=== PATIENT | male | born 1965 | race Caucasian/White ===

== ENCOUNTER 2025-09-20 11:14 | Emergency (ER) | payer MEDICAID, SELFPAY ==
--- OUTSIDE RECORDS SUMMARY | 2025-07-25 09:30 | XMS_ITS | Encounter Summary ---
Author Organization [place] [address] Care Team Providers Care Imaging Aide Name Role Phone No Pcp, Per Patient Primary Care Provider Jennifer brian Reason for Visit * Reason Comments Diabetes Encounter Details Date Type Department Care Team (Latest Contact Info) Description 07/25/2025 10:30 AM EDT Office Visit [facility] [address] [place] [address] Lauryn Moore, DP [address] [place], [place] [id number] History of transmetatarsal amputation of left foot (HCC) (Primary Dx); Diabetic polyneuropathy associated with type 2 diabetes mellitus (HCC); Acquired hammer toe of right foot Social History Tobacco Use Types Packs/Day Years Used Date Smoking Tobacco: Former Cigarettes 0.3 4 0 11/16/1986 - 11/16/1990 Passive Smoke Exposure: Never Smokeless Tobacco: Never Alcohol Use Standard Drinks/Week Comments Not Currently 4 (1 standard drink = 0.6 oz pure alcohol) Sober for 20 years until May 2022 [facility] Utilities Answer Date Recorded In the past 12 months has [employer] electric, gas, oil, or water company threatened to shut off services in your home? No 06/22/2025 Overall Financial Resource Strain (CARDIA) Answe r Date Recorded How hard is it for you to pa y for the very basics like food, housing, medical care, and heating? Somewhat hard 06/22/2025 PHQ-2 Answer Date Recorded PHQ-2 Total Score 5 07/26/2025 [facility] [place] of Occupat ional Health - Occupational Stress Questionnaire Answer Date Recorded Do you feel stress - tense, restless, nervous, or anxious, or unable to sleep at night because your mind is troubled all the time - these days? Only a little 06/22/2025 Exercise Vital Sign Answer Date Recorde d On average, how many days pe r week do you engage in moderate to strenuous exercise (like a brisk walk)? 0 days 06/22/2025 On average, how many minutes do you engage in exercise at this level? 0 min 06/22/2025 Hunger Vital Sign Answer Date Recorded Within the past 12 months, y ou worried that your food would run out before you got the money to buy more. Never true 06/22/20 25 Within the past 12 months, t he food you bought just didn't last and you didn't have money to get more. Never true 06/22/2025 PRAPARE - Transportation Answer Date Re corded In the past 12 months, has l ack of transportation kept you from medical appointments or from getting medications? No 10/17 In the past 12 months, has l ack of transportation kept you from meetings, work, or from getting things needed for daily living? No 11/10/2023 [facility] IP Transportation Answer D ate Recorded In the past 12 months, has l ack of reliable transportation kept you from medical appointments, meetings, work or from getting things needed for daily living? No 06/22/2025 Sexually Active Control Partners Comments Yes Female Sex and Gender Information Value Date Recorded Sex Assigned at Not on file Legal Sex Male 10:22 PM EDT Gender Identity Not on file Sexual Orientation Not on file Occupation Industry Job Start Date Job End Date Not on file Not on file Not on file Not on file documented as of this encounter Last Filed Vital Signs Vital Sign Reading Time Taken Comments Blood Pressure - - Pulse - - Temperature 35.7 C (96.3 F) 07/25/2025 10:33 AM EDT Respiratory Rate - - Oxygen Saturation - - Inhaled Oxygen Concentration - - Weight 114.3 kg (252 lb) 07/25/2025 10:33 AM EDT Height 185.4 cm (6' 1 ) 07/25/2025 10:33 AM EDT Body Mass Index 33.25 07/25/2025 10:33 AM EDT documented in this encounter Functional Status * Is the person deaf or does he/she have serious difficulty hearing? Answer Date of Assessment Author No 10/18/2023 11:50 AM Mckayla Pelaez RN * Is the person blind or does he/she have serious difficulty seeing even when wearing glasses? Answer Date of Assessment Author No 10/18/2023 11:50 AM Mckayla Pelaez RN * Does this person have serious difficulty walking or climbing stairs? Answer Date of Assessment Author Yes 10/18/2023 11:50 AM Mckayla Pelaez RN * Does this person have difficulty dressing or bathing? Answer Date of Assessment Author Yes 10/18/2023 11:50 AM Mckayla Pelaez RN * Because of a physical, mental or emotional condition, does this person have difficulty doing errands alone such as visiting a doctor's office or shopping? Answer Date of Assessment Author Yes 10/18/2023 11:50 AM Mckayla Pelaez RN * PHQ-2 Total Score Answer Date of Assessment Author 5 07/26/2025 9:00 AM Evelin Goldman MA * PHQ-9 Total Score Answer Date of Assessment Author 22 07/26/2025 9:00 AM Evelin Goldman MA * Question Answer Date of Assessment Author Little interest or pleasure in doing things 2 07/26/2025 9:00 AM Annie Goldman M A Feeling down, depressed, or hopeless 3 07/17 9:00 AM Annie Goldman MA Trouble falling or staying a sleep, or sleeping too much 3 07/26/2025 9:00 AM Annie Goldman MA Feeling tired or having nenita le energy 2 07/26/2025 9:00 AM Annie Goldman M A Poor appetite or overeating 3 07/26/2025 9: 00 AM Annie Goldman MA Feeling bad about yourself - or that you are a failure or have let yourself or your family down 2 07/26/2025 9:00 AM Nigel Goldman MA Trouble concentrating on thi ngs, such as reading the newspaper or watching television 3 07/26/2025 9:00 AM Annie Goldman M A Moving or speaking so slowly that other people could have noticed. Or the opposite - being so fidgety or restless that you have been moving around a lot more than usual 1 07/26/2025 9:00 AM Nigel Goldman MA Thoughts that you would be b jayla off , or of hurting yourself in some way 3 07/26/2025 9:00 AM Annie Goldman M A * PHQ-2 Total Score Answer Date of Assessment Author 5 07/26/2025 9:00 AM Evelin Goldman MA documented as of this encounter Mental Status * Because of a physical, mental or emotional condition, does this person have serious difficulty concentrating, remembering or making decisions? Answer Entry Date Author No 10/18/2023 11:50 AM Mckayla Pelaez RN documented in this encounter Progress Notes * Lauryn Moore DPM - 07/25/2025 10:30 AM EDTAssociated Problem(s): Diabetic polyneuropathy associated with type 2 diabetes mellitus (HCC) I reviewed the causes and effects of diabetic neuropathy with the patient. I discussed with Hermelindo Gunn the potential complications to include but not limited to neuropathic ulcerations, chronic neurologic pain, burning symptoms, loss or diminished sensation to hands and feet and the possible loss of balance from the disease process. I also discussed the importance of maintaining strict control of the diabetes to prevent such complications. The patient verbalized understanding of my recommendations. Discussed strict glucose control, HgA1c 11.6 * Lauryn Moore DPM - 07/25/2025 10:30 AM EDT [facility] Podiatric Surgery Outpatient Progress Note Chief Complaint: Chief Complaint Patient presents with Diabetes History of Present Illness The patient is a 60-year-old diabetic male presenting for a foot check. He reports sharp, stinging sensations in his right foot. He has not used diabetic shoes or inserts previously. His feet generally heal well. He has not had any new ulcerations or issues since his last visit. Medications: Outpatient Medications Marked as Taking for the 07/25/25 encounter (Office Visit) with Lauryn Moore DPM Medication Sig Dispense Refill [DISCONTINUED] acetaminophen (TYLENOL) 500 mg Oral Tablet Take 2 Tablets by mouth every 8 hours as needed for Pain. 30 Tablet 0 [DISCONTINUED] amLODIPine (NORVASC) 10 mg Oral Tablet Take 1 Tablet by mouth daily. 30 Tablet 0 [DISCONTINUED] aspirin 81 mg Oral Tablet, Delayed Release (E.C.) Take 1 Tablet by mouth daily (withbreakfast). 90 Tablet 3 [DISCONTINUED] atorvastatin (LIPITOR) 20 mg Oral Tablet Take 1 Tablet by mouth daily. 30 Tablet 0 [DISCONTINUED] Blood Pressure Monitor [facility] Kit 1 Units by [facility].(Non-Drug; Combo Route) route daily.1 Kit 0 [DISCONTINUED] Blood Sugar Diagnostic (ACCU-CHEK GUIDE TEST STRIPS) [facility] Strip 1 Strip by [facility].(Non-Drug; Combo Route) route 3 times daily. E11.9 300 Each 3 [DISCONTINUED] Blood-Glucose Meter [facility] Kit Check glucose TID QAC + QHS 1 Kit 0 [DISCONTINUED] Blood-Glucose Transmitter (DEXCOM G6 TRANSMITTER) [facility] Device 1 Each by [facility].(Non-Drug; Combo Route) route Every 90 Days. use transmitter to check blood glucose daily, replace every 3 months (Patient not taking: Reported on 07/26/2025) 1 Each 4 [DISCONTINUED] DEXCOM G6 MANAGEMENT INTER[employer] [facility] 1 Device by [facility].(Non-Drug; Combo Route) route continuous. use lay ups assembler to check blood glucose daily (Patient not taking: Reported on 07/26/2025) 1 Each 0 [DISCONTINUED] DEXCOM G6 SENSOR [facility] Device USE DIRECTED (Patient not taking: Reported on 07/26/2025) 3 Each 0 [DISCONTINUED] DULoxetine (CYMBALTA) 60 mg Oral Capsule, Delayed Release(E.C.) Take 1 Capsule by mouth 2 times daily. 60 Capsule 0 [DISCONTINUED] empagliflozin (JARDIANCE) 25 mg Oral Tablet Take 1 Tablet by mouth daily. 30 Tablet 0 [DISCONTINUED] folic acid (FOLVITE) 1 mg Oral Tablet Take 1 Tablet by mouth daily. Take 1 tablet bymouth once daily 30 Tablet 0 [DISCONTINUED] hydrOXYzine (ATARAX) 25 mg Oral Tablet Take 1 Tablet by mouth 3 times daily as needed. for anxiety 30 Tablet 0 [DISCONTINUED] insulin aspart U-100 (NOVOLOG) 100 unit/mL (3 mL) SubQ Insulin Pen Subcutaneous (Inject under the skin) 10 Units 3 times daily (before meals). 9 mL 0 [DISCONTINUED] insulin detemir U-100 (LEVEMIR FLEXPEN) 100 unit/mL (3 mL) SubQ Insulin Pen Subcutaneous (Inject under the skin) 45 Units every evening. INJECT 50 UNITS SUBCUTANEOUSLY EVERY MORNING AND 70 UNITS EVERY EVENING. 15 mL 0 [DISCONTINUED] insulin glargine-yfgn 100 unit/mL (3 mL) SubQ Insulin Pen Inject 45 Units under the skin nightly. [DISCONTINUED] Insulin Hughes, Disposable, (BD ULTRA-FINE MINI PEN NEEDLE) 31 gauge x 3/16 [facility] Needle Use pen needle to administer insulin from pens as directed 100 Each 0 [DISCONTINUED] Lancets (ACCU-CHEK SOFTCLIX LANCETS) [facility] USE DIRECTED E11.9 300 Each 5 [DISCONTINUED] losartan (COZAAR) 100 mg Oral Tablet Take 1 Tablet by mouth daily. 30 Tablet 0 [DISCONTINUED] metFORMIN (GLUCOPHAGE XR) 750 mg Oral ER 24 hr tablet Take 1 Tablet by mouth daily (with breakfast). 30 Tablet 0 [DISCONTINUED] methocarbamoL (ROBAXIN) 750 mg Oral Tablet Take 1 Tablet by mouth 3 times daily as needed. 90 Tablet 2 [DISCONTINUED] metoprolol succinate (TOPROL-XL) 200 mg Oral Tablet Sustained Release 24 hr Take 1 Tablet by mouth daily. 30 Tablet 0 [DISCONTINUED] oxyCODONE (ROXICODONE) 5 mg Oral Tablet Take 1 Tablet by mouth every 6 hours as needed for Acute Pain (R52). 8 Tablet 0 [DISCONTINUED] pantoprazole (PROTONIX) 40 mg Oral Tablet, Delayed Release (E.C.) Take 1 Tablet by mouth daily. 90 Tablet 1 pregabalin (LYRICA) 150 mg Oral Capsule Take 150 mg by mouth every 8 hours. 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 Sleep apnea Urinary incontinence 11/09/17 Past Surgical History: Procedure Laterality Date ACHILLES TENDON SURGERY Left 10/09/2023 Surgeon: Adrian Lazo DPM; Location: [facility]; Service: Podiatry AMPUTATION 10/08 FOOT SURGERY Left 10/06/2023 Left transmetatarsal amputation; Surgeon: Jose Angel Mills DPM; Location: [facility]; Service: Orthopedics FOOT SURGERY Left 11/12/2023 left foot incision and drainage with bone biopsy; Surgeon: Adrian Lazo DPM; Location: [facility]; Service: Podiatry FOOT SURGERY Left 11/15/2023 left foot debridement and delayed primary closure; Surgeon: Keshawn Barlow DPM; Location: [facility]; Service: Podiatry TOE AMPUTATION Left 12/12/2021 PARTIAL AMPUTATION OF LEFT SECOND TOE; Surgeon: Adrian Lazo DPM; Location: [facility]; Service: Podiatry TOE AMPUTATION Left 10/02/2023 Left third toe amputation with incision and drainage soft tissue and bone left foot; Surgeon: Jose Angel Mills DPM; Location: [facility]; Service: Podiatry TOE AMPUTATION Left 10/09/2023 revision transmetatarsal amputation left foot with percutaneous achilles tendon lengthing; Surgeon:Adrian Lazo DPM; Location: [facility]; Service: Podiatry VASCULAR SURGERY Family History Problem Relation Age of Onset Hypertension Mother Diabetes Mother Heart Disease Mother High Blood Pressure Mother High Blood Pressure Father Diabetes Father High Blood Pressure Brother Hypertension Brother Hypertension Brother Heart Disease Brother Social History: Hermelindo's social history reviewed: Social History Socioeconomic History Marital status: Spouse name: None Number of children: None Years of education: None Highest education level: None Occupational History Comment: 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 Tobacco Use Smoking status: Former Current packs/day: 0.00 Average packs/day: 0.3 packs/day for 4.0 years (1.0 ttl pk-yrs) Types: Cigarettes Start date: 11/16/1986 Quit date: 11/16/1990 Years since quittin.7 Passive exposure: Never Smokeless tobacco: Never Vaping Use Vaping status: Never Used Substance and Sexual Activity Alcohol use: Not Currently Alcohol/week: 2.4 oz Types: 4 Cans of beer per week Comment: Sober for 20 years until May 2022 Drug use: No Sexual activity: Yes Partners: Female Social Drivers of Health Financial Resource Strain: Medium Risk (06/22/2025) Overall Financial Resource Strain (CARDIA) Difficulty of Paying Living Expenses: Somewhat hard Food Insecurity: No Food Insecurity (06/22/2025) Hunger Vital Sign Worried About Running Out of Food in the Last Year: Never true Ran Out of Food in the Last Year: Never true Transportation Needs: No Transportation Needs (06/22/2025) [facility] IP Transportation In the past 12 months, has lack of reliable transportation kept you from medical appointments, meetings, work or from getting things needed for daily living?: No Physical Activity: Inactive (06/22/2025) Exercise Vital Sign Days of Exercise per Week: 0 days Minutes of Exercise per Session: 0 min Stress: No Stress Concern Present (06/22/2025) [facility] [place] of Occupational Health - Occupational Stress Questionnaire Feeling of Stress : Only a little Housing Stability: High Risk (10/27/2021) Received from [employer] PRAPARE Survey 1.0 What is your housing situation today?: I do not have housing (staying with others, in a hotel, in ashelter, living Objective: 07/25/2025 Weight: 252 lb (114.3 kg) Height: 6' 1 (185.4 cm) Body mass index is 33.25 kg/m??. Vitals: 07/25/25 1033 Temp: 96.3 ??F (35.7 ??C) Physical Exam General Appearance: Normal Vital signs: Within normal limits Back, Musculoskeletal: Right foot: Bunion, arthritis, limited toe movement Extremities: Toes: Cold Skin: Nails short Other observations: None Vascular: Dorsalis pedis and posterior tibial pulses are palpable bilateral. CFT with the leg elevated was less than 3 seconds bilateral. There is no evidence of ischemic skin changes. Temperature was warm at anterior tibia to cool at the distal digits right. Lymphatic: No popliteal lymphadenopathy noted. Neurological: Patient alert and oriented x 3, with appropriate affect, no anxiety or depression. Coordination WNL to right and left lower extremity. Decreased sharp/dull, vibratory, proprioception, light touch sensation to right and left foot. Dermatological: No open lesions, nails 1-5 right are intact. No edema, erythema, ecchymosis, open lesions, interdigital macerations or signs of infection evident at this time bilaterally. Musculoskeletal: TMA left, contracted digits 2-5 right. Results Lab Results Component Value Date HGBA1C 11.6 (A) 07/26/2025 Assessment & Plan 1. Diabetic foot care - Sharp, stinging pains in the right foot likely due to bunion and arthritis - Toes are cold with limited motion - Prescribe diabetic shoes to manage symptoms and prevent complications Follow-up - Next year for new diabetic shoes Assessment & Plan History of transmetatarsal amputation of left foot (HCC) RX for DM shoes and inserts with TMA filler left Diabetic polyneuropathy associated with type 2 diabetes mellitus (HCC) I reviewed the causes and effects of diabetic neuropathy with the patient. I discussed with Hermelindo Gunn the potential complications to include but not limited to neuropathic ulcerations, chronic neurologic pain, burning symptoms, loss or diminished sensation to hands and feet and the possible loss of balance from the disease process. I also discussed the importance of maintaining strict control of the diabetes to prevent such complications. The patient verbalized understanding of my recommendations. Discussed strict glucose control, HgA1c 11.6 Acquired hammer toe of right foot The provider educated the patient (or legal eligibility services representative) on the use of the ambient listening artificial intelligence tool, Page[employer]. They were informed that this AI tool processes the conversation to generate a clinical note with the expected benefit of improved accuracy while achieving an improved encounter experience for the patient and provider.?The provider explained that the medical information captured by the AI tool including, but not limited to, diagnoses and treatment plan would be protected in accordance with applicable privacy laws and that all diagnoses and treatment decisions would be made by the provider. The provider explained that the note generated will be reviewed bythe provider for accuracy to minimize potential errors.? The patient was given an opportunity to ask questions and opt out of proceeding with the use of the AI tool. After being informed of such information, the patient (or legal eligibility services representative), and each individual in attendance with the patient, verbally consented to the use of the AI tool. documented in this encounter Plan of Treatment Upcoming Encounters Date Type Department Care Team (Late st Contact Info) Description 10/09/2025 10:30 AM EST Office Visit [facility] [address] [place] [id number] Gordo Jordan MD [address] [place] [id number] 02/01/2026 11:00 AM EDT Office Visit [facility] [address] [facility] [address] [place] [address] Belinda Marques OD [address] [place] [address] documented as of this encounter Goals Goal Patient Goal Type Associated Problems Recent Progress Patient-Stated? Author Blood Pressure < 140/90 Blood Pressure 122/84(2024 12:48 PM EDT) No Angel Duffy MD BMI (Calculated) < 30 General 34.4(08/17/20 12:48 PM EDT) No Annie Martinez CCMA Patient to regain strength and endurance with initiation of in home therapy and completion of in home exercises. General No Montserrat Garcia RN Maintain a healthy diet, exercise regularly and maintain an ideal body weight General No Annie Meneses MA Stay Tobacco Free Lifestyle On track( 3:33 PM EDT) No Annie Martinez CCMA Check fasting glucose daily and document Lifestyle On track( 10:51 AM EST) No Radha Moreira RN LDL CALC < 100 Result Component 88(07/26/2025 10:21 AM EDT) No Angel Duffy MD HEMOGLOBIN A1C < 7.0 Result Component 11.6(07/26/20 10:27 AM EDT) No Annie Martienz CCMA Weight < 210 lb (95.255 kg) Weight 260 lb 6.4 oz (118.1 kg)( 5 12:48 PM EDT) No Angel Duffy MD documented as of this encounter Visit Diagnoses Diagnosis History of transmetatarsal amputation of left foot (HCC)- Primary Diabetic polyneuropathy associated with type 2 diabetes mellitus (HCC) Acquired hammer toe of right foot documented in this encounter Additional Health Concerns Assessment Noted Time PHQ-9 Depression Total Score: 2 06/22/20 1:46 PM EDT PHQ-2 Depression Total Score: 2 06/22/20 1:46 PM EDT documented as of this encounter Care Teams Imaging Aide Relationship Specialty Start Date End Date No Pcp, Per Patient PCP - General 06/22/25 07/25/25 documented as of this encounter
--- OUTSIDE RECORDS SUMMARY | 2025-07-26 08:45 | XMS_ITS | Encounter Summary ---
Author [place] [address] Care Team Providers Care Associate Engineer Name Role Phone Gordo Jordan MD Primary Care Prov ider Danielle Monroy RN Unavailable Unavailable Helen Patel Unavailable Unavailable Reason for Referral * Consultation (Routine) - Closed Specialty Diagnoses / Procedures Referred By Contact Referred To Contact Pharmacist - Pharmacotherapy Diagnoses Type 2 diabetes mellitus treated with insulin (HCC) Diabetic polyneuropathy associated with type 2 diabetes mellitus (HCC) Hypertension associated with diabetes (HCC) Type 2 diabetes mellitus without complication, unspecified whether long-term insulin use Ligia Brown APRN [address] [place] [id number] Phone: tel:[phone] fax:[phone] Referral ID Status Reason Start Date Expiration Date Visits Re quested Visits Authorized [id number] Closed 07/26/2025 07/26/2026 99 99 Question Answer Services Collaborative Care Management Disease Protocol Managment Reason Hypertension, Type 2 Diabetes Level of Medication Management All Levels * Consultation (Routine) - Closed Specialty Diagnoses / Procedures Referred By Sterling maguire Referred To Contact Diagnoses Primary osteoarthritis of both knees Procedures RI OFFICE/OUTPATIENT NEW MODERATE MDM 45 MINUTES Ligia Brown APRN [address] [place] [id number] Phone: tel: fax: Christiano Sanchez MD [address] [address] Phone: tel: fax: Referral ID Status Reason Start Date Expiration Date Visits Re quested Visits Authorized [id number] Closed 07/26/2025 07/26/2026 99 99 Reason for Visit * Reason Comments Diabetes Medication Refill Osteoarthritis Referral for ortho [facility] Fall Encounter Details Date Type Department Care Team (Latest Contact Info) Description 07/26/2025 9:45 AM EDT Office Visit [facility] [address] [place] [phone] Ligia Brown APRN [address] [place] [id number] Uncontrolled type 2 diabetes mellitus with hyperglycemia, with long-term current use of insulin (HCC) (Primary Dx); Diabetic polyneuropathy associated with type 2 diabetes mellitus (HCC); Hyperlipidemia associated with type 2 diabetes mellitus (HCC); Hypertension associated with diabetes (HCC); Chronic bilateral low back pain without sciatica; Major depressive disorder, recurrent severe without psychotic features (HCC); AURORA (generalized anxiety disorder); Gastroesophageal reflux disease without esophagitis; Folate deficiency; Primary osteoarthritis of both knees; Impaired mobility; Status post transmetatarsal amputation of foot, left (HCC); 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 No 06/22/2025 Overall Financial Resource Strain (CARDIA) Answe r Date Recorded How hard is it for you to pa y for the very basics like food, housing, medical care, and heating? Somewhat hard 06/22/2025 PHQ-2 Answer Date Recorded PHQ-2 Total Score 5 07/26/2025 [facility] Occupat ional Health - Occupational Stress [...] things needed for daily living? No 11/10/2023 [facility] IP Transportation Answer D ate Recorded [...] Sign Reading Time Taken Comments Blood Pressure 120/84 07/26/2025 9:29 AM EDT Pulse 108 07/26/2025 9:29 AM EDT Temperature 36.1 C (97 F) 07/26/2025 9:29 AM EDT Respiratory Rate - - Oxygen Saturation 97% 07/26/2025 9:29 AM EDT Inhaled Oxygen Concentration - - Weight 114.5 kg (252 lb 6.4 oz) 07/26/2025 9:29 AM EDT Height 185.4 cm (6' 1 ) 07/26/2025 9:29 AM EDT Body Mass Index 33.3 07/26/2025 9:29 AM EDT documented in this encounter Functional [...] Mckayla Pelaez RN documented in this encounter Ordered Prescriptions Prescription Sig Dispense Quantity Refills Last Filled Start Date End Date Blood-Glucose Meter Misc KitIndications:Unco ntrolled type 2 diabetes mellitus with hyperglycemia, with long-term current use of insulin ([facility]),Diabetic polyneuropathy associated with type 2 diabetes mellitus ([facility]) Check glucose TID QAC + QHS 1 Kit 07/26/2025 DULoxetine (CYMBALTA) 60 mg Oral Capsule, Delayed Release(E.C.)Indica tions:Diabetic polyneuropathy associated with type 2 diabetes mellitus (HCC),Major depressive disorder, recurrent severe without psychotic features (HCC),AURORA (generalized anxiety disorder) Take 1 Capsule by mouth daily. 90 Capsule 07/26/2025 DULoxetine (CYMBALTA) 60 mg Oral Capsule, Delayed Release(E.C.)Indica tions:AURORA (generalized anxiety disorder) Take 1 Capsule by mouth 2 times daily. 180 Capsule 07/26/2025 5 insulin aspart U-100 (NOVOLOG) 100 unit/mL (3 mL) SubQ Insulin PenIndications:Unco ntrolled type 2 diabetes mellitus with hyperglycemia, with long-term current use of insulin (HCC),Diabetic polyneuropathy associated with type 2 diabetes mellitus (HCC) Inject 8 Units under the skin 3 times daily (before meals). Use as directed 15 mL 1 07/26/2025 5 insulin glargine (LANTUS) 100 unit/mL (3 mL) SubQ Insulin PenIndications:Unco ntrolled type 2 diabetes mellitus with hyperglycemia, with long-term current use of insulin (HCC),Diabetic polyneuropathy associated with type 2 diabetes mellitus (HCC) Inject 50 Units under the skin every evening. 15 mL 1 07/26/2025 5 Alcohol Swabs (ALCOHOL PREP PADS) Top Pads, MedicatedIndication s:Uncontrolled type 2 diabetes mellitus with hyperglycemia, with long-term current use of insulin (HCC),Diabetic polyneuropathy associated with type 2 diabetes mellitus (HCC) Apply 1 Each topically as needed. 100 Each 30 07/26/2025 5 Insulin Dale, Disposable, (BD ULTRA-FINE MINI PEN NEEDLE) 31 gauge x 3/16 Misc NeedleIndications:U ncontrolled type 2 diabetes mellitus with hyperglycemia, with long-term current use of insulin (HCC),Diabetic polyneuropathy associated with type 2 diabetes mellitus (HCC) Use pen needle to administer insulin from pens as directed 100 Each 07/26/2025 5 acetaminophen (TYLENOL) 500 mg Oral TabletIndications:P rimary osteoarthritis of both knees Take 2 Tablets by mouth every 8 hours as needed for Pain. 90 Tablet 07/26/2025 5 diphenhydramine HCl (MAGIC MOUTHWASH) MM LiquidIndications:O ral aphthous ulcer Swish and spit 5 mL 4 times daily as needed for Pain. 120 mL 07/26/2025 5 Lancets (ACCU-CHEK SOFTCLIX LANCETS) Mis MiscIndications:Unc ontrolled type 2 diabetes mellitus with hyperglycemia, with long-term current use of insulin (HCC),Diabetic polyneuropathy associated with type 2 diabetes mellitus (HCC) USE DIRECTED E11.9 300 Each 5 07/26/2025 5 folic acid (FOLVITE) 1 mg Oral TabletIndications:F olate deficiency Take 1 Tablet by mouth daily. Take 1 tablet by mouth once daily 90 Tablet 07/26/2025 5 pantoprazole (PROTONIX) 40 mg Oral Tablet, Delayed Release (E.C.)Indications:G astroesophageal reflux disease without esophagitis Take 1 Tablet by mouth daily. 90 Tablet 07/26/2025 5 metoprolol succinate (TOPROL-XL) 200 mg Oral Tablet Sustained Release 24 hrIndications:Hyper tension associated with diabetes ([facility]) Take 1 Tablet by mouth daily. 30 Tablet 07/26/2025 5 losartan (COZAAR) 100 mg Oral TabletIndications:H ypertension associated with diabetes ([facility]) Take 1 Tablet by mouth daily. 90 Tablet 07/26/2025 5 empagliflozin (JARDIANCE) 25 mg Oral TabletIndications:U ncontrolled type 2 diabetes mellitus with hyperglycemia, with long-term current use of insulin ([facility]),Diabetic polyneuropathy associated with type 2 diabetes mellitus (HCC) Take 1 Tablet by mouth daily. 30 Tablet 07/26/2025 5 atorvastatin (LIPITOR) 20 mg Oral TabletIndications:H yperlipidemia associated with type 2 diabetes mellitus ([facility]) Take 1 Tablet by mouth daily. 90 Tablet 07/26/2025 5 metFORMIN (GLUCOPHAGE XR) 750 mg Oral ER 24 hr tabletIndications:U ncontrolled type 2 diabetes mellitus with hyperglycemia, with long-term current use of insulin ([facility]),Diabetic polyneuropathy associated with type 2 diabetes mellitus (HCC) Take 1 Tablet by mouth daily (with breakfast). 90 Tablet 07/26/2025 5 aspirin 81 mg Oral Tablet, Delayed Release (E.C.)Indications:U ncontrolled type 2 diabetes mellitus with hyperglycemia, with long-term current use of insulin ([facility]),Hypertension associated with diabetes ([facility]) Take 1 Tablet by mouth daily (with breakfast). 90 Tablet 07/26/2025 5 hydrOXYzine (ATARAX) 25 mg Oral TabletIndications:G AD (generalized anxiety disorder) Take 1 Tablet by mouth 3 times daily as needed. for anxiety 90 Tablet 07/26/2025 5 methocarbamoL (ROBAXIN) 750 mg Oral TabletIndications:C hronic bilateral low back pain without sciatica,Primary osteoarthritis involving multiple joints Take 1 Tablet by mouth 3 times daily as needed for Pain. 90 Tablet 07/26/2025 5 Blood Pressure Monitor Misc KitIndications:Unco ntrolled type 2 diabetes mellitus with hyperglycemia, with long-term current use of insulin (HCC),Diabetic polyneuropathy associated with type 2 diabetes mellitus (HCC) 1 Units by Misc.(Non-Drug; Combo Route) route daily. 1 Kit 07/26/2025 5 Blood Sugar Diagnostic (ACCU-CHEK GUIDE TEST STRIPS) Misc StripIndications:Un controlled type 2 diabetes mellitus with hyperglycemia, with long-term current use of insulin (HCC),Diabetic polyneuropathy associated with type 2 diabetes mellitus (HCC) 1 Strip by Misc.(Non-Drug; Combo Route) route 3 times daily. E11.9 300 Each 3 07/26/2025 5 documented in this encounter Progress Notes * Ligia Brown APRN - 07/26/2025 9:45 AM EDTAssociated Problem(s): Diabetic polyneuropathy associated with type 2 diabetes mellitus (HCC) Duloxetine refilled at 60 mg daily Patient requested refill of Lyrica (150 mg every 8 hours) - not provided. All new requests for controlled substances will need to be discussed with Dr. Jordan. Additionally, his renal function will need to be checked prior to proceeding given recent DEMAR. During recent hospitalization 1 month ago, renally adjusted dose of Lyrica was required decreasing from 150 mg to 75 mg every 8 hours Orders: ??? Blood-Glucose Meter Misc Kit; Check glucose TID QAC + QHS ??? Blood Sugar Diagnostic (ACCU-CHEK GUIDE TEST STRIPS) Misc Strip; 1 Strip by Misc.(Non-Drug; Combo Route) route 3 times daily. E11.9 ??? Blood Pressure Monitor Misc Kit; 1 Units by Misc.(Non-Drug; Combo Route) route daily. ??? metFORMIN (GLUCOPHAGE XR) 750 mg Oral ER 24 hr tablet; Take 1 Tablet by mouth daily (with breakfast). ??? empagliflozin (JARDIANCE) 25 mg Oral Tablet; Take 1 Tablet by mouth daily. ??? Lancets (ACCU-CHEK SOFTCLIX LANCETS) [facility]; USE DIRECTED E11.9 ??? POCT GLYCATED HEMOGLOBIN, TOTAL ??? COMPREHENSIVE METABOLIC PANEL; Future ??? CBC WITH DIFF; Future ??? LIPID PANEL REFLEX; Future ??? MICROALBUMIN/CREATININE RATIO URINE; Future ??? Insulin Dale, Disposable, (BD ULTRA-FINE MINI PEN NEEDLE) 31 gauge x 3/16 [facility] Needle; Use pen needle to administer insulin from pens as directed ??? Alcohol Swabs (ALCOHOL PREP PADS) Top Pads, Medicated; Apply 1 Each topically as needed. ??? insulin glargine (LANTUS) 100 unit/mL (3 mL) SubQ Insulin Pen; Inject 50 Units under the skin every evening. ??? insulin aspart U-100 (NOVOLOG) 100 unit/mL (3 mL) SubQ Insulin Pen; Inject 8 Units under the skin 3 times daily (before meals). Use as directed ??? AMB REFERRAL TO PHARMACY/MEDICATION MANAGEMENT ??? DULoxetine (CYMBALTA) 60 mg Oral Capsule, Delayed Release(E.C.); Take 1 Capsule by mouth daily. * Ligia Brown APRN - 07/26/2025 9:45 AM EDTAssociated Problem(s): Hypertension associated with diabetes (HCC) Goal BP: <130/90 BP Readings from Last 3 Encounters: 07/26/25 120/84 06/26/25 139/83 06/21/25 102/50 - at goal Compliance: - non-compliant with medication. Advised to take medication as prescribed. Home Blood Pressure Monitoring: - recommended a home BP monitoring kit Advice: - weight loss - reduced salt intake ( <1500 mg per day) - increased physical activity - reduced alcohol consumption - DASH diet (consume a diet rich in fruits, vegetables, whole grains, and low- fat dairy products, with reduced content of saturated and total fat) - increased dietary potassium consumption (6652-1428 mg of potassium per day) Medication Management: - medication management decisions took place at today's visit (see orders) - a reassessment of the patients current diagnoses, medications, labs, potential SE, appropriate dose and risks assessed and discussed today Previous regimen: Amlodipine 10 mg daily Losartan 100 mg daily Toprol XL 200 mg daily Given normal BP today after being unmedicated for at least 1+ month, amlodipine and losartan discontinued due to risk of hypotension Toprol-XL refilled - ok to resume given tachycardia Orders: ??? aspirin 81 mg Oral Tablet, Delayed Release (E.C.); Take 1 Tablet by mouth daily (with breakfast). ??? metoprolol succinate (TOPROL-XL) 200 mg Oral Tablet Sustained Release 24 hr; Take 1 Tablet by mouth daily. ??? COMPREHENSIVE METABOLIC PANEL; Future ??? CBC WITH DIFF; Future ??? MICROALBUMIN/CREATININE RATIO URINE; Future ??? AMB REFERRAL TO PHARMACY/MEDICATION MANAGEMENT * Ligia Brown APRN - 07/26/2025 9:45 AM EDTAssociated Problem(s): Chronic bilateral low back pain without sciatica Methocarbamol and acetaminophen refilled Patient requested refill of oxycodone - not provided as this does not appear to be an active prescription. Only prescription listed appeared to be for acute pain prescribed on 02/14/2024. PDMP showed no controlled substances dispensed within the last year. All new requests for controlled substances will need to be discussed with Dr. Jordan. Orders: ??? methocarbamoL (ROBAXIN) 750 mg Oral Tablet; Take 1 Tablet by mouth 3 times daily as needed for Pain. * Ligia Brown APRN - 07/26/2025 9:45 AM EDTAssociated Problem(s): Major depressive disorder, recurrent severe without psychotic features (HCC) Goal: achieve mental health wellness where ADLs, family, social and work relationships are optimal Depression Screen Score: 07/26/2025 06/22/2025 11/10/2023 Screenings PHQ-2 Total Score 5 2 0 PHQ-9 Total Score 22 2 0 Addressed: - Current stressors contributing to sx explored and discussed Compliance: - non-compliant with medication. Advised to take medication as prescribed. Advice: - remain compliant with follow up and medications Medication Management: - medication management decisions took place at today's visit (see orders) - a reassessment of the patients current diagnoses, medications, labs, potential SE, appropriate dose and risks assessed and discussed today Previous regimen: Duloxetine 60 mg twice daily Hydroxyzine 25 mg 3 times daily as needed Restart duloxetine at 1 capsule daily -prescription sent; can increase to twice daily if needed Hydroxyzine refill sent Orders: ??? hydrOXYzine (ATARAX) 25 mg Oral Tablet; Take 1 Tablet by mouth 3 times daily as needed. for anxiety ??? DULoxetine (CYMBALTA) 60 mg Oral Capsule, Delayed Release(E.C.); Take 1 Capsule by mouth daily. RI BEHAV ASSMT W/SCORE & DOCD/STAND INSTRUMENT * Ligia Brown APRN - 07/26/2025 9:45 AM EDTAssociated Problem(s): Hyperlipidemia associated with type 2 diabetes mellitus (HCC) Atorvastatin 20 mg daily refilled CMP and lipid panel ordered Orders: ??? atorvastatin (LIPITOR) 20 mg Oral Tablet; Take 1 Tablet by mouth daily. ??? COMPREHENSIVE METABOLIC PANEL; Future ??? CBC WITH DIFF; Future ??? LIPID PANEL REFLEX; Future * Ligia Brown APRN - 07/26/2025 9:45 AM EDTAssociated Problem(s): Folate deficiency (Resolved 08/07/2025) Folic acid refilled Orders: ??? folic acid (FOLVITE) 1 mg Oral Tablet; Take 1 Tablet by mouth daily. Take 1 tablet by mouth once daily ??? CBC WITH DIFF; Future * Ligia Brown APRN - 07/26/2025 9:45 AM EDTAssociated Problem(s): AURORA (generalized anxiety disorder) Goal: achieve mental health wellness where ADLs, family, social and work relationships are optimal Depression Screen Score: 07/26/2025 06/22/2025 11/10/2023 Screenings PHQ-2 Total Score 5 2 0 PHQ-9 Total Score 22 2 0 Addressed: - Current stressors contributing to sx explored and discussed Compliance: - non-compliant with medication. Advised to take medication as prescribed. Advice: - remain compliant with follow up and medications Medication Management: - medication management decisions took place at today's visit (see orders) - a reassessment of the patients current diagnoses, medications, labs, potential SE, appropriate dose and risks assessed and discussed today Previous regimen: Duloxetine 60 mg twice daily Hydroxyzine 25 mg 3 times daily as needed Restart duloxetine at 1 capsule daily -prescription sent; can increase to twice daily if needed Hydroxyzine refill sent Orders: ??? hydrOXYzine (ATARAX) 25 mg Oral Tablet; Take 1 Tablet by mouth 3 times daily as needed. for anxiety ??? DULoxetine (CYMBALTA) 60 mg Oral Capsule, Delayed Release(E.C.); Take 1 Capsule by mouth daily. RI BEHAV ASSMT W/SCORE & DOCD/STAND INSTRUMENT * Ligia Brown APRN - 07/26/2025 9:45 AM EDTAssociated Problem(s): Status post transmetatarsal amputation of foot, left (HCC) Follows with podiatry; new orthotic shoes ordered recently per patient clinical trials data coordinator will assist with ordering new walker, per patient request There is mobility impairment that cannot be corrected with a cane, but potential for ambulation. Due to the patient's medical condition of primary osteoarthritis involving multiple joints, contracture of joints of left foot/ankle, and prior post transmetatarsal amputation of left foot due to infected diabetic foot wound and general weakness, he will need a rollator/walker to assist with everyday A DLs. He is currently using this, but it needs to be replaced. A cane has bee ruled out as unsuccessful with asissting with ambulation. The patient has to take frequent breaks and needs to be able to sit when needed. Orders: ??? methocarbamoL (ROBAXIN) 750 mg Oral Tablet; Take 1 Tablet by mouth 3 times daily as needed for Pain. * Ligia Brown APRN - 07/26/2025 9:45 AM EDTAssociated Problem(s): Contracture of joints of both ankle and foot of left lower extremity Follows with podiatry; new orthotic shoes ordered recently per patient clinical trials data coordinator will assist with ordering new walker, per patient request There is mobility impairment that cannot be corrected with a cane, but potential for ambulation. Due to the patient's medical condition of primary osteoarthritis involving multiple joints, contracture of joints of left foot/ankle, and prior post transmetatarsal amputation of left foot due to infected diabetic foot wound and general weakness, he will need a rollator/walker to assist with everyday A DLs. He is currently using this, but it needs to be replaced. A cane has bee ruled out as unsuccessful with asissting with ambulation. The patient has to take frequent breaks and needs to be able to sit when needed. Orders: ??? methocarbamoL (ROBAXIN) 750 mg Oral Tablet; Take 1 Tablet by mouth 3 times daily as needed for Pain. * Ligia Brown APRN - 07/26/2025 9:45 AM EDT Images from the original note were not included. Follow-up next appointment: Return in about 2 weeks (around 08/09/2025) for DM/HLD/HTN follow up, establish care w/ . Future Appointments Date Time Provider Department Center 08/04/2025 9:00 AM Belinda Marques, SHAE [facility] 08/30/2025 10:30 AM Ainsley Luther, DO [facility] Health Maintenance Due Topic Date Due ??? Colon Cancer Screening Never done ??? Zoster (1 of 2) Never done ??? Pneumococcal Vaccine 50+ (2 of 2 - PCV) 03/10/2017 ??? DTaP/TDaP/Td (2 - Td or Tdap) 11/16/2018 ??? Hepatitis B Vaccine (2 of 3 - 19+ 3-dose series) 09/01/2019 ??? Lipids 01/07/2024 ??? Annual Wellness Exam 01/07/2024 ??? Diabetic Eye Exam 08/06/2024 ??? COVID-19 Vaccine ( season) 2025 Assessment & Plan Assessment & Plan Uncontrolled type 2 diabetes mellitus with hyperglycemia, with long-term current use of insulin ([facility]) Goal A1C: < 6.5 and TIR >70% - Last A1c - 11.6 - 07/26/2025 - not at goal - A1C ordered today Compliance: - non-compliant with diet and medication. Advised to follow a low carbohydrate / diabetic diet and take medications as prescribed Home Glucose Monitoring: - none Retinopathy Screening: - patient referred to Ophthalmology Nephropathy Assessment: - microalbumin ordered today Foot Assessment: - followed by Podiatry Diet Advice: - discussed improving diet by reducing carbohydrates at today's visit Statin Therapy: - currently on a statin Medication Management: - medication management decisions took place at today's visit (see orders) - a reassessment of the patients current diagnoses, medications, labs, potential SE, appropriate dose and risks assessed and discussed today Uncontrolled Noncompliant with all medications for at least 1 month POCT A1C today 11.6 Pharmacy CCA ordered. Dejan Malagon, PharmD met with the patient to review all medications and determine appropriate dosing for restarting insulin. Prescription sent for: Metformin ER 750 mg daily Jardiance 25 mg daily Lantus 50 units nightly NovoLog 8 units 3 times daily Check BGL 4 times daily - new glucometer ordered F/U in 2-3 weeks to reassess Orders: ??? Blood-Glucose Meter Misc Kit; Check glucose TID QAC + QHS ??? Blood Sugar Diagnostic (ACCU-CHEK GUIDE TEST STRIPS) Misc Strip; 1 Strip by Misc.(Non-Drug; Combo Route) route 3 times daily. E11.9 ??? Blood Pressure Monitor Misc Kit; 1 Units by Misc.(Non-Drug; Combo Route) route daily. ??? aspirin 81 mg Oral Tablet, Delayed Release (E.C.); Take 1 Tablet by mouth daily (with breakfast). ??? metFORMIN (GLUCOPHAGE XR) 750 mg Oral ER 24 hr tablet; Take 1 Tablet by mouth daily (with breakfast). ??? empagliflozin (JARDIANCE) 25 mg Oral Tablet; Take 1 Tablet by mouth daily. ??? Lancets (ACCU-CHEK SOFTCLIX LANCETS) [facility] Misc; USE DIRECTED E11.9 ??? POCT GLYCATED HEMOGLOBIN, TOTAL ??? COMPREHENSIVE METABOLIC PANEL; Future ??? CBC WITH DIFF; Future ??? LIPID PANEL REFLEX; Future ??? MICROALBUMIN/CREATININE RATIO URINE; Future ??? Insulin Dale, Disposable, (BD ULTRA-FINE MINI PEN NEEDLE) 31 gauge x 3/16 Misc Needle; Use pen needle to administer insulin from pens as directed ??? Alcohol Swabs (ALCOHOL PREP PADS) Top Pads, Medicated; Apply 1 Each topically as needed. ??? insulin glargine (LANTUS) 100 unit/mL (3 mL) SubQ Insulin Pen; Inject 50 Units under the skin every evening. ??? insulin aspart U-100 (NOVOLOG) 100 unit/mL (3 mL) SubQ Insulin Pen; Inject 8 Units under the skin 3 times daily (before meals). Use as directed ??? AMB REFERRAL TO PHARMACY/MEDICATION MANAGEMENT Diabetic polyneuropathy associated with type 2 diabetes mellitus (HCC) Duloxetine refilled at 60 mg daily Patient requested refill of Lyrica (150 mg every 8 hours) - not provided. All new requests for controlled substances will need to be discussed with Dr. oJrdan. Additionally, his renal function will need to be checked prior to proceeding given recent DEMAR. During recent hospitalization 1 month ago, renally adjusted dose of Lyrica was required decreasing from 150 mg to 75 mg every 8 hours Orders: ??? Blood-Glucose Meter Misc Kit; Check glucose TID QAC + QHS ??? Blood Sugar Diagnostic (ACCU-CHEK GUIDE TEST STRIPS) Misc Strip; 1 Strip by Mis.(Non-Drug; Combo Route) route 3 times daily. E11.9 ??? Blood Pressure Monitor Misc Kit; 1 Units by Misc.(Non-Drug; Combo Route) route daily. ??? metFORMIN (GLUCOPHAGE XR) 750 mg Oral ER 24 hr tablet; Take 1 Tablet by mouth daily (with breakfast). ??? empagliflozin (JARDIANCE) 25 mg Oral Tablet; Take 1 Tablet by mouth daily. ??? Lancets (ACCU-CHEK SOFTCLIX LANCETS) [facility]; USE DIRECTED E11.9 ??? POCT GLYCATED HEMOGLOBIN, TOTAL ??? COMPREHENSIVE METABOLIC PANEL; Future ??? CBC WITH DIFF; Future ??? LIPID PANEL REFLEX; Future ??? MICROALBUMIN/CREATININE RATIO URINE; Future ??? Insulin Dale, Disposable, (BD ULTRA-FINE MINI PEN NEEDLE) 31 gauge x 3/16 Misc Needle; Use pen needle to administer insulin from pens as directed ??? Alcohol Swabs (ALCOHOL PREP PADS) Top Pads, Medicated; Apply 1 Each topically as needed. ??? insulin glargine (LANTUS) 100 unit/mL (3 mL) SubQ Insulin Pen; Inject 50 Units under the skin every evening. ??? insulin aspart U-100 (NOVOLOG) 100 unit/mL (3 mL) SubQ Insulin Pen; Inject 8 Units under the skin 3 times daily (before meals). Use as directed ??? AMB REFERRAL TO PHARMACY/MEDICATION MANAGEMENT ??? DULoxetine (CYMBALTA) 60 mg Oral Capsule, Delayed Release(E.C.); Take 1 Capsule by mouth daily. Hyperlipidemia associated with type 2 diabetes mellitus (HCC) Atorvastatin 20 mg daily refilled CMP and lipid panel ordered Orders: ??? atorvastatin (LIPITOR) 20 mg Oral Tablet; Take 1 Tablet by mouth daily. ??? COMPREHENSIVE METABOLIC PANEL; Future ??? CBC WITH DIFF; Future ??? LIPID PANEL REFLEX; Future Hypertension associated with diabetes (HCC) Goal BP: <130/90 BP Readings from Last 3 Encounters: 07/26/25 120/84 06/26/25 139/83 06/21/25 102/50 - at goal Compliance: - non-compliant with medication. Advised to take medication as prescribed. Home Blood Pressure Monitoring: - recommended a home BP monitoring kit Advice: - weight loss - reduced salt intake ( <1500 mg per day) - increased physical activity - reduced alcohol consumption - DASH diet (consume a diet rich in fruits, vegetables, whole grains, and low- fat dairy products, with reduced content of saturated and total fat) - increased dietary potassium consumption (6636-4894 mg of potassium per day) Medication Management: - medication management decisions took place at today's visit (see orders) - a reassessment of the patients current diagnoses, medications, labs, potential SE, appropriate dose and risks assessed and discussed today Previous regimen: Amlodipine 10 mg daily Losartan 100 mg daily Toprol XL 200 mg daily Given normal BP today after being unmedicated for at least 1+ month, amlodipine and losartan discontinued due to risk of hypotension Toprol-XL refilled - ok to resume given tachycardia Orders: ??? aspirin 81 mg Oral Tablet, Delayed Release (E.C.); Take 1 Tablet by mouth daily (with breakfast). ??? metoprolol succinate (TOPROL-XL) 200 mg Oral Tablet Sustained Release 24 hr; Take 1 Tablet by mouth daily. ??? COMPREHENSIVE METABOLIC PANEL; Future ??? CBC WITH DIFF; Future ??? MICROALBUMIN/CREATININE RATIO URINE; Future ??? AMB REFERRAL TO PHARMACY/MEDICATION MANAGEMENT Chronic bilateral low back pain without sciatica Methocarbamol and acetaminophen refilled Patient requested refill of oxycodone - not provided as this does not appear to be an active prescription. Only prescription listed appeared to be for acute pain prescribed on 02/14/2024. PDMP showed no controlled substances dispensed within the last year. All new requests for controlled substances will need to be discussed with Dr. Jordan. Orders: ??? methocarbamoL (ROBAXIN) 750 mg Oral Tablet; Take 1 Tablet by mouth 3 times daily as needed for Pain. Major depressive disorder, recurrent severe without psychotic features (HCC) AURORA (generalized anxiety disorder) Goal: achieve mental health wellness where ADLs, family, social and work relationships are optimal Depression Screen Score: 07/26/2025 06/22/2025 11/10/2023 Screenings PHQ-2 Total Score 5 2 0 PHQ-9 Total Score 22 2 0 Addressed: - Current stressors contributing to sx explored and discussed Compliance: - non-compliant with medication. Advised to take medication as prescribed. Advice: - remain compliant with follow up and medications Medication Management: - medication management decisions took place at today's visit (see orders) - a reassessment of the patients current diagnoses, medications, labs, potential SE, appropriate dose and risks assessed and discussed today Previous regimen: Duloxetine 60 mg twice daily Hydroxyzine 25 mg 3 times daily as needed Restart duloxetine at 1 capsule daily -prescription sent; can increase to twice daily if needed Hydroxyzine refill sent Orders: ??? hydrOXYzine (ATARAX) 25 mg Oral Tablet; Take 1 Tablet by mouth 3 times daily as needed. for anxiety ??? DULoxetine (CYMBALTA) 60 mg Oral Capsule, Delayed Release(E.C.); Take 1 Capsule by mouth daily. RI BEHAV ASSMT W/SCORE & DOCD/STAND INSTRUMENT Gastroesophageal reflux disease without esophagitis Compliance: - non-compliant with medication. Advised to take medication as prescribed. Advice: - avoid foods that trigger reflux symptoms: caffeine, chocolate, tomato based, fatty and spicy foods - avoid overeating and meals 2-3 hours before bedtime - avoid alcohol - reduce weight Medication Management: - medication management decisions took place at today's visit (see orders) PPI refilled Orders: ??? pantoprazole (PROTONIX) 40 mg Oral Tablet, Delayed Release (E.C.); Take 1 Tablet by mouth daily. Folate deficiency Folic acid refilled Orders: ??? folic acid (FOLVITE) 1 mg Oral Tablet; Take 1 Tablet by mouth daily. Take 1 tablet by mouth once daily ??? CBC WITH DIFF; Future Primary osteoarthritis of both knees Tylenol refill Referred to Ortho, per patient request Orders: ??? AMB REFERRAL TO ORTHOPEDIC SURGERY ??? acetaminophen (TYLENOL) 500 mg Oral Tablet; Take 2 Tablets by mouth every 8 hours as needed forPain. Impaired mobility Status post transmetatarsal amputation of foot, left (HCC) Contracture of joints of both ankle and foot of left lower extremity Primary osteoarthritis involving multiple joints Follows with podiatry; new orthotic shoes ordered recently per patient clinical trials data coordinator will assist with ordering new walker, per patient request There is mobility impairment that cannot be corrected with a cane, but potential for ambulation. Due to the patient's medical condition of primary osteoarthritis involving multiple joints, contracture of joints of left foot/ankle, and prior post transmetatarsal amputation of left foot due to infected diabetic foot wound and general weakness, he will need a rollator/walker to assist with everyday A DLs. He is currently using this, but it needs to be replaced. A cane has bee ruled out as unsuccessful with asissting with ambulation. The patient has to take frequent breaks and needs to be able to sit when needed. Orders: ??? methocarbamoL (ROBAXIN) 750 mg Oral Tablet; Take 1 Tablet by mouth 3 times daily as needed for Pain. Screening for prostate cancer Orders: ??? PROSTATE SPECIFIC ANTIGEN (SCREENING); Future Oral aphthous ulcer Self-limiting Discussed symptomatic management Viscous lidocaine prescribed Subjective Hermelindo Gunn is a 60 y.o. male Chief Complaint Patient presents with ??? Diabetes ??? Medication Refill ??? Osteoarthritis Referral for ortho Walker ??? Fall History of Present Illness The patient presents for multiple complaints. Patient has an appointment next month to establish care with this office. He has been without his medications for at least a month due to insurance issues, necessitating a new physician. He requires refills for his medications and is transitioning to [place] Medicaid. He has been living in [place] for 15 months until recently. He experiences frequent falls and persistent bilateral knee pain, managed with a walker. He has nothad any knee surgeries. His last consultation 3.5 years ago revealed [id number] contact in his knees. He recently visited a marketing research intern who prescribed orthotic shoes, which he will start using tomorrow. He had all five toes removed due to gangrene and underwent Achilles tendon stretching. Due to kisha issues, he is requesting a referral to Ortho and a new walker. He previously used a glucometer to monitor his blood sugar levels several times a day, but no longer has a glucometer and is requesting to have a new one ordered. He previously used a Dexcom and would prefer not to use this again. He was previously using Humalog on a sliding scale and Lantus 50 units at night, but he has reportedly been out of these medications for several months. His last blood sugar check during a hospital stay on 06/26/2025 for dehydration and acute kidney injury showed an A1c of 11.1. No new insulin was prescribed upon discharge. 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 He has been off blood pressure medications for about a month as well. He has a sore on the side of his tongue and suspects tooth decay. He plans to get dentures and has a dentist appointment on 08/04/2025. PAST SURGICAL HISTORY: He had the removal of five toes due to gangrene and Achilles tendon stretching. FAMILY HISTORY - Mother had diabetes and heart trouble See Assessment and Plan for additional HPI information Review of Systems Complete 10 system review of systems was negative unless noted above. Objective Blood pressure 120/84, pulse 108, temperature 97 ??F (36.1 ??C), temperature source Forehead, height 6' 1 (1.854 m), weight 252 lb 6.4 oz (114.5 kg), SpO2 97%. Body mass index is 33.3 kg/m??. Physical Exam General Appearance: Alert, well developed, well nourished, in no acute distress. Not ill-appearing or toxic appearing. Vital signs: Pulse elevated at 108, otherwise within normal limits HEENT: Mouth/Throat: Small shallow ulcer on the left side of the tongue, without surrounding erythema or drainage. Respiratory: Clear to auscultation, no wheezing, rales, or rhonchi. Cardiovascular: Tachycardic rate. Regular rhythm. No murmurs, rubs, gallops. Gastrointestinal: There is no distension. Skin: Warm and dry, no rash Neurological: Alert. Psychiatric: Mood and Affect: Mood normal. Behavior: Behavior normal. Physical Exam Results - Labs: - A1c: 11.1 (06/2025) Results for orders placed or performed in visit on 07/26/25 POCT GLYCATED HEMOGLOBIN, TOTAL Result Value Ref Range Hemoglobin A1C 11.6 (A) 4 - 6 % Lot Number Expiration Date SeriAl # Ligia Brown APRN Patient's chronic conditions including the above are being managed and monitored by me as detailed today, with routine follow up appointments every 3-6 months. The provider educated the patient (or legal financial representative) on the use of the ambient listening artificial intelligence tool, [employer]. They were informed that this AI tool [...] of such information, the patient (or legal financial representative), and each individual in attendance with the patient, verbally consented to the use of the AI tool. * Dejan Malagon PharmD - 07/26/2025 9:45 AM EDT Pharmacy Consult 07/26/2025 with Dejan Malaogn PharmD: The use of daily insulin injections, need for home glucose monitoring regularly, (especially initially and when changing dose increasing checks to tid-qid), and symptoms of potential hypoglycemia arediscussed. Requested patient restart insulin administration. Patient directed to use 50 units of glargine nightly and 8 units of mealtime TID AC. Patient also educated on Metformin usage. Patient concerned about how to take best to avoid adverseeffects. Requested patient take with breakfast, but that if he does not eat breakfast that it's ok to take with lunch to improve tolerability. Thank you, Dejan Malagon PharmD Engineering Geologist Pharmacist [facility] 07/26/2025 12:08 PM documented in this encounter Miscellaneous Notes * Addendum Note - Ligia Brown APRN - 07/26/2025 9:45 AM EDTAddended by: LIGIA BROWN on: 07/28/2025 12:29 PM Modules accepted: Orders documented in this encounter Plan of Treatment Upcoming Encounters Date Type Department Care Team (Late st Contact Info) Description 10/09/2025 10:30 AM EST Office Visit [facility] [address] [place] [phone] Gordo Jordan MD [address] [place] [id number] 02/01/2026 11:00 AM EDT Office Visit [facility] [address] [facility] [address] [place] [phone] Belinda Marques OD [address] [place] [address] Scheduled Orders Name Type Priority Associated Diagnoses Orde r Schedule RI BEHAV ASSMT W/SCORE & DOCD/STAND INSTRUMENT RI Charge Routine Major depressive disorder, recurrent severe without psychotic features (HCC) AURORA (generalized anxiety disorder) Ordered: 07/26/2025 Scheduled Referrals Name Type Priority Associated Diagnoses Orde r Schedule AMB REFERRAL TO ORTHOPEDIC SURGERY Outpatient Referral Routine Primary osteoarthritis of both knees Ordered: 07/26/2025 AMB REFERRAL TO PHARMACY/MEDICATION MANAGEMENT Outpatient Referral Routine Uncontrolled type 2 diabetes mellitus with hyperglycemia, with long-term current use of insulin (HCC) Diabetic polyneuropathy associated with type 2 diabetes mellitus (HCC) Hypertension associated with diabetes (HCC) Ordered: 07/26/2025 documented as of this encounter Goals Goal Patient Goal Type Associated Problems Recent Progress Patient-Stated? Author Blood Pressure < 140/90 Blood Pressure 122/84(08/17 12:48 PM EDT) No Angel Duffy MD BMI (Calculated) < 30 General 34.4( 12:48 PM EDT) No Annie Martinez CCMA Patient to regain strength and endurance with initiation of in home therapy and completion of in home exercises. General No Montserrat Garcia RN Maintain a healthy diet, exercise regularly and maintain an ideal body weight General No Annie Meneses MA Patient will utilize consume 4-5 meals a days following diabetic dietary guidelines 3 days a week over the next 6 weeks General Not on track(2024 10:04 AM EDT) Yes Danielle Monroy RN Patient will utilize glucometer to monitor blood glucose levels 3 times a day and bring log to next follow up appointment with healthcare network pricing consultant General Not on track(2024 10:05 AM EDT) Yes Danielle Monroy RN Stay Tobacco Free Lifestyle On track(2021 3:33 PM EDT) No Annie Martinez CCMA Check fasting glucose daily and document Lifestyle On track(2021 10:51 AM EST) No Radha Moreira RN LDL CALC < 100 Result Component 88( 10:21 AM EDT) No Angel Duffy MD HEMOGLOBIN A1C < 7.0 Result Component 11.6(09/10/2 025 10:27 AM EDT) No Annie Martinez CCMA Weight < 210 lb (95.255 kg) Weight 260 lb 6.4 oz (118.1 kg)(08/17/20 12:48 PM EDT) Angel Cardona MD documented as of this encounter Procedures Procedure Name Priority Date/Time Associated Diagnosis Comments POCT GLYCATED HEMOGLOBIN, TOTAL Routine 07/26/2025 10:27 AM EDT Uncontrolled type 2 diabetes mellitus with hyperglycemia, with long-term current use of insulin (HCC) Diabetic polyneuropathy associated with type 2 diabetes mellitus (HCC) LIPID PANEL REFLEX Routine 07/26/2025 10 :21 AM EDT Uncontrolled type 2 diabetes mellitus with hyperglycemia, with long-term current use of insulin (HCC) Diabetic polyneuropathy associated with type 2 diabetes mellitus (HCC) Hyperlipidemia associated with type 2 diabetes mellitus (HCC) PROSTATE SPECIFIC ANTIGEN (SCREENING) Routine 07/26/2025 10:21 AM EDT Screening for prostate cancer ALBUMIN/CREATININE RATIO, RANDOM URINE Routine 07/26/2025 10:21 AM EDT Uncontrolled type 2 diabetes mellitus with hyperglycemia, with long-term current use of insulin (HCC) Diabetic polyneuropathy associated with type 2 diabetes mellitus (HCC) Hypertension associated with diabetes (HCC) CBC WITH DIFF Routine 07/26/2025 10:21 AM EDT Uncontrolled type 2 diabetes mellitus with hyperglycemia, with long-term current use of insulin (HCC) Diabetic polyneuropathy associated with type 2 diabetes mellitus (HCC) Hyperlipidemia associated with type 2 diabetes mellitus (HCC) Hypertension associated with diabetes (HCC) Folate deficiency COMPREHENSIVE METABOLIC PANEL Routine 07/26/2025 10:21 AM EDT Uncontrolled type 2 diabetes mellitus with hyperglycemia, with long-term current use of insulin (HCC) Diabetic polyneuropathy associated with type 2 diabetes mellitus (HCC) Hyperlipidemia associated with type 2 diabetes mellitus (HCC) Hypertension associated with diabetes (HCC) documented in this encounter Results * (ABNORMAL) POCT GLYCATED HEMOGLOBIN, TOTAL (07/26/2025 10:27 AM EDT) Hemoglobin A1C 11.6(A) 4 - 6 % SEP OFFICE Lot Number SEP OFFICE Expiration Date SEP OFFICE SeriAl # SEP OFFICE 07/26/2025 10:2 7 AM EDT us Ligia Brown APRN POINT OF CARE TEST ORDERABL ES Final Result Performing Organization Address City/[facility]/ZIP Co de Phone Number SEP OFFICE * (ABNORMAL) MICROALBUMIN/CREATININE RATIO URINE (07/26/2025 10:21 AM EDT) Urine Albumin 34.5 mg/L 07/26/2025 4:58 PM EDT [facility] Urine Creatinine 101.0 mg/dL 07/26/2025 4:58 PM EDT [facility] Ur Albumin/Creat Ratio 34(H) 0 - 30 mg/g 07/26/2025 4:58 PM EDT [facility] Urine STRUCTURE OF URINARY TRACT PROPER / Unknown 07/26/2025 10:21 AM EDT 07/26/2025 10:21 AM EDT us Ligia Brown APRN URINE ORDERABLES Final Resu lt [facility] [address] [place] [address], [place] [address] [facility] [address] [place] [address] * PROSTATE SPECIFIC ANTIGEN (SCREENING) (07/26/2025 10:21 AM EDT) Total Psa 2.79 <=4.00 ng/mL 07/26/2025 5:41 PM EDT [facility] Blood VENOUS BLOOD / Unknown Venipuncture / Unknown 07/26/2025 10:21 AM EDT 07/26/2025 10:21 AM EDT Narrative [facility] - 07/26/2025 5:41 PM EDT The Jason Elecsys total PSA electrochemiluminescence (ECLIA) immunoassay is used. Results obtained with different test methods or kits cannot be used interchangeably. The Jason method is approved for use as an aid in the detection of prostate cancer when used in conjunction with a digital rectal exam in individuals with a prostate aged 50 years or older. The assay is also indicated for the serial measurement of PSA to aid in the prognosis and management of prostate cancer patients. Elevated tPSA concentrations can only suggest the presence of prostate cancer until biopsy is performed. Levels may also be elevated in benign prostatic hyperplasia or inflammatory conditions of the prostate. Ligia Brown APRN CHEMISTRY ORDERABLES Final Result [facility] [address] [facility] , [place] [address] * (ABNORMAL) LIPID PANEL REFLEX (07/26/2025 10:21 AM EDT) Cholesterol 150 <200 mg/dL 07/26/2025 5:29 PM EDT [facility] Comment: < 200 Desirable 200 - 239 Borderline High >= 240 High Triglyceride 149 <150 mg/dL 07/26/2025 5:29 PM EDT [facility] Comment: < 150 Normal 150 - 199 Borderline High 200 - 499 High >= 500 Very High HDL 36(L) >=40 mg/dL 07/26/2025 5:29 PM EDT [facility] Comment: > 60 Optimal 40 - 60 Acceptable < 40 Low LDL Calculated 88 <100 mg/dL 07/26/2025 5:29 PM EDT [facility] Comment: < 100 Optimal 100 - 129 Near or above optimal 130 - 159 Borderline High 160 - 189 High >= 190 Very High The National Institutes of Health (NIH) equation is used for all lipid panels that report calculated LDL (LDL-C). Non-HDL-C Calculated 114 <=129 mg/dL 07/26/2025 5:29 PM EDT [facility] Comment: <130 Desirable 130-159 Above Desirable 160-189 Borderline High 190-219 High >= 220 Very High Fasting Specimen? Unknown None 025 5:29 PM EDT [facility] Blood VENOUS BLOOD / Unknown Venipuncture / Unknown 07/26/2025 10:21 AM EDT 07/26/2025 10:21 AM EDT [facility] CHEMISTRY ORDERABLES Final Result [facility] [address] [facility] , [place] [address] * (ABNORMAL) CBC WITH DIFF (07/26/2025 10:21 AM EDT) [facility] WBC 10.4(H) 3.7 - 10.3 x10(3)/mcL 07/26/2025 4:44 PM EDT [facility] RBC 4.89 4.60 - 6.10 x10(6)/mcL 07/26/2025 4:44 PM EDT [facility] Hgb 15.0 13.7 - 17.5 g/dL 07/26/2025 4:44 PM EDT [facility] Hct 44.7 40.0 - 51.0 % 07/26/2025 4:44 PM EDT [facility] MCV 91.4 80.0 - 100.0 fL 07/26/2025 4:44 PM EDT [facility] MCH 30.7 26.0 - 34.0 pg 07/26/2025 4:44 PM EDT [facility] MCHC 33.6 30.7 - 35.5 g/dL 07/26/2025 4:44 PM EDT [facility] RDW 12.9 <=14.9 % 07/26/2025 4:44 PM EDT [facility] Platelet 314 155 - 369 x10(3)/mcL 07/26/2025 4:44 PM EDT [facility] MPV 10.1 8.8 - 12.5 fL 07/26/2025 4:44 PM EDT [facility] Neut Percent 63.5 % 07/26/2025 4:44 PM EDT [facility] Comment:Neutrophils equals s egs plus bands Imm Gran% 0.3 % 07/26/2025 4:44 PM EDT [facility] Comment:Automated count of m etamyelocytes, myelocytes and promyelocytes. Lymph Percent 28.6 % 07/26/2025 4:44 PM EDT [facility] Sunflower Percent 6.0 % 07/26/2025 4:44 PM EDT [facility] Eos Percent 1.1 % 07/26/2025 4:44 PM EDT [facility] Baso Percent 0.5 % 07/26/2025 4:44 PM EDT [facility] Neut # 6.6(H) 1.6 - 6.1 x10(3)/[facility] 07/26/2025 4:44 PM EDT [facility] Comment:Neutrophils equals s egs plus bands IMMGRAN# 0.0 0.0 - 0.1 x10(3)/[facility] 07/26/2025 4:44 PM EDT [facility] Comment:Automated count of m etamyelocytes, myelocytes and promyelocytes. An absolute IG <0.1 is reported as 0.0. Lymph # 3.0 1.2 - 3.9 x10(3)/[facility] 07/26/2025 4:44 PM EDT [facility] Sunflower # 0.6 0.3 - 0.9 x10(3)/[facility] 07/26/2025 4:44 PM EDT [facility] Eos# 0.1 0.0 - 0.5 x10(3)/[facility] 07/26/2025 4:44 PM EDT [facility] Baso # 0.1 0.0 - 0.1 x10(3)/[facility] 07/26/2025 4:[address] [facility] Blood VENOUS BLOOD / Unknown Venipuncture / Unknown 07/26/2025 10:21 AM EDT 07/26/2025 10:21 AM EDT Ligia Brown APRN HEMATOLOGY ORDERABLES Final Result [facility] [address] [facility] , [place] [address] * (ABNORMAL) COMPREHENSIVE METABOLIC PANEL (07/26/2025 10:21 AM EDT) [facility] Sodium 136 136 - 145 mmol/L 07/26/2025 5:29 PM EDT [facility] Potassium 3.8 3.5 - 5.0 mmol/L 07/26/2025 5:29 PM EDT [facility] Chloride 96(L) 98 - 107 mmol/L 07/26/2025 5:29 PM EDT [facility] Total CO2 25 22 - 29 mmol/L 07/26/2025 5:29 PM EDT [facility] Anion Gap 15 7 - 16 mmol/L 07/26/2025 5:29 PM EDT [facility] Calcium 9.8 8.6 - 10.4 mg/dL 07/26/2025 5:29 PM EDT [facility] Glucose Lvl 396(H) 70 - 99 mg/dL 07/26/2025 5:29 PM EDT [facility] BUN 25(H) 6 - 20 mg/dL 07/26/2025 5:29 PM EDT [facility] Creatinine 1.38(H) 0.67 - 1.30 mg/dL 07/26/2025 5:29 PM EDT [facility] Albumin 4.2 3.5 - 5.2 gm/dL 07/26/2025 5:29 PM EDT [facility] Total Protein 7.7 6.4 - 8.3 gm/dL 07/26/2025 5:29 PM EDT [facility] Bili Total 0.5 0.2 - 1.4 mg/dL 07/26/2025 5:29 PM EDT [facility] ALT 22 <=41 U/L 07/26/2025 5:29 PM EDT [facility] AST 18 <=40 U/L 07/26/2025 5:29 PM EDT [facility] Alk Phos 154(H) 40 - 129 U/L 07/26/2025 5:29 PM EDT [facility] eGFR (CKD-EPIcr 2020) 59(L) >=60 mL/min/1.7 3 m2 07/26/2025 5:29 PM EDT [facility] Comment:Estimated GFR was ca lculated using the CKD-EPIcr (2020) equation refit without race. The equation is recommended by the National Kidney Foundation - [place] [employer] Neph[employer] Task Force. Blood VENOUS BLOOD / Unknown Venipuncture / Unknown 07/26/2025 10:21 AM EDT 07/26/2025 10:21 AM EDT Ligia Brown FIELD MARKETING TEAM LEADER CHEMISTRY ORDERABLES Final Result [facility] [employer] [address] , [place] [address] documented in this encounter Visit Diagnoses Diagnosis Uncontrolled type 2 diabetes mellitus with hyperglycemia, with long-term current use of insulin (HCC)- Primary Diabetic polyneuropathy associated with type 2 diabetes mellitus (HCC) Hyperlipidemia associated with type 2 diabetes mellitus (HCC) Hypertension associated with diabetes ([facility]) Type II or unspecified type diabetes mellitus with other specified manifestations, not stated as uncontrolled Chronic bilateral low back pain without sciatica Major depressive disorder, recurrent severe without psychotic features ([facility]) Major depressive disorder, recurrent episode, severe, without mention of psychotic behavior AURORA (generalized anxiety disorder) Generalized anxiety disorder Gastroesophageal reflux disease without esophagitis Esophageal reflux Folate deficiency Other B-complex deficiencies Primary osteoarthritis of both knees Primary localized osteoarthrosis, lower leg Impaired mobility Other ill-defined conditions Status post transmetatarsal amputation of foot, left (HCC) Contracture of joints of both ankle and foot of left lower extremity Primary osteoarthritis involving multiple joints Screening for prostate cancer Special screening for malignant neoplasm of prostate Oral aphthous ulcer Oral aphthae documented in this encounter Discontinued Medications Medication Sig Discontinue Reason Start Date End Da te Blood-Glucose Transmitter (DEXCOM G6 TRANSMITTER) [facility] DeviceIndications:Type 2 diabetes mellitus treated with insulin (HCC) 1 Each by [facility].(Non-Drug; Combo Route) route Every 90 Days. use transmitter to check blood glucose daily, replace every 3 months Patient Reported not taking medication 02/29/2024 07/26/2025 DEXCOM G6 PRODUCT SAFETY MANAGER [facility] MiscIndications:Type 2 diabetes mellitus treated with insulin (HCC) 1 Device by [facility].(Non-Drug; Combo Route) route continuous. use nuclear scientist to check blood glucose daily Patient Reported not taking medication 02/29/2024 07/26/2025 DEXCOM G6 SENSOR [facility] DeviceIndications:Type 2 diabetes mellitus treated with insulin (HCC) USE DIRECTED Patient Reported not taking medication 02/25/2024 07/26/2025 oxyCODONE (ROXICODONE) 5 mg Oral Tablet Take 1 Tablet by mouth every 6 hours as needed for Acute Pain (R52). Patient Reported not taking medication 02/14/2024 07/26/2025 Blood Pressure Monitor [facility] KitIndications:Hyperte nsion associated with diabetes (HCC) 1 Units by [facility].(Non-Drug; Combo Route) route daily. Reorder 01/11/2024 07/26/2025 Blood-Glucose Meter [facility] KitIndications:Type 2 diabetes mellitus treated with insulin (HCC),Diabetic polyneuropathy associated with type 2 diabetes mellitus (HCC) Check glucose TID QAC + QHS Reorder 02/29/2024 07/26/2025 Blood Sugar Diagnostic (ACCU-CHEK GUIDE TEST STRIPS) [facility] StripIndications:Type 2 diabetes mellitus treated with insulin (HCC),Diabetic polyneuropathy associated with type 2 diabetes mellitus (HCC) 1 Strip by [facility].(Non-Drug; Combo Route) route 3 times daily. E11.9 Reorder 02/29/2024 07/26/2025 Lancets (ACCU-CHEK SOFTCLIX LANCETS) [facility] MiscIndications:Type 2 diabetes mellitus treated with insulin (HCC),Diabetic polyneuropathy associated with type 2 diabetes mellitus (HCC) USE DIRECTED E11.9 Reorder 02/29/2024 07/26/2025 aspirin 81 mg Oral Tablet, Delayed Release (E.C.)Indications:Type 2 diabetes mellitus treated with insulin (HCC),Diabetic polyneuropathy associated with type 2 diabetes mellitus (HCC),Type 2 diabetes mellitus without complication, unspecified whether long-term insulin use Take 1 Tablet by mouth daily (with breakfast). Reorder 02/29/2024 07/26/2025 metoprolol succinate (TOPROL-XL) 200 mg Oral Tablet Sustained Release 24 hrIndications:Hyperten bharat associated with diabetes (HCC) Take 1 Tablet by mouth daily. Reorder 03/03/2024 07/26/2025 metFORMIN (GLUCOPHAGE XR) 750 mg Oral ER 24 hr tabletIndications:Type 2 diabetes mellitus treated with insulin (HCC) Take 1 Tablet by mouth daily (with breakfast). Reorder 03/03/2024 07/26/2025 losartan (COZAAR) 100 mg Oral Tablet Take 1 Tablet by mouth daily. Reorder 03/03/2024 07/26/2025 folic acid (FOLVITE) 1 mg Oral TabletIndications:Rina te deficiency Take 1 Tablet by mouth daily. Take 1 tablet by mouth once daily Reorder 03/03/2024 07/26/2025 empagliflozin (JARDIANCE) 25 mg Oral TabletIndications:Type 2 diabetes mellitus treated with insulin ([facility]) Take 1 Tablet by mouth daily. Reorder 03/03/2024 07/26/2025 atorvastatin (LIPITOR) 20 mg Oral TabletIndications:Hype rlipidemia associated with type 2 diabetes mellitus ([facility]) Take 1 Tablet by mouth daily. Reorder 03/03/2024 07/26/2025 pantoprazole (PROTONIX) 40 mg Oral Tablet, Delayed Release (E.C.)Indications:Gildardo roesophageal reflux disease without esophagitis Take 1 Tablet by mouth daily. 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 Reorder 03/03/2024 07/26/2025 hydrOXYzine (ATARAX) 25 mg Oral TabletIndications:Madelaine r depressive disorder, recurrent severe without psychotic features ([facility]) Take 1 Tablet by mouth 3 times daily as needed. for anxiety Reorder 03/08/2024 07/26/2025 amLODIPine (NORVASC) 10 mg Oral TabletIndications:Hype rtension associated with diabetes ([facility]) Take 1 Tablet by mouth daily. Patient Reported not taking medication 03/07/2024 07/26/2025 losartan (COZAAR) 100 mg Oral TabletIndications:Hype rtension associated with diabetes ([facility]) Take 1 Tablet by mouth daily. Patient Reported not taking medication 07/26/2025 07/26/2025 acetaminophen (TYLENOL) 500 mg Oral Tablet Take 2 Tablets by mouth every 8 hours as needed for Pain. Reorder 02/29/2024 07/26/2025 Insulin Dale, Disposable, (BD ULTRA-FINE MINI PEN NEEDLE) 31 gauge x 3/16 Misc NeedleIndications:Type 2 diabetes mellitus treated with insulin (HCC),Diabetic polyneuropathy associated with type 2 diabetes mellitus (HCC),Type 2 diabetes mellitus without complication, unspecified whether long-term insulin use Use pen needle to administer insulin from pens as directed Reorder 03/07/2024 07/26/2025 insulin aspart U-100 (NOVOLOG) 100 unit/mL (3 mL) SubQ Insulin Pen Subcutaneous (Inject under the skin) 10 Units 3 times daily (before meals). Dose adjustment 03/03/2024 07/26/2025 insulin glargine-yfgn 100 unit/mL (3 mL) SubQ Insulin Pen Inject 45 Units under the skin nightly. Alternate therapy 07/26/2025 insulin detemir U-100 (LEVEMIR FLEXPEN) 100 unit/mL (3 mL) SubQ Insulin PenIndications:Type 2 diabetes mellitus treated with insulin (HCC) Subcutaneous (Inject under the skin) 45 Units every evening. INJECT 50 UNITS SUBCUTANEOUSLY EVERY MORNING AND 70 UNITS EVERY EVENING. Alternate therapy 03/03/2024 07/26/2025 DULoxetine (CYMBALTA) 60 mg Oral Capsule, Delayed Release(E.C.)Indicatio ns:AURORA (generalized anxiety disorder) Take 1 Capsule by mouth 2 times daily. Reorder 03/03/2024 07/26/2025 DULoxetine (CYMBALTA) 60 mg Oral Capsule, Delayed Release(E.C.)Indicatio ns:AURORA (generalized anxiety disorder) Take 1 Capsule by mouth 2 times daily. 07/26/2025 07/26/2025 pregabalin (LYRICA) 150 mg Oral Capsule Take 150 mg by mouth every 8 hours. Patient Reported not taking medication 07/28/2025 documented as of this encounter Additional Health Concerns Assessment Noted Time PHQ-9 Depression Total Score: 22 025 9:00 AM EDT PHQ-2 Depression Total Score: 5 07/26/20 25 9:00 AM EDT documented as of this encounter Care Teams Associate Engineer Relationship Specialty Start Date End Date Julian, Gordo Monet MD [address] [address] PCP - General Family Medicine 07/26/25 07/26/25 Danielle Monroy, whipped topping supervisor Rules Examiner/Medical Stenographer 07/26/25 08/08/25 Helen Patel Care Management Wall To Wall Carpet Installer 07/28/25 08/31/25 documented as of this encounter
--- OUTSIDE RECORDS SUMMARY | 2025-07-26 10:00 | XMS_ITS | Encounter Summary ---
Author [place] [address] Care Team Providers Care Supervisor Contingents Name Role Phone JordanGordo santoyo MD Primary Care Prov ider Danielle Monroy RN Unavailable Unavailable Reason for Visit * Reason Comments Cm- Longitudinal Initiation Care Management - Face To Face CM- In office handoff Acp Conversation Declined Encounter Details Date Type Department Care Team (Latest Contact Info) Description 07/26/2025 11:00 AM EDT Clinical Support [facility] [address] [place] [address] Danielle Monroy, RN Enrolled in chronic care management (Primary Dx); Type 2 diabetes mellitus with hyperglycemia, with long-term current use of insulin (HCC); Hyperlipidemia associated with type 2 diabetes mellitus (HCC) Social History Tobacco Use Types Packs/Day Years Used Date Smoking Tobacco: Former Cigarettes 0.3 4 0 11/16/1986 - 11/16/1990 Passive Smoke Exposure: Never Smokeless Tobacco: Never Alcohol Use Standard Drinks/Week Comments Not Currently 4 (1 standard drink = 0.6 oz pure alcohol) Sober for 20 years until May 2022 [facility] Utilities Answer Date Recorded In the past 12 months has [employer] electric, gas, oil, or water company threatened to shut off services in your home? No 06/22/2025 Overall Financial Resource Strain (CARDIA) Answe r Date Recorded How hard is it for you to pa y for the very basics like food, housing, medical care, and heating? Somewhat hard 06/22/2025 PHQ-2 Answer Date Recorded PHQ-2 Total Score 5 07/26/2025 [facility] - Occupational Stress [...] things needed for daily living? No 11/10/2023 [facility] IP Transportation Answer D ate Recorded [...] on file documented as of this encounter Functional Status * Is the [...] in some way 3 07/26/2025 9:00 AM EDT Annie Sofia M A * PHQ-2 Total Score Answer Date of Assessment Author 5 07/26/2025 9:00 AM Evelin Goldman MA documented as of this encounter Mental Status * Because of a physical, mental or emotional condition, does this person have serious difficulty concentrating, remembering or making decisions? Answer Entry Date Author No 10/18/2023 11:50 AM Mckayla Pelaez RN documented in this encounter Patient Instructions * Attachments The following attachments cannot be sent through Care Everywhere. * High blood pressure in adults (Turkish) documented in this encounter Progress Notes * Danielle Monroy RN - 07/26/2025 11:00 AM EDT Images from the original note were not included. Care Management (CM)Chronic Care Management: Reason for visit: diabetes education Visit Type: Face to Face Assessment: Spoke with: Patient RN Machine Cloth Trimmer (CC) and patient met today for Diabetes (DM) education. We discussed foods that are carbohydrate sources and reinforced the importance of eating small, frequent meals and creating a balanced meal. Patient has been reminded this includes a lean protein or healthy fat with carbohydrate sources and non starchy vegetables when able to incorporate. We discussed the increased importance of frequent meals as patient is restarting insulin treatment and may experience episodes of hypoglycemia if meals are skipped. We discussed the importance of following the Dietary Approaches to Stop Hypertension (DASH) diet which focuses on whole grains, vegetables, fruits, and dairy foods (or dairy alternatives) low in fat or fat-free and limits dietary sodium to 1500 mg - 2000 mg daily. We reviewed how those diets overlap and are generally the same with the exception of close monitoring of carbohydrate sources. We reviewed the Mediterranean diet cross covering both recommendations. CC discussed the importance of monitoring Finger Stick Blood Sugar (FSBS) daily, especially when beginning insulin treatment. We discussed the importance of adding purposeful movement to daily life such as 30-45 minutes a day3-4 days a week of cardiovascular activity. We discussed the importance of reducing stress and ways to incorporate at least 15 minutes a day ofmindful meditation. We discussed medication intended uses, outcomes, possible side effects, when to call PCP, the Urgent Care Unit, Emergency Room (ER). We reviewed how to keep a home blood pressure log. We reviewed how to monitor blood pressure at home and proper way to measure blood pressure. We reviewed how to properly administer insulin injections. Rollator ordered to [employer] via [place], Home blood pressure monitor ordered to [employer] Ability to complete activities of daily living (ADLs): Patient reports needing assistance with: Ambulating Patient utilizes: Walker Patient has the following equipment but is not currently using Glucometer Patient currently receives the following services: Transportation Advance Care Planning (ACP): See Advance Care Planning Note Tobacco use: Reviewed; patient reports no change in smoking history Social Determinants of Health (SDOH): During current or previous SDOH assessment, the following SDOH concern(s) were identified: Activitylevel Interventions for SDOH concern(s) provided: discussed importance of daily cardiovascular activity Health Maintenance: Care Gaps discussed today include : Hemoglobin (hgb) A1C Status Point of Care (POC) A1C completed today, A1C is 11.6 Diabetic Eye Exam/ IRIS Status Referral Placed Medications: Medications reviewed with patient in full Education: Educated patient on: DM home care HTN home care Insulin injections Importance of taking medications as prescribed with no missed doses Importance of close follow up with PCP and specialty care providers Chronic Care Management Services Handouts: HTN home care Importance of monitoring blood pressure Diabetes (DM) Meal Plan Basics Planning Healthy Meals Healthy Snack Swaps Smart Snacks Swazi Diabetes Best Foods Swazi Diabetes Starting Insulin How to Inject Insulin Measuring Your Blood Sugar Chronic Care Management Nurse Now Helpline Care Coordination Business Card Goals: Goals Addressed This Visit's Progress Patient will utilize consume 4-5 meals a days following diabetic dietary guidelines 3 days a week over the next 6 weeks (pt-stated) Not on track Patient will utilize glucometer to monitor blood glucose levels 3 times a day and bring log to nextfollow up appointment with foster care social worker (pt-stated) Not on track MyChart: Patient has MyChart; verified ability to use Next Steps: Machine Cloth Trimmer contact information given / reviewed Reviewed when to call Primary Care Provider (PCP) office, urgent care, or 911 Patient will follow up with care coordination on 08/07/25 Machine Cloth Trimmer will continue to care manage patient Notes: Chronic Care Management services are available and have been discussed with the patient. Patient has been made aware: Only one practitioner can bill for Chronic Care Management services per month They can stop their Chronic Care Management services at any time and the change will be effective the last day of the calendar month Services are subject to the usual coinsurance applied to physician services After discussion, the patient verbally agrees to Chronic Care Management enrollment. The patient denies any questions or concerns related to Chronic Care Management at this time. Chronic Care Management- Time Spent with Patient Time spent with patient (minutes): 40 Time spent performing chart review (minutes): 6 Total time (minutes): 46 PCP: Gordo Jordan MD documented in this encounter Miscellaneous Notes * ACP (Advance Care Planning) - Danielle Monroy RN - 07/26/2025 11:00 AM EDT Advance Care Planning discussion: ACP discussion: Introduced the topic of Advance Care Planning to the patientand offered to explore further. Patient declined at this time. * Patient Instructions - Danielle Monroy RN - 07/26/2025 11:00 AM EDT Images from the original note were not included. Below is a summary of the most recent test results related to your diabetes. These tests help manage your health and direct your care. Any discrepancies should be brought to the attention of your provider's office Diabetic Report Card for Hermelindo Gunn Diabetic Management Labs/Vitals Recommendations Date of Result Result Score Hemoglobin A1c Recommended every 3-6 months Results should be less than 7 07/26/2025 11.6 LDL Cholesterol Recommended yearly Results should be less than 100 mg/dl 07/26/2025 88 Blood Pressure Blood pressure reading should be less than 140/90 07/26/2025 BP Readings from Last 1 Encounters: 07/26/25 120/84 Kidney Monitoring Microalbumin test recommended yearly Results should be less than 30 mg/g 07/26/2025 34.5 Legend: - Results are within recommended range and timeframe. - Results are outside of recommended value range. - Results do not exist or are outside of recommended timeframe. Diabetic Management Exams Recommendations Last Completion Date Result Score Diabetic Eye Exam Exam recommended every 2 years unless positive, then recommended annually. 08/06/2023 DIABETES EYE EXAM Value Ref Range Left Diabetic Retinopathy Not Present Present/Not Present Right Diabetic Retinopathy Not Present Present/Not Present Neuropathy Evaluation Exam recommended annually. 01/07/2023 01/07/2023 10:18 AM DIABETIC MONOFILAMENT R Monofilament Absent L Monofilament Absent Legend: - Exam completed within recommended timeframe. - Exam not completed within recommended timeframe. *This report is informational only. Your individual goals may vary based on age and/or other healthconditions. Please consult your primary care provider for your personalized goals. documented in this encounter Plan of Treatment Upcoming Encounters Date Type Department Care Team (Late st Contact Info) Description 10/09/2025 10:30 AM EST Office Visit [facility] [address] [place] [id number] Gordo Jordan MD [address] [place] [id number] 02/01/2026 11:00 AM EDT Office Visit [facility] [address] [facility] [address] [place] [id number] Belinda Marques OD [address] [place] [address] documented as of this encounter Goals Goal Patient Goal Type Associated Problems Recent Progress Patient-Stated? Author Blood Pressure < 140/90 Blood Pressure 122/84(08/17 12:48 PM EDT) No Angel Duffy MD BMI (Calculated) < 30 General 34.4( 025 12:48 PM EDT) No Annie Martinez CCMA Patient to regain strength and endurance with initiation of in home therapy and completion of in home exercises. General No Montserrat Garcia, RN Maintain a healthy diet, exercise regularly [...] log to next follow up appointment with foster care social worker General Not on track(2024 10:05 AM EDT) Yes Danielle Monroy RN Stay Tobacco Free Lifestyle On track(2021 3:33 PM EDT) No Annie Martinez CCMA Check fasting glucose daily and document Lifestyle On track(2021 10:51 AM EST) No Radha Moreira RN LDL CALC < 100 Result Component 88( 10:21 AM EDT) No Angel Duffy MD HEMOGLOBIN A1C < 7.0 Result Component 11.6( 025 10:27 AM EDT) No Annie Martinez CCMA Weight < 210 lb (95.255 kg) Weight 260 lb 6.4 oz (118.1 kg)(08/17/20 12:48 PM EDT) No Angel Duffy MD documented as of this encounter Visit Diagnoses Diagnosis Enrolled in chronic care management- Primary Type 2 diabetes mellitus with hyperglycemia, with long-term current use of insulin (HCC) Hyperlipidemia associated with type 2 diabetes mellitus (HCC) documented in this encounter Additional Health Concerns Assessment Noted Time PHQ-9 Depression Total Score: 22 025 9:00 AM EDT PHQ-2 Depression Total Score: 5 07/26/20 25 9:00 AM EDT documented as of this encounter Care Teams Supervisor Contingents Relationship Specialty Start Date End Date Gordo Jordan MD [address] [place] [address] PCP - General Family Medicine 07/26/25 07/26/25 Danielle Monroy RN Case Certified Prosthetist Manager/Machine Cloth Trimmer 07/26/25 08/08/25 documented as of this encounter
--- OUTSIDE RECORDS SUMMARY | 2025-08-03 12:00 | XMS_ITS | Encounter Summary ---
Author Organization [place] [address] Care Team Providers Care Weatherization Operations Manager Name Role Phone Danielle Monroy RN Unavailable Unavailable Helen Patel Unavailable Unavailable Reason for Referral * Consultation (Routine) - Authorized Specialty Diagnoses / Procedures Referred By Sterling maguire Referred To Contact Sleep Center Diagnoses Floppy eyelid syndrome of both eyes Procedures MA OFFICE/OUTPATIENT NEW MODERATE MDM 45 MINUTES Belinda Marques OD [address] [place] [address] Phone: tel: fax: [facility] Sleep Medicine [address] [address] Phone: tel: fax: Referral ID Status Reason Start Date Expiration Date V isits Requested Visits Authorized [id number] Authorized 08/03/2025 08/03/2026 99 99 Question Answer What test needs to be performed? Appropriate testing as determined by sleep specialist/sleep medicine protocols Reason for Visit * Reason Comments Dilated Fundus Exam Diabetes Encounter Details Date Type Department Care Team (Latest Contact Info) Description 08/03/2025 1:00 PM EDT Office Visit [facility] Ophthalmology [address] [place] [address] Belinda Marques OD [address] [place] [address] Blurred vision, bilateral (Primary Dx); Combined forms of age-related cataract of both eyes; Floppy eyelid syndrome of both eyes; Type 2 diabetes mellitus without retinopathy (HCC); Diabetic polyneuropathy associated with type 2 diabetes mellitus (HCC); Gastroparesis due to DM (HCC); Hyperlipidemia associated with type 2 diabetes mellitus (HCC); Hypertension associated with diabetes (HCC); Severe hyperglycemia due to diabetes mellitus (HCC); Type 2 diabetes mellitus with hyperglycemia, with long-term current use of insulin (HCC) Social History Tobacco Use Types Packs/Day Years Used Date Smoking Tobacco: Former Cigarettes 0.3 4 0 11/16/1986 - 11/16/1990 Passive Smoke Exposure: Never Smokeless Tobacco: Never Tobacco Cessation:Counseling Given: Not Answered Alcohol Use Standard Drinks/Week Comments Not Currently 4 (1 standard drink = 0.6 oz pure alcohol) Sober for 20 years until 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 No 06/22/2025 Overall Financial Resource Strain (CARDIA) Answe r Date Recorded How hard is it for you to pa y for the very basics like food, housing, medical care, and heating? Somewhat hard 06/22/2025 PHQ-2 Answer Date Recorded PHQ-2 Total Score 5 07/26/2025 [facility] of Occupat ional Health - Occupational Stress [...] things needed for daily living? No 11/10/2023 [facility] IP Transportation Answer D ate Recorded In [...] Yes 10/18/2023 11:50 AM Mckayla Pelaez RN documented as of this encounter Mental Status * Because of a physical, mental or emotional condition, does this person have serious difficulty concentrating, remembering or making decisions? Answer Entry Date Author No 10/18/2023 11:50 AM Mckayla Pelaez RN documented in this encounter Progress Notes * Belinda Marques OD - 08/03/2025 1:00 PM EDT Subjective: Patient ID: Hermelindo Gunn is a White or 60 y.o.male. 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 Patient symptomatic - discussed risks, benefits, and outcomes of cataract surgery. Patient declines consult at this time. He is aware he can call at anytime for appointment withDr. Lemus. Patient requested manifest refraction and new prescription today. Released new SRx (bifocals). Educated on adaptation and visual hygiene (20/20/20 rule). Aware OD may not improve and anisometropia may be a problem. Discussed importance of ANAY treatment and risks associated with no treatment - recommend sleep study and patient agreeable. Referral placed today. Stressed importance of blood sugar and blood pressure control, well-balanced diet, exercise, and risk of blindness from retinopathy. Continue diabetes medication as prescribed. Patient aware to call with worsening or persistent symptoms. Instructions printed in AVS. Duration 2015 A1c 11.6% 07/2025 FBS 340 Medications Jardiance, Insulin (2), Metformin I reviewed and interpreted scans from today's visit - OCT nerve WNL; OCT retina WNL. Return in about 6 months (around 01/31/2026) for OCT,glare,DFE,fundus photos. Chief Complaint Patient presents with Dilated Fundus Exam Diabetes HPI Pt is here for a diabetic eye exam. Pt states he had glasses but 5 months ago they broke. He saw great with them. Since they are broken he can not read well. Pt says everything is blurry. Pt denies any pain, redness, flashes or floaters. Pt says his diabetes is not stable. He is on medication and insulin. A1C - 11.6 07/26/2025, BS - 340 this morning -DALILA 2 years, (-) EG - previously bifocal, (-) CL - never, (-) eye injury, (-) eye surgery, (-) eyedrops, (+) drug allergies, (-) fhx ocular, (+) DM, (+) HTN, (-) sleep apnea - hasn't been tested Patients past medical, family and social histories were reviewed and updated. There were no changesexcept as noted. ROS Positive for: Endocrine, Eyes Negative for: Constitutional, Gastrointestinal, Neurological, Skin, Genitourinary, Musculoskeletal,HENT, Cardiovascular, Respiratory, Psychiatric, Allergic/Imm, Heme/Lymph Objective: Eye Exam: Base Eye Exam Visual Acuity (Snellen - Linear) Right Left Dist sc 20/60 -1 20/30 +2 Dist ph sc 20/40 Tonometry (I-care, 11:40 AM) Right Left Pressure 15 16 Pupils Dark Light Shape React APD Right 5 3 Round Brisk None Left 5 3 Round Brisk None Visual Ji Right Left Full Full Extraocular Movement Right Left Full, Ortho Full, Ortho Neuro/Psych Oriented x3: Yes Mood/Affect: Normal Dilation Both eyes: 1.0% Mydriacyl, 2.5% Phenylephrine @ 11:41 AM Slit Lamp and Fundus Exam External Exam Right Left External Brow ptosis Brow ptosis Slit Lamp Exam Right Left Lids/Lashes Dermatochalasis, lash ptosis, lid laxity, <10 collarettes Dermatochalasis, lash ptosis, lid laxity, <10 collarettes Conjunctiva/Sclera White and quiet White and quiet Cornea (-) stain, K-spindle (-) stain, K-spindle Anterior Chamber Shallow centrally Deep and quiet Iris (-) NVI, (-) TID, poorly dilated (-) NVI, (-) TID, dilated Lens 3+ NS, CC, vacuoles 2+ NS, CC Anterior Vitreous Vitreous syneresis Vitreous syneresis Fundus Exam Right Left Disc (-) NVD (-) NVD C/D Ratio 0.30 0.40h/0.35h Macula (-) DME (-) DME Vessels (-) NVE (-) NVE Periphery Normal Normal Refraction Manifest Refraction (Auto) Sphere Cylinder [place] Dist [place] Right -0.75 -1.25 098 Left +1.00 -1.00 114 Manifest Refraction #2 Sphere Cylinder [place] Dist VA Right -2.00 Sphere 20/30 Left +1.00 -1.00 135 20/20 -1 Final Rx Sphere Cylinder [place] Add Right -2.00 Sphere +2.25 Left +1.00 -1.00 135 +2.25 Type: bifocals Expiration Date: 08/03/2027 * Belinda Marques, OD - 08/03/2025 12:05 PM EDTAssociated Problem(s): Type 2 diabetes mellitus with hyperglycemia, with long-term current use of insulin (HCC) Educated on findings. Patient symptomatic - discussed risks, benefits, and outcomes of cataract surgery. Patient declines consult at this time. He is aware he can call at anytime for appointment withDr. Lemus. Patient requested manifest refraction and new prescription today. Released new SRx (bifocals). Educated on adaptation and visual hygiene (20/20/20 rule). Aware OD may not improve and anisometropia may be a problem. Discussed importance of ANAY treatment and risks associated with no treatment - recommend sleep study and patient agreeable. Referral placed today. Stressed importance of blood sugar and blood pressure control, well-balanced diet, exercise, and risk of blindness from retinopathy. Continue diabetes medication as prescribed. Patient aware to call with worsening or persistent symptoms. Instructions printed in AVS. Duration 2016 A1c 11.6% 07/2025 FBS 340 Medications Jardiance, Insulin (2), Metformin I reviewed and interpreted scans from today's visit - OCT nerve WNL; OCT retina WNL. documented in this encounter Miscellaneous Notes * Patient Instructions - Belinda Marques, OD - 08/03/2025 1:00 PM EDT Eye health is an important aspect of systemic or body health. Below are some tips that may assist in overall eye health: 1) Eat a well-balanced diet with green, leafy vegetables and other antioxidants 2) Wear UV protection when outside 3) Do not smoke; if you currently do, consider cutting back or quitting completely 4) Take frequent visual breaks while on screens - every 20 minutes, look 20 feet away for 20 seconds (20/20/20 rule) 5) Blue light from devices may lead to poor sleep quality - try not to look at a screen 1 hour before bedtime and/or try blue-blocking glass 6) Continue routine eye exams, ranging from yearly-every 5 years, depending on systemic health and family history 7) To avoid dry eyes, consider daily treatment to prevent symptoms: -Start OTC tear drop one drop, two-four times/day both eyes (Refresh, Systane, Blink, Retaine are some good brands) -Start lid scrubs one-two times/day - formulations with tea-tree oil or hypochlorous acid -Start hot compresses with lid massage one-two times/day Cataracts Cataracts are normal, age-related changes to the natural lens found inside your eye. If we live long enough, we all get cataracts. How quickly or how slowly these cataracts grow is anyone's guess; they can remain stable for years or quickly change within months. Once your vision and quality of life is affected by the clouding of this lens, cataract surgery is indicated and we will get you seen by one of our surgeons. If they are not visually significant, then we continue to monitor until theybecome an issue. If indicated, cataract surgery is an outpatient procedure, done one eye at a time, typically two weeks apart. Your cataract, which grows in your natural lens inside the eye, is removed and replaced with a new lens that stays with you the rest of your life. The lens chosen dictates vision after the procedure. For most of my surgeons, you are on drops for about 4 weeks after surgery; one offers a dropless procedure (unless you are allergic to certain antibiotics). You are on restrictions for 1 week after surgery, including no heavy lifting or bending at the waist. You are typically seen the dayafter surgery, the week after, and then 4 weeks after the last eye for a dilated visit and glasses check. Diabetic Retinopathy Diabetic retinopathy is damage to your retina, or the inner lining of your eye, due to uncontrolleddiabetes. You are at risk for developing damage if you meet the following criteria: 1) had diabetes for more than 10 years 2) A1c stays greater than 7.0% 3) using Insulin There are various stages of retinopathy, which dictate the level of retinal damage and all can be associated with swelling of the macula, or the most sensitive part of the retina. These stages are: 1) Background/mild 2) Moderate 3) Severe 4) Very Severe 5) Proliferative Typically, treatment is initiated between very severe and proliferative retinopathy, but can occur at any level if vision is effected. Treatment is done by a retina specialist and includes retinal lasers or injections into the eyeball. We would refer you out for these procedures. Ultimately, with strict blood pressure and blood sugar control and regular dilated eye exams, we can decrease your risk of developing blindness. documented in this encounter Plan of Treatment Upcoming Encounters Date Type Department Care Team (Late st Contact Info) Description 10/09/2025 10:30 AM EST Office Visit [facility] [address] [phone] Gordo Jordan MD [address] [address] 02/01/2026 11:00 AM EDT Office Visit [facility] Ophthalmology Cov [address] [phone] Belinda Marques, SHAE [address] [place] [address] Scheduled Orders Name Type Priority Associated Diagnoses Orde r Schedule MA DETERMINATION REFRACTIVE STATE MA Charge Routine Blurred vision, bilateral Ordered: 08/03/2025 Scheduled Referrals Name Type Priority Associated Diagnoses Orde r Schedule AMB REFERRAL TO SLEEP STUDIES/MEDICINE Outpatient Referral Routine Floppy eyelid syndrome of both eyes Ordered: 08/03/2025 documented as of this encounter Goals Goal [...] log to next follow up appointment with rn medicare General Not on track(2024 10:05 AM EDT) [...] as of this encounter Visit Diagnoses Diagnosis Blurred vision, bilateral- Primary Other specified visual disturbances Combined forms of age-related cataract of both eyes Other and combined forms of senile cataract Floppy eyelid syndrome of both eyes Type 2 diabetes mellitus without retinopathy (HCC) Type II or unspecified type diabetes mellitus without mention of complication, not stated as uncontrolled Diabetic polyneuropathy associated with type 2 diabetes mellitus (HCC) Gastroparesis due to DM (HCC) Type II or unspecified type diabetes mellitus with neurological manifestations, not stated as uncontrolled Hyperlipidemia associated with type 2 diabetes mellitus (HCC) Hypertension associated with diabetes (HCC) Type II or unspecified type diabetes mellitus with other specified manifestations, not stated as uncontrolled Severe hyperglycemia due to diabetes mellitus (HCC) Type 2 diabetes mellitus with hyperglycemia, with long-term current use of insulin (HCC) documented in this encounter Historical Medications * This list may reflect changes made after this encounter. Medication Sig Dispense Quantity Refills Last Filled Start D ate End Date ESPERANZA PEN NEEDLE 32 gauge x Misc Needle 07/26/2025 FREESTYLE LANCETS 28 gauge Misc Misc 07/26/2025 added in this encounter Additional Health Concerns Assessment Noted Time PHQ-9 Depression Total Score: 22 025 9:00 AM EDT PHQ-2 Depression Total Score: 5 07/26/20 25 9:00 AM EDT documented as of this encounter Eye Exam Visual Acuity (Snellen - Linear) Right eye Left eye Dist sc 20/60 -1 20/30 +2 Dist ph sc 20/40 Tonometry (I-care, 11:40 AM) Right eye Left eye Pressure 15 16 Pupils Dark Light Shape React APD Right eye 5 3 Round Brisk None Left eye 5 3 Round Brisk None Visual Ji Right eye Left eye Full Full Extraocular Movement Right eye Left eye Full, Ortho Full, Ortho Neuro/Psych Oriented x3: Yes Mood/Affect: Normal Dilation Both eyes: 1.0% Mydriacyl, 2 .5% Phenylephrine @ 11:41 AM External Exam Right eye Left eye External Brow ptosis Brow ptosis Slit Lamp Exam Right eye Left eye Lids/Lashes Dermatochalasis, las h ptosis, lid laxity, <10 collarettes Dermatochalasis, lash ptosis, lid laxity, <10 collarettes Conjunctiva/Sclera White and quiet White and angelica et Cornea (-) stain, K-spindle (-) stain, K-spindle Anterior Chamber Shallow centrally Deep and quie t Iris (-) NVI, (-) TID, poorly dilated (-) NVI, (-) TID, dilated Lens 3+ NS, CC, vacuoles 2+ NS, CC Anterior Vitreous Vitreous syneresis Vitreous sy neresis Fundus Exam Right eye Left eye Disc (-) NVD (-) NVD C/D Ratio 0.30 0.40h/0.35h Macula (-) DME (-) DME Vessels (-) NVE (-) NVE Periphery Normal Normal Manifest Refraction #1 (Auto) Sphere Cylinder [place] Dist VA Right eye -0.75 -1.25 098 Left eye +1.00 -1.00 114 Manifest Refraction #2 Sphere Cylinder [place] Dist VA Right eye -2.00 Sphere 20/30 Left eye +1.00 -1.00 135 20/20 -1 Final Rx Sphere Cylinder [place] Add Right eye -2.00 Sphere +2.25 Left eye +1.00 -1.00 135 +2.25 Type: bifocals Expiration Date: 08/03/2027 Care Teams Weatherization Operations Manager Relationship Specialty Start Date End Date Danielle Monroy, drywall taper helper Terrestrial Ecologist/Internal Medicine Hospitalist 07/26/25 08/08/25 Helen Patel Care Management Early Years Teacher 07/28/25 08/31/25 documented as of this encounter
--- OUTSIDE RECORDS SUMMARY | 2025-08-08 07:35 | XMS_ITS | Encounter Summary ---
Author Organization [facility] Address [address] [place] [address] Care Team Providers Care Computer Salesperson Retail Name Role Phone Danielle Monroy RN Unavailable Unavailable Helen Patel Unavailable Unavailable Gordo Jordan MD Primary Care Prov ider Encounter Details Date Type Department Care Team (Latest Contact Info) Description 08/08/2025 8:35 AM EDT Ancillary Procedure [facility] [address] [place] [address] Zane Méndez, [address] [place] [address] Pain in both knees, unspecified chronicity Social History Tobacco Use Types Packs/Day Years Used Date Smoking Tobacco: Former Cigarettes 0.6 8 0 11/16/1986 - 11/16/1990 Passive Smoke Exposure: Never Smokeless Tobacco: Never Alcohol Use Standard Drinks/Week Comments Not Currently 4 (1 standard drink = 0.6 oz pure alcohol) 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 No 06/22/2025 Overall Financial Resource Strain (CARDIA) Answe r Date Recorded How hard is it for you to pa y for the very basics like food, housing, medical care, and heating? Somewhat hard 06/22/2025 PHQ-2 Answer Date Recorded PHQ-2 Total Score 5 07/26/2025 [facility] of Occupat ional Health - Occupational Stress [...] things needed for daily living? No 11/10/2023 [facility] IP Transportation Answer D ate Recorded In the past 12 months, has l ack of reliable transportation kept you from medical appointments, meetings, work or from getting things needed for daily living? No 06/22/2025 Sexually Active Control Partners Comments Not Currently Condom Female Thave erection issues Sex and Gender Information Value Date Recorded [...] Assessment Author No 10/18/2023 11:50 AM Mckayla Pelaez, JESSICA * Does this person have serious difficulty walking or climbing stairs? Answer Date of Assessment Author Yes 10/18/2023 11:50 AM Mckayla Pelaez, JESSICA * Does this person have difficulty dressing [...] Mckayla Pelaez RN documented in this encounter Plan of Treatment Upcoming Encounters Date Type Department Care Team (Late st Contact Info) Description 10/09/2025 10:30 AM EST Office Visit [facility] [address] [place] [phone] Gordo Jordan MD [address] [address] 02/01/2026 11:00 AM EDT Office Visit [facility] [address] [facility] [address] [place] [phone] Belinda Marques OD [address] [place] [address] documented as of this encounter Goals Goal [...] in home exercises. General No Montserrat Garcia, JESSICA Maintain a healthy diet, exercise regularly and [...] log to next follow up appointment with respiratory care faculty General Not on track(2024 10:05 AM EDT) [...] Component 11.6( 025 10:27 AM EDT) No Annei Martinez CCMA Weight < 210 lb (95.255 kg) Weight 260 lb 6.4 oz (118.1 kg)(08/17/20 12:48 PM EDT) No Angel Duffy MD documented as of this encounter Procedures Procedure Name Priority Date/Time Associated Diagnosis Comments XR KNEE BILATERAL AP LATERAL INTERNAL AND EXTERNAL OBLIQUES Routine 08/08/2025 9:01 AM EDT Pain in both knees, unspecified chronicity documented in this encounter Results * XR KNEE BILATERAL AP LATERAL INTERNAL AND EXTERNAL OBLIQUES (08/08/2025 9:01 AM EDT) Narrative JamiruserCheryl - 08/08/2025 9:01 AM EDT Please see physician's note from office encounter for x-ray imaging result us Zane Méndez DO IM DIAGNOSTIC IMAGING ORDERAB LES Final Result documented in this encounter Visit Diagnoses Diagnosis Pain in both knees, unspecified chronicity documented in this encounter Additional Health Concerns Assessment Noted Time PHQ-9 Depression Total Score: 22 025 9:00 AM EDT PHQ-2 Depression Total Score: 5 07/26/20 25 9:00 AM EDT documented as of this encounter Care Teams Computer Salesperson Retail Relationship Specialty Start Date End Date Jordan, Gordo Monet MD [address] [place] [address] PCP - General Family Medicine 08/07/25 Danielle Monroy, scientific linguist Equities Analyst/Pressure Tester 07/26/25 08/08/25 Helen Patel Care Management Meal Room Hand 07/28/25 08/31/25 documented as of this encounter
--- OUTSIDE RECORDS SUMMARY | 2025-08-08 08:45 | XMS_ITS | Encounter Summary ---
Author Organization [facility] Address [address] [place] [address] Care Team Providers Care Furniture Technician Name Role Phone Danielle Monroy RN Unavailable Unavailable Helen Patel Unavailable Unavailable Gordo Jordan MD Primary Care Prov ider Reason for Referral * Consultation (Routine) - Pending Review Specialty Diagnoses / Procedures Referred By Contac t Referred To Contact Orthopedic Surgery Diagnoses Pain in both knees, unspecified chronicity Primary osteoarthritis of both knees Zane Méndez DO [address] [place] [address] Phone: tel: fax: Enrique Phillips MD [address] [place] [address] Phone: tel: fax: Referral ID Status Reason Start Date Expiration Date V isits Requested Visits Authorized [id number] Pending Review 08/08/2025 08/08/2026 1 1 Reason for Visit * Reason Comments Pain Pain Encounter Details Date Type Department Care Team (Latest Contact Info) Description 08/08/2025 9:45 AM EDT Office Visit [facility] [address] [address] Zane Méndez DO [address] [place] [address] Primary osteoarthritis of both knees (Primary Dx); Pain in both knees, unspecified chronicity Social History Tobacco Use Types Packs/Day Years Used Date Smoking Tobacco: Former Cigarettes 0.6 8 0 11/16/1986 - 11/16/1990 Passive Smoke Exposure: Never Smokeless Tobacco: Never Alcohol Use Standard Drinks/Week Comments Not Currently 4 (1 standard drink = 0.6 oz pure alcohol) Sober for 20 years until May 2022 [facility] Utilities Answer Date Recorded In the past 12 months has th e electric, gas, oil, or water company threatened to shut off services in your home? No 06/22/2025 Overall Financial Resource Strain (CARDIA) Answe r Date Recorded How hard is it for you to pa y for the very basics like food, housing, medical care, and heating? Somewhat hard 06/22/2025 PHQ-2 Answer Date Recorded PHQ-2 Total Score 5 07/26/2025 [facility] - Occupational Stress [...] things needed for daily living? No 11/10/2023 [facility] IP Transportation Answer D ate Recorded In [...] documented in this encounter Progress Notes * Zane Méndez, - 08/08/2025 9:45 AM EDT Images from the original note were not included. PATIENT NAME: Hermelindo Gunn DATE OF (age): 60 y.o. PHYSICIAN: Zane Méndez D.O. Date of Visit: 08/08/2025 Subjective: Chief Complaint: Chief Complaint Patient presents with Right Knee - Pain Left Knee - Pain History: What caused the pain/What was the injury?: chronic severe b/l knee pain limits him daily. He is 60 but using a rollator. He is in poor health with uncontrolled DM. Relevant point review of (Review of Systems Form, Injury Forms, and/or History Forms) dated 08/08/2025 (or most [facility]) was reviewed and all pertinent positives were reviewed and are available in the patient's chart Objective: Gait: Walks with a antalgic gait. Ortho Exam: Tenderness to palpation: Medial joint line: Yes Lateral joint line: Yes Patella: Yes Femoral condyles: Yes Knee ROM: Flexion: 100 deg Flexion Contracture: Yes 5-10 Stability Varus: Yes Valgus: Yes Correctable to neutral: No Anterior drawer: negative Tests: + b/l grind test Assessment and Plan: Diagnoses and all orders for this visit: Primary osteoarthritis of both knees - XR KNEE BILATERAL AP LATERAL INTERNAL AND EXTERNAL OBLIQUES; Future - AMB REFERRAL TO ORTHOPEDIC SURGERY - OR KO ELASTIC W/JOINTS PRE OTS Pain in both knees, unspecified chronicity - XR KNEE BILATERAL AP LATERAL INTERNAL AND EXTERNAL OBLIQUES; Future - AMB REFERRAL TO ORTHOPEDIC SURGERY - OR KO ELASTIC W/JOINTS PRE OTS Recommend initial conservative treatment for Knee OA including oral anti- inflammatories if able, low impact physical activity, outpatient physical therapy (or self-directed therapy if they are unableto attend which we provided instructions on today). Patient asked about bracing - will trial economy sleeve braces at his request Weight loss recommendations Needs dental work/clearance Needs A1C optimization IVP referral - patient nonoperative candidate. Imaging results: 4 view x-rays of the b/l knee were independently interpreted by me. There are no fractures or dislocations. There are no lytic lesions. There are no signs of avascular necrosis. There is genu varum There are severe degenerative changes to the knee including joint space narrowing, subchondral sclerosis, osteophytes and remodeling of the bone at the joint line. Kellgren-Henry grade 4 DME Summary Normal Orders This Visit OR KO ELASTIC W/JOINTS PRE OTS [[id number] [facility]] Order #: [id number] This ambulatory patient has been prescribed a pull up hinged knee brace which is designed to provide medial and lateral support to the right knee due to weakness and/or instability. This brace was delivered as a prefabricated product with no modifications from its original specifications. This patient is to wear the brace during all ADLs so as not to cause further damage to the injury site. Patient is to wear the brace until next patient visit. Verbal and written instructions for the use and application of this item were given. Patient was instructed that should the brace result in increased pain, decreased sensation, increased swelling mandie overall worsening of their medical condition, to please contact our office immediately. Zane Méndez DO [facility] Office: [phone], [phone] documented in this encounter Plan of Treatment Upcoming Encounters Date Type Department Care Team (Late st Contact Info) Description 10/09/2025 10:30 AM EST Office Visit [facility] [address] [place] [phone] Gordo Jordan MD [address] [place] [id number] 02/01/2026 11:00 AM EDT Office Visit [facility] [address] [facility] [address] [place] [address] Belinda Marques, OD [address] [place] [address] Scheduled Orders Name Type Priority Associated Diagnoses Orde r Schedule OR KO ELASTIC W/JOINTS PRE OTS OR Charge Routine Pain in both knees, unspecified chronicity Primary osteoarthritis of both knees Ordered: 08/08/2025 Scheduled Referrals Name Type Priority Associated Diagnoses Orde r Schedule AMB REFERRAL TO ORTHOPEDIC SURGERY Outpatient Referral Routine Pain in both knees, unspecified chronicity Primary osteoarthritis of both knees Ordered: 08/08/2025 documented as of this encounter Goals Goal [...] log to next follow up appointment with pharmacy customer care specialist General Not on track(2024 10:05 AM EDT) [...] Duffy MD documented as of this encounter Results * XR KNEE BILATERAL AP LATERAL INTERNAL AND EXTERNAL OBLIQUES (08/08/2025 9:01 AM EDT) Narrative JamiruserCheryl - 08/08/2025 9:01 AM EDT Please see physician's note from office encounter for x-ray imaging result us Zane Méndez DO [facility] ORDERAB LES Final Result documented in this encounter Visit Diagnoses Diagnosis Primary osteoarthritis of both knees- Primary Primary localized osteoarthrosis, lower leg Pain in both knees, unspecified chronicity Pain in both knees, unspecified chronicity documented in this encounter Additional Health Concerns Assessment Noted Time PHQ-9 Depression Total Score: 22 025 9:00 AM EDT PHQ-2 Depression Total Score: 5 07/26/20 9:00 AM EDT documented as of this encounter Care Teams Furniture Technician Relationship Specialty Start Date End Date Jordan, Gordo Monet MD [address] [place] [address] PCP - General Family Medicine 08/07/25 Danielle Monroy RN Case Client Portfolio Manager Manager/Machine Joiner Cementer 07/26/25 08/08/25 Helen Patel Care Management Sensor Technician 07/28/25 08/31/25 documented as of this encounter
--- OUTSIDE RECORDS SUMMARY | 2025-08-13 07:11 | XMS_ITS | Encounter Summary ---
Author Organization [place] [address] Care Team Providers Care Paper Products Supervisor Name Role Phone Helen Patel Unavailable Unavailable JordanGordo conde MD Primary Care Prov ider Reason for Visit * Reason Comments Abdominal Pain lower abdominal pain x3 days / concerned that something is wrong with his kidneys Encounter Details Date Type Department Care Team (Late st Contact Info) Description 08/13/2025 8:11 AM EDT - 08/13/2025 11:03 AM EDT Emergency [facility] [address] [facility] [place] [address] Chandni Bass, DO [address] [address] Uncontrolled type 2 diabetes mellitus with hyperglycemia (HCC) (Primary Dx); Chronic kidney disease, unspecified CKD stage Discharge Disposition: Home or Self Care Social History Tobacco Use Types Packs/Day Years Used Date Smoking Tobacco: Former Cigarettes 0.6 8 0 11/16/1986 - 11/16/1990 Passive Smoke Exposure: Never Smokeless Tobacco: Never Alcohol Use Standard Drinks/Week Comments Not Currently 4 (1 standard drink = 0.6 oz pure alcohol) Sober for 20 years until May 2022 [facility] Utilities Answer Date Recorded In the past 12 months has e electric, gas, oil, or water company threatened to shut off services in your home? No 06/22/2025 Overall Financial Resource Strain (CARDIA) Answe r Date Recorded How hard is it for you to pa y for the very basics like food, housing, medical care, and heating? Somewhat hard 06/22/2025 PHQ-2 Answer Date Recorded PHQ-2 Total Score 5 07/26/2025 [facility] - Occupational Stress Questionnaire Answer Date Recorded [...] things needed for daily living? No 11/10/2023 [facility] IP Transportation Answer D ate Recorded [...] Sign Reading Time Taken Comments Blood Pressure 151/100 08/13/2025 11:00 AM EDT Pulse 94 08/13/2025 11:00 AM EDT Temperature 36.4 C (97.6 F) 08/13/2025 8:06 AM EDT Respiratory Rate 16 08/13/2025 11:00 AM EDT Oxygen Saturation 98% 08/13/2025 11:00 AM EDT Inhaled Oxygen Concentration - - Weight 113.4 kg (250 lb) 08/13/2025 8:06 AM EDT Height 185.4 cm (6' 1 ) 08/13/2025 8:06 AM EDT Body Mass Index 32.98 08/13/2025 8:06 AM EDT documented in this encounter Functional [...] 10/18/2023 11:50 AM Mckayla Pelaez RN * Suicide Severity Rating Answer Date of Assessment Author No Risk 08/13/2025 8:10 AM EDT Alfonso Silver RN * [place] Suicide Severity Rating Scale (Q shift for moderate and high) Question Answer Date of Assessment Author 1. In the past month, have y ou wished you were or wished you could go to sleep and not wake up? 0 08/13/2025 8:10 AM EDT Alfonso Woods RN 2. In the past month, have y ou actually had any thoughts of killing yourself? (If no, skip to question 6) 0 08/13/2025 8:10 AM EDT Alfonso Silver RN 6. Have you ever done anythi ng, started to do anything, or prepared to do anything to end your life? 0 08/13/2025 8:10 AM EDT Alfonso Bass, JESSICA documented as of this encounter Mental Status * Because of a physical, mental or emotional condition, does this person have serious difficulty concentrating, remembering or making decisions? Answer Entry Date Author No 10/18/2023 11:50 AM Mckayla Pelaez RN documented in this encounter Discharge Instructions * Discharge Instructions* Austin Caballero APRN - 08/13/2025 8:41 AM EDT Please take your insulin and monitor your blood sugar Kidney function had slightly improved and blood sugar significantly elevated. Increase water intake. Avoid NSAIDs. Monitor blood pressure at home and let us know if it is persistently elevated. Avoid added sugars and simple carbohydrates. Take all medications as prescribed. Recheck in 1-2 weeks. documented in this encounter Medications at Time of Discharge Blood-Glucose Meter [facility] KitIndications:Unco ntrolled type 2 diabetes mellitus with hyperglycemia, with long-term current use of insulin ([facility]),Diabetic polyneuropathy associated with type 2 diabetes mellitus ([facility]) Check glucose TID QAC + QHS 1 Kit 07/26/2025 [facility] ESPERANZA PEN NEEDLE 32 gauge x / [facility] Needle 07/26/2025 acetaminophen (TYLENOL) 500 mg Oral TabletIndications:P rimary osteoarthritis of both knees Take 2 Tablets by mouth every 8 hours as needed for Pain. 90 Tablet 07/26/2025 5 Alcohol Swabs (ALCOHOL PREP PADS) Top Pads, MedicatedIndication s:Uncontrolled type 2 diabetes mellitus with hyperglycemia, with long-term current use of insulin ([facility]),Diabetic polyneuropathy associated with type 2 diabetes mellitus ([facility]) Apply 1 Each topically as needed. 100 Each 30 07/26/2025 5 amLODIPine (NORVASC) 5 mg Oral TabletIndications:H ypertension associated with diabetes ([facility]) Take 1 Tablet by mouth daily. 30 Tablet 07/28/2025 5 aspirin 81 mg Oral Tablet, Delayed Release (E.C.)Indications:U ncontrolled type 2 diabetes mellitus with hyperglycemia, with long-term current use of insulin ([facility]),Hypertension associated with diabetes ([facility]) Take 1 Tablet by mouth daily (with breakfast). 90 Tablet 07/26/2025 5 atorvastatin (LIPITOR) 20 mg Oral TabletIndications:H yperlipidemia associated with type 2 diabetes mellitus ([facility]) Take 1 Tablet by mouth daily. 90 Tablet 07/26/2025 5 Blood Sugar Diagnostic (ACCU-CHEK GUIDE TEST STRIPS) [facility] StripIndications:Un controlled type 2 diabetes mellitus with hyperglycemia, with long-term current use of insulin ([facility]),Diabetic polyneuropathy associated with type 2 diabetes mellitus ([facility]) 1 Strip by [facility].(Non-Drug; Combo Route) route 3 times daily. E11.9 300 Each 3 07/26/2025 5 chlorhexidine (PERIDEX) 0.12 % MM Mouthwash Take 10 mL by mouth 2 times daily. 250 mL 2 08/07/2025 5 DULoxetine (CYMBALTA) 60 mg Oral Capsule, Delayed Release(E.C.)Indica tions:Diabetic polyneuropathy associated with type 2 diabetes mellitus ([facility]),Major depressive disorder, recurrent severe without psychotic features ([facility]),AURORA (generalized anxiety disorder) Take 1 Capsule by mouth daily. 90 Capsule 07/26/2025 5 empagliflozin (JARDIANCE) 25 mg Oral TabletIndications:U ncontrolled type 2 diabetes mellitus with hyperglycemia, with long-term current use of insulin ([facility]),Diabetic polyneuropathy associated with type 2 diabetes mellitus ([facility]) Take 1 Tablet by mouth daily. 30 Tablet 07/26/2025 5 folic acid (FOLVITE) 1 mg Oral TabletIndications:F olate deficiency Take 1 Tablet by mouth daily. Take 1 tablet by mouth once daily 90 Tablet 07/26/2025 5 hydrOXYzine (ATARAX) 25 mg Oral TabletIndications:G AD (generalized anxiety disorder) Take 1 Tablet by mouth 3 times daily as needed. for anxiety 90 Tablet 07/26/2025 5 insulin aspart U-100 (NOVOLOG) 100 unit/mL (3 mL) SubQ Insulin PenIndications:Unco ntrolled type 2 diabetes mellitus with hyperglycemia, with long-term current use of insulin (HCC),Diabetic polyneuropathy associated with type 2 diabetes mellitus (HCC) Inject 12 Units under the skin 3 times daily (before meals). Use as directed 15 mL 1 08/07/2025 5 insulin glargine (LANTUS) 100 unit/mL (3 mL) SubQ Insulin PenIndications:Unco ntrolled type 2 diabetes mellitus with hyperglycemia, with long-term current use of insulin (HCC),Diabetic polyneuropathy associated with type 2 diabetes mellitus (HCC) Inject 50 Units under the skin every evening. 15 mL 1 07/26/2025 5 Insulin [place], Disposable, (BD ULTRA-FINE MINI PEN NEEDLE) 31 gauge x 3/16 Misc NeedleIndications:U ncontrolled type 2 diabetes mellitus with hyperglycemia, with long-term current use of insulin (HCC),Diabetic polyneuropathy associated with type 2 diabetes mellitus (HCC) Use pen needle to administer insulin from pens as directed 100 Each 07/26/2025 5 Lancets (ACCU-CHEK SOFTCLIX LANCETS) Misc MiscIndications:Unc ontrolled type 2 diabetes mellitus with hyperglycemia, with long-term current use of insulin (HCC),Diabetic polyneuropathy associated with type 2 diabetes mellitus (HCC) USE DIRECTED E11.9 300 Each 5 07/26/2025 5 lidocaine 2 % MM Solution Take 5 mL by mouth 3 times daily as needed for Pain. 100 mL 08/07/2025 5 methocarbamoL (ROBAXIN) 750 mg Oral TabletIndications:C hronic bilateral low back pain without sciatica,Primary osteoarthritis involving multiple joints Take 1 Tablet by mouth 3 times daily as needed for Pain. 90 Tablet 07/26/2025 5 metoprolol succinate (TOPROL-XL) 200 mg Oral Tablet Sustained Release 24 hrIndications:Hyper tension associated with diabetes (HCC) Take 1 Tablet by mouth daily. 30 Tablet 07/26/2025 5 pantoprazole (PROTONIX) 40 mg Oral Tablet, Delayed Release (E.C.)Indications:G astroesophageal reflux disease without esophagitis Take 1 Tablet by mouth daily. 90 Tablet 07/26/2025 5 pregabalin (LYRICA) 150 mg Oral Capsule Take 1 Capsule by mouth 3 times daily. 90 Capsule 2 08/07/2025 5 documented as of this encounter Discharge Disposition Disposition Code Departure Means Destination Comment s Home or Self Usp documented in this encounter ED Notes * Austin Caballero APRN - 08/13/2025 7:55 AM EDT Chief Complaint Patient presents with Abdominal Pain lower abdominal pain x3 days / concerned that something is wrong with his kidneys 60-year-old male who presents for pain. He states pain has been he is concerned that he is having an issue with his kidneys. He states that his kidney function is worsening. He is a diabetic. He states his hydration status is poor. He also reports not keeping good control of his blood sugar. He wasseen by the nurse practitioner and his family physician this coming weeks. [facility] which is 3 days away. Reports having some slight suprapubic abdominal pain. He denies change in dark or malodorous urine. He is here today for evaluation. Past medical history significant forhypertension, GERD, uncontrolled type 2 diabetes, depression, type rotation chronic back pain. Patient History Allergies[1] Home Medications: Prior to Admission medications Medication Sig Start Date End Date Last Dose Authorizing Provider acetaminophen (TYLENOL) 500 mg Oral Tablet Take 2 Tablets by mouth every 8 hours as needed for Pain. 07/26/25 Stacy Mccabe APRN Alcohol Swabs (ALCOHOL PREP PADS) Top Pads, Medicated Apply 1 Each topically as needed. 07/26/25 Stacy Mccabe APRN amLODIPine (NORVASC) 5 mg Oral Tablet Take 1 Tablet by mouth daily. 07/28/25 Stacy Mccabe APRN aspirin 81 mg Oral Tablet, Delayed Release (E.C.) Take 1 Tablet by mouth daily (with breakfast). 07/26/25 Stacy Mccabe APRN atorvastatin (LIPITOR) 20 mg Oral Tablet Take 1 Tablet by mouth daily. 07/26/25 Stacy Mccabe APRN Blood Sugar Diagnostic (ACCU-CHEK GUIDE TEST STRIPS) [facility] Strip 1 Strip by [facility]Non-Drug; Combo Route) route 3 times daily. E11.9 07/26/25 Stacy Mccabe APRN Blood-Glucose Meter [facility] Kit Check glucose TID QAC + QHS 07/26/25 Stacy Mccabe APRN chlorhexidine (PERIDEX) 0.12 % MM Mouthwash Take 10 mL by mouth 2 times daily. 08/07/25 Gordo Jordan MD DULoxetine (CYMBALTA) 60 mg Oral Capsule, Delayed Release(E.C.) Take 1 Capsule by mouth daily. 07/26/25 Stacy Mccabe APRN empagliflozin (JARDIANCE) 25 mg Oral Tablet Take 1 Tablet by mouth daily. 07/26/25 Stacy Mccabe APRN folic acid (FOLVITE) 1 mg Oral Tablet Take 1 Tablet by mouth daily. Take 1 tablet by mouth once daily 07/26/25 Stacy Mccabe APRN FREESTYLE LANCETS 28 gauge [facility] 07/26/25 Provider, Historical hydrOXYzine (ATARAX) 25 mg Oral Tablet Take 1 Tablet by mouth 3 times daily as needed. for anxiety 07/26/25 Stacy Mccabe APRN insulin aspart U-100 (NOVOLOG) 100 unit/mL (3 mL) SubQ Insulin Pen Inject 12 Units under the skin 3times daily (before meals). Use as directed 08/07/25 Gordo Jordan MD insulin glargine (LANTUS) 100 unit/mL (3 mL) SubQ Insulin Pen Inject 50 Units under the skin every evening. 07/26/25 Stacy Mccabe APRN Insulin [place], Disposable, (BD ULTRA-FINE MINI PEN NEEDLE) 31 gauge x 3/16 [facility] Needle Use pen needle to administer insulin from pens as directed 07/26/25 Stacy Mccabe APRN Lancets (ACCU-CHEK SOFTCLIX LANCETS) [facility] USE DIRECTED E11.9 07/26/25 Stacy Mccabe APRN lidocaine 2 % MM Solution Take 5 mL by mouth 3 times daily as needed for Pain. 08/07/25 Gordo Jordan MD methocarbamoL (ROBAXIN) 750 mg Oral Tablet Take 1 Tablet by mouth 3 times daily as needed for Pain.07/26/25 Stacy Mccabe APRN metoprolol succinate (TOPROL-XL) 200 mg Oral Tablet Sustained Release 24 hr Take 1 Tablet by mouth daily. 07/26/25 Stacy Mccabe APRN ESPERANZA PEN NEEDLE 32 gauge x 5/32 Misc Needle 07/26/25 Provider, Historical pantoprazole (PROTONIX) 40 mg Oral Tablet, Delayed Release (E.C.) Take 1 Tablet by mouth daily. 07/26/25 Stacy Mccabe APRN pregabalin (LYRICA) 150 mg Oral Capsule Take 1 Capsule by mouth 3 times daily. 08/07/25 Gordo Jordan MD Past Medical History: Past Medical History[2] Social History: reports that he quit smoking about 34 years ago. His smoking use included cigarettes. He started smoking about 38 years ago. He has a 5 pack- year smoking history. He has never been exposed to tobacco smoke. He has never used smokeless tobacco. He reports that he does not currently use alcohol after a past usage of about 2.4 oz of alcohol per week. He reports that he does not currently use drugs. He reports that he is not currently sexually active and has had partner(s) who are female. He reports using the following method of control/protection: Condom. E-Cigarettes (such as Vapes or Juul) E-Cigarette Use Never User Family History: Family History[3] Surgical History: Surgical History[4] Review of Systems Review of Systems Constitutional: Negative for chills and fever. HENT: Negative. Eyes: Negative. Respiratory: Negative for cough and shortness of breath. Cardiovascular: Negative for chest pain, palpitations and leg swelling. Gastrointestinal: Positive for abdominal pain. Musculoskeletal: Negative. Skin: Negative for rash. Neurological: Negative. Negative for light-headedness and headaches. Psychiatric/Behavioral: Negative. All other systems reviewed and are negative. Physical Exam Blood pressure 151/100, pulse 94, temperature 97.6 ??F (36.4 ??C), temperature source Oral, resp. rate 16, height 6' 1 (1.854 m), weight 250 lb (113.4 kg), SpO2 98%. Physical Exam Vitals and nursing note reviewed. Constitutional: General: He is not in acute distress. Appearance: He is well-developed. He is obese. HENT: Head: Normocephalic. Eyes: Conjunctiva/sclera: Conjunctivae normal. Pupils: Pupils are equal, round, and reactive to light. Cardiovascular: Rate and Rhythm: Normal rate and regular rhythm. Heart sounds: Normal heart sounds. No murmur heard. Pulmonary: Effort: Pulmonary effort is normal. Breath sounds: Normal breath sounds. Abdominal: General: Bowel sounds are normal. There is no distension. Palpations: Abdomen is soft. Tenderness: There is no abdominal tenderness. There is no right CVA tenderness or left CVA tenderness. Musculoskeletal: Cervical back: Normal range of motion and neck supple. Lymphadenopathy: Cervical: No cervical adenopathy. Skin: General: Skin is warm and dry. Findings: No rash. Neurological: Mental Status: He is alert and oriented to person, place, and time. Procedures Radiology/EKG/Labs: Results for orders placed or performed during the hospital encounter of 08/13/25 CBC WITH DIFF Result Value Ref Range WBC 10.7 (H) 3.7 - 10.3 x10(3)/mcL RBC 4.99 4.60 - 6.10 x10(6)/mcL Hgb 15.2 13.7 - 17.5 g/dL Hct 43.2 40.0 - 51.0 % MCV 86.6 80.0 - 100.0 fL MCH 30.5 26.0 - 34.0 pg MCHC 35.2 30.7 - 35.5 g/dL RDW 12.3 <=14.9 % Platelet 354 155 - 369 x10(3)/mcL MPV 9.2 8.8 - 12.5 fL Neut Percent 67.2 % Imm Gran% 0.4 % Lymph Percent 25.5 % [place] Percent 5.3 % Eos Percent 1.3 % Baso Percent 0.3 % Neut # 7.2 (H) 1.6 - 6.1 x10(3)/mcL IMMGRAN# 0.0 0.0 - 0.1 x10(3)/mcL Lymph # 2.7 1.2 - 3.9 x10(3)/mcL [place] # 0.6 0.3 - 0.9 x10(3)/mcL Eos# 0.1 0.0 - 0.5 x10(3)/mcL Baso # 0.0 0.0 - 0.1 x10(3)/mcL UA W/REFLEX TO CULTURE Specimen: Urine, Clean Catch Narrative The following orders were created for panel order UA W/REFLEX TO CULTURE. Procedure Abnormality Status --------- ------ URINALYSIS REFLEX[[id number]] Abnormal Final result EXTRA SLATER URINE CX[[id number]] Final result Please view results for these tests on the individual orders. COMPREHENSIVE METABOLIC PANEL Result Value Ref Range Sodium 135 (L) 136 - 145 mmol/L Potassium 3.8 3.5 - 5.0 mmol/L Chloride 96 (L) 98 - 107 mmol/L Total CO2 25 22 - 29 mmol/L Anion Gap 14 7 - 16 mmol/L Calcium 9.6 8.6 - 10.4 mg/dL Glucose Lvl 429 (H) 70 - 99 mg/dL BUN 20 6 - 20 mg/dL Creatinine 1.51 (H) 0.67 - 1.30 mg/dL Albumin 4.3 3.5 - 5.2 gm/dL Total Protein 8.2 6.4 - 8.3 gm/dL Bili Total 0.5 0.2 - 1.4 mg/dL ALT 19 <=41 U/L AST 19 <=40 U/L Alk Phos 153 (H) 40 - 129 U/L eGFR (CKD-EPIcr 2020) 53 (L) >=60 mL/min/1.73 m2 LIPASE LEVEL Result Value Ref Range Lipase Lvl 34 13 - 60 U/L URINALYSIS REFLEX Result Value Ref Range UA Color Light Yellow UA Appear Clear Clear UA Glucose 4+ (>1000mg/dL) (A) Negative mg/dL UA Ketones Negative Negative mg/dL UA Blood Negative Negative UA pH 6.0 5.0 - 8.0 pH UA Protein Negative Negative mg/dL UA Urobilinogen Normal <=1 mg/dL UA Bili Negative Negative UA Nitrite Negative Negative UA Leuk Est Negative Negative UA Spec Grav 1.032 1.001 - 1.035 no units UA WBC 2 0 - 4 /HPF UA RBC 1 0 - 3 /HPF UA Squam Epi Few /LPF UA Mucus Trace /LPF ED Course: Appropriate laboratory and radiology studies reviewed Medications sodium chloride 0.9 % 1,000 mL IV bolus ( Intravenous Stopped 08/13/25 1050) 60-year-old male presents for evaluation of lower abdominal pain. He is concerned that his kidneys are worsening. Labs ordered White count is 10.7 so only marginally elevated Kidney function has actually slightly improved and his creatinine is now 1.5 and GFR is 53. Glucoseis 429. Upon reevaluation he has no abdominal tenderness.. Reassurance is provided. He was given a total of1 L of IV fluids while here. We have discussed the importance of properly managing his blood sugar.He states he does have insulin with him and will take that. He is also advised to keep his appointment which is scheduled 3 days from now. He is comfortable with this plan and discharged home in goodcondition Patient seen for Dr. Bass ED Clinical Impression: 1. Uncontrolled type 2 diabetes mellitus with hyperglycemia (HCC) 2. Chronic kidney disease, unspecified CKD stage Critical Care time MDM Medical Decision Making Condition at Discharge/Transfer from Department: Improved This chart was completed using voice recognition technology and may contain unintended errors [1] Allergies Allergen Reactions Lisinopril Other (See Comments) Cough Metformin Diarrhea [2] Past Medical History: Diagnosis Date Chronic kidney disease Depression 10/17/2018 Diabetes mellitus (HCC) Difficulty walking Foot ulcer (HCC) AURORA (generalized anxiety disorder) GERD (gastroesophageal reflux disease) Headache History of COVID-19 09/15/2021 Hypertension Neuropathy in diabetes (HCC) Osteoarthritis of both knees 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 Sleep apnea Urinary incontinence 11/09/17 [3] Family History Problem Relation Age of Onset Hypertension Mother Diabetes Mother Heart Disease Mother High Blood Pressure Mother High Blood Pressure Father Diabetes Father High Blood Pressure Brother Hypertension Brother Hypertension Brother Heart Disease Brother Cataracts Neg Hx Glaucoma Neg Hx Macular Degen Neg Hx [4] Past Surgical History: Procedure Laterality Date ACHILLES [...] [facility] MAIN OR; Service: Podiatry VASCULAR SURGERY Austin Caballero APRN 08/13/[id number] Cosigned by Chandni Bass DO at 08/27/2025 11:42 PM EDT Associated attestation - Chandni Bass DO - 08/27/2025 11:42 PM EDT I have reviewed pertinent clinical information and documentation by the PA/SERVICE LINE COORDINATOR and was available forconsultation. This chart was completed using voice recognition technology and may contain unintended errors documented in this encounter Plan of Treatment Upcoming Encounters Date Type Department Care Team (Late st Contact Info) Description 10/09/2025 10:30 AM EST Office Visit [facility] [address] [place] [phone] Gordo Jordan MD [address] [place] [phone] 02/01/2026 11:00 AM EDT Office Visit [facility] [address] [facility] [address] [place] [address] Belinda Marques OD [address] [phone] documented as of this encounter Goals Goal [...] log to next follow up appointment with resident care spec General Not on track(2024 10:05 AM EDT) Yes Danielle Monroy RN Stay Tobacco Free Lifestyle On track(2021 3:33 PM EDT) No Annie Martinez CCMA Check fasting glucose daily and document Lifestyle On track(2021 10:51 AM EST) No Radha Moreira RN LDL CALC < 100 Result Component 88( 10:21 AM EDT) No Angel Duffy MD HEMOGLOBIN A1C < 7.0 Result Component 11.6( 10:27 AM EDT) No Annie Martinez CCMA Weight < 210 lb (95.255 kg) Weight 260 lb 6.4 oz (118.1 kg)(08/17/20 12:48 PM EDT) No Angel Duffy MD documented as of this encounter Procedures Procedure Name Priority Date/Time Associated Diagnosis Comments CBC WITH DIFF STAT 08/13/2025 8:28 AM EDT LIPASE LEVEL STAT 08/13/2025 8:28 AM EDT COMPREHENSIVE METABOLIC PANEL STAT 08/13/2025 8:28 AM EDT URINALYSIS REFLEX STAT 08/13/2025 8:2 2 AM EDT UA W/REFLEX TO CULTURE STAT 8:22 AM EDT EXTRA SLATER URINE CX STAT 08/13/2025 8 :22 AM EDT documented in this encounter Results * LIPASE LEVEL (08/13/2025 8:28 AM EDT) Pathologist [facility] Lipase Lvl 34 13 - 60 U/L 08/13/2025 8:55 AM EDT [facility] Blood VENOUS BLOOD / Unknown Venipuncture / Unknown 08/13/2025 8:28 AM EDT 08/13/2025 8:33 AM EDT us Chandni Bass DO CHEMISTRY ORDERABLES Final Res ult [facility] [address] [phone] * (ABNORMAL) COMPREHENSIVE METABOLIC PANEL (08/13/2025 8:28 AM EDT) Pathologist [facility] Sodium 135(L) 136 - 145 mmol/L 08/13/2025 8:55 AM EDT [facility] Potassium 3.8 3.5 - 5.0 mmol/L 08/13/2025 8:55 AM EDT [facility] Chloride 96(L) 98 - 107 mmol/L 08/13/2025 8:55 AM EDT [facility] Total CO2 25 22 - 29 mmol/L 08/13/2025 8:55 AM EDT [facility] Anion Gap 14 7 - 16 mmol/L 08/13/2025 8:55 AM EDT [facility] Calcium 9.6 8.6 - 10.4 mg/dL 08/13/2025 8:55 AM EDT [facility] Glucose Lvl 429(H) 70 - 99 mg/dL 08/13/2025 8:55 AM EDT [facility] BUN 20 6 - 20 mg/dL 08/13/2025 8:55 AM EDT [facility] Creatinine 1.51(H) 0.67 - 1.30 mg/dL 08/13/2025 8:55 AM EDT [facility] Albumin 4.3 3.5 - 5.2 gm/dL 08/13/2025 8:55 AM EDT [facility] Total Protein 8.2 6.4 - 8.3 gm/dL 08/13/2025 8:55 AM EDT [facility] Bili Total 0.5 0.2 - 1.4 mg/dL 08/13/2025 8:55 AM EDT [facility] ALT 19 <=41 U/L 08/13/2025 8:55 AM EDT [facility] AST 19 <=40 U/L 08/13/2025 8:55 AM EDT [facility] Alk Phos 153(H) 40 - 129 U/L 08/13/2025 8:55 AM EDT [facility] eGFR (CKD-EPIcr 2020) 53(L) >=60 mL/min/1.7 3 m2 08/13/2025 8:55 AM EDT [facility] Comment:Estimated GFR was ca lculated using the CKD-EPIcr (2020) equation refit without race. The equation is recommended by the [employer] Foundation - [employer]. Blood VENOUS BLOOD / Unknown Venipuncture / Unknown 08/13/2025 8:28 AM EDT 08/13/2025 8:33 AM EDT us Chandni Bass DO CHEMISTRY ORDERABLES Final Res ult [facility] [address] [place] [address] * (ABNORMAL) CBC WITH DIFF (08/13/2025 8:28 AM EDT) [facility] WBC 10.7(H) 3.7 - 10.3 x10(3)/mcL 08/13/2025 8:35 AM EDT [facility] RBC 4.99 4.60 - 6.10 x10(6)/mcL 08/13/2025 8:35 AM EDT [facility] Hgb 15.2 13.7 - 17.5 g/dL 08/13/2025 8:35 AM EDT [facility] Hct 43.2 40.0 - 51.0 % 08/13/2025 8:35 AM EDT [facility] MCV 86.6 80.0 - 100.0 fL 08/13/2025 8:35 AM EDT [facility] MCH 30.5 26.0 - 34.0 pg 08/13/2025 8:35 AM EDT [facility] MCHC 35.2 30.7 - 35.5 g/dL 08/13/2025 8:35 AM EDT [facility] RDW 12.3 <=14.9 % 08/13/2025 8:35 AM EDT [facility] Platelet 354 155 - 369 x10(3)/mcL 08/13/2025 8:35 AM EDT [facility] MPV 9.2 8.8 - 12.5 fL 08/13/2025 8:35 AM EDT [facility] Neut Percent 67.2 % 08/13/2025 8:35 AM EDT [facility] Comment:Neutrophils equals s egs plus bands Imm Gran% 0.4 % 08/13/2025 8:35 AM EDT [facility] Comment:Automated count of m etamyelocytes, myelocytes and promyelocytes. Lymph Percent 25.5 % 08/13/2025 8:35 AM EDT [facility] [place] Percent 5.3 % 08/13/2025 8:35 AM EDT [facility] Eos Percent 1.3 % 08/13/2025 8:35 AM EDT [facility] Baso Percent 0.3 % 08/13/2025 8:35 AM EDT [facility] Neut # 7.2(H) 1.6 - 6.1 x10(3)/[facility] 08/13/2025 8:35 AM EDT [facility] Comment:Neutrophils equals s egs plus bands IMMGRAN# 0.0 0.0 - 0.1 x10(3)/[facility] 08/13/2025 8:35 AM EDT [facility] Comment:Automated count of m etamyelocytes, myelocytes and promyelocytes. An absolute IG <0.1 is reported as 0.0. Lymph # 2.7 1.2 - 3.9 x10(3)/[facility] 08/13/2025 8:35 AM EDT [facility] [place] # 0.6 0.3 - 0.9 x10(3)/[facility] 08/13/2025 8:35 AM EDT [facility] Eos# 0.1 0.0 - 0.5 x10(3)/[facility] 08/13/2025 8:35 AM EDT [facility] Baso # 0.0 0.0 - 0.1 x10(3)/[facility] 08/13/2025 8:35 AM EDT [facility] Blood VENOUS BLOOD / Unknown Venipuncture / Unknown 08/13/2025 8:28 AM EDT 08/13/2025 8:33 AM EDT us Chandni Bass DO HEMATOLOGY ORDERABLES Final Re sult Performing Organization Address City/[facility] Co de Phone Number [facility] [address] [place] [address] * EXTRA SLATER URINE CX (08/13/2025 8:22 AM EDT) Urine STRUCTURE OF URINARY TRACT PROPER / Unknown 08/13/2025 8:22 AM EDT 08/13/2025 8:24 AM EDT us Chandni Bass DO MICROBIOLOGY - GENERAL ORDERAB LES Final Result Performing Organization Address [facility] Co de Phone Number [facility] [address] [place] [address] * (ABNORMAL) URINALYSIS REFLEX (08/13/2025 8:22 AM EDT) UA Color Light Yellow 08/13/2025 8:30 AM EDT [facility] UA Appear Clear Clear 08/13/2025 8:30 AM EDT [facility] UA Glucose 4+ (>1000mg/dL )(A) Negative mg/dL 08/13/2025 8:30 AM EDT [facility] UA Ketones Negative Negative mg/dL 08/13/2025 8:30 AM EDT [facility] UA Blood Negative Negative 08/13/2025 8:30 AM EDT [facility] UA pH 6.0 5.0 - 8.0 pH 08/13/2025 8:30 AM EDT [facility] UA Protein Negative Negative mg/dL 08/13/2025 8:30 AM EDT [facility] UA Urobilinogen Normal <=1 mg/dL 8:30 AM EDT [facility] UA Bili Negative Negative 08/13/2025 8:30 AM EDT [facility] UA Nitrite Negative Negative 08/13/2025 8:30 AM EDT [facility] UA Leuk Est Negative Negative 08/13/2025 8:30 AM EDT [facility] UA Spec Grav 1.032 1.001 - 1.035 no units 08/13/2025 8:30 AM EDT [facility] Comment:Reference range jenny d for random specimens only. UA WBC 2 0 - 4 /HPF 08/13/2025 8:30 AM EDT [facility] UA RBC 1 0 - 3 /HPF 08/13/2025 8:30 AM EDT [facility] UA Squam Epi Few /LPF 08/13/2025 8:30 AM EDT [facility] UA Mucus Trace /LPF 08/13/2025 8:30 AM EDT [facility] Urine STRUCTURE OF URINARY TRACT PROPER / Unknown 08/13/2025 8:22 AM EDT 08/13/2025 8:24 AM EDT us Chandni Bass DO URINE ORDERABLES Final Result [facility] [address] [place] [id number] documented in this encounter Visit Diagnoses Diagnosis Uncontrolled type 2 diabetes mellitus with hyperglycemia (HCC)- Primary Chronic kidney disease, unspecified CKD stage documented in this encounter Administered Medications Inactive Administered Medications - up to 1 most recent administrations Medication Order MAR Action Action Date Dose Rate Site sodium chloride 0.9 % 1,000 mL IV bolus Intravenous, ONCE, 1 dose, On 08/13/25 at 0845, at 500 mL/hr IV Started 08/13/2025 8:54 AM EDT 500 mL/hr sodium chloride 0.9% IV line flush 50 mL 50 mL, Intravenous, at 999 mL/hr, PRN, Starting on 08/13/25 at 0844, Until 08/13/25 at 1504, Line Care, Flush with 50 mL after IVPB to insure complete administration of the dose. May use the saline infusion to back flush IVPB tubing as needed., Use this order to document priming and flushing IV line after medication administration. sodium chloride 0.9% syringe 5-10 mL 5-10 mL, Intravenous, PRN, Starting on 08/13/25 at 0844, Until 08/13/25 at 1504, Line Care, Flush with 5 mL saline pre/post IVP, and 5 mL prior to IVPB or blood product administration. Protocol for PERIPHERAL IV saline lock maintenance, flush with 3-5 mL saline syringe every 8 hours., Flush peripheral lines every 12 hours, central lines every 8 hours, and after IV medication documented in this encounter Active and Recently Administered Medications Times are shown in EDT. Scheduled Medication Order 08/11/2025 08/12/2025 08/13/2025 sodium chloride 0.9 % 1,000 mL IV bolus (COMPLETED) Intravenous, ONCE, 1 dose, On 08/13/25 at 0845, at 500 mL/hr 0854 (IV Started - P rovider: Claudine Mauricio RN)1050 (Stopped - Provider: Claudine Mauricio RN) PRN Medication Order 08/11/2025 08/12/2025 08/13/2025 sodium chloride 0.9% IV line flush 50 mL 50 mL, Intravenous, at 999 mL/hr, PRN, Starting on 08/13/25 at 0844, Until 08/13/25 at 1504, Line Care, Flush with 50 mL after IVPB to insure complete administration of the dose. May use the saline infusion to back flush IVPB tubing as needed., Use this order to document priming and flushing IV line after medication administration. sodium chloride 0.9% syringe 5-10 mL 5-10 mL, Intravenous, PRN, Starting on 08/13/25 at 0844, Until 08/13/25 at 1504, Line Care, Flush with 5 mL saline pre/post IVP, and 5 mL prior to IVPB or blood product administration. Protocol for PERIPHERAL IV saline lock maintenance, flush with 3-5 mL saline syringe every 8 hours., Flush peripheral lines every 12 hours, central lines every 8 hours, and after IV medication documented in this encounter Orders Medications Ordered That Kyle ht Not Have Been Administered Count Last Ordered Date First Ordered Date sodium chloride 0.9% IV line flush 50 mL 1 08/13/2025 sodium chloride 0.9% syringe 5-10 mL 1 07/18 documented in this encounter Additional Health Concerns Assessment Noted Time PHQ-9 Depression Total Score: 025 9:00 AM EDT PHQ-2 Depression Total Score: 07/26/20 25 9:00 AM EDT documented as of this encounter Care Teams Paper Products Supervisor Relationship Specialty Start Date End Date Julian, Gordo Monet MD [address] [place] [address] PCP - General Family Medicine 08/07/25 Helen Patel Care Management Grade And Center Marker 07/28/25 08/31/25 documented as of this encounter
--- OUTSIDE RECORDS SUMMARY | 2025-08-17 12:45 | XMS_ITS | Encounter Summary ---
Author Organization [place] [address] Care Team Providers Care Preforms Laminator Name Role Phone Helen Patel Unavailable Unavailable Gordo Jordan MD Primary Care Prov ider Reason for Referral * Consultation (Routine) - Authorization Not Needed Specialty Diagnoses / Procedures Referred By Contac t Referred To Contact Diabetes Services Diagnoses Type 2 diabetes mellitus with hyperglycemia, with long-term current use of insulin (HCC) Procedures OK OFFICE/OUTPATIENT NEW MODERATE MDM 45 MINUTES Gordo Jordan MD [address] [address] Phone: tel: fax: [facility] Diabetes [address] [place] [phone] Phone: tel: fax: Referral ID Status Reason Start Date Expiration Date Visits Requested Visits Authorized [id number] Authorization Not Needed 08/18/2025 08/18/2026 99 99 Question Answer Is this a priority referral for a patient with diabetes? (i.e., 2 A1C s >= 9.0 in the last 18 months)? Yes Has this priority referral been handed off to the Emergency Department Nurse for immediate priority scheduling? No Reason for Visit * Reason Comments Diabetes Encounter Details Date Type Department Care Team (Late st Contact Info) Description 08/17/2025 1:45 PM EDT Office Visit [facility] [address] [place] [address] Gordo Jordan MD [address] [place] [id number] Type 2 diabetes mellitus with hyperglycemia, with [...] Sober for 20 years until May 2022 [facility] Utilities Answer Date Recorded In the past 12 months has [employer], gas, oil, or water [employer] threatened to shut off services in your home? No 06/22/2025 Overall Financial Resource Strain (CARDIA) Answe r Date Recorded How hard is it for you to pa y for the very basics like food, housing, medical care, and heating? Somewhat hard 06/22/2025 PHQ-2 Answer Date Recorded PHQ-2 Total Score 5 07/26/2025 [facility] Reading of Occupat ional Health - Occupational Stress [...] things needed for daily living? No 11/10/2023 [facility] IP Transportation Answer D ate Recorded [...] to endocrinology. Thank you, Dejan Malagon, PharmD Assembly And Packing Supervisor Pharmacist [facility] 08/17/2025 1:55 PM * Gordo Jordan MD [...] hyperglycemia, with long-term current use of insulin ([facility]) Goal A1C: < 6.5 and TIR >70% [...] hydration Yearly micoalbumin Hypertension associated with diabetes ([facility]) Goal BP: <130/80 BP Readings from Last [...] The provider educated the patient (or legal insurance representative) on the use of the ambient listening artificial intelligence tool, Page[employer]. They were informed that this AI tool [...] of such information, the patient (or legal insurance representative), and each individual in attendance with [...] Description 10/09/2025 10:30 AM EST Office Visit [facility] [address] [place] [phone] Gordo Jordan MD [address] [place] [phone] 02/01/2026 11:00 AM EDT Office Visit [facility] [address] [phone] CzBelinda herman OD [address] [place] [address] Scheduled Referrals Name Type Priority Associated Diagnoses [...] to next follow up appointment with healthcare administrative assistant General Not on track(2024 10:05 AM [...] as of this encounter Visit Diagnoses Diagnosis Type 2 [...] documented as of this encounter Care Teams Preforms Laminator Relationship Specialty Start Date End Date Jordan, Gordo Monet MD [address] [place] [address] PCP - General Family Medicine 08/07/25 Helen Patel Care Management Final Finisher Forging Dies 07/28/25 08/31/25 documented as of this encounter
--- OUTSIDE RECORDS SUMMARY | 2025-09-15 13:00 | XMS_ITS | Encounter Summary ---
Author Organization [place] [address] Care Team Providers Care Visual Stylist Name Role Phone Gordo Jordan MD Primary Care Prov ider Reason for Visit * Reason Comments Hypertension Encounter Details Date Type Department Care Team (Late st Contact Info) Description 09/15/2025 2:00 PM EDT Telemedicine [facility] Video Visits [address] [place] [address] Julianna Eid, CHANGE ROOM ATTENDANT [address] [place], [place] [phone] Elevated blood pressure reading (Primary Dx) Social History Tobacco Use Types Packs/Day Years Used Date Smoking Tobacco: Some Days Cigarettes 0.6 8 Started: 11/16/1986; Last attempted to quit: 11/16/1990 Passive Smoke Exposure: Never Smokeless Tobacco: Never Alcohol Use Standard Drinks/Week Comments Yes 4 (1 standard drink = 0.6 oz pure alcohol) Sober for 20 years until May [address] [facility] Utilities Answer Date Recorded In the past 12 months has [employer], gas, oil, or water [employer] threatened to shut off services in your home? No 06/22/2025 Overall Financial Resource Strain (CARDIA) Answe r Date Recorded How hard is it for you to pa y for the very basics like food, housing, medical care, and heating? Somewhat hard 06/22/2025 PHQ-2 Answer Date Recorded PHQ-2 Total Score 5 07/26/2025 [facility] [place] of Occupat ional Health - Occupational Stress [...] things needed for daily living? No 11/10/2023 [facility] IP Transportation Answer D ate Recorded [...] to a Telemedicine Visit, in accordance with [facility] telehealthlaws and policies. Visit transpired in a [...] 10/09/2025 10:30 AM EST Office Visit [facility] [address] [place] [phone] Gordo Jordan MD [address] [place] [address] 02/01/2026 11:00 AM EDT Office Visit [facility] [address] [facility] [address] [place] [address] Belinda Marques, OD [address] [place] [address] documented as of this encounter [...] log to next follow up appointment with livestock caretaker General Not on track(2024 10:05 AM EDT) [...] documented as of this encounter Care Teams Visual Stylist Relationship Specialty Start Date End Date Gordo Jordan MD [address] [place] [address] PCP - General Family Medicine 08/07/25 documented as of this encounter
[2025-09-20 11:20] VITALS: BP 135/95; PULSE 72; RESP 15; TEMP 36.6; O2SAT 97; BMI 33.6
--- NOTE | 2025-09-20 11:20 | XR_ITS ---
FINAL REPORT TECHNIQUE: Single view chest CLINICAL HISTORY: short of breath patient denies SOA, chest pain. states he has low blood sugar FINDINGS: A single view of the chest was obtained. The heart and mediastinum are within normal limits. The lungs are clear. There is no pneumothorax. IMPRESSION: No acute cardiopulmonary process. Reviewed, Interpreted and Dictated by Mora Soto MD Transcribed by Erin Nunez Authenticated and [facility]
--- NOTE | 2025-09-20 11:24 | ED_ITS ---
<Statement entered by Jose Stephens MD - 09/20/25 15:53> I consulted the MARYJANE, and we discussed the complexity of the problems being addressed. I approved the treatment and management plan for this patient's care in the emergency department, thus performing a substantial portion of the medical decision making. Will MD Kat Discharge Plan Disposition Chief Complaint: Weakness Referrals Follow up/Referrals: Gordo Guerrero MD [Primary Care Provider, Family Practice] - See instructions Print Language Print Language: Indonesian Discharge ED Provider: Jose Stephens General Adult HPI General Chief complaint: Weakness Stated complaint: Diabetic Emergency Time Seen by Provider: 09/20/25 11:18 Mode of Arrival: EMS Source of Information: Patient and EMS Description of Symptoms (Recalled from ER Triage Doc. by RN): patient states he is from [facility], he didnt eat this morning and was given his 12units of regular insulin and his sugar dropped to 40s. they gave him peanut butter and on recheck he was 109. on arrival to room9 he is 89. food tray ordred History of Present Illness HPI narrative: 60-year-old male presents today for complaint of low blood sugar in the 40s. He was given his normal 12 units of regular insulin without any food this morning. Once realized that the sugar was in the 40s they gave him some peanut butter and on recheck with EMS it was 109. On arrival to room 9 after arrival to the ED he was 89. Patient has nausea but no vomiting or diarrhea. He says he has not been feeling well. He does take Lantus every night at 8 PM. No fevers or chills. No other symptoms. Related Data Allergies Allergy/AdvReac Type Severity Reaction Status Date / Time lisinopril Allergy Hives Verified 09/20/25 11:24 metformin Allergy Hives Verified 09/20/25 11:24 [facility] Disclaimer: The information contained in this section may have been updated after the patient was seen, as this information can be updated by other users. Social History (Updated 09/20/25 @ 13:34 by Terese Estrella (ED), X RAY PHYSICIAN) Smoking Status: Never smoker alcohol intake: former current occupational status: other Travel in the last 8 weeks?: Outside the continental [place] Have you lived/traveled outside US in past 30 days?: No Contact w/someone who lives/traveled outside US past 30 days?: No Exposure to someone with infectious disease in past 14 days?: No Do you have a fever (greater than 100.4 F or 38 C)?: No Have you tested positive for COVID-19?: No Exposed to someone with COVID-19 in past 14 days?: No Do you have a sore throat?: No Do you have a cough?: No Do you have any weakness?: No Do you have any diarrhea?: No Are you experiencing any unusual bleeding?: No Do you have any muscle aches/pain?: No Do you have any abdominal pain?: No Are you experiencing loss of taste or smell?: No ROS Obtained: Yes Systems reviewed as appropriate & no additional complaints except as documented Constitutional Constitutional: Reports as per HPI Physical Exam General General appearance: alert Head Head exam: normocephalic Eye Eye exam: Present PERRL and EOMI ENT ENT exam: Present normal oropharynx and mucous membranes moist Neck Neck exam: Present full ROM and trachea midline Respiratory Respiratory exam: Present normal lung sounds bilaterally Cardiovascular Cardiovascular exam: Present regular rate, normal rhythm, normal heart sounds, +S1 and +S2 Abdominal Exam Abdominal exam: Present soft and normal bowel sounds Extremities Exam Extremities exam: Present normal inspection, full ROM and normal capillary refill Neurological Exam Neurological exam: Present alert and oriented X3 Skin Skin exam: Present warm and dry Medical Decision Making Medical Records Screening: Per USPSTF and CDC recommendations, given the prevalence of disease in our region, it is our hospital?s policy to screen for HIV and viral Hepatitis for all patients aged 18 and over and those with ongoing risk factors. Les Inquiry Pt receiving controlled substance: No Les was queried for this patient: No Vital Signs: 09/20/25 11:20 09/20/25 11:32 09/20/25 12:44 Temperature 97.9 F Temperature Source Oral Pulse Rate 72 64 Pulse Rate [Right Radial] 72 Respiratory Rate 15 Blood Pressure 121/88 103/63 L Blood Pressure [Right Arm] 135/95 H Blood Pressure Mean [Right Arm] 108 Blood Pressure Source [Right Arm] Automatic Cuff Blood Pressure Position [Right Arm] Supine 02 Sat by Pulse Oximetry 97 94 L 93 L Oxygen Delivery Method Room Air Lab Data Lab Results 09/20/25 11:42: WBC 10.1, RBC 4.69, Hgb 14.3, Hct 43.5, MCV 92.8, MCH 30.5, MCHC 32.9, RDW 12.7, Plt Count 362, MPV 9.3, Neut % (Auto) 69.0, Lymph % (Auto) 21.9, [place] % (Auto) 6.8, Eos % (Auto) 1.3, Baso % (Auto) 0.5, Neut # (Auto) 6.9, Lymph # (Auto) 2.2, [place] # (Auto) 0.7, Eos # (Auto) 0.1, Baso # (Auto) 0.1, Sodium 138, Potassium 4.2, Chloride 104, Carbon Dioxide 30, Anion Gap 8.2, BUN 27 H, C reatinine 1.40 H, Estimated Creat Clear 93, Estimated GFR 52 L, Est GFR ( Amer) 63, Glucose 105 H, Calcium 9.3, Total Bilirubin 0.5, AST 29, ALT 23, Alkaline Phosphatase 106, Total Protein 7.9, Albumin 4.1, Globulin 3.8 H, Albumin/Globulin Ratio 1.1 09/20/25 11:42 09/20/25 11:42 Orders (Tests/Meds): ED MEDICATIONS Discontinued Medications Generic Name Dose Route Start Last Admin Trade Name Freq PRN Reason Stop Dose Admin Sodium Chloride 1,000 mls @ 999 mls/hr 09/20/25 11:19 09/20/25 12:49 Sod Chlor 0.9% 1000ml Bag IV 09/20/25 12:19 Infused .Q1H1M ONE Infusion Ondansetron HCl 4 mg 09/20/25 11:21 09/20/25 11:47 Ondansetron 4mg/2ml Vial IV 09/20/25 11:22 4 mg ONCE ONE Administration ORDERS Category Date Time Status Chest XR -- portable [XR chest portable] Stat Exams 09/20/25 11:20 Completed CBC w/Auto Diff [Complete Blood Count Auto Diff] Stat Lab 09/20/25 11:42 Completed CMP [Comprehensive Metabolic Panel] Stat Lab 09/20/25 11:42 Completed Comprehensive Metabolic Panel Stat Lab 09/20/25 11:20 Ordered HIV Combo Stat Lab 09/20/25 11:42 Received Hepatitis C Ab Qual. W/ RFX Stat Lab 09/20/25 11:42 Received Lipase Stat Lab 09/20/25 11:20 Ordered Magnesium Stat Lab 11/05/25 11:20 Ordered Urinalysis and Microscopic Stat Lab 09/20/25 11:21 Ordered Medical Decision Narrative: patient is a 60-year-old male presenting to the emergency department for evaluation of glucose dropping into the 40s after having 12 units of regular insulin and no food this morning. Patient is hemodynamically stable and nontoxic-appearing upon arrival, afebrile. Differential diagnosis includes hypoglycemia, electrolyte derangement, among others. Workup will be conducted with hematologic labs, specific imaging. Initial inventions include crystalloid bolus, food tray. Initial workup reviewed by me hematologic labs are remarkable for Normal white count at 10.1, normal H&H, BUN was 27 creatinine 1.4, these are slightly elevated but we do not have a baseline to compare to. I did discuss this with patient and he says he has had his labs drawn recently and does have CKD. Patient's last glucose was 210. Patient feels improved. Patient is safe for discharge home. Patient will follow-up with his PCP for further problems or concerns. Critical Care Critical Care Time Critical Care Time: No
--- NOTE | 2025-09-20 11:30 | PC.NURSE ---
Lunch tray ordered and at bedside for patient.
[2025-09-20 11:32] VITALS: BP 121/88; PULSE 72; O2SAT 94
--- NOTE | 2025-09-20 11:33 | ECG_ITS ---
APPROVED REPORT Exam: Resting ECG HR:65 bpm ECG Measurements Heart Rate 65 AXES HI 176 P 7 QRSd 128 QRS -32 QT 457 T 13 QTc 469 Conclusion SINUS RHYTHM LEFT AXIS DEVIATION [QRS AXIS < -30] POSSIBLE RIGHT VENTRICULAR CONDUCTION DELAY [RSR (QR) IN V1/V2] PROLONGED QT INTERVAL ABNORMAL ECG Electronically signed by : ERVIN MENESES, 09/25/2025 07:12:53
[2025-09-20] MEDS: 0.9 % SODIUM CHLORIDE 1000ML 1,000 ML 999 ML IV (11:46)
[2025-09-20] MEDS: ONDANSETRON 4MG/2ML VIAL 4 MG IV (11:47)
[2025-09-20 12:14] LABS: Hematocrit 43.5 % (42.0-52.0); Hemoglobin 14.3 g/dL (14.1-18.0); Immature Granulocytes % 0.5 %; Mean Corpuscular HGB Conc 32.9 g/dL (31.8-35.4); Mean Corpuscular Hemoglobin 30.5 pg (27.0-31.2); Mean Corpuscular Volume 92.8 fl (80-94); Nucleated Red Blood Cells % 0 %; Platelet Count 362 K/mm3 (142-424); Red Blood Count 4.69 M/mm3 (4.60-6.20); Red Cell Distribution Width-SD 43.0 fL; White Blood Count 10.1 K/mm3 (4.8-10.8)
--- NOTE | 2025-09-20 12:17 | PC.NURSE ---
glucose 155
--- OUTSIDE RECORDS SUMMARY | 2025-09-20 12:18 | XMS_ITS | Encounter Summary ---
Author Organization [place] [address] Care Team Providers Care Oracle Brm Developer Name Role Phone Danielle Monroy RN Unavailable Unavailable Reason for Visit * Reason Onset Date Comments Medication Management 07/27/2025 Metoprolol Follow Up 07/27/2025 Med update Encounter Details Date Type Department Care Team (Late st Contact Info) Description 07/27/2025 Telephone [facility] [address] [place] [phone] Gordo Jordan MD [address] [place] [address] Medication Management (Metoprolol ); Follow Up (Med update) Social History Tobacco Use Types Packs/Day Years Used Date Smoking Tobacco: Former Cigarettes 0.3 4 0 11/16/1986 - 11/16/1990 Passive Smoke Exposure: Never Smokeless Tobacco: Never Alcohol Use Standard Drinks/Week Comments Not Currently 4 (1 standard drink = 0.6 oz pure alcohol) Sober for 20 years until May 2022 [facility] Utilities Answer Date Recorded In the past 12 months has [employer], gas, oil, or water [employer] threatened to shut off services in your home? No 06/22/2025 Overall Financial Resource Strain (CARDIA) Answe r Date Recorded How hard is it for you to pa y for the very basics like food, housing, medical care, and heating? Somewhat hard 06/22/2025 PHQ-2 Answer Date Recorded PHQ-2 Total Score 5 07/26/2025 [facility] [place] of Occupat ional Health - Occupational Stress [...] things needed for daily living? No 11/10/2023 [facility] IP Transportation Answer D ate Recorded In [...] Author Yes 10/18/2023 11:50 AM Mckayla Pelaez, RN * Does this person have difficulty [...] Mckayla Pelaez RN documented in this encounter Miscellaneous Notes * Telephone Encounter - Eliseo Dean RMA - 07/27/2025 3:57 PM EDT Look at last telephone encounter from 07/26/25 closing encounter * Telephone Encounter - Rabia Barber MA - 07/27/2025 3:28 PM EDT Select the most appropriate reason for this telephone message: Follow Up Follow Up Who is Calling:Patient What is the caller following up on (make sure to reference any prior documentation/encounter):Pt called asking for an update on his medications. Call center attempted to read note below, but pt cut me off. Pt was not friendly during our conversation & says we just don't care. Further follow-up needed?:Yes Return Method of Communication:Phone call Additional Information:N/A Attempt to warm transfer unsuccessful, please advise patient thank you. * Telephone Encounter - Eliseo Dean RMA - 07/27/2025 11:09 AM EDT Tried calling pt voicemail not set up Per Stacy Mccabe APRN Prescriptions were sent for for acetaminophen, alcohol swabs, aspirin, atorvastatin, blood pressuremonitoring, blood sugar diagnostic strips, blood glucometer, Magic mouthwash, duloxetine, Jardiance, folic acid, hydroxyzine, NovoLog, Lantus, insulin needles, lancets, metformin, methocarbamol, metoprolol, pantoprazole. Amlodipine and losartan were removed from the medication list because they were discontinued. The patient had a normal blood pressure today (120/84) after not having these medications for over a month. This means those medications are not currently needed. If I were to refill them, patient would beat risk for low blood pressure, possible syncope (passing out), and subsequent injury, as I previously discussed with the patient during the visit. Today's visit was an acute visit meant to address his immediate needs prior to his visit with Dr. Jordan to establish care. No controlled substances were refilled, as any prescription for controlled substances will need to be initiated by Dr. Jordan during his scheduled visit to establishcare. * Telephone Encounter - Le Sharma MA - 07/27/2025 10:48 AM EDT Select the most appropriate reason for this telephone message: Medication Management/Problem Who is calling? Patient What medication(s) do you have concerns about: Disp Refills Start End metoprolol succinate (TOPROL-XL) 200 mg Oral Tablet Sustained Release 24 hr 30 Tablet 0 07/26/2025 -- Sig - Route: Take 1 Tablet by mouth daily. - Oral Sent to pharmacy as: metoprolol succinate ER 200 mg tablet,extended release 24 hr (TOPROL-XL) E-Prescribing Status: Receipt confirmed by pharmacy (07/26/2025 10:02 AM EDT) Prescribing provider: Stacy Mccabe APRN What are your concerns/request: Pt states during recent OV his previous regimen including: Amlodipine 10 mg daily, Losartan 100 mg daily, Toprol XL 200 mg daily was discontinued. Pt states he does not agree that these meds should have been discontinued. Desired outcome: Clarification of prescription Last appointment date: 07/26/25 Pharmacy: [facility] [place] [address] [phone] [[id number]] Return Method of Communication: Phone Call Additional Information: FOLLOW UP NEEDED:Thank you. documented in this encounter Plan of Treatment Upcoming Encounters Date Type Department Care Team (Late st Contact Info) Description 10/09/2025 10:30 AM EST Office Visit [facility] [address] [place] [phone] Gordo Jordan MD [address] [place] [address] 02/01/2026 11:00 AM EDT Office Visit [facility] [address] [facility] [address] [place] [address] Belinda Marques OD [address] [place] [address] documented as of this encounter [...] MD HEMOGLOBIN A1C < 7.0 Result Component 11.6(09/10/20 25 10:27 AM EDT) No Annie Martinez CCMA Weight < 210 lb (95.255 kg) Weight 260 lb 6.4 oz (118.1 kg)( 5 12:48 PM EDT) No Angel Duffy MD documented as of this encounter Visit Diagnoses Not on filedocumented in this encounter Additional Health Concerns Assessment Noted Time PHQ-9 Depression Total Score: 22 025 9:00 AM EDT PHQ-2 Depression Total Score: 5 07/26/20 25 9:00 AM EDT documented as of this encounter Care Teams Oracle Brm Developer Relationship Specialty Start Date End Date Danielle Monroy, databases software consultant Web Press Operator Apprentice/Stretcher Leveler Operator Helper 07/26/25 08/08/25 documented as of this encounter
--- OUTSIDE RECORDS SUMMARY | 2025-09-20 12:18 | XMS_ITS | Encounter Summary ---
Author Organization [place] [address] Care Team Providers Care Alemite Operator Name Role Phone Danielle Monroy RN Unavailable Unavailable Reason for Visit * Reason Onset Date Comments Referral 07/27/2025 Encounter Details Date Type Department Care Team (Late st Contact Info) Description 07/27/2025 Patient Outreach [facility] [address] Appointment Location [place] [phone] Helen Patel Referral Social History Tobacco Use Types Packs/Day Years Used Date Smoking Tobacco: Former Cigarettes 0.3 4 0 11/16/1986 - 11/16/1990 Passive Smoke Exposure: Never Smokeless Tobacco: Never Alcohol Use Standard Drinks/Week Comments Not Currently 4 (1 standard drink = 0.6 oz pure alcohol) Sober for 20 years until May 2022 [facility] Utilities Answer Date Recorded In the past 12 months has [employer], gas, oil, or water company threatened to shut off services in your home? No 06/22/2025 Overall Financial Resource Strain (CARDIA) Answe r Date Recorded How hard is it for you to pa y for the very basics like food, housing, medical care, and heating? Somewhat hard 06/22/2025 PHQ-2 Answer Date Recorded PHQ-2 Total Score 5 07/26/2025 [facility] [place] of Occupat ional Health - Occupational Stress [...] daily living? No 11/10/2023 [facility] IP Transportation Answer D ate Recorded In [...] 10/18/2023 11:50 AM Mckayla Pelaez, JESSICA * Because of a physical, mental or [...] documented in this encounter Progress Notes * Helen Patel - 07/27/2025 4:00 PM EDT Pharmacy Technician Per Diem Management Referral Request Referral received from: Eliseo Dean Referral Reason: Transportation Referral note: Assigned via round flavia to: Bertha Patel [facility] documented in this encounter Plan of Treatment Upcoming Encounters Date Type Department Care Team (Late st Contact Info) Description 10/09/2025 10:30 AM EST Office Visit [facility] [address] [place] [phone] Gordo Jordan MD [address] [place] [address] 02/01/2026 11:00 AM EDT Office Visit [facility] [address] [facility] [address] [place] [phone] Belinda Marques, OD [address] [place] [address] documented as of this encounter Goals Goal [...] Component 11.6(07/26/20 10:27 AM EDT) No Annie Martinez CCMA Weight < 210 lb (95.255 kg) Weight 260 lb 6.4 oz (118.1 kg)( 12:48 PM EDT) No Angel Duffy MD documented as of this encounter Visit Diagnoses Not on filedocumented in this encounter Additional Health Concerns Assessment Noted Time PHQ-9 Depression Total Score: 22 025 9:00 AM EDT PHQ-2 Depression Total Score: 5 07/26/20 9:00 AM EDT documented as of this encounter Care Teams Alemite Operator Relationship Specialty Start Date End Date Danielle Monroy RN Case Political Cartoonist Manager/Site Head 07/26/25 08/08/25 documented as of this encounter
--- OUTSIDE RECORDS SUMMARY | 2025-09-20 12:18 | XMS_ITS | Encounter Summary ---
Author Organization [place] [address] Care Team Providers Care Mold Tooler Name Role Phone No Pcp, Per Patient Primary Care Provider Jennifer brian Reason for Visit * Reason Onset Date Comments Other 07/25/2025 Encounter Details Date Type Department Care Team (Late st Contact Info) Description 07/25/2025 Telephone [facility] Pod[facility]ry [address] [place] [address] Lauryn Moore, [facility] [address] [place] [address] Other Social History Tobacco Use Types Packs/Day Years Used Date Smoking Tobacco: Former Cigarettes 0.3 4 0 11/16/1986 - 11/16/1990 Passive Smoke Exposure: Never Smokeless Tobacco: Never Alcohol Use Standard Drinks/Week Comments Not Currently 4 (1 standard drink = 0.6 oz pure alcohol) Sober for 20 years until May 2022 [facility] Utilities Answer Date Recorded In the past 12 months has [employer], gas, oil, or water [employer] threatened to shut off services in your home? No 06/22/2025 Overall Financial Resource Strain (CARDIA) Answe r Date Recorded How hard is it for you to pa y for the very basics like food, housing, medical care, and heating? Somewhat hard 06/22/2025 PHQ-2 Answer Date Recorded PHQ-2 Total Score 5 07/26/2025 [facility] [place] of Occupat ional Health - Occupational Stress [...] things needed for daily living? No 11/10/2023 [facility] IP Transportation Answer D ate Recorded In [...] encounter Miscellaneous Notes * Telephone Encounter - Kalyani Douglas - 07/25/2025 2:51 PM EDT patient called yelling and cussing about a PA needing to be done per his insurance company for his diabetic shoes. I gave him the numbers for the different places that we recommend for diabetic shoesand also told him if he kept cussing that I would disconnect the call. documented in this encounter Plan of Treatment Upcoming Encounters Date Type Department Care Team (Late st Contact Info) Description 10/09/2025 10:30 AM EST Office Visit [facility] [address] [place] [phone] Gordo Jordan MD [address] [place] [address] 02/01/2026 11:00 AM EDT Office Visit [facility] [address] [facility] [address] [place] [address] Belinda Marques OD [address] [place] [address] documented as of this encounter Goals Goal [...] documented as of this encounter Care Teams Mold Tooler Relationship Specialty Start Date End Date No Pcp, Per Patient PCP - General 06/22/25 07/25/25 documented as of this encounter
--- OUTSIDE RECORDS SUMMARY | 2025-09-20 12:18 | XMS_ITS | Encounter Summary ---
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 - Occupational Stress Questionnaire Answer Date Recorded [...] things needed for daily living? No 11/10/2023 [facility] IP Transportation Answer D ate Recorded In [...] more than usual 1 07/26/2025 9:00 AM EDT Nigel Sofia MA Thoughts that you would be b jayla off , or of hurting yourself in some way 3 07/26/2025 9:00 AM EDT Annie Sofia M A * PHQ-2 Total Score Answer Date of Assessment Author 5 07/26/2025 9:00 AM EDT Evelin Sofia MA * Suicide Severity Rating Answer Date of Assessment Author No Risk 08/13/2025 8:10 AM EDT Alfonso Silver RN * Reese Suicide Severity Rating Scale (Q shift for [...] life? 0 08/13/2025 8:10 AM EDT Alfonso Bass RN documented as of this encounter Mental Status * Because of a physical, mental or emotional condition, does this person have serious difficulty concentrating, remembering or making decisions? Answer Entry Date Author No 10/18/2023 11:50 AM EST Mckayla Ward RN documented in this encounter Miscellaneous Notes * Telephone Encounter - Katherine Alonso - 07/25/2025 3:53 PM EDT Spw pt, Yonathan. w/ AUTOMATIC DISPENSER MECHANIC JN tomorrow 07/26 for meds. 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 understands he will still come to 08/30 appt. Pt is catching a bus here, explained better directions on how to find our building and our information if he is lost he will call us and we can come down to assist/ help him. * Telephone Encounter - Jyoti Morris - 07/25/2025 3:27 PM EDT Images from the original note were not included. 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 [place] [phone] Gordo Jordan MD [address] [place] [address] 02/01/2026 11:00 AM EDT Office Visit [facility] [address] [place] [address] [address] [place] [phone] Belinda Marques OD [address] [place] [address] documented as of this encounter Goals Goal [...] to next follow up appointment with care process manager General Not on track(2024 10:05 AM EDT) [...] documented as of this encounter Care Teams Architectural Superintendent Relationship Specialty Start Date End Date No Pcp, Per Patient PCP - General 06/22/25 07/25/25 Gordo Jordan MD [address] [place] [address] PCP - General Family Medicine 07/26/25 07/26/25 Gordo Jordan MD [address] [address] PCP - General Family Medicine 08/07/25 Danielle Monroy, wire products inspector Glue Plant Operator/Air Tool Operator 07/26/25 08/08/25 Helen Patel Care Management Production Line Mechanic 07/28/25 08/31/25 documented as of this encounter
--- OUTSIDE RECORDS SUMMARY | 2025-09-20 12:18 | XMS_ITS | Encounter Summary ---
Author Organization [place] [address] Care Team Providers Care Pest Control Applicator Name Role Phone Jordan, Gordo Monet MD Primary Care Prov ider Danielle Monroy RN Unavailable Unavailable Helen Patel Unavailable Unavailable Jordan, Gordo Monet MD Primary Care Prov ider Reason for Visit * Reason Onset Date Comments Medication Management 07/26/2025 Magic Mout h Encounter Details Date Type Department Care Team (Late st Contact Info) Description 07/26/2025 Telephone [facility] [address] [place] [phone] Ainsley Luther, DO [address] [place] [address] Medication Management (Magic Mouth ) Social History Tobacco Use Types Packs/Day Years Used Date Smoking Tobacco: Former Cigarettes 0.3 4 0 11/16/1986 - 11/16/1990 Passive Smoke Exposure: Never Smokeless Tobacco: Never Alcohol Use Standard Drinks/Week Comments Not Currently 4 (1 standard drink = 0.6 oz pure alcohol) Sober for 20 years until May 2022 [facility] Utilities Answer Date Recorded In the past 12 months has [employer], gas, oil, or water [employer] threatened to shut off services in your home? No 06/22/2025 Overall Financial Resource Strain (CARDIA) Answe r Date Recorded How hard is it for you to pa y for the very basics like food, housing, medical care, and heating? Somewhat hard 06/22/2025 PHQ-2 Answer Date Recorded PHQ-2 Total Score 5 07/26/2025 [facility] - Occupational Stress Questionnaire Answer Date [...] things needed for daily living? No 11/10/2023 [facility] IP Transportation Answer D ate Recorded In [...] 10/18/2023 11:50 AM Mckayla Pelaez, JESSICA * Is the person blind or does [...] A Feeling down, depressed, or hopeless 3 07/26/2025 9:00 AM Annie Goldman M A Trouble falling or staying a sleep, or sleeping too much 3 07/26/2025 9:00 AM Annie Goldman MA Feeling tired or having nenita le energy 2 07/26/2025 9:00 AM Annie Goldman M A Poor appetite or overeating 3 07/26/2025 9: 00 AM Annie oGldman MA Feeling bad about yourself - or [...] more than usual 1 07/26/2025 9:00 AM Aureliano Goldman MA Thoughts that you would be b jayla off , or of hurting yourself in some way 3 07/26/2025 9:00 AM EDT Annie Sofia M A * PHQ-2 Total Score Answer Date of Assessment Author 5 07/26/2025 9:00 AM EDT Evelin Sofia MA * Suicide Severity Rating Answer Date of Assessment Author No Risk 08/13/2025 8:10 AM EDT Alfonso Silver RN * [place] Suicide Severity Rating Scale (Q shift for [...] Refills Last Filled Start Date End Date lidocaine (XYLOCAINE) 2 % MM SolutionIndication s:Oral aphthous ulcer Take 5 mL by mouth every 4 hours as needed for Pain. Swish and gargle for 30 to 60 seconds and then spit 100 mL 07/26/2025 documented in this encounter Miscellaneous Notes * Telephone Encounter - Sreekanth Pandey RMA - 07/26/2025 10:33 AM EDT Select the most appropriate reason for this telephone message: Medication Management/Problem Who is calling? Pharmacy [facility] What medication(s) do you have concerns about: diphenhydramine HCl (MAGIC MOUTHWASH) MM Liquid 120 mL 0 07/26/2025 -- Sig - Route: Swish and spit 5 mL 4 times daily as needed for Pain. - Swish & Spit Sent to pharmacy as: diphenhydramine HCl (MAGIC MOUTHWASH) MM Liquid Notes to Pharmacy: OK to use First Mouthwash BLM or sub ingredients per insurance. Use equal parts diphenhydramine, lido 2% viscous soln,Maalox,Nystatin Susp Prescribing provider: Stacy Mccabe APRN What are your concerns/request: they do not compound Desired outcome: Clarification of prescription Last appointment date: today Pharmacy: [id number] [place] [phone] [facility] [phone] [place] [address] PAT #: [id number] Return Method of Communication: Phone Call Additional Information: N/A documented in this encounter Plan of Treatment Upcoming Encounters Date Type Department Care Team (Late st Contact Info) Description 10/09/2025 10:30 AM EST Office Visit [facility] [address] [place] [phone] Gordo Jordan MD [address] [place] [address] 02/01/2026 11:00 AM EDT Office Visit [facility] [address] [place] [address] [address] [place] [address] Belinda Marques OD [address] [place] [address] documented as of this encounter Goals Goal Patient Goal Type Associated Problems Recent Progress Patient-Stated? Author Blood Pressure < 140/90 Blood Pressure 122/84(08/17 12:48 PM EDT) No Angel Duffy MD BMI (Calculated) < 30 General 34.4(10/02/2 025 12:48 PM EDT) No Annie Martinez [...] to next follow up appointment with care nurse rn General Not on track(2024 10:05 AM EDT) [...] as of this encounter Visit Diagnoses Diagnosis Oral aphthous ulcer Oral aphthae documented in this encounter Discontinued Medications Medication Sig Discontinue Reason Start Date End Da te diphenhydramine HCl (MAGIC MOUTHWASH) MM LiquidIndications:Oral aphthous ulcer Swish and spit 5 mL 4 times daily as needed for Pain. Formulary change 07/26/2025 07/26/2025 documented as of this encounter Additional Health Concerns Assessment Noted Time PHQ-9 Depression Total Score: 22 025 9:00 AM EDT PHQ-2 Depression Total Score: 5 07/26/20 25 9:00 AM EDT documented as of this encounter Care Teams Pest Control Applicator Relationship Specialty Start Date End Date Gordo Jordan MD [address] [address] PCP - General Family Medicine 07/26/25 07/26/25 Gordo Jordan MD [address] [address] PCP - General Family Medicine 08/07/25 Danielle Monroy, retort forker Water Plant Maintenance Mechanic/Disposition Clerk 07/26/25 08/08/25 Helen Patel Care Management Granite Polisher Apprentice 07/28/25 08/31/25 documented as of this encounter
--- OUTSIDE RECORDS SUMMARY | 2025-09-20 12:18 | XMS_ITS | Encounter Summary ---
Author Organization [place] [address] Care Team Providers Care Biodiesel Process Control Technician Name Role Phone Gordo Jordan MD Primary Care Prov ider Danielle Monroy RN Unavailable Unavailable Helen Patel Unavailable Unavailable Reason for Referral * Consultation (Routine) - Closed Specialty Diagnoses / Procedures Referred By Contac t Referred To Contact Psychologist-Cognitive & Behavioral Diagnoses Transportation unavailable Gordo Jordan MD [address] [address] Phone: tel: fax: Referral ID Status Reason Start Date Expiration Date Visits Re quested Visits Authorized [id number] Closed 07/27/2025 07/27/2026 99 99 Question Answer Service Requested Transportation Reason for Visit * Reason Onset Date Comments Refill 07/26/2025 Multi refills Follow Up 07/26/[address] Jase kevin / Patient calling back about this Encounter Details Date Type Department Care Team (Late st Contact Info) Description 07/26/2025 Telephone [facility] [address] [place] [phone] Gordo Jordan MD [address] [address] Refill (Multi refills); Follow Up (Appt with Dr. Jordan / Patient calling back about this ) Social History Tobacco Use Types Packs/Day Years Used Date Smoking Tobacco: Former Cigarettes 0.3 4 0 11/16/1986 - 11/16/1990 Passive Smoke Exposure: Never Smokeless Tobacco: Never Alcohol Use Standard Drinks/Week Comments Not Currently 4 (1 standard drink = 0.6 oz pure alcohol) Sober for 20 years until May 2022 [facility] Utilities Answer Date Recorded In the [...] Date Recorded PHQ-2 Total Score 5 07/26/2025 [facility] of Occupat ional Health - Occupational Stress [...] things needed for daily living? No 11/10/2023 [facility] IP Transportation Answer D ate Recorded [...] of Assessment Author Yes 10/18/2023 11:50 AM Mkcayla Pelaez RN * Because of a physical, [...] or overeating 3 07/26/2025 9: 00 AM BRITTANYT Annie Sofia MA Feeling bad about yourself - or that you are a failure or have let yourself or your family down 2 07/26/2025 9:00 AM BRITTANYT Nigel Sofia MA Trouble concentrating on thi ngs, such as reading the newspaper or watching television 3 07/26/2025 9:00 AM BRITTANYT Annie Sofia M A Moving or speaking so slowly that other people could have noticed. Or the opposite - being so fidgety or restless that you have been moving around a lot more than usual 1 07/26/2025 9:00 AM BRITTANYT Nigel Sofia MA Thoughts that you would be b jayla off , or of hurting yourself in some way 3 07/26/2025 9:00 AM EDT Annie Sofia M A * PHQ-2 Total Score Answer Date of Assessment Author 5 07/26/2025 9:00 AM EDT Evelin Sofia MA documented as of this encounter Mental Status * Because of a physical, mental or emotional condition, does this person have serious difficulty concentrating, remembering or making decisions? Answer Entry Date Author No 10/18/2023 11:50 AM Mckayla Pelaez RN documented in this encounter Miscellaneous Notes * Telephone Encounter - Stacy Perkins APRN - 07/28/2025 12:32 PM EDT Addressed on separate encounter. See results follow-up encounter. * Telephone Encounter - Salbador Bass MA - 07/28/2025 10:58 AM EDT Select the most appropriate reason for this telephone message: Follow Up Follow Up Who is Calling:Patient What is the caller following up on (make sure to reference any prior documentation/encounter): Calling back about this; He says that he does not want the Metoprolol- but would like to be startedagain on the Losartan and Amlodipine. I read him ISAIAS Kumar's message from earlier in this thread. He states I am really ticked off and trying to keep my composure . States I have been a patientall these years and do not appreciate being taken off of my medication. He states that he is homeless, so does not have a way to check BP at home- but says a friend checked it yesterday and it was 160/90 (flowsheet updated). He states that he feels hot in the face often,but declined any other symptoms. He is asking that another message be sent- says he does not want to wait until 08/07 for his BP medication. Further follow-up needed?:Yes Return Method of Communication:Phone call Additional Information:Preferred pharmacy: [facility] [place] [phone] [facility] [phone] [[id number]] * Addendum Note - Elham Edwards RMA - 07/27/2025 3:52 PM EDTAddended by: ELHAM EDWARDS on: 07/27/2025 03:52 PM Modules accepted: Orders * Telephone Encounter - Elham Edwards RMA - 07/27/2025 3:41 PM EDT New pt appointment made with BB. Please advise on BP medication. Social work referral placed to help with transportation for appointments * Telephone Encounter - Rabia Barber MA - 07/27/2025 3:20 PM EDT Select the most appropriate reason for this telephone message: Follow Up Follow Up Who is Calling:Patient What is the caller following up on (make sure to reference any prior documentation/encounter):Pt called again asking if he can get appt with Dr. Jordan. Pt states he can't help that Medicaid cancels transportation & he didn't know [facility] policy was to dismiss pts over this. Pt states he doesn't like female doctors. Also, pt states [facility] can't fill his BP monitor. Pharmacy told him he needs to get it from a medical supply store, but pt states he does not have transportation to go to one. Pt asking if this can be sent somewhere that will mail it to him? Pt states his BP is high today (160/90) - pt c/o lightheaded and face is hot. Pt denied transfer to nurse triage for assistance. Further follow-up needed?:Yes Return Method of Communication:Phone call Additional Information:N/A * Telephone Encounter - Elham Edwards RMA - 07/27/2025 11:09 AM EDT Tried calling pt voicemail not set up Per Stacy Perkins APRN Prescriptions were sent for for acetaminophen, [...] visit to establishcare. * Telephone Encounter - Arnie Vidales - 07/26/2025 3:10 PM EDT Select the most appropriate reason for this telephone message: Relaying Information Relaying Information Who is Calling: Patient - patient was transferred to [employer] for assistance, due to patient escalated frustrations precision honer with [employer]. What information is the caller relaying: Patient is reporting he does not take Metoprolol and has not ever taken it he does not know what that is for I explained to the patient it is a BP medication. He reports he never takes this medication due to dyspepsia associated with taking this medication per his report. Patient reports precision honer that he ran out of his losartan and amlodipine 3 days ago, that he has not taken his BP medications since then. But has been taking them. He reports he was receiving medications from a pharmacy in [place] but can not validate that pharmacies information at the time of the call. There is no record in EMR of a [place] pharmacy to reference. Advised of New Patient appointment request submission to re-establish care with Dr Jordan per patient request. Advised patient of the controlled medication policy for Lyrica renewal per notes and patient outreach communication in this encounter. any prescription for controlled substances will need to be initiated by Dr. Jordan during his scheduled visit to establish care. Advised patient that the order for his Rolator: Updated order sent to [facility] for Rolator. They processed order with 1966 , CC corrected. Patient disconnected call sending to make clinic aware of the updates communicated. Further follow-up needed? No Return Method of Communication:N/A Additional Information:Patient is at this time still requesting refill for Amlodipine and Losartan after reviewing the normotensive results from today's visit and not taking any BP medication. He does report on this call he has not taken BP medications in 3 days. * Telephone Encounter - SofiaAnnie MA - 07/26/2025 2:42 PM EDT Contacted pharmacy to relay the following information Amlodipine and losartan were removed from the medication list because they were discontinued. The patient had a normal blood pressure today (120/84) after not having these medications for over a month. This means those medications are not currently needed. If I were to refill them, patient would be at risk for low blood pressure, possible syncope (passing out), and subsequent injury, as I previously discussed with the patient during the visit. The pharmacist said they will re inform the patient. * Telephone Encounter - Danielle Monroy, JESSICA - 07/26/2025 2:39 PM EDT THIS IS A DUPLICATE ENCOUNTER. Amlodipine and Losartan were discontinued today as he was normotensive at his office visit after being off of medication for over a month and it was discussed with patient that restarting the medication could cause patient to become hypotensive or increase risk of syncope (passing out). There were no orders given for amlodipine or losartan. Updated order sent to [facility] for David. They processed order with 1966 , CC corrected. * Telephone Encounter - Katherine Alonso - 07/26/2025 2:28 PM EDT Pharmacy staff calling in due to clarifications on medications for this patient. Please call pharmacy back. [phone] States pt is waiting in store for over 30-45 minutes being hostile with people on the phone trying to get this fixed. Pt told them we took medicines off his med list that he is currently still taking but pharmacy doesn't show anything inactive besides things prior. * Telephone Encounter - Nicky Orozco CCMA - 07/26/2025 2:19 PM EDT Select the most appropriate reason for this telephone message: Other Who is calling (name & relationship to patient if not the patient): Patient What is needed OR why are they calling: He is calling about the same prescriptions again and he also states that the order for the Rolator had the incorrect . He needs this corrected and resent please in addition to the medications.Attempted to warm transfer to office. Was instructed to take a me ssage and to document it on this specific encounter. When is this needed by: today Where does this information need to go: Dr. Jordan / Kajal Haas Method of Communication: Phone Call Additional information:N/A * Telephone Encounter - Suzette Hogue LPN - 07/26/2025 1:00 PM EDT Spoke with [facility] pharmacist [place] that Jardiance was sent over but they do not have aprescription for Losartan or amlodipine. Please send the medication to [facility]. * Telephone Encounter - Suzette Hogue LPN - 07/26/2025 12:59 PM EDT Per his note katie WARREN, the three medications mentioned were sent in already on 07/26/2025. * Telephone Encounter - Suzette Hogue LPN - 07/26/2025 12:55 PM EDT Patient voiced that he is aggravated because he wanted to schedule with Dr. Jordan but was scheduled with Dr. Luther. Patient was dismissed from the [place] office for no Show visits when Dr. Jordan was his PCP. Advised patient that a message would be sent to Dr Jordan to discuss patient becoming established with him. Patient said his medications were not all called in. He still needs Jardiance, Amlodipine and Losartan. Patient would like them sent to [facility]. Patient would like to be called back to see if he can have Dr. Jordan as his PCP. He will then need to be scheduled. * Telephone Encounter - Sophy Nascimento RMA - 07/26/2025 11:47 AM EDT Images from the original note were not included. Select the most appropriate reason for this telephone message: Medication Refill Who is requesting the refill: Patient Medication(s)Name/Dosage/Frequency: empagliflozin (JARDIANCE) 25 mg Oral Tablet 30 Tablet 0 07/26/2025 -- Sig - Route: Take 1 Tablet by mouth daily. - Oral insulin aspart U-100 (NOVOLOG) 100 unit/mL (3 mL) SubQ Insulin Pen 9 mL 0 03/03/2024 -- Sig - Route: Subcutaneous (Inject under the skin) 10 Units 3 times daily (before meals). - Subcutaneous insulin detemir U-100 (LEVEMIR FLEXPEN) 100 unit/mL (3 mL) SubQ Insulin Pen 15 mL 0 03/03/2024 -- Sig - Route: Subcutaneous (Inject under the skin) 45 Units every evening. INJECT 50 UNITS SUBCUTANEOUSLY EVERY MORNING AND 70 UNITS EVERY EVENING. - Subcutaneous pregabalin (LYRICA) 150 mg Oral Capsule -- -- -- Sig - Route: Take 150 mg by mouth every 8 hours. - Oral Patient states he doesn't appreciate that these medications were removed from his medication list. Patient just seen today by ISAIAS Perkins and upset his medications aren't called into pharmacy. amLODIPine (NORVASC) 10 mg Oral Tablet (Discontinued) 30 Tablet 0 03/07/2024 07/26/2025 Sig - Route: Take 1 Tablet by mouth daily. - Oral losartan (COZAAR) 100 mg Oral Tablet (Discontinued) 90 Tablet 0 07/26/2025 07/26/2025 Sig - Route: Take 1 Tablet by mouth daily. - Oral Did patient contact the pharmacy first: No pt states he isn't going to [facility] until all his medication refills are ready for brain picker (For any future refill, we recommend you contact your pharmacy first How many days left on hand: 0 of all Future appt date w/ prescribing provider: 07/26/25 per pt canceled new patient appointment with Dr. Luther - called office - transferred to office to schedule with Dr. Jordan as new patient per office. Would not allow call center to schedule. Pharmacy & Location: [facility] [address] [place] [phone] [facility] - [phone] Return Method of Communication: Phone Call Informed patient refill requests can take up to 72 business hours for response Yes Additional Information: N/A Call center could not pend refill, as some refill requests are on his past history medication tab. Please Advise Patient/Caller, thank you. documented in this encounter Plan of Treatment Upcoming Encounters Date Type Department Care Team (Late st Contact Info) Description 10/09/2025 10:30 AM EST Office Visit [facility] [address] [place] [phone] Gordo Jordan MD [address] [place] [address] 02/01/2026 11:00 AM EDT Office Visit [facility] [address] [facility] [address] [place] [address] Belinda Marques, OD [address] [place] [address] Scheduled Referrals Name Type Priority Associated Diagnoses Orde r Schedule AMB REFERRAL TO SOCIAL WORK Outpatient Referral Routine Transportation unavailable Ordered: 07/27/2025 documented as of this encounter Goals Goal [...] log to next follow up appointment with insurance healthcare representative General Not on track(2024 10:05 AM EDT) [...] as of this encounter Visit Diagnoses Diagnosis Transportation unavailable- Primary documented in this encounter Additional Health Concerns Assessment Noted Time PHQ-9 Depression Total Score: 22 025 9:00 AM EDT PHQ-2 Depression Total Score: 5 07/26/20 25 9:00 AM EDT documented as of this encounter Care Teams Biodiesel Process Control Technician Relationship Specialty Start Date End Date Jordan, Gordo Monet MD [address] [place] [address] PCP - General Family Medicine 07/26/25 07/26/25 Danielle Monroy RN Case Bunk Assembler Manager/Ostomy Care Nurse 07/26/25 08/08/25 Helen Patel Care Management Mat Repairer 07/28/25 08/31/25 documented as of this encounter
--- OUTSIDE RECORDS SUMMARY | 2025-09-20 12:18 | XMS_ITS | Encounter Summary ---
Author Organization [place] [address] Care Team Providers Care Charge Entry Name Role Phone Danielle Monroy RN Unavailable Unavailable Helen Patel Unavailable Unavailable Gordo Jordan MD Primary Care Prov ider Reason for Visit * Reason Onset Date Comments Results 07/27/2025 Labs Follow Up 07/27/2025 Lab results Encounter Details Date Type Department Care Team (Late Contact Info) Description 07/27/2025 Telephone [facility] [address] [place] [phone] JordanGordo conde MD [address] [address] Results (Labs); Follow Up (Lab results) Social History Tobacco Use Types Packs/Day Years Used Date Smoking Tobacco: Former Cigarettes 0.3 4 0 11/16/1986 - 11/16/1990 Passive Smoke Exposure: Never Smokeless Tobacco: Never Alcohol Use Standard Drinks/Week Comments Not Currently 4 (1 standard drink = 0.6 oz pure alcohol) Sober for 20 years until May 2022 [facility] Utilities Answer Date Recorded In the past [...] Date Recorded PHQ-2 Total Score 5 07/26/2025 [facility] Occupat ional Health - Occupational Stress [...] things needed for daily living? No 11/10/2023 [facility] IP Transportation Answer D ate Recorded [...] 8:10 AM EDT Alfonso Silver RN * [place] Suicide Severity Rating Scale (Q shift for [...] Entry Date Author No 10/18/2023 11:50 AM cMkayla Pelaez RN documented in this encounter Miscellaneous Notes * Telephone Encounter - Rabia Barber MA - 07/27/2025 3:27 PM EDT Select the most appropriate reason for this telephone message: Follow Up Follow Up Who is Calling:Patient What is the caller following up on (make sure to reference any prior documentation/encounter): Pt called to check status of message. Pt informed provider is out of office today & pt will receive call once she results them. Further follow-up needed?:Yes Return Method of Communication:Phone call Additional Information:N/A * Telephone Encounter - Eliseo Dean RMA - 07/27/2025 11:06 AM EDT Stacy is out of the office on will contact pt when resulted * Telephone Encounter - Le Sharma MA - 07/27/2025 10:53 AM EDT Select the most appropriate reason for this telephone message: Test Result(s) Purpose of call: Patient seeking results Type of test: Lab Date of test: 07/26/25 Who ordered the test: Stacy Mccabe APRN Where was test performed: [facility] Return Method of Communication: Phone Call Additional Information: N/A documented in this encounter Plan of Treatment Upcoming Encounters Date Type Department Care Team (Late st Contact Info) Description 10/09/2025 10:30 AM EST Office Visit [facility] [address] [place] [phone] Gordo Jordan MD [address] [place] [address] 02/01/2026 11:00 AM EDT Office Visit [facility] [address] [place] [address] [address] [place] [address] Belinda Marques OD [address] [place] [address] documented as of this encounter [...] log to next follow up appointment with direct care specialist General Not on track(2024 10:05 [...] documented as of this encounter Care Teams Charge Entry Relationship Specialty Start Date End Date Gordo Jordan MD [address] [address] PCP - General Family Medicine 08/07/25 Danielle Monroy RN Case Airways Control Specialist Manager/Home Appliance Washing Machine Mechanic 07/26/25 08/08/25 Helen Patel Care Management Arm Rest Builder 07/28/25 08/31/25 documented as of this encounter
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
--- OUTSIDE RECORDS SUMMARY | 2025-09-20 12:18 | XMS_ITS | Encounter Summary ---
Author Organization [place] [address] Care Team Providers Care Snaker Name Role Phone No Pcp, Per Patient Primary Care Provider Gordo Cornelius MD Primary Care Prov ider Danielle Monroy RN Unavailable Unavailable Helen Patel Unavailable Unavailable Gordo Jordan MD Primary Care Prov ider Reason for Visit * Reason Onset Date Comments Appointment Needed 07/04/2025 Appt needed Encounter Details Date Type Department Care Team (Late st Contact Info) Description 07/04/2025 Telephone [facility] [employer] [facility] [address] [place] [phone] Gordo Jordan MD [address] [place] [address] Appointment Needed (Appt needed ) Social History Tobacco Use Types Packs/Day Years Used Date Smoking Tobacco: Former Cigarettes 0.3 4 0 11/16/1986 - 11/16/1990 Passive Smoke Exposure: Never Smokeless Tobacco: Never Alcohol Use Standard Drinks/Week Comments Not Currently 4 (1 standard drink = 0.6 oz pure alcohol) Sober for 20 years until May 2022 [facility] Utilities Answer Date Recorded In the [...] Total Score 5 07/26/2025 [facility] of Occupat ional Health - Occupational Stress [...] needed for daily living? No 11/10/2023 [facility] IP Transportation Answer D ate Recorded [...] 8:10 AM EDT Alfonso Silver RN * [place] Suicide Severity Rating Scale (Q shift for [...] encounter Miscellaneous Notes * Telephone Encounter - Jyoti Morris - 07/05/2025 10:02 AM EDT pt is dismissed and will not allow me to schedule - pt has been dismissed from 5 different PCP locations * Telephone Encounter - Sreekanth Pandey RMA - 07/04/2025 2:51 PM EDT Images from the original note were not included. Select the most appropriate reason for this telephone message: Appointment Needed Appointment Requested By: Patient Provider Preference: Dr Jordan Type of Appt Needed: New Patient Detailed Reason for Appt: re-establish care Requested Timeframe: jennifer Reason Scheduling Assistance is Needed: Call Center not permitted to schedule Return Method of Communication: Phone Call Additional Information: it will not let me schedule appt gives me this message: documented in this encounter Plan of Treatment Upcoming Encounters Date Type Department Care Team (Late st Contact Info) Description 10/09/2025 10:30 AM EST Office Visit [facility] [address] [place] [phone] Gordo Jordan MD [address] [place] [address] 02/01/2026 11:00 AM EDT Office Visit [facility] [address] [place] [address] Belinda Marques OD [address] [place] [address] documented as of this encounter Goals Goal [...] log to next follow up appointment with assurance services manager health care General Not on track(2024 10:05 AM [...] documented as of this encounter Care Teams Snaker Relationship Specialty Start Date End Date No Pcp, Per Patient PCP - General 06/22/25 07/25/25 Gordo Jordan MD [address] [address] PCP - General Family Medicine 07/26/25 07/26/25 Gordo Jordan MD [address] [address] PCP - General Family Medicine 08/07/25 Danielle Monroy, associate professor of geology Document Review Attorney/Escort Service Attendant 07/26/25 08/08/25 Helen Patel Care Management Log Roller 07/28/25 08/31/25 documented as of this encounter
--- OUTSIDE RECORDS SUMMARY | 2025-09-20 12:18 | XMS_ITS | Encounter Summary ---
Author Organization [place] [address] Care Team Providers Care Order Builder Loader Name Role Phone Danielle Monroy RN Unavailable Unavailable Helen Patel Unavailable Unavailable Reason for Visit * Reason Onset Date Comments Other 07/27/2025 Speak with Manag ement Results 07/27/2025 Patient seeking results- 07/26, Stacy Mccabe APRN Encounter Details Date Type Department Care Team ([facility] st Contact Info) Description 07/27/2025 Telephone [facility] [address] [place] [phone] Gordo Jordan MD [address] [place] [address] Other (Speak with Management); Results (Patient seeking results- 07/26, Stacy Mccabe APRN ) Social History Tobacco Use Types Packs/Day Years Used Date Smoking Tobacco: Former Cigarettes 0.3 4 0 11/16/1986 - 11/16/1990 Passive Smoke Exposure: Never Smokeless Tobacco: Never Alcohol Use Standard Drinks/Week Comments Not Currently 4 (1 standard drink = 0.6 oz pure alcohol) Sober for 20 years until May 2022 [facility] Utilities Answer Date Recorded In the past 12 months has [employer] electric, gas, oil, or water company threatened to shut off services in your home? No 06/22/2025 Overall Financial Resource Strain (CARDIA) Answe r Date Recorded How hard is it for you to pa y for the very basics like food, housing, medical care, and heating? Somewhat hard 06/22/2025 PHQ-2 Answer Date Recorded PHQ-2 Total Score 5 07/26/2025 [facility] of Occupat ional [facility] - Occupational Stress Questionnaire Answer Date [...] things needed for daily living? No 11/10/2023 [facility] IP Transportation Answer D ate Recorded In [...] Telephone Encounter - Suzette Hogue LPN - 07/28/2025 11:35 AM EDT Molding Machine Operator Helper spoke with patient and his question was in reference to scheduling with Dr. Julian ventura APRN. Molding Machine Operator Helper advised patient he will need to refrain from raising his voice or speaking unkind to staff/ call center. Patient verbalized understanding. * Telephone Encounter - Salbador aBss MA - 07/28/2025 10:54 AM EDT Images from the original note were not included. Select the most appropriate reason for this telephone message: Test Result(s) Purpose of call: Patient seeking results Type of test: Lab Date of test: 07/26 Who ordered the test: Stacy Mccabe APRN Where was test performed: [facility] Return Method of Communication: Phone Call Additional Information: Patient states that he is very worried about his results. Says that he would like a call back about these JENNIFER / He is aware that messages can take 3 business days for a response. * Telephone Encounter - Suzette Hogue LPN - 07/27/2025 4:25 PM EDT Eliseo BARNES addressed all patient concerns. This is one of three messages. * Telephone Encounter - Le Sharma MA - 07/27/2025 10:44 AM EDT Select the most appropriate reason for this telephone message: Other Who is calling (name & relationship to patient if not the patient): Patient What is needed OR why are they calling: Pt wants to speak with the practice office associate, and would not discuss concerns. When is this needed by: jennifer Where does this information need to go: Management Return Method of Communication: Phone Call Additional information:FOLLOW UP NEEDED:Thank you. documented in this encounter Plan of Treatment Upcoming Encounters Date Type Department Care Team (Late st Contact Info) Description 10/09/2025 10:30 AM EST Office Visit [facility] [address] [place] [phone] Gordo Jordan MD [address] [place] [address] 02/01/2026 11:00 AM EDT Office Visit [facility] [address] [facility] [address] [place] [phone] Belinda Marques OD [address] [place] [address] documented as of this encounter Goals Goal Patient Goal Type Associated Problems Recent Progress Patient-Stated? Author Blood Pressure < 140/90 Blood Pressure 122/84(08/17 12:48 PM EDT) No Angel Duffy MD BMI (Calculated) < 30 General 34.4( 025 12:48 PM EDT) No Annie Martniez CCMA Patient to regain strength and endurance [...] log to next follow up appointment with managed care specialist General Not on track(2024 10:05 [...] documented as of this encounter Care Teams Order Builder Loader Relationship Specialty Start Date End Date Danielle Monroy RN Case Bar Useful Or Busser Manager/Crepe Machine Operator 07/26/25 08/08/25 Helen Patel Care Management Assembler Surgical Garment 07/28/25 08/31/25 documented as of this encounter
--- OUTSIDE RECORDS SUMMARY | 2025-09-20 12:19 | XMS_ITS | Encounter Summary ---
Author Organization [place] [address] Care Team Providers Care Transportation Department Supervisor Name Role Phone Danielle Monroy RN Unavailable Unavailable Helen Patel Unavailable Unavailable Reason for Visit * Reason Onset Date Comments Other 08/01/2025 Transportation Follow Up 08/01/2025 Transportation Encounter Details Date Type Department Care Team ([facility] st Contact Info) Description 08/01/2025 Telephone [facility] [address] [place] [phone] Gordo Jordan MD [address] [place] [address] Other (Transportation ); Follow Up (Transportation) Social History Tobacco Use Types Packs/Day Years Used Date Smoking Tobacco: Former Cigarettes 0.3 4 0 11/16/1986 - 11/16/1990 Passive Smoke Exposure: Never Smokeless Tobacco: Never Alcohol Use Standard Drinks/Week Comments Not Currently 4 (1 standard drink = 0.6 oz pure alcohol) Sober for 20 years until May 2022 [facility] Utilities Answer Date Recorded In the past 12 months has [employer] electric, gas, oil, or water company threatened to shut off services in your home? No 06/22/2025 Overall Financial Resource Strain (CARDIA) Answe r Date Recorded How hard is it for you to pa y for the very basics like food, housing, medical care, and heating? Somewhat hard 06/22/2025 PHQ-2 Answer Date Recorded PHQ-2 Total Score 5 07/26/2025 [facility] [place] of Occupat ional Health - Occupational Stress [...] needed for daily living? No 11/10/2023 [facility] IP Transportation Answer D ate Recorded [...] Assessment Author Yes 10/18/2023 11:50 AM Mckayla PelaezJESSICA * Does this person have difficulty dressing [...] encounter Miscellaneous Notes * Telephone Encounter - Danielle Monroy RN - 08/03/2025 8:18 AM EDT Discussed with Dr. Jordan, I have no other information for this patient. He has been given the information by several different people in the organization, every phone callends with patient using profanities with staff. Patient has information and does not wish to utilize the services. * Telephone Encounter - Le Sharma MA - 08/02/2025 8:10 AM EDT Select the most appropriate reason for this telephone message: Follow Up Follow Up Who is Calling:Patient What is the caller following up on (make sure to reference any prior documentation/encounter):Pt isrequesting a call from Danielle related to transportation concerns and to discuss his upcoming appt. Further follow-up needed?:Yes Return Method of Communication:Phone call Additional Information:CPASFOLLOW UP NEEDED:Thank you. * Telephone Encounter - Danielle Monroy RN - 08/01/2025 4:24 PM EDT RN Training Development Director (CC) called to patient: Reiterated that being unhoused does not excluded patient from utilizing services Provided phone numbers: [employer] [facility] ([phone] or [phone]) [facility] (TANK) bus [facility] Regional Area Mob[facility] Program (TANK RAMP) ([phone]) Patient said it was too irritating and hung up the phone. * Telephone Encounter - Danielle Monroy RN - 08/01/2025 4:22 PM EDT Images from the original note were not included. * Telephone Encounter - Magdalene Roque RMA - 08/01/2025 2:19 PM EDT Select the most appropriate reason for this telephone message: Other Who is calling (name & relationship to patient if not the patient): Patient What is needed OR why are they calling: Pt stated that he is having a very hard time with Transportation. They are telling him that because he lives in a physical address he cannot use the ramp from [address]. He already called [place] and that is what they told him He would like Danielle to call him today. When is this needed by: today Where does this information need to go: Danielle Monroy Return Method of Communication: Phone Call Additional information: CPASPlease Advise Patient/Caller, thank you. documented in this encounter Plan of Treatment Upcoming Encounters Date Type Department Care Team (Late st Contact Info) Description 10/09/2025 10:30 AM EST Office Visit [facility] [address] [place] [phone] Gordo Jordan MD [address] [place] [address] 02/01/2026 11:00 AM EDT Office Visit [facility] [address] [facility] [address] [place] [address] Belinda Marques, OD [address] [place] [id number] documented as of this encounter Goals Goal [...] log to next follow up appointment with continuum of care manager General Not on track(2024 10:05 AM [...] oz (118.1 kg)(08/17/20 12:48 PM EDT) No Angle Duffy MD documented as of this encounter Visit Diagnoses Not on filedocumented in this encounter Additional Health Concerns Assessment Noted Time PHQ-9 Depression Total Score: 22 025 9:00 AM EDT PHQ-2 Depression Total Score: 5 07/26/20 25 9:00 AM EDT documented as of this encounter Care Teams Transportation Department Supervisor Relationship Specialty Start Date End Date Danielle Monroy, pro shop attendant Software Engineer Developer/Training Development Director 07/26/25 08/08/25 Helen Patel Care Management School Laboratory Technician 07/28/25 08/31/25 documented as of this encounter
--- OUTSIDE RECORDS SUMMARY | 2025-09-20 12:19 | XMS_ITS | Encounter Summary ---
Author Organization [place] [address] Care Team Providers Care Hog Driver Name Role Phone Danielle Monroy RN Unavailable Unavailable Helen Patel Unavailable Unavailable Reason for Visit * Reason Onset Date Comments Other 07/28/2025 Patient is askin g why an appointment was scheduled with Danielle Monroy. CM- Telephonic Outreach 07/28/2025 Encounter Details Date Type Department Care Team ([facility] Contact Info) Description 07/28/2025 Telephone [facility] [address] [place] [phone] Gordo Jordan MD [address] [place] [address] Other (Patient is asking why an appointment was scheduled with Danielle Monroy. ); CM- Telephonic Outreach Social History Tobacco Use Types Packs/Day Years Used Date Smoking Tobacco: Former Cigarettes 0.3 4 0 11/16/1986 - 11/16/1990 Passive Smoke Exposure: Never Smokeless Tobacco: Never Alcohol Use Standard Drinks/Week Comments Not Currently 4 (1 standard drink = 0.6 oz pure alcohol) Sober for 20 years until May 2022 [facility] Utilities Answer Date Recorded In the past 12 months has [employer] electric, gas, oil, or water company threatened to shut off services in your home? No 06/22/2025 Overall Financial Resource Strain (CARDIA) Answe r Date Recorded How hard is it for you to pa y for the very basics like food, housing, medical care, and heating? Somewhat hard 06/22/2025 PHQ-2 Answer Date Recorded PHQ-2 Total Score 5 07/26/2025 [facility] of Occupat ional [facility] - Occupational Stress Questionnaire [...] things needed for daily living? No 11/10/2023 [facility] IP Transportation Answer D ate Recorded [...] Telephone Encounter - Danielle Monroy RN - 07/28/2025 4:00 PM EDT Called to patient to review with patient what was discussed at last visit with patient, reminded him he agreed to follow up with me, he states he remembers now. Additionally we reviewed his lab results and Stacy's recommendations and new orders. He verbalized understanding. He states he has now found a bottle of Lyrica from his previous prescriber in [facility]. States bottle reads: Lyrica 75 mg take one tablet by mouth three times a day #90 RF 3 from Anupama Metcalf sent to [facility] [phone]. CC reinforced that no controlled substances will be prescribed until he meets with Dr. Jordan. He verbalized understanding. [facility] blood pressure cuff. * Telephone Encounter - Nicky Orozco CCMA - 07/28/2025 3:04 PM EDT Select the most appropriate reason for this telephone message: Other Who is calling (name & relationship to patient if not the patient): Patient What is needed OR why are they calling: He wants to know why he was scheduled for an appointment with Danielle Monroy. He expressed concerns about not getting a call back when he leaves messages. I assured the patient someone would reach out to him and he hung up on me. When is this needed by: today Where does this information need to go: Dr. Jordan Return Method of Communication: Phone Call Additional information:N/A documented in this encounter Plan of Treatment Upcoming Encounters Date Type Department Care Team (Late st Contact Info) Description 10/09/2025 10:30 AM EST Office Visit [facility] [address] [place] [phone] Gordo Jordan MD [address] [place] [address] 02/01/2026 11:00 AM EDT Office Visit [facility] [address] [facility] [address] [place] [phone] Belinda Marques, OD [address] [place] [address] documented as of this encounter Goals Goal [...] on track(2024 10:04 AM EDT) Yes Danielle Monroy, JESSICA Patient will utilize glucometer to monitor blood glucose levels 3 times a day and bring log to next follow up appointment with director career General Not on track(2024 10:05 AM EDT) Yes Danielle Monroy RN Stay Tobacco Free Lifestyle On track(2021 3:33 PM EDT) No Annie Martinez CCMA Check fasting glucose daily and document Lifestyle On track(2021 10:51 AM EST) No Radha Moreira RN LDL CALC < 100 Result Component 88( 5 10:21 AM EDT) No Angel Duffy MD HEMOGLOBIN A1C < 7.0 Result Component 11.6( 025 10:27 AM EDT) No Annie Martinez CCMA Weight < 210 lb (95.255 kg) Weight 260 lb 6.4 oz (118.1 kg)(08/17/20 12:48 PM EDT) No Angel Duffy MD documented as of this encounter Visit Diagnoses Diagnosis Encounter for counseling for care management of patient with chronic conditions and complex health needs using nurse-based model- Primary documented in this encounter Additional Health Concerns Assessment Noted Time PHQ-9 Depression Total Score: 22 025 9:00 AM EDT PHQ-2 Depression Total Score: 5 07/26/20 25 9:00 AM EDT documented as of this encounter Care Teams Hog Driver Relationship Specialty Start Date End Date Danielle Monroy RN Case Bunch Breaker Manager/Customer Service Sales Associate 07/26/25 08/08/25 Helen Patel Care Management Comptroller 07/28/25 08/31/25 documented as of this encounter
--- OUTSIDE RECORDS SUMMARY | 2025-09-20 12:19 | XMS_ITS | Encounter Summary ---
Author Organization [place] [address] Care Team Providers Care Business Development Associate Name Role Phone Danielle Monroy RN Unavailable Unavailable Helen Patel Unavailable Unavailable Reason for Visit * Reason Onset Date Comments Other 08/02/2025 On apt Encounter Details Date Type Department Care Team (Late st Contact Info) Description 08/02/2025 Telephone [facility] [address] [place] [phone] Gordo Jordan MD [address] [place] [address] Other (On apt ) Social History Tobacco Use Types Packs/Day Years Used Date Smoking Tobacco: Former Cigarettes 0.3 4 0 11/16/1986 - 11/16/1990 Passive Smoke Exposure: Never Smokeless Tobacco: Never Alcohol Use Standard Drinks/Week Comments Not Currently 4 (1 standard drink = 0.6 oz pure alcohol) Sober for 20 years until May 2022 [facility] Utilities Answer Date Recorded In the past 12 months has [employer], gas, oil, or water [employer] threatened to shut off services in your home? No 06/22/2025 Overall Financial Resource Strain (CARDIA) Answe r Date Recorded How hard is it for you to pa y for the very basics like food, housing, medical care, and heating? Somewhat hard 06/22/2025 PHQ-2 Answer Date Recorded PHQ-2 Total Score 5 07/26/2025 [facility] [place] of Occupat ional Health - Occupational Stress [...] things needed for daily living? No 11/10/2023 [facility] IP Transportation Answer D ate Recorded [...] of Assessment Author No 10/18/2023 11:50 AM Mkcayla Pelaez RN * Does this person have [...] encounter Miscellaneous Notes * Telephone Encounter - Magdalene Roque RMA - 08/02/2025 2:50 PM EDT Select the most appropriate reason for this telephone message: Other Who is calling (name & relationship to patient if not the patient): Patient What is needed OR why are they calling: Pt called and wanted to know why his apt for Tuesday 08/07 was not showing My chart. I confirmed that apt with pt and he stated he will be there. When is this needed by: na Where does this information need to go: na Return Method of Communication: N/A Additional information:N/A documented in this encounter Plan of Treatment Upcoming Encounters Date Type Department Care Team (Late st Contact Info) Description 10/09/2025 10:30 AM EST Office Visit [facility] [address] [place] [phone] Gordo Jordan MD [address] [place] [address] 02/01/2026 11:00 AM EDT Office Visit [facility] [address] [facility] [address] [place] [phone] Belinda Marques OD [address] [place] [address] documented as of this encounter Goals Goal [...] to next follow up appointment with healthcare insurance sales agent General Not on track(2024 10:05 AM EDT) [...] Noted Time PHQ-9 Depression Total Score: 22 9:00 AM EDT PHQ-2 Depression Total Score: 5 07/26/20 25 9:00 AM EDT documented as of this encounter Care Teams Business Development Associate Relationship Specialty Start Date End Date Danielle Monroy, keyboard instrument tuner Rehabilitation Services Coordinator/Head Mixer 07/26/25 08/08/25 Helen Patel Care Management Executive Chairman 07/28/25 08/31/25 documented as of this encounter
--- OUTSIDE RECORDS SUMMARY | 2025-09-20 12:19 | XMS_ITS | Encounter Summary ---
Author Organization [place] [address] Care Team Providers Care Aquaculture Farmer Name Role Phone Danielle Monroy RN Unavailable Unavailable Helen Patel Unavailable Unavailable Reason for Visit * Reason Onset Date Comments CM- Telephonic Outreach 07/28/2025 Encounter Details Date Type Department Care Team (Late st Contact Info) Description 07/28/2025 Patient Outreach [facility] Care Managment [address] Appointment Location [place] Differ [place] [id number] Helen Patel CM- Telephonic Outreach Social History Tobacco Use Types Packs/Day Years Used Date Smoking Tobacco: Former Cigarettes 0.3 4 0 11/16/1986 - 11/16/1990 Passive Smoke Exposure: Never Smokeless Tobacco: Never Alcohol Use Standard Drinks/Week Comments Not Currently 4 (1 standard drink = 0.6 oz pure alcohol) Sober for 20 years until May 2022 [facility] Utilities Answer Date Recorded In the past 12 months has [facility] [place], gas, oil, or water [employer] threatened to shut off services in your home? No 06/22/2025 Overall Financial Resource Strain (CARDIA) Answe r Date Recorded How hard is it for you to pa y for the very basics like food, housing, medical care, and heating? Somewhat hard 06/22/2025 PHQ-2 Answer Date Recorded PHQ-2 Total Score 5 07/26/2025 [facility] [place] of Occupat ional Health - Occupational Stress [...] things needed for daily living? No 11/10/2023 [facility] IP Transportation Answer D ate Recorded [...] of Assessment Author Yes 10/18/2023 11:50 AM EST Ward , Mckayla, RN * Because of a physical, mental [...] encounter Progress Notes * Helen Patel - 07/28/2025 10:09 AM EDT Care Management Patient Outreach Attempted to contact patient regarding transportation Outcome: Patient did not answer HIPAA compliant voicemail left Message was sent via Local Plant Source Associate contact: Bertha: [phone] documented in this encounter Plan of Treatment Upcoming Encounters Date Type Department Care Team (Late st Contact Info) Description 10/09/2025 10:30 AM EST Office Visit [facility] [address] [place] [phone] Gordo Jordan MD [address] [place] [address] 02/01/2026 11:00 AM EDT Office Visit [facility] [address] [place] [address] [address] [place] [address] Belinda Marques OD [address] [place] [address] documented as of this encounter Goals Goal Patient Goal Type Associated Problems Recent Progress Patient-Stated? Author Blood Pressure < 140/90 Blood Pressure 122/84(08/17 12:48 PM EDT) No Angel Duffy MD BMI (Calculated) < 30 General 34.4( 12:48 PM EDT) No Martinez, Annie Columba, CCMA Patient to regain strength and endurance [...] log to next follow up appointment with before and after school daycare worker General Not on track(2024 10:05 AM [...] documented as of this encounter Care Teams Aquaculture Farmer Relationship Specialty Start Date End Date Danielle Monroy RN Case District Operations Manager Manager/Information Security Manager 07/26/25 08/08/25 Helen Patel Care Management Marketing Research Analyst 07/28/25 08/31/25 documented as of this encounter
--- OUTSIDE RECORDS SUMMARY | 2025-09-20 12:19 | XMS_ITS | Encounter Summary ---
Author Organization [facility] [place] [address] Care Team Providers Care Abalone Fisherman Name Role Phone Danielle Monroy RN Unavailable Unavailable Helen Paetl Unavailable Unavailable Encounter Details Date Type Department Care Team (Latest Contact Info) Description 08/01/2025 Travel Social History Tobacco Use Types Packs/Day Years Used Date Smoking Tobacco: Former Cigarettes 0.3 4 0 11/16/1986 - 11/16/1990 Passive Smoke Exposure: Never Smokeless Tobacco: Never Alcohol Use Standard Drinks/Week Comments Not Currently 4 (1 standard drink = 0.6 oz pure alcohol) Sober for 20 years until May 2022 [facility] Utilities Answer Date Recorded In the [...] Date Recorded PHQ-2 Total Score 5 07/26/2025 [facility] [place] of Occupat ional Health - Occupational Stress [...] things needed for daily living? No 11/10[facility]23 [facility] IP Transportation Answer D ate Recorded In [...] Mckayla Ward RN documented in this encounter Plan of Treatment Upcoming Encounters Date Type Department Care Team (Late st Contact Info) Description 10/09/2025 10:30 AM EST Office Visit [facility] [address] [place] [phone] Gordo Jordan MD [address] [place] [address] 02/01/2026 11:00 AM EDT Office Visit [facility] [address] [facility] [address] [place] [address] Belinda Marques, SHAE [address] [place] [address] documented as of this encounter [...] log to next follow up appointment with patient care director General Not on track(2024 10:05 AM EDT) Yes Danielle Monroy, JESSICA Stay Tobacco Free Lifestyle On track(2021 3:33 PM EDT) No Annie Mratinez CCMA Check fasting glucose daily and document [...] documented as of this encounter Care Teams Abalone Fisherman Relationship Specialty Start Date End Date Danielle Monroy RN Case Cardiac Nurse Specialist Manager/Radiology Receptionist 07/26/25 08/08/25 Helen Patel Care Management Building Construction Foreman 07/28/25 08/31/25 documented as of this encounter
--- OUTSIDE RECORDS SUMMARY | 2025-09-20 12:19 | XMS_ITS | Encounter Summary ---
Author Organization [place] [address] Care Team Providers Care Mold Machine Operator Name Role Phone Gordo Jordan MD Primary Care Prov ider Reason for Visit * Reason Onset Date Comments Symptoms (Only Use If Pt Pushes Back On Scheduli ng A Visit) 09/15/2025 Elevated BP Encounter Details Date Type Department Care Team (Late st Contact Info) Description 09/15/2025 Nurse Triage [facility] [address] [place] [phone] Gordo Jordan MD [address] [place] [address] Social History Tobacco Use Types Packs/Day Years Used Date Smoking Tobacco: Some Days Cigarettes 0.6 8 Started: 11/16/1986; Last attempted to quit: 11/16/1990 Passive Smoke Exposure: Never Smokeless Tobacco: Never Alcohol Use Standard Drinks/Week Comments Yes 4 (1 standard drink = 0.6 oz pure alcohol) Sober for 20 years until May 2022 [facility] Utilities Answer Date Recorded In the past 12 months has [employer], gas, oil, or water company threatened to shut off services in your home? No 06/22/2025 Overall Financial Resource Strain (CARDIA) Answe r Date Recorded How hard is it for you to pa y for the very basics like food, housing, medical care, and heating? Somewhat hard 06/22/2025 PHQ-2 Answer Date Recorded PHQ-2 Total Score 5 07/26/2025 [facility] [place] of Occupat ional Health - Occupational Stress [...] things needed for daily living? No 11/10/2023 [facility] IP Transportation Answer D ate [...] encounter Miscellaneous Notes * Telephone Encounter - Sophy Kerns RN - 09/15/2025 1:27 PM EDT Nurse Triage Call -Chief Complaint: elevated BP, lightheaded Trouble holding urine, incontinence -Reported by: Patient -Vitals: Blood Pressure 157/106 . Documented in Flowsheet: Yes. -Disposition per protocol: ED. -Not applicable based on clinical presentation -Follow up/Concerns: VV with IP LITIGATION ASSOCIATE per protocol instead of ED Reason for Disposition Systolic BP >= 160 OR Diastolic >= 100, and any cardiac (e.g., breathing difficulty, chest pain) or neurologic symptoms (e.g., new-onset blurred or double vision) Answer Assessment - Initial Assessment Questions 1. BLOOD PRESSURE: What is the blood pressure? Did you take at least two measurements 5 minutes apart? 177/144 at 1230, 157/106 2. ONSET: When did you take your blood pressure? today 3. HOW: How did you take your blood pressure? (e.g., automatic home BP monitor, visiting nurse) home cuff 4. HISTORY: Do you have a history of high blood pressure? yes 5. MEDICINES: Are you taking any medicines for blood pressure? Have you missed any doses recently? no missed doses 6. OTHER SYMPTOMS: Do you have any symptoms? (e.g., blurred vision, chest pain, difficulty breathing, headache, weakness) lightheaded 7. : Is there any chance you are ? When was your last menstrual period? no Protocols used: Blood Pressure - High-A-OH * Telephone Encounter - Kaitlynn Lang MA - 09/15/2025 1:12 PM EDT Select the most appropriate reason for this telephone message: Symptoms Call Who is Calling: Patient Return Method of Communication: N/A What symptom(s) is the patient experiencing: Pt reports he woke up sweating, light headed and his BP was 177/144. Pt rechecked BP while on the phone and it was at 157/106. Pt reports he was taken offhis losartan and it has been elevated since. How long have symptoms been present: 1 week(s) ago Has the patient been seen for this:Yes 08/17/25 Dr. Jordan (include date and provider) Has the patient tried anything to relieve the symptoms and did it help: Yes bp meds this morning If pain, what level is your pain: 0-1 (no pain) Desired Outcome: Advice Pharmacy & Location: [facility] [address] [place] [phone] [address] [phone] Was patient transferred to Nurse Triage for additional help? Yes (remember to route this message [facility] Nurse Triage [place] # [id number]) Additional Information: Transferred to nurse triage documented in this encounter Plan of Treatment Upcoming Encounters Date Type Department Care Team (Late st Contact Info) Description 10/09/2025 10:30 AM EST Office Visit [facility] [address] [place] [phone] Gordo Jordan MD [address] [place] [address] 02/01/2026 11:00 AM EDT Office Visit [facility] [address] [facility] [address] [place] [phone] Belinda Marques OD [address] [place] [address] documented as of this encounter [...] log to next follow up appointment with career and guidance counselor General Not on track(2024 10:05 AM EDT) [...] as of this encounter Care Teams Mold Machine Operator Relationship Specialty Start Date End Date Julian, Gordo Monet MD 200 [place] [address] PCP - General Family Medicine 08/07/25 documented as of this encounter
--- OUTSIDE RECORDS SUMMARY | 2025-09-20 12:19 | XMS_ITS | Encounter Summary ---
Author Organization [place] [address] Care Team Providers Care Labor Custodian Name Role Phone Danielle Monroy RN Unavailable Unavailable Helen Patel Unavailable Unavailable Reason for Visit * Reason Onset Date Comments CM- Telephonic Outreach 08/02/2025 Transportation 08/02/2025 CM - Contact Made 08/02/2025 Other 08/02/2025 Encounter Details Date Type Department Care Team (Late Contact Info) Description 08/02/2025 Patient Outreach [facility] Care Managment [address] Appointment [place] [address] Helen Patel CM- Telephonic Outreach; Transportation; CM - Contact Made; Other Social History Tobacco Use Types Packs/Day Years Used Date Smoking Tobacco: Former Cigarettes 0.3 4 0 11/16/1986 - 11/16/1990 Passive Smoke Exposure: Never Smokeless Tobacco: Never Alcohol Use Standard Drinks/Week Comments Not Currently 4 (1 standard drink = 0.6 oz pure alcohol) Sober for 20 years until May 2022 [facility] Utilities Answer Date Recorded In the past 12 months has [employer], gas, oil, or water [employer] threatened to shut off services in your home? No 06/22/2025 Overall Financial Resource Strain (CARDIA) Answe r Date Recorded How hard is it for you to pa y for the very basics like food, housing, medical care, and heating? Somewhat hard 06/22/2025 PHQ-2 Answer Date Recorded PHQ-2 Total Score 5 07/26/2025 [facility] of Occupat ional Health - Occupational Stress [...] things needed for daily living? No 11/10/2023 [facility] IP Transportation Answer D ate Recorded [...] encounter Progress Notes * Helen Patel - 08/02/2025 8:44 AM EDT Care Management Dairy Helper (CMRC) Evaluation and Intervention Spoke with: Patient Barriers addressed: Transportation Interventions: Transportation resources: Provided contact information Resources provided during outreach: Transit Authority [facility] Mobility Program (TANK RAMP) ([phone]) Summary of outreach: Cmrc assisted the patient to complete the [employer] application. Cmrc will send the physcian application to the office. Next Steps: Patient will contact provided resources Outcome: Will follow up on or around: 08/16/25 documented in this encounter Plan of Treatment Upcoming Encounters Date Type Department Care Team (Late st Contact Info) Description 10/09/2025 10:30 AM EST Office Visit [facility] [address] [place] [phone] Gordo Jordan MD [address] [place] [address] 02/01/2026 11:00 AM EDT Office Visit [facility] [address] [facility] [address] [place] [phone] Belinda Marques OD [address] [place] [address] documented as of this encounter Goals Goal [...] of in home exercises. General No Montserrat Gacria RN Maintain a healthy diet, exercise regularly [...] log to next follow up appointment with animal daycare provider General Not on track(2024 10:05 AM EDT) [...] documented as of this encounter Care Teams Labor Custodian Relationship Specialty Start Date End Date Danielle Monroy, it analyst Wire Saw Operator/Movie Actor 07/26/25 08/08/25 Helen Patel Care Management Dairy Helper 07/28/25 08/31/25 documented as of this encounter
--- OUTSIDE RECORDS SUMMARY | 2025-09-20 12:19 | XMS_ITS | Encounter Summary ---
Author Organization [facility] [place] [address] Care Team Providers Care Tool Machine Shop Supervisor Name Role Phone Danielle Monroy RN Unavailable Unavailable Helen Patel Unavailable Unavailable Encounter Details Date Type Department Care Team (Latest Contact Info) Description 07/30/2025 Travel Social History Tobacco Use Types Packs/Day Years Used Date Smoking Tobacco: Former Cigarettes 0.3 4 0 11/16/1986 - 11/16/1990 Passive Smoke Exposure: Never Smokeless Tobacco: Never Alcohol Use Standard Drinks/Week Comments Not Currently 4 (1 standard drink = 0.6 oz pure alcohol) Sober for 20 years until May 2022 [facility] Utilities Answer Date Recorded In the past [...] Date Recorded PHQ-2 Total Score 5 07/26/2025 [facility] [place] of Occupat ional Health - Occupational Stress [...] living? No 11/10/2023 [facility] IP Transportation Answer D ate Recorded In [...] Description 10/09/2025 10:30 AM EST Office Visit [facility] [address] [place] [phone] Gordo Jordan MD [address] [place] [address] 02/01/2026 11:00 AM EDT Office Visit [facility] 1500 [facility] [address] [place] [address] Belinda Marques, SHAE [address] [place] [address] documented as of this encounter [...] to next follow up appointment with healthcare recruiter General Not on track(2024 10:05 AM EDT) [...] documented as of this encounter Care Teams Tool Machine Shop Supervisor Relationship Specialty Start Date End Date Danielle Monroy RN Case Research Specialist Manager/Meat Cooler 07/26/25 08/08/25 Helen Patel Care Management Dragline Engineer 07/28/25 08/31/25 documented as of this encounter
--- OUTSIDE RECORDS SUMMARY | 2025-09-20 12:19 | XMS_ITS | Encounter Summary ---
Author Organization [place] [address] Care Team Providers Care Boarder Hand Name Role Phone Danielle Monroy RN Unavailable Unavailable Helen Patel Unavailable Unavailable Reason for Visit * Reason Onset Date Comments CM- Telephonic Outreach 07/31/2025 CM - Contact Made 07/31/2025 Transportation 07/31/2025 Encounter Details Date Type Department Care Team (Latest Contact Info) Description 07/31/2025 Patient Outreach [facility] Care Managment [address] [place] [address] Helen Patel CM- Telephonic Outreach; CM - Contact Made; Transportation Social History Tobacco Use Types Packs/Day Years Used Date Smoking Tobacco: Former Cigarettes 0.3 4 0 11/16/1986 - 11/16/1990 Passive Smoke Exposure: Never Smokeless Tobacco: Never Alcohol Use Standard Drinks/Week Comments Not Currently 4 (1 standard drink = 0.6 oz pure alcohol) Sober for 20 years until May 2022 [facility] Utilities Answer Date Recorded In the past 12 months has [employer], gas, oil, or water [employer] threatened to shut off services in your home? No 06/22/2025 Overall Financial Resource Strain (CARDIA) Answe r Date Recorded How hard is it for you to pa y for the very basics like food, housing, medical care, and heating? Somewhat hard 06/22/2025 PHQ-2 Answer Date Recorded PHQ-2 Total Score 5 07/26/2025 [facility] [place] of Occupat ional Health - Occupational Stress [...] things needed for daily living? No 11/10/2023 [facility] IP Transportation Answer D ate Recorded [...] encounter Progress Notes * Helen Patel - 07/31/2025 10:56 AM EDT Care Management Granite Countertop Installer (CMRC) Evaluation and Intervention Spoke with: Nidia Barriers addressed: Transportation Interventions: Transportation resources: Provided contact information Resources provided during outreach: [employer] Service of the [facility] ([phone] or [phone]) Transit Authority [facility] (TANK) bus Transit [facility] Mobility Program (TANK RAMP) ([phone]) Summary of outreach: The patient stated that he is currently living in [facility]. He stated that he needs a rideto fruit picker machine operator his walker. [facility] discussed [facility] ([facility]) transportation with the patient. The patient stated that he uses the bus but can't use the bus to fruit picker machine operator the walker. The patient stated that he was pretty sure that he still had [employer]. The patient also stated that he also can't use [employer] bc he doesn't have an address. [facility] addressed that being homeless does not preclude you from being able to use [employer] or [employer]. Cmrc explained a deepak to be able to assist low income users use Tank Ramp. Cmrc also discussed that at time people have been able to use [employer] to fruit picker machine operator pharmacy devices, but [facility] isn't able to do that. The patient stated that he needed to get the walker today. [facility] reiterated that there was no service that the [facility] could provide that would be able to assist the patient with transportation. The patient abruptly ended the call. Cmrc to send all resources to the patient that he may qualify for through [employer] [facility] Next Steps: Patient will contact provided resources Outcome: Contact information: Bertha Patel: [phone] - Provided via: telephone Patient will contact CM Granite Countertop Installer if they have questions or any additional needs arise CM Granite Countertop Installer will close referral after 30 days if no additional patient contact documented in this encounter Plan of Treatment Upcoming Encounters Date Type Department Care Team ([facility] st Contact Info) Description 10/09/2025 10:30 AM EST Office Visit [facility] [place] [address] [place] [phone] Gordo Jordan MD [address] [place] [address] 02/01/2026 11:00 AM EDT Office Visit [facility] 1500 [facility] [address] [place] [phone] Belinda Marques, OD [address] [place] [address] documented as of this encounter Goals Goal [...] log to next follow up appointment with infant caregiver General Not on track(2024 10:05 AM EDT) [...] documented as of this encounter Care Teams Boarder Hand Relationship Specialty Start Date End Date Danielle Monroy RN Case Acute Care Assistant Manager/Cnc Operator Programmer 07/26/25 08/08/25 Helen Patel Care Management Granite Countertop Installer 07/28/25 08/31/25 documented as of this encounter
--- OUTSIDE RECORDS SUMMARY | 2025-09-20 12:19 | XMS_ITS | Encounter Summary ---
Author Organization [place] [address] Care Team Providers Care Tactical Air Control Party Name Role Phone Danielle Monroy RN Unavailable Unavailable Helen Patel Unavailable Unavailable JordanGordo conde MD Primary Care Prov ider Encounter Details Date Type Department Care Team (Latest Contact Info) Description 07/27/2025 Results Follow-Up [facility] [address] [place] [phone] Stacy Mccabe APRN [address] [place] [phone] COMPREHENSIVE METABOLIC PANEL, CBC WITH DIFF, LIPID PANEL REFLEX, Additional followed-up results: 2 Social History Tobacco Use Types Packs/Day Years [...] Date Recorded PHQ-2 Total Score 5 07/26/2025 [facility] [place] of Occupat ional Health - Occupational Stress [...] things needed for daily living? No 11/10/2023 [facility] IP Transportation Answer D ate Recorded In [...] Refills Last Filled Start Date End Date amLODIPine (NORVASC) 5 mg Oral TabletIndications: Hypertension associated with diabetes (HCC) Take 1 Tablet by mouth daily. 30 Tablet 07/28/2025 08/21/2025 documented in this encounter Plan of Treatment Upcoming Encounters Date Type Department Care Team (Late st Contact Info) Description 10/09/2025 10:30 AM EST Office Visit [facility] [address] [place] [phone] Gordo Jordan MD [address] [address] 02/01/2026 11:00 AM EDT Office Visit [facility] [address] [place] [address] [address] [place] [address] Belinda Marques OD [address] [place] [address] documented as of this encounter Goals Goal [...] log to next follow up appointment with caregivers non medical General Not on track(2024 10:05 AM EDT) [...] Visit Diagnoses Diagnosis Hypertension associated with diabetes (HCC)- Primary Type II or unspecified type diabetes mellitus with other specified manifestations, not stated as uncontrolled documented in this encounter Additional Health Concerns Assessment Noted Time PHQ-9 Depression Total Score: 22 025 9:00 AM EDT PHQ-2 Depression Total Score: 5 07/26/20 25 9:00 AM EDT documented as of this encounter Care Teams Tactical Air Control Party Relationship Specialty Start Date End Date Julian, Gordo Monet MD [address] [place] [address] PCP - General Family Medicine 08/07/25 Danielle Monroy RN Case It Desktop Support Technician Manager/Birthing Nurse 07/26/25 08/08/25 Helen Patel Care Management Telephone Interceptor Operator 07/28/25 08/31/25 documented as of this encounter
--- OUTSIDE RECORDS SUMMARY | 2025-09-20 12:19 | XMS_ITS | Encounter Summary ---
Author [place] [address] Care Team Providers Care Exercise Manager Name Role Phone Danielle Monroy RN Unavailable Unavailable Helen Patel Unavailable Unavailable Reason for Visit * Reason Onset Date Comments Results 07/28/2025 Pt seeking resul ts Encounter Details Date Type Department Care Team (Late st Contact Info) Description 07/28/2025 Telephone [facility] [address] [place] [phone] Gordo Jordan MD [address] [place] [phone] Results (Pt seeking results) Social History Tobacco Use Types Packs/Day Years Used Date Smoking Tobacco: Former Cigarettes 0.3 4 0 11/16/1986 - 11/16/1990 Passive Smoke Exposure: Never Smokeless Tobacco: Never Alcohol Use Standard Drinks/Week Comments Not Currently 4 (1 standard drink = 0.6 oz pure alcohol) Sober for 20 years until May 2022 [facility] Utilities Answer Date Recorded In the past 12 months has [employer], gas, oil, or water [employer] threatened to shut off services in your home? No 06/22/2025 Overall Financial Resource Strain (CARDIA) Answe r Date Recorded How hard is it for you to pa y for the very basics like food, housing, medical care, and heating? Somewhat hard 06/22/2025 PHQ-2 Answer Date Recorded PHQ-2 Total Score 5 07/26/2025 [facility] [place] of Occupat ional Health - Occupational Stress [...] things needed for daily living? No 11/10/2023 [facility] IP Transportation Answer D ate Recorded In [...] Encounter - Danielle Monroy RN - 07/28/2025 4:15 PM EDT see previous encounter, discussed with patient * Telephone Encounter - Carlos A Morrow - 07/28/2025 12:26 PM EDT Select the most appropriate reason for this telephone message: Test Result(s) Purpose of call: Patient seeking results Type of test: Lab Date of test: 07/26 Who ordered the test: amanda Where was test performed: [facility] Return Method of Communication: Phone Call Additional Information: please advise pt. documented in this encounter Plan of Treatment Upcoming Encounters Date Type Department Care Team (Late st Contact Info) Description 10/09/2025 10:30 AM EST [facility] Visit [facility] [address] [place] [phone] Gordo Jordan MD [address] [place] [address] 02/01/2026 11:00 AM EDT Office Visit [facility] 1500 [facility] [address] [place] [phone] Belinda Marques OD [address] [place] [phone] documented as of this encounter Goals Goal [...] log to next follow up appointment with adult care manager General Not on track(2024 10:05 [...] documented as of this encounter Care Teams Exercise Manager Relationship Specialty Start Date End Date Danielle Monroy, automotive sales specialist Lens Fabricating Machine Tender/Shank Maker 07/26/25 08/08/25 Helen Patel Care Management Radio Frequency Engineer 07/28/25 08/31/25 documented as of this encounter
--- OUTSIDE RECORDS SUMMARY | 2025-09-20 12:20 | XMS_ITS | Encounter Summary ---
Author Organization [place] [address] Care Team Providers Care Rubber Goods Repairer Name Role Phone Gordo Jordan MD Primary Care Prov ider Reason for Visit * Reason Onset Date Comments Other 09/18/2025 Medication Management 09/18/2025 All Meds c anceled by pharmacy due to Pt's behavior Encounter Details Date Type Department Care Team (Late st Contact Info) Description 09/18/2025 Telephone [facility] [address] [place] [phone] Zuly Gasca MA Other; Medication Management (All Meds canceled by pharmacy due to Pt's behavior) Social History Tobacco Use Types Packs/Day Years Used Date Smoking Tobacco: Some Days Cigarettes 0.6 8 Started: 11/16/1986; Last attempted to quit: 11/16/1990 Passive Smoke Exposure: Never Smokeless Tobacco: Never Alcohol Use Standard Drinks/Week Comments Yes 4 (1 standard drink = 0.6 oz pure alcohol) Sober for 20 years until May 2022 [facility] Utilities Answer Date Recorded In the past 12 months has [employer], gas, oil, or water company threatened to shut off services in your home? No 06/22/2025 Overall Financial Resource Strain (CARDIA) Answe r Date Recorded How hard is it for you to pa y for the very basics like food, housing, medical care, and heating? Somewhat hard 06/22/2025 PHQ-2 Answer Date Recorded PHQ-2 Total Score 5 07/26/2025 [facility] [place] of Occupat ional Health - Occupational Stress [...] things needed for daily living? No 11/10/2023 [facility] IP Transportation Answer D ate Recorded [...] encounter Miscellaneous Notes * Telephone Encounter - Jessica Gonzalez RMA - 09/19/2025 10:28 AM EST FYI * Telephone Encounter - Radha Seymour, Clerical Staff - 09/19/2025 10:17 AM EST Select the most appropriate reason for this telephone message: Medication Management/Problem Who is calling: [facility] Return Method of Communication: Phone Call What medication(s) do you have concerns about: ALL Medications Prescribing provider: Tobi What are your concerns/request: manager of transportation is calling to inform PCP that they will no longer be filling the pt's meds due to the pt being rude, disrespectful, screaming, cursing, calling them stupid and using the B* word and the F*word at them. ALL medications will be deactivated. Pharmacy tried to ask pt what other pharmacy he would like them transferred to and he just continued to curse them out. Desired outcome: Other Please transfer ALL meds to another pharmacy of pt's choice Last appointment date: 08/17/25 Pharmacy: [id number] [place] [id number] [address] [facility] south - [phone] Additional Information: Please Advise Provider, thank you * Telephone Encounter - Zuly Gasca MA - 09/18/2025 1:59 PM EST [facility] pharmacy in [place], [place] will no longer fill pt medications stating pt is being rude to staff and keeps interrupting when trying to explain issues. Pt needs to find a new pharmacy documented in this encounter Plan of Treatment Upcoming Encounters Date Type Department Care Team (Late st Contact Info) Description 10/09/2025 10:30 AM EST Office Visit [facility] [address] [place] [phone] Gordo Jordan MD [address] [place] [address] 02/01/2026 11:00 AM EDT Office Visit [facility] 1500 [facility] [address] [place] [phone] Belinda Marques, OD [address] [place] [address] documented as of this encounter Goals Goal [...] to next follow up appointment with care administrative tech General Not on track(2024 10:05 AM EDT) [...] documented as of this encounter Care Teams Rubber Goods Repairer Relationship Specialty Start Date End Date Gordo Jordan MD [address] [place] [address] PCP - General Family Medicine 08/07/25 documented as of this encounter
--- OUTSIDE RECORDS SUMMARY | 2025-09-20 12:20 | XMS_ITS | Encounter Summary ---
Author Organization [place] [address] Care Team Providers Care Hand Sample Maker Name Role Phone Gordo Jordan MD Primary Care Prov ider Reason for Visit * Reason Onset Date Comments Medication Management 09/15/2025 FREESTYLE LANCETS 28 gauge Misc Misc Encounter Details Date Type Department Care Team (Late st Contact Info) Description 09/15/2025 Telephone [facility] [address] [place] [phone] Gordo Jordan MD [address] [place] [phone] Medication Management (FREESTYLE LANCETS 28 gauge Misc Misc/) Social History Tobacco Use Types Packs/Day Years Used Date Smoking Tobacco: Some Days Cigarettes 0.6 8 Started: 11/16/1986; Last attempted to quit: 11/16/1990 Passive Smoke Exposure: Never Smokeless Tobacco: Never Alcohol Use Standard Drinks/Week Comments Yes 4 (1 standard drink = 0.6 oz pure alcohol) Sober for 20 years until May 2022 [facility] Utilities Answer Date Recorded In the past 12 months has [employer] electric, gas, oil, or water company threatened to shut off services in your home? No 06/22/2025 Overall Financial Resource Strain (CARDIA) Answe r Date Recorded How hard is it for you to pa y for the very basics like food, housing, medical care, and heating? Somewhat hard 06/22/2025 PHQ-2 Answer Date Recorded PHQ-2 Total Score 5 07/26/2025 [place] of Occupat ional Health - Occupational Stress [...] things needed for daily living? No 11/10/2023 [facility] IP Transportation Answer D ate [...] encounter Miscellaneous Notes * Telephone Encounter - Carlos A Morrow - 09/15/2025 1:34 PM EDT Select the most appropriate reason for this telephone message: Medication Management/Problem Who is calling: [facility] Return Method of Communication: Phone Call What medication(s) do you have concerns about: Disp Refills Start End FREESTYLE LANCETS 28 gauge [facility] -- -- 07/26/2025 -- Class: Historical Med Prescribing provider: ISAIAS Mccabe What are your concerns/request: missing directions. Desired outcome: Clarification of prescription Last appointment date: 08/17 Pharmacy: [facility] Additional Information: N/A documented in this encounter Plan of Treatment Upcoming Encounters Date Type Department Care Team (Late st Contact Info) Description 10/09/2025 10:30 AM EST Office Visit [facility] [address] [place] [phone] Gordo Jordan MD [address] [place] [address] 02/01/2026 11:00 AM EDT Office Visit [facility] Ophthalmology [address] [phone] Belinda Marques OD [address] [place] [address] documented as of this encounter Goals Goal [...] log to next follow up appointment with palliative care nurse practitioner General Not on track(2024 10:05 AM EDT) [...] Noted Time PHQ-9 Depression Total Score: 22 09/10/2 025 9:00 AM EDT PHQ-2 Depression Total Score: 5 07/26/20 25 9:00 AM EDT documented as of this encounter Care Teams Hand Sample Maker Relationship Specialty Start Date End Date Julian, Gordo Monet MD [address] [place] [phone] PCP - General Family Medicine 08/07/25 documented as of this encounter
--- OUTSIDE RECORDS SUMMARY | 2025-09-20 12:20 | XMS_ITS | Encounter Summary ---
Author Organization [place] [address] Care Team Providers Care Sewing Machinist Name Role Phone Gordo Jordan MD Primary Care Prov ider Reason for Visit * Reason Onset Date Comments Medication Refill 09/15/2025 Encounter Details Date Type Department Care Team (Late st Contact Info) Description 09/15/2025 Refill [facility] [address] [place] [phone] Stacy Mccabe, ENERGY PROJECTS LEAD [address] [place] [phone] Medication Refill Social History Tobacco Use Types Packs/Day Years Used Date Smoking Tobacco: Some Days Cigarettes 0.6 8 Started: 11/16/1986; Last attempted to quit: 11/16/1990 Passive Smoke Exposure: Never Smokeless Tobacco: Never Alcohol Use Standard Drinks/Week Comments Yes 4 (1 standard drink = 0.6 oz pure alcohol) Sober for 20 years until May 2022 [facility] Utilities Answer Date Recorded In the past 12 months has [employer] gas, oil, or water [employer] threatened to shut off services in your home? No 06/22/2025 Overall Financial Resource Strain (CARDIA) Answe r Date Recorded How hard is it for you to pa y for the very basics like food, housing, medical care, and heating? Somewhat hard 06/22/2025 PHQ-2 Answer Date Recorded PHQ-2 Total Score 5 07/26/2025 [facility] [place] of Occupat ional Health - Occupational Stress [...] things needed for daily living? No 11/10/2023 [facility] IP Transportation Answer D ate Recorded [...] Refills Last Filled Start Date End Date empagliflozin (JARDIANCE) 25 mg Oral TabletIndications:Un controlled type 2 diabetes mellitus with hyperglycemia, with long-term current use of insulin (HCC),Diabetic polyneuropathy associated with type 2 diabetes mellitus (HCC) Take 1 Tablet by mouth daily. 30 Tablet 3 09/18/2025 documented in this encounter Plan of Treatment Upcoming Encounters Date Type Department Care Team (Late st Contact Info) Description 10/09/2025 10:30 AM EST Office Visit [facility] [address] [place] [phone] Gordo Jordan MD [address] [place] [address] 02/01/2026 11:00 AM EDT Office Visit [facility] [address] [place] [address] [address] [place] [phone] Belinda Marques OD [address] [place] [address] documented as of this encounter Goals Goal [...] to next follow up appointment with healthcare administration internship General Not on track(2024 10:05 AM EDT) [...] as of this encounter Visit Diagnoses Diagnosis Uncontrolled type 2 diabetes mellitus with hyperglycemia, with long-term current use of insulin (HCC) Diabetic polyneuropathy associated with type 2 diabetes mellitus (HCC) documented in this encounter Discontinued Medications Medication Sig Discontinue Reason Start Date End Da te JARDIANCE 25 mg Oral TabletIndications:Uncontro lled type 2 diabetes mellitus with hyperglycemia, with long-term current use of insulin (HCC),Diabetic polyneuropathy associated with type 2 diabetes mellitus (HCC) Take 1 tablet by mouth once daily Reorder 08/21/2025 09/15/2025 documented as of this encounter Additional Health Concerns Assessment Noted Time PHQ-9 Depression Total Score: 22 025 9:00 AM EDT PHQ-2 Depression Total Score: 5 07/26/20 25 9:00 AM EDT documented as of this encounter Care Teams Sewing Machinist Relationship Specialty Start Date End Date Julian, Gordo Monet MD [address] [place], [place] [phone] PCP - General Family Medicine 08/07/25 documented as of this encounter
--- OUTSIDE RECORDS SUMMARY | 2025-09-20 12:21 | XMS_ITS | Encounter Summary ---
Author Organization [place] [address] Care Team Providers Care Corn Husker Name Role Phone Anna Patelambrose Israel Unavailable Gordo Jordan MD Primary Care Prov ider Reason for Visit * Reason Onset Date Comments Medication Refill Patient Returning Call 08/31/2025 Encounter Details Date Type Department Care Team (Late st Contact Info) Description 08/31/2025 [facility]ill [facility] [address] [place] [phone] Gordo Jordan MD [address] [place] [address] Medication Refill; Patient Returning Call ( ) Social History Tobacco Use Types Packs/Day Years Used Date Smoking Tobacco: Some Days Cigarettes 0.6 8 Started: 11/16/1986; Last attempted to quit: 11/16/1990 Passive Smoke Exposure: Never Smokeless Tobacco: Never Alcohol Use Standard Drinks/Week Comments Yes 4 (1 standard drink = 0.6 oz pure alcohol) Sober for 20 years until May 2022 [facility] Utilities Answer Date Recorded In the past 12 months has [employer] electric, gas, oil, or water company threatened to shut off services in your home? No 06/22/2025 Overall Financial Resource Strain (CARDIA) Answe r Date Recorded How hard is it for you to pa y for the very basics like food, housing, medical care, and heating? Somewhat hard 06/22/2025 PHQ-2 Answer Date Recorded PHQ-2 Total Score 5 07/26/2025 [facility] [place] of Occupat ional Health - Occupational Stress [...] things needed for daily living? No 11/10/2023 [facility] IP Transportation Answer D ate [...] Refills Last Filled Start Date End Date ESPERANZA 2ND GEN PEN NEEDLE 32 gauge x 5/32 Misc NeedleIndications:Un controlled type 2 diabetes mellitus with hyperglycemia, with long-term current use of insulin (HCC),Diabetic polyneuropathy associated with type 2 diabetes mellitus (HCC) USE DIRECTED 100 Each 09/01/2025 documented in this encounter Plan of Treatment Upcoming Encounters Date Type Department Care Team (Late st Contact Info) Description 10/09/2025 10:30 AM EST Office Visit [facility] [address] [place] [phone] Gordo Jordan MD [address] [place] [address] 02/01/2026 11:00 AM EDT Office Visit [facility] 1500 [facility] [address] [place] [address] Belinda Marques OD [address] [place] [address] documented as of this encounter Goals Goal [...] log to next follow up appointment with child care sitter General Not on track(2024 10:05 AM EDT) [...] Discontinue Reason Start Date End Da te Insulin [place], Disposable, (BD ULTRA-FINE MINI PEN NEEDLE) 31 gauge x 3/16 Misc NeedleIndications:Uncont rolled type 2 diabetes mellitus with hyperglycemia, with long-term current use of insulin (HCC),Diabetic polyneuropathy associated with type 2 diabetes mellitus (HCC) Use pen needle to administer insulin from pens as directed 08/30/2025 09/01/2025 documented as of this encounter Additional Health Concerns Assessment Noted Time PHQ-9 Depression Total Score: 025 9:00 AM EDT PHQ-2 Depression Total Score: 5 07/26/20 25 9:00 AM EDT documented as of this encounter Care Teams Corn Husker Relationship Specialty Start Date End Date Jordan, Gordo Monet MD [address] [place] [address] PCP - General Family Medicine 08/07/25 Helen Patel Care Management Inpatient Pharmacist 07/28/25 08/31/25 documented as of this encounter
--- OUTSIDE RECORDS SUMMARY | 2025-09-20 12:21 | XMS_ITS | Encounter Summary ---
Author Organization [place] [address] Care Team Providers Care Hot Dip Plating Supervisor Name Role Phone BenitoeneidaedeMagdyHelen Unavailable Unavailable Gordo Jordan MD Primary Care Prov ider Encounter Details Date Type Department Care Team (Late st Contact Info) Description 08/16/2025 [facility]ill [facility] [address] [place] [phone] Gordo Jordan MD [address] [place] [address] Social History Tobacco Use Types Packs/Day Years Used Date Smoking Tobacco: Former Cigarettes 0.6 8 0 11/16/1986 - 11/16/1990 Passive Smoke Exposure: Never Smokeless Tobacco: Never Alcohol Use Standard Drinks/Week Comments Not Currently 4 (1 standard drink = 0.6 oz pure alcohol) Sober for 20 years until May 2022 [facility] Utilities Answer Date Recorded In the past 12 months has [employer], gas, oil, or water [employer] threatened to shut off services in your home? No 06/22/2025 Overall Financial Resource Strain (CARDIA) Answe r Date Recorded How hard is it for you to pa y for the very basics like food, housing, medical care, and heating? Somewhat hard 06/22/2025 PHQ-2 Answer Date Recorded PHQ-2 Total Score 5 07/26/2025 [facility] [place] of Occupat ional Health - Occupational Stress [...] things needed for daily living? No 11/10/2023 [facility] IP Transportation Answer [...] Refills Last Filled Start Date End Date chlorhexidine (PERIDEX) 0.12 % MM Mouthwash Take 10 mL by mouth 2 times daily. 250 mL 2 08/28/2025 5 lidocaine 2 % MM Solution Take 5 mL by mouth 3 times daily as needed for Pain. 100 mL 08/28/2025 5 insulin aspart U-100 (NOVOLOG) 100 unit/mL (3 mL) SubQ Insulin PenIndications:Uncon trolled type 2 diabetes mellitus with hyperglycemia, with long-term current use of insulin (HCC),Diabetic polyneuropathy associated with type 2 diabetes mellitus (HCC) Inject 12 Units under the skin 3 times daily (before meals). Use as directed 15 mL 1 08/28/2025 5 documented in this encounter Plan of Treatment Upcoming Encounters Date Type Department Care Team (Late st Contact Info) Description 10/09/2025 10:30 AM EST [facility] Visit [facility] [address] [place] [phone] Gordo Jordan MD [address] [place] [address] 02/01/2026 11:00 AM EDT Office Visit [facility] [address] [facility] [address] [place] [phone] Belinda Marques OD [address] [place] [address] documented as of this encounter Goals Goal [...] next follow up appointment with patient care assistant General Not on track(2024 10:05 AM [...] Discontinue Reason Start Date End Da te chlorhexidine (PERIDEX) 0.12 % MM Mouthwash Take 10 mL by mouth 2 times daily. Reorder 08/07/2025 08/16/2025 documented as of this encounter Additional Health Concerns Assessment Noted Time PHQ-9 Depression Total Score: 025 9:00 AM EDT PHQ-2 Depression Total Score: 07/26/20 9:00 AM EDT documented as of this encounter Care Teams Hot Dip Plating Supervisor Relationship Specialty Start Date End Date Jordan, Gordo Monet MD [address] [place] [address] PCP - General Family Medicine 08/07/25 Helen Patel Care Management Drafter Electronic 07/28/25 08/31/25 documented as of this encounter
--- OUTSIDE RECORDS SUMMARY | 2025-09-20 12:21 | XMS_ITS | Encounter Summary ---
Author Organization [place] [address] Care Team Providers Care Learning Support Services Director Name Role Phone Helen Patel Unavailable Gordo Jordan MD Primary Care Prov ider Reason for Visit * Reason Onset Date Comments Refill 08/30/2025 Insulin [place], Disposable, (BD ULTRA-FINE MINI PEN NEEDLE) 31 gauge x 3/16 Misc Needle / insulin glargine (LANTUS) 100 unit/mL (3 mL) SubQ Insulin Pen Medication Management 08/30/2025 Pharmacy c alled to get status update for pt- pt is anxious about getting this called in Encounter Details Date Type Department Care Team (Late st Contact Info) Description 08/30/2025 Telephone [facility] [address] [place] [phone] Gordo Jordan MD [address] [address] Refill (Insulin [place], Disposable, (BD ULTRA-FINE MINI PEN NEEDLE) 31 gauge x 3/16 Misc Needle / insulin glargine (LANTUS) 100 unit/mL (3 mL) SubQ Insulin Pen); Medication Management (Pharmacy called to get status update for pt- pt is anxious about getting this called in) Social History Tobacco Use Types Packs/Day Years Used Date Smoking Tobacco: Some Days Cigarettes 0.6 8 Started: 11/16/1986; Last attempted to quit: 11/16/1990 Passive Smoke Exposure: Never Smokeless Tobacco: Never Alcohol Use Standard Drinks/Week Comments Yes 4 (1 standard drink = 0.6 oz pure alcohol) Sober for 20 years until May 2022 [facility] Utilities Answer Date Recorded In the [...] Date Recorded PHQ-2 Total Score 5 07/26/2025 [facility] - [...] things needed for daily living? No 11/10/2023 [facility] IP Transportation Answer D ate Recorded [...] Refills Last Filled Start Date End Date insulin glargine (LANTUS) 100 unit/mL (3 mL) SubQ Insulin PenIndications:Unco ntrolled type 2 diabetes mellitus with hyperglycemia, with long-term current use of insulin (HCC),Diabetic polyneuropathy associated with type 2 diabetes mellitus (HCC) Inject 50 Units under the skin every evening. 15 mL 1 08/30/2025 Insulin [place], Disposable, (BD ULTRA-FINE MINI PEN NEEDLE) 31 gauge x 3/16 Mis NeedleIndications:U ncontrolled type 2 diabetes mellitus with hyperglycemia, with long-term current use of insulin (HCC),Diabetic polyneuropathy associated with type 2 diabetes mellitus (HCC) Use pen needle to administer insulin from pens as directed 100 Each 08/30/2025 documented in this encounter Miscellaneous Notes * Telephone Encounter - Sruthi Gavin - 08/30/2025 2:40 PM EDT Select the most appropriate reason for this telephone message: Medication Management/Problem Who is calling: Pharmacy Semaj ray/ Arya Return Method of Communication: Phone Call What medication(s) do you have concerns about: insulin glargine (LANTUS) 100 unit/mL (3 mL) SubQ Insulin Pen 15 mL 1 07/26/2025 -- Sig - Route: Inject 50 Units under the skin every evening. - Subcutaneous Insulin [place], Disposable, (BD ULTRA-FINE MINI PEN NEEDLE) 31 gauge x 3/16 Misc Needle 100 Each 0 07/26/2025 -- Sig: Use pen needle to administer insulin from pens as directed Sent to pharmacy as: pen needle, diabetic 31 gauge x 3/16 Prescribing provider: Dr. Jordan & Stacy Mccabe APRN What are your concerns/request: pharmacy called to see about status on these. Pt called there looking for them as well Desired outcome: Other called asking on status update. Patient was anxious about it Last appointment date: 08/17 Pharmacy: [facility] [address] [place] [phone] [facility] [phone] Additional Information: Please advise- already pended * Telephone Encounter - Le Sharma MA - 08/30/2025 2:28 PM EDT Select the most appropriate reason for this telephone message: Medication Refill Who is requesting the refill: Patient Return Method of Communication: Phone Call Medication(s)Name/Dosage/Frequency: Disp Refills Start End Insulin [place], Disposable, (BD ULTRA-FINE MINI PEN NEEDLE) 31 gauge x 3/16 Misc Needle 100 Each 0 07/26/2025 -- Sig: Use pen needle to administer insulin from pens as directed Sent to pharmacy as: pen needle, diabetic 31 gauge x 3/16 Cosign for Ordering: Accepted by Stacy Mccabe APRN on 07/26/2025 12:14 PM E-Prescribing Status: Receipt confirmed by pharmacy (07/26/2025 10:45 AM EDT) No prior authorization was found for this prescription. Found prior authorization for another prescription for the same medication: Closed - Submitted Product Code is not valid. Please resolve and resubmit. Disp Refills Start End insulin glargine (LANTUS) 100 unit/mL (3 mL) SubQ Insulin Pen 15 mL 1 07/26/2025 -- Sig - Route: Inject 50 Units under the skin every evening. - Subcutaneous Sent to pharmacy as: insulin glargine (U-100) 100 unit/mL (3 mL) subcutaneous pen (LANTUS) E-Prescribing Status: Receipt confirmed by pharmacy (07/26/2025 12:08 PM EDT) No prior authorization was found for this prescription. Found prior authorization for another prescription for the same medication: Closed - Prescription within prescribing limits. Prior Authorization not required. Prescribing provider: Stacy Mccabe APRN Did patient contact the pharmacy first: Yes How many days left on hand: 2 Future appt date w/ prescribing provider: 11/06/25 Pharmacy & Location: [address] [phone] [facility] [phone] [[id number]] Informed patient refill requests can take up to 72 business hours for response Yes Additional Information: Meds pended . Pt is very agitated when trying to discuss which Rx request he needs, and stated he should not have to call in his Rx request all the time. Please advise when the following Rx have been sent to pharm, thank you. documented in this encounter Plan of Treatment Upcoming Encounters Date Type Department Care Team (Late st Contact Info) Description 10/09/2025 10:30 AM EST Office Visit [facility] [address] [place] [phone] Gordo Jordan MD [address] [place] [phone] 02/01/2026 11:00 AM EDT Office Visit [facility] Ophthalmology [address] [phone] Belinda Marques OD [address] [place] [address] documented as of this encounter Goals Goal [...] Reason Start Date End Da te Insulin [place]son, Disposable, (BD ULTRA-FINE MINI PEN NEEDLE) 31 gauge x /16 Misc NeedleIndications:Uncont rolled type 2 diabetes mellitus with hyperglycemia, with long-term current use of insulin (HCC),Diabetic polyneuropathy associated with type 2 diabetes mellitus (HCC) Use pen needle to administer insulin from pens as directed Reorder 07/26/2025 08/30/2025 insulin glargine (LANTUS) 100 unit/mL (3 mL) SubQ Insulin PenIndications:Uncontrol led type 2 diabetes mellitus with hyperglycemia, with long-term current use of insulin (HCC),Diabetic polyneuropathy associated with type 2 diabetes mellitus (HCC) Inject 50 Units under the skin every evening. Reorder 07/26/2025 08/30/2025 documented as of this encounter Additional Health Concerns Assessment Noted Time PHQ-9 Depression Total Score: 22 025 9:00 AM EDT PHQ-2 Depression Total Score: 5 07/26/20 25 9:00 AM EDT documented as of this encounter Care Teams Learning Support Services Director Relationship Specialty Start Date End Date Jordan, Gordo Monet MD [address] [place] [address] PCP - General Family Medicine 08/07/25 Helen Patel Care Management Safe Deposit Clerk 07/28/25 08/31/25 documented as of this encounter
--- OUTSIDE RECORDS SUMMARY | 2025-09-20 12:21 | XMS_ITS | Encounter Summary ---
Author Organization [place] [address] Care Team Providers Care Kennel Technician Name Role Phone Anna Patelambrose Israel Unavailable Gordo Jordan MD Primary Care Prov ider Reason for Visit * Reason Onset Date Comments Medication Refill 09/04/2025 Encounter Details Date Type Department Care Team (Late st Contact Info) Description 08/31/2025 Refill [facility] [address] [place] [phone] Gordo Jordan MD [address] [place] [address] Medication Refill Social History Tobacco Use Types Packs/Day Years Used Date Smoking Tobacco: Some Days Cigarettes 0.6 8 Started: 11/16/1986; Last attempted to quit: 11/16/1990 Passive Smoke Exposure: Never Smokeless Tobacco: Never Alcohol Use Standard Drinks/Week Comments Yes 4 (1 standard drink = 0.6 oz pure alcohol) Sober for 20 years until May [address] [facility] Utilities Answer Date Recorded In the past 12 months has [employer] electric, gas, oil, or water company threatened to shut off services in your home? No 06/22/2025 Overall Financial Resource Strain (CARDIA) Answe r Date Recorded How hard is it for you to pa y for the very basics like food, housing, medical care, and heating? Somewhat hard 06/22/2025 PHQ-2 Answer Date Recorded PHQ-2 Total Score 5 07/26/2025 [facility] [place] of Occupat ional Health - Occupational Stress [...] living? No 11/10/2023 [facility] IP Transportation Answer D ate Recorded [...] Refills Last Filled Start Date End Date Insulin [place], Disposable, (BD ULTRA-FINE MINI PEN NEEDLE) 31 gauge x 3/16 Misc NeedleIndications:U ncontrolled type 2 diabetes mellitus with hyperglycemia, with long-term current use of insulin (HCC),Diabetic polyneuropathy associated with type 2 diabetes mellitus (HCC) Use pen needle to administer insulin from pens as directed 100 Each 09/04/2025 lidocaine 2 % MM Solution Take 5 mL by mouth 3 times daily as needed for Pain. 100 mL 09/04/2025 insulin aspart U-100 (NOVOLOG) 100 unit/mL (3 mL) SubQ Insulin PenIndications:Unco ntrolled type 2 diabetes mellitus with hyperglycemia, with long-term current use of insulin (HCC),Diabetic polyneuropathy associated with type 2 diabetes mellitus (HCC) Inject 12 Units under the skin 3 times daily (before meals). Use as directed 30 mL 09/04/2025 chlorhexidine (PERIDEX) 0.12 % MM Mouthwash Take 10 mL by mouth 2 times daily. 250 mL 2 09/04/2025 lidocaine 2 % MM Solution Take 5 mL by mouth 3 times daily as needed for Pain. 100 mL 09/04/2025 pregabalin (LYRICA) 150 mg Oral Capsule Take 1 Capsule by mouth 3 times daily. 90 Capsule 2 09/04/2025 documented in this encounter Miscellaneous Notes * Telephone Encounter - Gordo Jordan MD - 09/04/2025 1:25 PM EDT Orders placed. Deleted duplicates documented in this encounter Plan of Treatment Upcoming Encounters Date Type Department Care Team (Late st Contact Info) Description 10/09/2025 10:30 AM EST Office Visit [facility] [address] [place] [phone] Gordo Jordan MD [address] [place] [address] 02/01/2026 11:00 AM EDT Office Visit [facility] [address] [place] [address] [address] [place] [address] Belinda Marques, OD [address] [place] [address] documented as of this encounter [...] log to next follow up appointment with clinical manager home care General Not on track(2024 10:05 AM [...] Weight 260 lb 6.4 oz (118.1 kg)(08/17/20 25 12:48 PM EDT) No Angel Duffy MD documented as of this encounter Visit Diagnoses Diagnosis Uncontrolled type 2 diabetes mellitus with hyperglycemia, with long-term current use of insulin (HCC) Diabetic polyneuropathy associated with type 2 diabetes mellitus (HCC) documented in this encounter Discontinued Medications Medication Sig Discontinue Reason Start Date End Da te insulin aspart U-100 (NOVOLOG) 100 unit/mL (3 mL) SubQ Insulin PenIndications:Uncontroll ed type 2 diabetes mellitus with hyperglycemia, with long-term current use of insulin (HCC),Diabetic polyneuropathy associated with type 2 diabetes mellitus (HCC) Inject 12 Units under the skin 3 times daily (before meals). Use as directed DELETE-Duplicate 08/28/2025 09/04/2025 pregabalin (LYRICA) 150 mg Oral Capsule Take 1 Capsule by mouth 3 times daily. Reorder 08/07/2025 08/31/2025 lidocaine 2 % MM Solution Take 5 mL by mouth 3 times daily as needed for Pain. Reorder 08/28/2025 08/31/2025 chlorhexidine (PERIDEX) 0.12 % MM Mouthwash Take 10 mL by mouth 2 times daily. Reorder 08/28/2025 08/31/2025 insulin aspart U-100 (NOVOLOG) 100 unit/mL (3 mL) SubQ Insulin PenIndications:Uncontroll ed type 2 diabetes mellitus with hyperglycemia, with long-term current use of insulin (HCC),Diabetic polyneuropathy associated with type 2 diabetes mellitus (HCC) Inject 12 Units under the skin 3 times daily (before meals). Use as directed Reorder 08/24/2025 08/31/2025 lidocaine 2 % MM Solution Take 5 mL by mouth 3 times daily as needed for Pain. Reorder 08/24/2025 08/31/2025 documented as of this encounter Additional Health Concerns Assessment Noted Time PHQ-9 Depression Total Score: 025 9:00 AM EDT PHQ-2 Depression Total Score: 07/26/20 25 9:00 AM EDT documented as of this encounter Care Teams Kennel Technician Relationship Specialty Start Date End Date Jordan, Gordo Monet MD [address] [place] [address] PCP - General Family Medicine 08/07/25 Helen Patel Care Management Patient Assessment Coordinator 07/28/25 08/31/25 documented as of this encounter
--- OUTSIDE RECORDS SUMMARY | 2025-09-20 12:21 | XMS_ITS | Encounter Summary ---
Author Organization [place] [address] Care Team Providers Care Commodities Clerk Name Role Phone Helen Patel Unavailable JordanGordo conde MD Primary Care Prov ider Reason for Visit * Reason Comments Medication Refill Encounter Details Date Type Department Care Team (Late st Contact Info) Description 08/30/2025 Refill [facility] [address] [place] [phone] Stacy Mccabe APRN [address] [place] [phone] Medication Refill Social History Tobacco Use Types [...] Recorded In the past 12 months has [employer], gas, oil, or water [employer] threatened to shut off services in your home? No 06/22/2025 Overall Financial Resource Strain (CARDIA) Answe r Date Recorded How hard is it for you to pa y for the very basics like food, housing, medical care, and heating? Somewhat hard 06/22/2025 PHQ-2 Answer Date Recorded PHQ-2 Total Score 5 07/26/2025 [facility] of Occupat ional Health - Occupational Stress [...] [facility] [place] [facility] [address] [place] [phone] Gordo Jordan MD [address] [address] 02/01/2026 11:00 AM EDT Office Visit [facility] [address] [place] [address] [address] [place] [phone] Belinda Marques OD [address] [place] [address] documented as of this encounter Goals Goal [...] log to next follow up appointment with ambulatory care nurse General Not on track(2024 10:05 AM EDT) [...] documented as of this encounter Care Teams Commodities Clerk Relationship Specialty Start Date End Date Gordo Jordan MD [address] [place] [address] PCP - General Family Medicine 08/07/25 Helen Patel Care Management Lead Blender 07/28/25 08/31/25 documented as of this encounter
--- OUTSIDE RECORDS SUMMARY | 2025-09-20 12:21 | XMS_ITS | Encounter Summary ---
Author Organization [place] [address] Care Team Providers Care Doctor Of Dental Surgery Name Role Phone Anna Patelambrose Israel Unavailable Gordo Jordan MD Primary Care Prov ider Reason for Visit * Reason Onset Date Comments Medication Refill 08/22/2025 Encounter Details Date Type Department Care Team (Late st Contact Info) Description 08/22/2025 Refill [facility] [address] [place] [phone] Gordo Jordan MD [address] [place] [address] Medication Refill Social History Tobacco Use Types Packs/Day Years Used Date Smoking Tobacco: Some Days Cigarettes 0.6 8 Started: 11/16/1986; Last attempted to quit: 11/16/1990 Passive Smoke Exposure: Never Smokeless Tobacco: Never Alcohol Use Standard Drinks/Week Comments Yes 4 (1 standard drink = 0.6 oz pure alcohol) Sober for 20 years until May 2022 [facility] Utilities Answer Date Recorded In the past 12 months has [employer] electric, gas, oil, or water company threatened to shut off services in your home? No 06/22/2025 Overall Financial Resource Strain (CARDIA) Answe r Date Recorded How hard is it for you to pa y for the very basics like food, housing, medical care, and heating? Somewhat hard 06/22/2025 PHQ-2 Answer Date Recorded PHQ-2 Total Score 5 07/26/2025 [facility] of Occupat ional Health - Occupational Stress [...] things needed for daily living? No 11/10/2023 [facility] Transportation Answer D ate Recorded In [...] Last Filled Start Date End Date lidocaine 2 % MM Solution Take 5 mL by mouth 3 times daily as needed for Pain. 100 mL 08/24/2025 insulin aspart U-100 (NOVOLOG) 100 unit/mL (3 mL) SubQ Insulin PenIndications:Uncon trolled type 2 diabetes mellitus with hyperglycemia, with long-term current use of insulin (HCC),Diabetic polyneuropathy associated with type 2 diabetes mellitus (HCC) Inject 12 Units under the skin 3 times daily (before meals). Use as directed 30 mL 08/24/2025 5 documented in this encounter Miscellaneous Notes * Telephone Encounter - Mirian Killian CPhT - 08/24/2025 9:54 AM EDT Novolog Future Visit: 11/06/25 Last Assessed Visit: 08/17/25 Follow-Up: 11/17/25 All protocols passed. Refills approved and sent to requesting pharmacy. Routed to [facility] if an appointment is needed. Lidocaine There is no CRS protocol for this medication. Accidentally approved all, [facility] Spoke to Marko, who canceled the order. documented in this encounter Plan of Treatment Upcoming Encounters Date Type Department Care Team (Late st Contact Info) Description 10/09/2025 10:30 AM EST [facility] Visit [facility] [address] [place] [phone] Gordo Jordan MD [address] [place] [address] 02/01/2026 11:00 AM EDT Office Visit [facility] [address] [facility] [address] [place] [address] Belinda Marques, OD [address] [place] [address] documented as of this encounter [...] to next follow up appointment with care consultant General Not on track(2024 10:05 AM [...] daily (before meals). Use as directed Reorder 08/07/2025 08/22/2025 lidocaine 2 % MM Solution Take 5 mL by mouth 3 times daily as needed for Pain. Reorder 08/07/2025 08/22/2025 documented as of this encounter Additional Health Concerns Assessment Noted Time PHQ-9 Depression Total Score: 025 9:00 AM EDT PHQ-2 Depression Total Score: 5 07/26/20 9:00 AM EDT documented as of this encounter Care Teams Doctor Of Dental Surgery Relationship Specialty Start Date End Date Gordo Jordan MD [address] [place] [address] PCP - General Family Medicine 08/07/25 Helen Patel Care Management Diagrammer 07/28/25 08/31/25 documented as of this encounter
--- OUTSIDE RECORDS SUMMARY | 2025-09-20 12:21 | XMS_ITS | Encounter Summary ---
Author Organization [place] [address] Care Team Providers Care Heating Equipment Installer Name Role Phone Gordo Jordan MD Primary Care Prov ider Reason for Visit * Reason Onset Date Comments Other 09/13/2025 Did you get a Fa x Patient Returning Call 09/13/2025 On form Encounter Details Date Type Department Care Team ([facility] Contact Info) Description 09/13/2025 Telephone [facility] [address] [place] [phone] Gordo Jordan MD [address] [place] [address] Other (Did you get a Fax ); Patient Returning Call (On form ) Social History Tobacco Use Types Packs/Day Years Used Date Smoking Tobacco: Some Days Cigarettes 0.6 8 Started: 11/16/1986; Last attempted to quit: 11/16/1990 Passive Smoke Exposure: Never Smokeless Tobacco: Never Alcohol Use Standard Drinks/Week Comments Yes 4 (1 standard drink = 0.6 oz pure alcohol) Sober for 20 years until May 2022 [facility] Utilities Answer Date Recorded In the past 12 months has [facility] electric, gas, oil, or water company threatened to shut off services in your home? No 06/22/2025 Overall Financial Resource Strain (CARDIA) Answe r Date Recorded How hard is it for you to pa y for the very basics like food, housing, medical care, and heating? Somewhat hard 06/22/2025 PHQ-2 Answer Date Recorded PHQ-2 Total Score 5 07/26/2025 [facility] [place] of Occupat ional Health - Occupational Stress [...] things needed for daily living? No 11/10/2023 [facility] IP Transportation Answer D ate Recorded In [...] of Assessment Author Yes 10/18/2023 11:50 AM Mckyala Pelaez RN documented as of this encounter Mental Status * Because of a physical, mental or emotional condition, does this person have serious difficulty concentrating, remembering or making decisions? Answer Entry Date Author No 10/18/2023 11:50 AM Mckayla Pelaez RN documented in this encounter Miscellaneous Notes * Telephone Encounter - Eliseo Dean RMA - 09/14/2025 3:03 PM EDT Pt did not answer unable to leave voicemail. Look through all my paperwork twice and did not receive it. Are they faxing over the paperwork to the correct office? * Telephone Encounter - Magdalene Roque RMA - 09/14/2025 12:57 PM EDT Select the most appropriate reason for this telephone message: Patient Returning Call Reason for call: on form Return Method of Communication: Phone Call Information relayed to patient: Have not seen paperwork Patient has additional questions: said that it was faxed and someone is lying Further action needed: Yes call back Additional Information: pt hung up after fax number was given 3 times to him * Telephone Encounter - Annie Sofia MA - 09/13/2025 1:16 PM EDT Have not seen paperwork. * Telephone Encounter - Sreekanth Pandey RMA - 09/13/2025 12:39 PM EDT Select the most appropriate reason for this telephone message: Other Who is calling: Patient Return Method of Communication: Phone Call What is needed OR why are they calling: seeing if you got the fax from [place] for his transportation. It needs to be filled out and faxed back please. This will be for his appt 10/09/25 When is this needed by: jennifer Where does this information need to go: to the office Additional information:Please Advise Patient/Caller, thank you. documented in this encounter Plan of Treatment Upcoming Encounters Date Type Department Care Team (Late st Contact Info) Description 10/09/2025 10:30 AM EST Office Visit [facility] [address] [place] [phone] Gordo Jordan MD [address] [place] [address] 02/01/2026 11:00 AM EDT Office Visit [facility] [address] [facility] [address] [place] [phone] Belinda Marques, OD [address] [place] [address] documented as of this encounter Goals Goal [...] log to next follow up appointment with health care recruiter General Not on track(2024 10:05 AM [...] documented as of this encounter Care Teams Heating Equipment Installer Relationship Specialty Start Date End Date Gordo Jordan MD [address] [place] [address] PCP - General Family Medicine 08/07/25 documented as of this encounter
--- OUTSIDE RECORDS SUMMARY | 2025-09-20 12:21 | XMS_ITS | Encounter Summary ---
Author Organization [place] [address] Care Team Providers Care Director Acute Name Role Phone BenitoeneidaedeAnnan Unavailable Unavailable Gordo Jordan MD Primary Care Prov ider Reason for Visit * Reason Onset Date Comments Symptoms (Only Use If Pt Pus hes Back On Scheduling A Visit) 08/22/2025 pt said his sugar has been r unning in the 400s for a week, no symptoms. Adv pt to speak to nurse triage, pt declined. Encounter Details Date Type Department Care Team (Late st Contact Info) Description 08/22/2025 Telephone [facility] [address] [place] [phone] Gordo Jordan MD [address] [place] [phone] Symptoms (Only Use If Pt Pushes Back On Scheduling A Visit) (pt said his sugar has been running in the 400s for a week, no symptoms. Adv pt to speak to nurse triage, pt declined. ) Social History Tobacco Use Types Packs/Day Years Used Date Smoking Tobacco: Some Days Cigarettes 0.6 8 Started: 11/16/1986; Last attempted to quit: 11/16/1990 Passive Smoke Exposure: Never Smokeless Tobacco: Never Alcohol Use Standard Drinks/Week Comments Yes 4 (1 standard drink = 0.6 oz pure alcohol) Sober for 20 years until May 2022 [facility] Utilities Answer Date Recorded In the past 12 months has [facility] [employer], gas, oil, or water [employer] threatened to shut off services in your home? No 06/22/2025 Overall Financial Resource Strain (CARDIA) Answe r Date Recorded How hard is it for you to pa y for the very basics like food, housing, medical care, and heating? Somewhat hard 06/22/2025 PHQ-2 Answer Date Recorded PHQ-2 Total Score 5 07/26/2025 [facility] of Occupat ional Health - [...] things needed for daily living? No 11/10/2023 [facility] IP Transportation Answer D [...] encounter Miscellaneous Notes * Telephone Encounter - Dejan Malagon PharmD - 08/25/2025 4:09 PM EDT Patient responded again to [employer] message regarding BG. It came down to <200, but as of today back up to 240. Of note patient also states BP was 226/140 today. Called patient to discuss rechecking BP, but unavailable and VM box not set up yet. Sending [employer] message recommending patient recheck and if >180/120 he call 911 or go to the emergency room. * Telephone Encounter - Dejan Malagon PharmD - 08/22/2025 3:40 PM EDT Pharmacy Consult 08/22/2025 with Dejan Malagon PharmD: Returned patient call regarding blood glucose levels. Hermelindo reports concern over his blood glucose being consistently elevated over the past few days. Reports that today he has administered 6 units this morning based on sliding scale. He chose not toeat breakfast and therefore administered the skipped meal dose appropriately. He then reports around lunch time 1:30-2:00 pm his BG was 401mg/dL. He states that he then ate lunch, and administered 12 units around an hour later. When asked why he had not administered the 22 units indicated by his sliding scale patient expressed concerns about taking too much insulin. Educated patient on the proper order of operations for pre-prandial insulin. He should be testing, administering insulin, then eating. Reassured him that the scale was created with the intention of avoiding hypoglycemia and was made with his current blood sugar levels and total daily insulin dose in mind. Requested he administer the proper amount of insulin indicated by his sliding scale at next meal. Recommended he call back tomorrow if BG has not improved. Thank you, Dejan Malagon, PharmD Bus Inspector Pharmacist [place] 08/22/2025 3:40 PM * Telephone Encounter - Eliseo Dean RMA - 08/22/2025 2:32 PM EDT Closing encounter look at telephone encounter on 08/21/25. If having sores on his mouth he will need to make an appointment PCP is out of ynemvh43/6/25 until 08/28/25 His message about sugars have been routed to Dejan to review and discuss with pt when he gets a chance to review his inbox. He will reach out to the pt. As far as lock on medication. Not sure what pt is talking about if needing refills [facility] or let call center know what he is needing. * Telephone Encounter - Nicky Orozco CCMA - 08/22/2025 2:18 PM EDT Select the most appropriate reason for this telephone message: Other Who is calling: Patient Return Method of Communication: Phone Call What is needed OR why are they calling: he is calling about the same thing. When is this needed by: today Where does this information need to go: Dr. Jordan Additional information:He also wants to know why there are locks on his refills on mychart. He also has a sore on his tongue. * Telephone Encounter - Carlos A Morrow - 08/22/2025 11:22 AM EDT Select the most appropriate reason for this telephone message: Symptoms Call Who is Calling: Patient Return Method of Communication: Phone Call What symptom(s) is the patient experiencing: pt said his sugar has been running in the 400s for a week, no symptoms. Adv pt to speak to nurse triage, pt declined. How long have symptoms been present: 1 week(s) ago Has the patient been seen for this:Yes 08/17 Dr Jordan (include date and provider) Has the patient tried anything to relieve the symptoms and did it help: No If pain, what level is your pain: 0-1 (no pain) Desired Outcome: Advice Pharmacy & Location:[facility] Was patient transferred to Nurse Triage for additional help? Patient declined Additional Information: please advise pt. documented in this encounter Plan of Treatment Upcoming Encounters Date Type Department Care Team (Late st Contact Info) Description 10/09/2025 10:30 AM EST [facility] [address] [place] [phone] Gordo Jordan MD [address] [place] [phone] 02/01/2026 11:00 AM EDT Office Visit [facility] [address] [facility] [address] [place] [phone] Belinda Marques OD [address] [place] [address] documented as of this encounter Goals Goal [...] log to next follow up appointment with medicare insurance specialist General Not on track(2024 10:05 AM [...] documented as of this encounter Care Teams Director Acute Relationship Specialty Start Date End Date Gordo Jordan MD [address] [place], [place] [id number] PCP - General Family Medicine 08/07/25 Helen Patel Care Management Process Developer 07/28/25 08/31/25 documented as of this encounter
--- OUTSIDE RECORDS SUMMARY | 2025-09-20 12:21 | XMS_ITS | Encounter Summary ---
Author Organization [place] [address] Care Team Providers Care Stem Lead Former Name Role Phone Helen Patel Unavailable Gordo Jordan MD Primary Care Prov ider Reason for Visit * Reason Onset Date Comments Medication Refill 08/20/2025 Multiple meds Encounter Details Date Type Department Care Team (Late st Contact Info) Description 08/20/2025 Refill [facility] [address] [place] [phone] Stacy Mccabe APRN [address] [place] [phone] Medication Refill (Multiple meds) Social History Tobacco Use Types Packs/Day Years Used Date Smoking Tobacco: Some Days Cigarettes 0.6 8 Started: 11/16/1986; Last attempted to quit: 11/16/1990 Passive Smoke Exposure: Never Smokeless Tobacco: Never Alcohol Use Standard Drinks/Week Comments Yes 4 (1 standard drink = 0.6 oz pure alcohol) Sober for 20 years until May 2022 [facility] Utilities Answer Date Recorded In the past 12 months has [employer] electric, gas, oil, or water company threatened to shut off services in your home? No 06/22/2025 Overall Financial Resource Strain (CARDIA) Answe r Date Recorded How hard is it for you to pa y for the very basics like food, housing, medical care, and heating? Somewhat hard 06/22/2025 PHQ-2 Answer Date Recorded PHQ-2 Total Score 5 07/26/2025 [facility] of Occupat ional Health - Occupational Stress [...] for daily living? No 11/10/2023 [facility] IP Transportation Answer D ate Recorded In [...] Refills Last Filled Start Date End Date Alcohol Swabs (ALCOHOL PREP PADS) Top Pads, MedicatedIndications :Uncontrolled type 2 diabetes mellitus with hyperglycemia, with long-term current use of insulin (HCC),Diabetic polyneuropathy associated with type 2 diabetes mellitus (HCC) Apply 1 Each topically as needed. 100 Each 30 08/22/2025 5 acetaminophen (TYLENOL) 500 mg Oral TabletIndications:Pr imary osteoarthritis of both knees Take 2 Tablets by mouth every 8 hours as needed for Pain. 90 Tablet 08/22/2025 5 hydrOXYzine (ATARAX) 25 mg Oral TabletIndications:GA D (generalized anxiety disorder) Take 1 Tablet by mouth 3 times daily as needed. for anxiety 90 Tablet 08/22/2025 5 methocarbamoL (ROBAXIN) 750 mg Oral TabletIndications:Ch ronic bilateral low back pain without sciatica,Primary osteoarthritis involving multiple joints Take 1 Tablet by mouth 3 times daily as needed for Pain. 90 Tablet 08/22/2025 5 documented in this encounter Miscellaneous Notes * Telephone Encounter - Aakash Castaneda, product support technician - 08/22/2025 3:02 PM EDT Alcohol prep pads There is no CRS protocol for this medication. Aspirin There is no CRS protocol for this medication. Test Strips There is no CRS protocol for this medication. Hydroxine There is no CRS protocol for this medication. SoftClicks Lancets There is no CRS protocol for this medication. Robaxin There is no CRS protocol for this medication. Tylenol There is no CRS protocol for this medication. Atorvastatin Refill requested too soon. Refill denied. Last sent on 07/26/25 for a 90 day supply with 0 refills. Pt notified via [employer] if active. Pantoprazole Refill requested too soon. Refill denied. Last sent on 07/26/25 for a 90 day supply with 0 refills. Pt notified via [employer] if active. Lantus Refill requested too soon. Refill denied. Last sent on 07/26/25 for a 90 day supply with 0 refills. Pt notified via [employer] if active. Folic acid Refill requested too soon. Refill denied. Last sent on 07/26/25 for a 90 day supply with 0 refills. Pt notified via [employer] if active. Jardiance Duplicate refill request. This medication has already been approved within the last 7 days. Refill denied. Metoprolol Duplicate refill request. This medication has already been approved within the last 7 days. Refill denied. * Telephone Encounter - Rabia Barber MA - 08/22/2025 10:53 AM EDT Select the most appropriate reason for this telephone message: Follow Up Follow Up Who is Calling:Patient Return Method of Communication:Phone call What is the caller following up on (make sure to reference any prior documentation/encounter):Pt called stating he needs all of his meds refilled & would like additional refills on them so he doesn't have to call every month. Further follow-up needed?:Yes Additional Information:N/A documented in this encounter Plan of Treatment Upcoming Encounters Date Type Department Care Team ([facility] st Contact Info) Description 10/09/2025 10:30 AM EST Office Visit [facility] [address] [place] [phone] Gordo Jordan MD [address] [place] [address] 02/01/2026 11:00 AM EDT Office Visit [facility] [address] [facility] [address] [place] [address] Beilnda Marques, OD [address] [place] [address] documented as of this encounter [...] next follow up appointment with direct care provider General Not on track(2024 10:05 AM [...] Cardona MD documented as of this encounter Visit Diagnoses Diagnosis Uncontrolled type 2 diabetes mellitus with hyperglycemia, with long-term current use of insulin ([facility]) Diabetic polyneuropathy associated with type 2 diabetes mellitus (HCC) Chronic bilateral low back pain without sciatica Primary osteoarthritis involving multiple joints AURORA (generalized anxiety disorder) Generalized anxiety disorder Hypertension associated with diabetes ([facility]) Type II or unspecified type diabetes mellitus with other specified manifestations, not stated as uncontrolled Hyperlipidemia associated with type 2 diabetes mellitus (HCC) Gastroesophageal reflux disease without esophagitis Esophageal reflux Folate deficiency Other B-complex deficiencies Primary osteoarthritis of both knees Primary localized osteoarthrosis, lower leg documented in this encounter Discontinued Medications Medication Sig Discontinue Reason Start Date End Da te methocarbamoL (ROBAXIN) 750 mg Oral TabletIndications:Chronic bilateral low back pain without sciatica,Primary osteoarthritis involving multiple joints Take 1 Tablet by mouth 3 times daily as needed for Pain. Reorder 07/26/2025 08/20/2025 hydrOXYzine (ATARAX) 25 mg Oral TabletIndications:AURORA (generalized anxiety disorder) Take 1 Tablet by mouth 3 times daily as needed. for anxiety Reorder 07/26/2025 08/20/2025 Alcohol Swabs (ALCOHOL PREP PADS) Top Pads, MedicatedIndications:Unco ntrolled type 2 diabetes mellitus with hyperglycemia, with long-term current use of insulin ([facility]),Diabetic polyneuropathy associated with type 2 diabetes mellitus ([facility]) Apply 1 Each topically as needed. Reorder 07/26/2025 08/20/2025 documented as of this encounter Additional Health Concerns Assessment Noted Time PHQ-9 Depression Total Score: 025 9:00 AM EDT PHQ-2 Depression Total Score: 5 07/26/20 25 9:00 AM EDT documented as of this encounter Care Teams Stem Lead Former Relationship Specialty Start Date End Date Gordo Jordan MD [address] [place] [address] PCP - General Family Medicine 08/07/25 Helen Patel Care Management Product Responsibility Liaison 07/28/25 08/31/25 documented as of this encounter
--- OUTSIDE RECORDS SUMMARY | 2025-09-20 12:21 | XMS_ITS | Encounter Summary ---
Author Organization [place] [address] Care Team Providers Care Doughnut Machine Operator Helper Name Role Phone Helen Patel Unavailable Unavailable Gordo Jordan MD Primary Care Prov ider Reason for Visit * Reason Comments Medication Refill Toprol, Tylenol Encounter Details Date Type Department Care Team (Late st Contact Info) Description 08/21/2025 Telephone [facility] [address] [place] [phone] Stacy Mccabe, ISAIAS [address] [place] [phone] Medication Refill (Toprol, Tylenol) Social History Tobacco Use Types Packs/Day Years Used Date Smoking Tobacco: Some Days Cigarettes 0.6 8 Started: 11/16/1986; Last attempted to quit: 11/16/1990 Passive Smoke Exposure: Never Smokeless Tobacco: Never Alcohol Use Standard Drinks/Week Comments Yes 4 (1 standard drink = 0.6 oz pure alcohol) Sober for 20 years until May 2022 [facility] Utilities Answer Date Recorded In the past 12 months has [employer] electric, gas, oil, or water company threatened to shut off services in your home? No 06/22/2025 Overall Financial Resource Strain (CARDIA) Answe r Date Recorded How hard is it for you to pa y for the very basics like food, housing, medical care, and heating? Somewhat hard 06/22/2025 PHQ-2 Answer Date Recorded PHQ-2 Total Score 5 07/26/2025 [facility] of Occupat ional Health - Occupational Stress [...] things needed for daily living? No 11/10/2023 [facility] IP Transportation Answer D ate [...] Refills Last Filled Start Date End Date metoprolol succinate (TOPROL-XL) 200 mg Oral Tablet Sustained Release 24 hrIndications:Hypert ension associated with diabetes (HCC) Take 1 tablet by mouth once daily 30 Tablet 08/22/2025 ACETAMINOPHEN EXTRA STRENGTH 500 mg Oral TabletIndications:Pr imary osteoarthritis of both knees TAKE 2 TABLETS BY MOUTH EVERY 8 HOURS NEEDED FOR PAIN 90 Tablet 08/22/2025 documented in this encounter Miscellaneous Notes * Telephone Encounter - Montserrat Fowler - 08/22/2025 11:54 AM EDT Pharm called again to have these filled. Scripts sent. * Telephone Encounter - Rabia Barber MA - 08/22/2025 10:48 AM EDT Select the most appropriate reason for this telephone message: Medication Refill Who is requesting the refill: Patient Return Method of Communication: Phone Call Medication(s)Name/Dosage/Frequency: metoprolol succinate (TOPROL-XL) 200 mg Oral Tablet Sustained Release 24 hr 30 Tablet 0 07/26/2025 -- Sig - Route: Take 1 Tablet by mouth daily. - Oral acetaminophen (TYLENOL) 500 mg Oral Tablet 90 Tablet 0 07/26/2025 -- Sig - Route: Take 2 Tablets by mouth every 8 hours as needed for Pain. - Oral Prescribing provider: Reba Mccabe APRN Did patient contact the pharmacy first: Yes How many days left on hand: 2 Future appt date w/ prescribing provider: 11/06/25 Pharmacy & Location: [facility] [address] [place] [address] [address] [facility] - [phone] [address] [facility] [id number] PAT #: [id number] Informed patient refill requests can take up to 72 business hours for response No Additional Information: Pt is requesting additional refills on these meds so he doesn't have to call every month. documented in this encounter Plan of Treatment Upcoming Encounters Date Type Department Care Team (Late st Contact Info) Description 10/09/2025 10:30 AM EST Office Visit [facility] [address] [place] [phone] Gordo Jordan MD [address] [place] [address] 02/01/2026 11:00 AM EDT Office Visit [facility] [address] [facility] [address] [place] [phone] Belinda Marques, OD [address] [place] [address] documented as of this encounter Goals Goal [...] log to next follow up appointment with property caretaker General Not on track(2024 10:05 AM [...] as of this encounter Visit Diagnoses Diagnosis Primary osteoarthritis of both knees Primary localized osteoarthrosis, lower leg Hypertension associated with diabetes (HCC) Type II or unspecified type diabetes mellitus with other specified manifestations, not stated as uncontrolled documented in this encounter Discontinued Medications Medication Sig Discontinue Reason Start Date End Da te metoprolol succinate (TOPROL-XL) 200 mg Oral Tablet Sustained Release 24 hrIndications:Hypertension associated with diabetes (HCC) Take 1 Tablet by mouth daily. 07/26/2025 08/22/2025 acetaminophen (TYLENOL) 500 mg Oral TabletIndications:Primary osteoarthritis of both knees Take 2 Tablets by mouth every 8 hours as needed for Pain. 07/26/2025 08/22/2025 documented as of this encounter Additional Health Concerns Assessment Noted Time PHQ-9 Depression Total Score: 22 025 9:00 AM EDT PHQ-2 Depression Total Score: 5 07/26/20 25 9:00 AM EDT documented as of this encounter Care Teams Doughnut Machine Operator Helper Relationship Specialty Start Date End Date Jordan, Gordo Monet MD [address] [place] [address] PCP - General Family Medicine 08/07/25 Helen Patel Care Management Home Care And Home Health Aides Teacher 07/28/25 08/31/25 documented as of this encounter
--- OUTSIDE RECORDS SUMMARY | 2025-09-20 12:21 | XMS_ITS | Encounter Summary ---
Author Organization [place] [address] Care Team Providers Care Bicycle Messenger Name Role Phone Helen Patel Unavailable Gordo Jordan MD Primary Care Prov ider Reason for Visit * Reason Onset Date Comments Medication Refill 09/15/2025 Follow Up 08/31/2025 Multiple Meds Encounter Details Date Type Department Care Team ([facility] Contact Info) Description 08/31/2025 Telephone [facility] [address] [place] [phone] Stacy Mccabe APRN [address] [place] [phone] Medication Refill; Follow Up (Multiple Meds ) Social History Tobacco Use Types Packs/Day Years Used Date Smoking Tobacco: Some Days Cigarettes 0.6 8 Started: 11/16/1986; Last attempted to quit: 11/16/1990 Passive Smoke Exposure: Never Smokeless Tobacco: Never Alcohol Use Standard Drinks/Week Comments Yes 4 (1 standard drink = 0.6 oz pure alcohol) Sober for 20 [address] May [address] [facility] Utilities Answer Date Recorded In the [...] Date Recorded PHQ-2 Total Score 5 07/26/2025 [facility]at [facility] - Occupational Stress [...] 11/10/2023 [facility] IP Transportation Answer D ate Recorded [...] ension associated with diabetes (HCC) Take 1 Tablet by mouth daily. 30 Tablet 09/18/2025 acetaminophen (ACETAMINOPHEN EXTRA STRENGTH) 500 mg Oral TabletIndications:Pr imary osteoarthritis of both knees Take 2 Tablets by mouth every 8 hours as needed for Pain. 90 Tablet 09/18/2025 Alcohol Swabs (ALCOHOL PREP PADS) Top Pads, MedicatedIndications :Uncontrolled type 2 diabetes mellitus with hyperglycemia, with long-term current use of insulin (HCC),Diabetic polyneuropathy associated with type 2 diabetes mellitus (HCC) Apply 1 Each topically as needed. 100 Each 11 09/18/2025 acetaminophen (TYLENOL) 500 mg Oral TabletIndications:Pr imary osteoarthritis of both knees Take 2 Tablets by mouth every 8 hours as needed for Pain. 90 Tablet 09/18/2025 hydrOXYzine (ATARAX) 25 mg Oral TabletIndications:GA D (generalized anxiety disorder) Take 1 Tablet by mouth 3 times daily as needed. for anxiety 90 Tablet 09/18/2025 methocarbamoL (ROBAXIN) 750 mg Oral TabletIndications:Ch ronic bilateral low back pain without sciatica,Primary osteoarthritis involving multiple joints Take 1 Tablet by mouth 3 times daily as needed for Pain. 90 Tablet 11 09/18/2025 amLODIPine (NORVASC) 5 mg Oral TabletIndications:Hy pertension associated with diabetes ([facility]) Take 1 Tablet by mouth daily. 30 Tablet 11 09/18/2025 empagliflozin (JARDIANCE) 25 mg Oral TabletIndications:Un controlled type 2 diabetes mellitus with hyperglycemia, with long-term current use of insulin ([facility]),Diabetic polyneuropathy associated with type 2 diabetes mellitus ([facility]) Take 1 Tablet by mouth daily. 30 Tablet 11 09/18/2025 DULoxetine (CYMBALTA) 60 mg Oral Capsule, Delayed Release(E.C.)Indicat ions:Diabetic polyneuropathy associated with type 2 diabetes mellitus ([facility]),Major depressive disorder, recurrent severe without psychotic features ([facility]),AURORA (generalized anxiety disorder) Take 1 Capsule by mouth daily. 90 Capsule 3 09/18/2025 Lancets (ACCU-CHEK SOFTCLIX LANCETS) Mis MiscIndications:Unco ntrolled type 2 diabetes mellitus with hyperglycemia, with long-term current use of insulin ([facility]),Diabetic polyneuropathy associated with type 2 diabetes mellitus ([facility]) USE DIRECTED E11.9 300 Each 09/18/2025 folic acid (FOLVITE) 1 mg Oral TabletIndications:Fo late deficiency Take 1 Tablet by mouth daily. Take 1 tablet by mouth once daily 90 Tablet 3 09/18/2025 pantoprazole (PROTONIX) 40 mg Oral Tablet, Delayed Release (E.C.)Indications:Ga stroesophageal reflux disease without esophagitis Take 1 Tablet by mouth daily. 90 Tablet 3 09/18/2025 atorvastatin (LIPITOR) 20 mg Oral TabletIndications:Hy perlipidemia associated with type 2 diabetes mellitus ([facility]) Take 1 Tablet by mouth daily. 90 Tablet 3 09/18/2025 aspirin 81 mg Oral Tablet, Delayed Release (E.C.)Indications:Un controlled type 2 diabetes mellitus with hyperglycemia, with long-term current use of insulin ([facility]),Hypertension associated with diabetes ([facility]) Take 1 Tablet by mouth daily (with breakfast). 90 Tablet 3 09/18/2025 Blood Sugar Diagnostic (ACCU-CHEK GUIDE TEST STRIPS) Misc StripIndications:Unc ontrolled type 2 diabetes mellitus with hyperglycemia, with long-term current use of insulin ([facility]),Diabetic polyneuropathy associated with type 2 diabetes mellitus ([facility]) 1 Strip by [facility].(Non-Drug ; Combo Route) route 3 times daily. E11.9 300 Each 3 09/18/2025 documented in this encounter Miscellaneous Notes * Telephone Encounter - Eliseo Dean RMA - 09/18/2025 1:34 PM EST Refill sent to the pharmacy * Telephone Encounter - Kaitlynn Lang MA - 09/15/2025 1:10 PM EDT Select the most appropriate reason for this telephone message: Follow Up Follow Up Who is Calling:Patient Return Method of Communication:Phone call What is the caller following up on (make sure to reference any prior documentation/encounter):Pt calling to follow up on refill requests. Pt reports that Arya is stating Stacy is not covered by his insurance. Further follow-up needed?:Yes Additional Information: Please Advise Patient/Caller, thank you. documented in this encounter Plan of Treatment Upcoming Encounters Date Type Department Care Team (Late st Contact Info) Description 10/09/2025 10:30 AM EST Office Visit [facility] [address] [place] [phone] Gordo Jordan MD [address] [place] [address] 02/01/2026 11:00 AM EDT Office Visit [facility] Ophthalmology Cov [address] [facility] [address] [place] [phone] Belinda Marques OD [address] [place] [address] documented as of this encounter [...] to next follow up appointment with healthcare account manager General Not on track(2024 10:05 AM [...] Esophageal reflux Folate deficiency Other B-complex deficiencies Major depressive disorder, recurrent severe without psychotic features (HCC) Major depressive disorder, recurrent episode, severe, without mention of psychotic behavior AURORA (generalized anxiety disorder) Generalized anxiety disorder Chronic bilateral low back pain without sciatica Primary osteoarthritis involving multiple joints Primary osteoarthritis of both knees Primary localized osteoarthrosis, lower leg documented in this encounter Discontinued Medications Medication Sig Discontinue Reason Start Date End Da te Blood Sugar Diagnostic (ACCU-CHEK GUIDE TEST STRIPS) [facility] StripIndications:Uncontro lled type 2 diabetes mellitus with hyperglycemia, with long-term current use of insulin ([facility]),Diabetic polyneuropathy associated with type 2 diabetes mellitus (HCC) 1 Strip by [facility].(Non-Drug; Combo Route) route 3 times daily. E11.9 Reorder 07/26/2025 08/31/2025 aspirin 81 mg Oral Tablet, Delayed Release (E.C.)Indications:Uncontr olled type 2 diabetes mellitus with hyperglycemia, with long-term current use of insulin ([facility]),Hypertension associated with diabetes ([facility]) Take 1 Tablet by mouth daily (with breakfast). Reorder 07/26/2025 08/31/2025 atorvastatin (LIPITOR) 20 mg Oral TabletIndications:Hyperli pidemia associated with type 2 diabetes mellitus ([facility]) Take 1 Tablet by mouth daily. Reorder 07/26/2025 08/31/2025 pantoprazole (PROTONIX) 40 mg Oral Tablet, Delayed Release (E.C.)Indications:Gastroe sophageal reflux disease without esophagitis Take 1 Tablet by mouth daily. Reorder 07/26/2025 08/31/2025 folic acid (FOLVITE) 1 mg Oral TabletIndications:Folate deficiency Take 1 Tablet by mouth daily. Take 1 tablet by mouth once daily Reorder 07/26/2025 08/31/2025 Lancets (ACCU-CHEK SOFTCLIX LANCETS) [facility] MiscIndications:Uncontrol led type 2 diabetes mellitus with hyperglycemia, with long-term current use of insulin ([facility]),Diabetic polyneuropathy associated with type 2 diabetes mellitus (HCC) USE DIRECTED E11.9 Reorder 07/26/2025 08/31/2025 DULoxetine (CYMBALTA) 60 mg Oral Capsule, Delayed Release(E.C.)Indications: Diabetic polyneuropathy associated with type 2 diabetes mellitus (HCC),Major depressive disorder, recurrent severe without psychotic features ([facility]),AURORA (generalized anxiety disorder) Take 1 Capsule by mouth daily. Reorder 07/26/2025 08/31/2025 amLODIPine (NORVASC) 5 mg Oral TabletIndications:Hyperte nsion associated with diabetes (HCC) Take 1 tablet by mouth once daily Reorder 08/21/2025 08/31/2025 methocarbamoL (ROBAXIN) 750 mg Oral TabletIndications:Chronic bilateral low back pain without sciatica,Primary osteoarthritis involving multiple joints Take 1 Tablet by mouth 3 times daily as needed for Pain. Reorder 08/22/2025 08/31/2025 hydrOXYzine (ATARAX) 25 mg Oral TabletIndications:AURORA (generalized anxiety disorder) Take 1 Tablet by mouth 3 times daily as needed. for anxiety Reorder 08/22/2025 08/31/2025 acetaminophen (TYLENOL) 500 mg Oral TabletIndications:Primary osteoarthritis of both knees Take 2 Tablets by mouth every 8 hours as needed for Pain. Reorder 08/22/2025 08/31/2025 Alcohol Swabs (ALCOHOL PREP PADS) Top Pads, MedicatedIndications:Unco ntrolled type 2 diabetes mellitus with hyperglycemia, with long-term current use of insulin ([facility]),Diabetic polyneuropathy associated with type 2 diabetes mellitus ([facility]) Apply 1 Each topically as needed. Reorder 08/22/2025 08/31/2025 ACETAMINOPHEN EXTRA STRENGTH 500 mg Oral TabletIndications:Primary osteoarthritis of both knees TAKE 2 TABLETS BY MOUTH EVERY 8 HOURS NEEDED FOR PAIN Reorder 08/22/2025 08/31/2025 metoprolol succinate (TOPROL-XL) 200 mg Oral Tablet Sustained Release 24 hrIndications:Hypertensio n associated with diabetes (HCC) Take 1 tablet by mouth once daily Reorder 08/22/2025 08/31/2025 documented as of this encounter Additional Health Concerns Assessment Noted Time PHQ-9 Depression Total Score: 025 9:00 AM EDT PHQ-2 Depression Total Score: 5 07/26/20 25 9:00 AM EDT documented as of this encounter Care Teams Bicycle Messenger Relationship Specialty Start Date End Date Gordo Jordan MD [address] [place] [id number] PCP - General Family Medicine 08/07/25 Helen Patel Care Management Day Trader 07/28/25 08/31/25 documented as of this encounter
--- OUTSIDE RECORDS SUMMARY | 2025-09-20 12:21 | XMS_ITS | Encounter Summary ---
Author Organization [place] [address] Care Team Providers Care Vp Of Digital Marketing Name Role Phone Jorge Helen Israel Unavailable Gordo Jordan MD Primary Care Prov ider Reason for Visit * Reason Onset Date Comments Medication Management 08/31/2025 All medica tions Encounter Details Date Type Department Care Team (Late st Contact Info) Description 08/31/2025 Telephone [facility] [address] [place] [phone] Gordo Jordan MD [address] [place] [phone] Medication Management (All medications ) Social History Tobacco Use Types Packs/Day Years Used Date Smoking Tobacco: Some Days Cigarettes 0.6 8 Started: 11/16/1986; Last attempted to quit: 11/16/1990 Passive Smoke Exposure: Never Smokeless Tobacco: Never Alcohol Use Standard Drinks/Week Comments Yes 4 (1 standard drink = 0.6 oz pure alcohol) Sober for 20 years until May 2022 [facility] Utilities Answer Date Recorded In the past 12 months has [employer] electric, gas, oil, or water company threatened to shut off services in your home? No 06/22/2025 Overall Financial Resource Strain (CARDIA) Answe r Date Recorded How hard is it for you to pa y for the very basics like food, housing, medical care, and heating? Somewhat hard 06/22/2025 PHQ-2 Answer Date Recorded PHQ-2 Total Score 5 07/26/2025 [facility] of Occupat ional Health - Occupational Stress [...] No 11/10/2023 [facility] IP [...] Telephone Encounter - Magdalene Roque RMA - 08/31/2025 12:44 PM EDT Images from the original note were not included. Select the most appropriate reason for this telephone message: Medication Management/Problem Who is calling: Patient Return Method of Communication: Phone Call What medication(s) do you have concerns about: Prescribing provider: Dr Gamez What are your concerns/request: 90 days with refills Desired outcome: Change in Quantity 90 days with refills Last appointment date: Pharmacy: [facility] Additional Information: Pt was not happy at all that these are not a 90 days supply with refills and wants them change today he said documented in this encounter Plan of Treatment Upcoming Encounters Date Type Department Care Team (Late st Contact Info) Description 10/09/2025 10:30 AM EST Office Visit [facility] [address] [place] [phone] Gordo Jordan MD [address] [place] [phone] 02/01/2026 11:00 AM EDT Office Visit [facility] [address] [phone] Belinda Marques OD [address] [place] [phone] documented as of this encounter Goals Goal [...] next follow up appointment with child care provider General Not on track(2024 10:05 [...] Noted Time PHQ-9 Depression Total Score: 22 /10/2 025 9:00 AM EDT PHQ-2 Depression Total Score: 07/26/20 25 9:00 AM EDT documented as of this encounter Care Teams Vp Of Digital Marketing Relationship Specialty Start Date End Date Jordan, Gordo Monet MD [address] [address] PCP - General Family Medicine 08/07/25 Helen Patel Care Management White Lead Grinder 07/28/25 08/31/25 documented as of this encounter
--- OUTSIDE RECORDS SUMMARY | 2025-09-20 12:22 | XMS_ITS | Encounter Summary ---
Author Organization [place] [address] Care Team Providers Care Prospecting Observer Name Role Phone Helen Patel Unavailable Gordo Jordan MD Primary Care Prov ider Reason for Visit * Reason Onset Date Comments Symptoms (Only Use If Pt Pus hes Back On Scheduling A Visit) 08/21/2025 High blood sugar x1 day Encounter Details Date Type Department Care Team (Late st Contact Info) Description 08/21/2025 Telephone [facility] [address] [place] [phone] Gordo Jordan MD [address] [place] [address] Symptoms (Only Use If Pt Pushes Back On Scheduling A Visit) (High blood sugar x1 day ) Social History Tobacco Use Types Packs/Day Years Used Date Smoking Tobacco: Some Days Cigarettes 0.6 8 Started: 11/16/1986; Last attempted to quit: 11/16/1990 Passive Smoke Exposure: Never Smokeless Tobacco: Never Alcohol Use Standard Drinks/Week Comments Yes 4 (1 standard drink = 0.6 oz pure alcohol) Sober for 20 years until May 2022 [facility] Utilities Answer Date Recorded In the past 12 months has [employer], gas, oil, or water [employer] threatened to shut off services in your home? No 06/22/2025 Overall Financial Resource Strain (CARDIA) Answe r Date Recorded How hard is it for you to pa y for the very basics like food, housing, medical care, and heating? Somewhat hard 06/22/2025 PHQ-2 Answer Date Recorded PHQ-2 Total Score 5 07/26/2025 [facility] - Occupational Stress Questionnaire Answer Date [...] things needed for daily living? No 11/10/2023 [facility] IP Transportation Answer D ate Recorded In [...] encounter Miscellaneous Notes * Telephone Encounter - Maty Craven MD - 08/21/2025 4:14 PM EDT Recommend appt with Kajal this week to go over sliding scale and readings * Telephone Encounter - Danica Birch LPN - 08/21/2025 11:57 AM EDT Select the most appropriate reason for this telephone message: Symptoms Call Who is Calling: Patient Return Method of Communication: Phone Call What symptom(s) is the patient experiencing: pt is calling, states his blood sugars are still running in the 400's, pt states yesterday his sugar was 405. Pt doesn't have a reading for today. How long have symptoms been present: 1-2 week(s) ago Has the patient been seen for this:Yes 08/17/24 with (include date and provider) Has the patient tried anything to relieve the symptoms and did it help: Yes pt states he is taking his insulin as directed. If pain, what level is your pain: 0-1 (no pain) Desired Outcome: Advice Pharmacy & Location:[address] [address] [place] [phone] [[id number]] Was patient transferred to Nurse Triage for additional help? N/A Additional Information: Please advise,thank you documented in this encounter Plan of Treatment Upcoming Encounters Date Type Department Care Team (Late st Contact Info) Description 10/09/2025 10:30 AM EST [facility] [address] [place] [phone] Gordo Jordan MD [address] [place] [address] 02/01/2026 11:00 AM EDT Office Visit [facility] [address] [facility] [address] [place] [phone] Belinda Marques, OD [address] [place] [address] documented as of this encounter [...] to next follow up appointment with career development engineer General Not on track(2024 10:05 AM EDT) [...] documented as of this encounter Care Teams Prospecting Observer Relationship Specialty Start Date End Date Jordan, Gordo Monet MD [address] [place] [address] PCP - General Family Medicine 08/07/25 Helen Patel Care Management Car Oiler 07/28/25 08/31/25 documented as of this encounter
--- OUTSIDE RECORDS SUMMARY | 2025-09-20 12:22 | XMS_ITS | Encounter Summary ---
Author Organization [place] [address] Care Team Providers Care Group Tester Name Role Phone Danielle Monroy RN Unavailable Unavailable Helen Patel Unavailable Unavailable Gordo Jordan MD Primary Care Prov ider Reason for Visit * Reason Onset Date Comments Prior Authorization 08/08/2025 Lyrica and l idocaine Encounter Details Date Type Department Care Team (Late st Contact Info) Description 08/08/2025 Telephone [facility] [address] [place] [phone] JordanGordo MD [address] [place] [address] Prior Authorization (Lyrica and lidocaine) Social History Tobacco Use Types Packs/Day Years [...] Date Recorded PHQ-2 Total Score 5 07/26/2025 [facility]at [facility] Health - Occupational Stress [...] needed for daily living? No [facility] IP Transportation Answer D ate Recorded [...] of Assessment Author Yes 10/18/2023 11:50 AM Mcakyla Pelaez RN * Does this person have [...] encounter Miscellaneous Notes * Telephone Encounter - Annie Sofia MA - 08/08/2025 10:45 AM EDT Returned call to pharmacy. Pharmacy stated they need us to deny the PA for the pregabalin (LYRICA) 150 mg Oral Capsule and the lidocaine 2 % MM Solution. * Telephone Encounter - CristhianCarlos A - 08/08/2025 10:07 AM EDT Select the most appropriate reason for this telephone message: Prior Authorization Request Who is requesting the Prior Auth: [facility] What is the Prior Auth for: Medication Medication name/Dosage/ Frequency: Disp Refills Start End pregabalin (LYRICA) 150 mg Oral Capsule 90 Capsule 2 08/07/2025 -- Sig - Route: Take 1 Capsule by mouth 3 times daily. - Oral . Disp Refills Start End lidocaine 2 % MM Solution 100 mL 0 08/07/2025 -- Sig - Route: Take 5 mL by mouth 3 times daily as needed for Pain. - Oral Did the pharmacy suggest an alternate medication: No. Pharmacy Name & Location: [facility] Is the patient???s insurance plan that is on file up to date: Yes Informed patient that prior authorizations can take up to 10 business days for response: no Return Method of Communication: Phone Call Additional Information: please call pharmacy, they'd like to speak to the office regarding these. documented in this encounter Plan of Treatment Upcoming Encounters Date Type Department Care Team (Late st Contact Info) Description 10/09/2025 10:30 AM EST Office Visit [facility] [address] [place] [phone] Gordo Jordan MD [address] [place] [address] 02/01/2026 11:00 AM EDT Office Visit [facility] [address] [facility] [address] [place] [phone] Belinda Marques, OD [address] [place] [address] documented as of this encounter [...] next follow up appointment with respiratory care practitioner General Not on track(2024 10:05 AM [...] documented as of this encounter Care Teams Group Tester Relationship Specialty Start Date End Date Jordan, Gordo Monet MD [address] [place] [address] PCP - General Family Medicine 08/07/25 Danielle Monroy, billiard table mechanic Bucket Operator/Radiology Physician Assistant 07/26/25 08/08/25 Helen Patel Care Management Equal Opportunity Assistant 07/28/25 08/31/25 documented as of this encounter
--- OUTSIDE RECORDS SUMMARY | 2025-09-20 12:22 | XMS_ITS | Encounter Summary ---
Author Organization [place] [address] Care Team Providers Care Sewer Digger Name Role Phone Danielle Monroy RN Unavailable Unavailable Helen Patel Unavailable Unavailable Gordo Jordan MD Primary Care Prov ider Reason for Visit * Reason Onset Date Comments Prior Authorization 08/07/2025 Clarence Key Encounter Details Date Type Department Care Team (Late Contact Info) Description 08/07/2025 Telephone [facility] [address] [place] [phone] JordanGordo MD [address] [place] [address] Prior Authorization (Mariely Key) Social History Tobacco Use Types Packs/Day Years Used Date Smoking Tobacco: Former Cigarettes 0.6 8 0 11/16/1986 - 11/16/1990 Passive Smoke Exposure: Never Smokeless Tobacco: Never Alcohol Use Standard Drinks/Week Comments Not Currently 4 (1 standard drink = 0.6 oz pure alcohol) Sober for 20 years until May 2022 [facility] Utilities Answer Date Recorded In the [...] Date Recorded PHQ-2 Total Score 5 07/26/2025 [facility] [place] [facility] Occupat ional [facility] - Occupational Stress [...] things needed for daily living? No 11/10/2023 [facility] IP Transportation [...] encounter Miscellaneous Notes * Telephone Encounter - Nicky Orozco CCMA - 08/08/2025 9:43 AM EDT Select the most appropriate reason for this telephone message: Other Who is calling (name & relationship to patient if not the patient): Patient What is needed OR why are they calling: He states these medications do need a prior authorization. When is this needed by: today Where does this information need to go: Dr. Jordan Return Method of Communication: Phone Call Additional information:He says to please call him he does not get on mychart. * Telephone Encounter - Eliseo Dean RMA - 08/07/2025 2:14 PM EDT Images from the original note were not included. PA not needed * Telephone Encounter - Rabia aBrber MA - 08/07/2025 12:43 PM EDT Select the most appropriate reason for this telephone message: Prior Authorization Request Who is requesting the Prior Auth: Patient What is the Prior Auth for: Medication Medication name/Dosage/ Frequency: pregabalin (LYRICA) 150 mg Oral Capsule 90 Capsule 2 08/07/2025 -- Sig - Route: Take 1 Capsule by mouth 3 times daily. - Oral . lidocaine 2 % MM Solution 100 mL 0 08/07/2025 -- Sig - Route: Take 5 mL by mouth 3 times daily as needed for Pain. - Oral Did the pharmacy suggest an alternate medication: No. Pharmacy Name & Location: [facility] [address] [place], [place] [id number] [address] - [phone] [place] [address] PAT #: [id number] Is the patient???s insurance plan that is on file up to date: Yes Informed patient that prior authorizations can take up to 10 business days for response: no Return Method of Communication: N/A Additional Information: N/A documented in this encounter Plan of Treatment Upcoming Encounters Date Type Department Care Team (Late st Contact Info) Description 10/09/2025 10:30 AM EST Office Visit [facility] [address] [phone] Gordo Jordan MD [address] [place] [address] 02/01/2026 11:00 AM EDT Office Visit [facility] [address] [facility] [address] [place] [phone] Belinda Marques OD [address] [place] [address] documented as of this encounter Goals Goal [...] log to next follow up appointment with pediatric acute care unit nurse General Not on track(2024 10:05 AM [...] documented as of this encounter Care Teams Sewer Digger Relationship Specialty Start Date End Date Gordo Jordan MD [address] [place] [address] PCP - General Family Medicine 08/07/25 Danielle Monroy RN Case Emergency Veterinary Assistant Manager/Buccaro 07/26/25 08/08/25 Helen Patel Care Management Resource Coordinator 07/28/25 08/31/25 documented as of this encounter
--- OUTSIDE RECORDS SUMMARY | 2025-09-20 12:22 | XMS_ITS | Encounter Summary ---
Author Organization [place] [address] Care Team Providers Care Housing Management Representative Name Role Phone Danielle Monroy RN Unavailable Unavailable Helen Patel Unavailable Unavailable JordanGordo conde MD Primary Care Prov ider Reason for Visit * Reason Onset Date Comments Forms 08/07/2025 Was form receive d? Encounter Details Date Type Department Care Team (Late st Contact Info) Description 08/07/2025 Telephone [facility] [address] [place] [phone] JordanGordo santoyo MD [address] [place] [phone] Forms (Was form received?) Social History Tobacco Use Types Packs/Day Years Used Date Smoking Tobacco: Former Cigarettes 0.6 8 0 11/16/1986 - 11/16/1990 Passive Smoke Exposure: Never Smokeless Tobacco: Never Alcohol Use Standard Drinks/Week Comments Not Currently 4 (1 standard drink = 0.6 oz pure alcohol) Sober for 20 years until May 2022 [facility] Utilities Answer Date Recorded In the past 12 months has [employer] electric, gas, oil, or water company threatened to shut off services in your home? No 06/22/2025 Overall Financial Resource Strain (CARDIA) Answe r Date Recorded How hard is it for you to pa y for the very basics like food, housing, medical care, and heating? Somewhat hard 06/22/2025 PHQ-2 Answer Date Recorded PHQ-2 Total Score 5 07/26/2025 [facility] [place] of Occupat ional Health - Occupational Stress [...] things needed for daily living? No 11/10/2023 [facility] IP Transportation Answer [...] Telephone Encounter - Danielle Monroy RN - 08/10/2025 11:43 AM EDT RAMP form received from [employer] services, completed, awaiting physician signature * Telephone Encounter - Zuly Gasca MA - 08/08/2025 11:15 AM EDT spoke with pt, informed him we have not received any forms. Also notified pt that pharmacy was contacted and PA will be filled out today * Telephone Encounter - Nicky Orozco CCMA - 08/08/2025 9:45 AM EDT Select the most appropriate reason for this telephone message: Other Who is calling (name & relationship to patient if not the patient): Patient What is needed OR why are they calling: He would like a call back about the ramp forms. When is this needed by: today Where does this information need to go: Dr. Jordan Return Method of Communication: Phone Call Additional information:He would like a call back please. He says he does not get on mychart. * Telephone Encounter - Eliseo Dean RMA - 08/07/2025 4:55 PM EDT Have not seen the forms * Telephone Encounter - Nicky Orozco CCMA - 08/07/2025 3:39 PM EDT Select the most appropriate reason for this telephone message: Forms/Paperwork What form needs to be filled out? Othertank ramp Are you picking up in the office? N/a If not picking up, how would you like to obtain (email is not an option due to patient security): N/A Is there any documentation required that the office may need to include? N/A Additional Information: He is asking if the form was received. He states it was supposed to be faxed last week to the office and he would like an update please. Return Method of Communication: Phone Call Please inform patient - The office will advise if payment is required for paperwork. documented in this encounter Plan of Treatment Upcoming Encounters Date Type Department Care Team (Late st Contact Info) Description 10/09/2025 10:30 AM EST Office Visit [facility] [address] [place] [phone] Gordo Jordan MD [address] [place] [address] 02/01/2026 11:00 AM EDT Office Visit [facility] [address] [facility] [address] [place] [address] Belinda Marques OD [address] [place] [address] documented as of this encounter Goals Goal [...] log to next follow up appointment with primary care nurse practitioner General Not on track(2024 [...] documented as of this encounter Care Teams Housing Management Representative Relationship Specialty Start Date End Date Gordo Jordan MD [address] [address] PCP - General Family Medicine 08/07/25 Danielle Monroy, digital print operator Mental Health Social Worker/Speaking Unit Assembler 07/26/25 08/08/25 Helen Patel Care Management Cardiology Clinical Nurse Specialist 07/28/25 08/31/25 documented as of this encounter
--- OUTSIDE RECORDS SUMMARY | 2025-09-20 12:22 | XMS_ITS | Encounter Summary ---
Author Organization [place] [address] Care Team Providers Care Appraiser Boats And Marine Name Role Phone Anna Patelambrose Israel Unavailable Gordo Jordan MD Primary Care Prov ider Reason for Visit * Reason Onset Date Comments Medication Refill 08/20/2025 Encounter Details Date Type Department Care Team (Late st Contact Info) Description 08/20/2025 Refill [facility] [address] [place] [phone] Gordo Jordan MD [address] [place] [phone] Medication Refill Social History Tobacco Use [...] Recorded In the past 12 months has [employer] electric, gas, oil, or water company threatened to shut off services in your home? No 06/22/2025 Overall Financial Resource Strain (CARDIA) Answe r Date Recorded How hard is it for you to pa y for the very basics like food, housing, medical care, and heating? Somewhat hard 06/22/2025 PHQ-2 Answer Date Recorded PHQ-2 Total Score 5 07/26/2025 [facility] [place] of Occupat ional Health - Occupational Stress [...] things needed for daily living? No 11/10/2023 [facility] IP Transportation Answer D ate Recorded [...] EST Office Visit [facility] [address] [place] [phone] Gordo Jordan MD [address] [place] [address] 02/01/2026 11:00 AM EDT Office Visit [facility] 1500 [facility] [address] [place] [phone] Belinda Marques, SHAE [address] [place] [address] documented as of this encounter Goals Goal [...] log to next follow up appointment with home care scheduler General Not on track(2024 10:05 AM EDT) [...] documented as of this encounter Care Teams Appraiser Boats And Marine Relationship Specialty Start Date End Date JordanGordo conde MD [address] [place] [address] PCP - General Family Medicine 08/07/25 Helen Patel Care Management Business Rules Analyst 07/28/25 08/31/25 documented as of this encounter
--- OUTSIDE RECORDS SUMMARY | 2025-09-20 12:22 | XMS_ITS | Encounter Summary ---
Author Organization [facility] [place] [address] Care Team Providers Care Child Welfare Assistant Name Role Phone Helen Patel Unavailable Unavailable Jordan, Gordo Monet MD Primary Care Prov ider Encounter Details Date Type Department Care Team (Latest Contact Info) Description 08/09/2025 Travel Social History Tobacco Use Types Packs/Day Years Used Date Smoking Tobacco: Former Cigarettes 0.6 8 0 11/16/1986 - 11/16/1990 Passive Smoke Exposure: Never Smokeless Tobacco: Never Alcohol Use Standard Drinks/Week Comments Not Currently 4 (1 standard drink = 0.6 oz pure alcohol) Sober for 20 years until May 2022 [facility] Utilities Answer Date Recorded In the past 12 months has [employer] electric, gas, oil, or water [employer] threatened to shut off services in your home? No 06/22/2025 Overall Financial Resource Strain (CARDIA) Answe r Date Recorded How hard is it for you to pa y for the very basics like food, housing, medical care, and heating? Somewhat hard 06/22/2025 PHQ-2 Answer Date Recorded PHQ-2 Total Score 5 07/26/2025 [facility] [place] of Occupat ional Health - Occupational Stress [...] No 11/10/2023 [facility] IP Transportation Answer D ate Recorded In [...] of Assessment Author No 10/18/2023 11:50 AM Mckayal Pelaez RN * Is the person blind [...] 10/09/2025 10:30 AM EST Office Visit [facility] [address] [place] [phone] Grodo Jordan MD [address] [place] [address] 02/01/2026 11:00 AM EDT Office Visit [facility] [address] [facility] [address] [place] [phone] Belinda Marques, OD [address] [place] [address] documented as of this encounter [...] log to next follow up appointment with rehab care assistant General Not on track(2024 10:05 [...] documented as of this encounter Care Teams Child Welfare Assistant Relationship Specialty Start Date End Date Jordan, Gordo Monet MD 200 [place] [address] PCP - General Family Medicine 08/07/25 Helen Patel Care Management Window Repairer 07/28/25 08/31/25 documented as of this encounter
--- OUTSIDE RECORDS SUMMARY | 2025-09-20 12:22 | XMS_ITS | Encounter Summary ---
Author Organization [place] [address] Care Team Providers Care Warehouse Laborer Name Role Phone Helen Patel Unavailable Unavailable Gordo Jordan MD Primary Care Prov ider Encounter Details Date Type Department Care Team (Late st Contact Info) Description 08/16/2025 Refill [facility] [address] [place] [phone] Stacy Mccabe, ISAIAS [address] [place] [phone] Social History Tobacco Use Types Packs/Day Years Used Date Smoking Tobacco: Former Cigarettes 0.6 8 0 11/16/1986 - 11/16/1990 Passive Smoke Exposure: Never Smokeless Tobacco: Never Alcohol Use Standard Drinks/Week Comments Not Currently 4 (1 standard drink = 0.6 oz pure alcohol) Sober for 20 years until May 2022 [facility] Utilities Answer Date Recorded In the past 12 months has [employer], gas, oil, or water [employer] threatened to shut off services in your home? No 06/22/2025 Overall Financial Resource Strain (CARDIA) Answe r Date Recorded How hard is it for you to pa y for the very basics like food, housing, medical care, and heating? Somewhat hard 06/22/2025 PHQ-2 Answer Date Recorded PHQ-2 Total Score 5 07/26/2025 [facility] [place] of Occupat ional Health - Occupational Stress [...] needed for daily living? No 11/10/2023 [facility] IP Transportation Answer D ate Recorded [...] Visit [facility] [address] [place] [phone] Gordo Jordan MD [address] [place] [address] 02/01/2026 11:00 AM EDT Office Visit [facility] 1500 [facility] [address] [place] [phone] Belinda Marques OD 1400 [place] [address] documented as of this encounter Goals Goal [...] to next follow up appointment with director of health care marketing General Not on track(2024 10:05 AM EDT) [...] associated with type 2 diabetes mellitus (HCC) [place] (generalized anxiety disorder) Generalized anxiety disorder Hypertension associated with diabetes (HCC) Type II or unspecified type diabetes mellitus with other specified manifestations, not stated as uncontrolled Hyperlipidemia associated with type 2 diabetes mellitus (HCC) Gastroesophageal reflux disease without esophagitis Esophageal reflux Folate deficiency Other B-complex deficiencies Primary osteoarthritis of both knees Primary localized osteoarthrosis, lower leg Major depressive disorder, recurrent severe without psychotic features (HCC) Major depressive disorder, recurrent episode, severe, without mention of psychotic behavior documented in this encounter Additional Health Concerns Assessment Noted Time PHQ-9 Depression Total Score: 025 9:00 AM EDT PHQ-2 Depression Total Score: 5 07/26/20 25 9:00 AM EDT documented as of this encounter Care Teams Warehouse Laborer Relationship Specialty Start Date End Date Jordan, Gordo Monet MD [address] [place] [address] PCP - General Family Medicine 08/07/25 Helen Patel Care Management Area Mechanic 07/28/25 08/31/25 documented as of this encounter
--- OUTSIDE RECORDS SUMMARY | 2025-09-20 12:22 | XMS_ITS | Encounter Summary ---
Author Organization [place] [address] Care Team Providers Care Nitroglycerin Distributor Name Role Phone Helen Patel Unavailable Unavailable Gordo Jordan MD Primary Care Prov ider Reason for Visit * Reason Onset Date Comments CM- Telephonic Outreach 08/09/2025 Encounter Details Date Type Department Care Team (Late st Contact Info) Description 08/09/2025 Patient Outreach [facility] [address] Appoint[place] [address] Helen Patel CM- Telephonic Outreach Social History Tobacco Use Types Packs/Day Years Used Date Smoking Tobacco: Former Cigarettes 0.6 8 0 11/16/1986 - 11/16/1990 Passive Smoke Exposure: Never Smokeless Tobacco: Never Alcohol Use Standard Drinks/Week Comments Not Currently 4 (1 standard drink = 0.6 oz pure alcohol) Sober for 20 years until May 2022 [facility] Utilities Answer Date Recorded In the past 12 months has [employer], gas, oil, or water [employer] threatened to shut off services in your home? No 06/22/2025 Overall Financial Resource Strain (CARDIA) Answe r Date Recorded How hard is it for you to pa y for the very basics like food, housing, medical care, and heating? Somewhat hard 06/22/2025 PHQ-2 Answer Date Recorded PHQ-2 Total Score 5 07/26/2025 [facility] [place] of Occupat ional Health - Occupational Stress [...] daily living? No 11/10/2023 [facility] IP Transportation Answer D ate Recorded [...] 8:10 AM EDT Alfonso Silver RN * [place] Suicide Severity Rating Scale (Q shift for [...] encounter Progress Notes * Helen Patel - 09/01/2025 12:23 PM EDT Care Management In Service Education Teacher will no longer follow patient for transportation &/or social determinant of health resources. Reason for sign off: Transportation needs met If additional resources are needed, please submit a new [facility] Care Management referral for assistance. * Helen Patel - 08/09/2025 9:19 AM EDT Care Management Patient Outreach patient repeatedly called CM In Service Education Teacher phone line 6 plus times and left one voicemail stating that he would call until [facility] answered. [facility] attempted to return Voicemail Attempted to contact patient regarding transportation Outcome: Patient did not answer No voicemail available / voicemail full Associate contact: Bertha: [phone] documented in this encounter Plan of Treatment Upcoming Encounters Date Type Department Care Team (Late st Contact Info) Description 10/09/2025 10:30 AM EST Office Visit [facility] [address] [place] [phone] Gordo Jordan MD [address] [place] [address] 02/01/2026 11:00 AM EDT Office Visit [facility] [address] [facility] [address] [place] [address] Belinda Marques OD [address] [place] [address] documented as of this encounter [...] to next follow up appointment with care transitions nurse General Not on track(2024 10:05 AM [...] documented as of this encounter Care Teams Nitroglycerin Distributor Relationship Specialty Start Date End Date Jordan, Gordo Monet MD 200 [place] [address] PCP - General Family Medicine 08/07/25 Helen Patel Care Management In Service Education Teacher 07/28/25 08/31/25 documented as of this encounter
--- OUTSIDE RECORDS SUMMARY | 2025-09-20 12:22 | XMS_ITS | Encounter Summary ---
Author Organization [facility] [place] [address] Care Team Providers Care Records Administrator Name Role Phone Helen Patel Unavailable Unavailable Jordan, Gordo Monet MD Primary Care Prov ider Encounter Details Date Type Department Care Team (Latest Contact Info) Description 08/16/2025 Travel Social History Tobacco Use Types Packs/Day Years Used Date Smoking Tobacco: Former Cigarettes 0.6 8 0 11/16/1986 - 11/16/1990 Passive Smoke Exposure: Never Smokeless Tobacco: Never Alcohol Use Standard Drinks/Week Comments Not Currently 4 (1 standard drink = 0.6 oz pure alcohol) Sober for 20 years until May [address] [facility] Utilities Answer Date Recorded In the past 12 months has [employer] electric, gas, oil, or water [employer] threatened to shut off services in your home? No 06/22/2025 Overall Financial Resource Strain (CARDIA) Answe r Date Recorded How hard is it for you to pa y for the very basics like food, housing, medical care, and heating? Somewhat hard 06/22/2025 PHQ-2 Answer Date Recorded PHQ-2 Total Score 5 07/26/2025 [facility] [place] of Occupat ional Health - Occupational Stress [...] No 11/10/2023 [facility] IP Transportation Answer D ate Recorded In [...] 10/09/2025 10:30 AM EST Office Visit [facility] [place] [facility] [address] [place] [phone] Gordo Jordan MD [address] [place] [address] 02/01/2026 11:00 AM EDT Office Visit [facility] [address] [facility] [address] [place] [phone] Belinda Marques, OD [address] [place] [address] documented as of this encounter [...] next follow up appointment with resident care director General Not on track(2024 10:05 [...] documented as of this encounter Care Teams Records Administrator Relationship Specialty Start Date End Date Jordan, Gordo Monet MD 200 [place] [address] PCP - General Family Medicine 08/07/25 Helen Patel Care Management Drapery Worker 07/28/25 08/31/25 documented as of this encounter
--- OUTSIDE RECORDS SUMMARY | 2025-09-20 12:22 | XMS_ITS | Encounter Summary ---
Author [place] [address] Care Team Providers Care Harbor Engineer Name Role Phone Helen Patel Unavailable Unavailable Gordo Jordan MD Primary Care Prov ider Reason for Visit * Reason Onset Date Comments Medication Refill Follow Up 08/20/2025 Med refill Encounter Details Date Type Department Care Team (Late st Contact Info) Description 08/20/2025 Refill [facility] [address] [place] [phone] Stacy Mccabe APRN [address] [place] [phone] Medication Refill; Follow Up (Med refill ) Social History Tobacco Use Types Packs/Day Years Used Date Smoking Tobacco: Some Days Cigarettes 0.6 8 Started: 11/16/1986; Last attempted to quit: 11/16/1990 Passive Smoke Exposure: Never Smokeless Tobacco: Never Alcohol Use Standard Drinks/Week Comments Yes 4 (1 standard drink = 0.6 oz pure alcohol) Sober for 20 years until May 2022 [facility] Utilities Answer Date Recorded In the past 12 months has [employer] electric, gas, oil, or water company threatened to shut off services in your home? No 06/22/2025 Overall Financial Resource Strain (CARDIA) Answe r Date Recorded How hard is it for you to pa y for the very basics like food, housing, medical care, and heating? Somewhat hard 06/22/2025 PHQ-2 Answer Date Recorded PHQ-2 Total Score 5 07/26/2025 [facility] [place] of Occupat ional Health - Occupational Stress [...] things needed for daily living? No 11/10/2023 [facility] IP Transportation Answer D [...] End Date amLODIPine (NORVASC) 5 mg Oral TabletIndications:Hy pertension associated with diabetes (HCC) Take 1 tablet by mouth once daily 30 Tablet 08/21/2025 5 JARDIANCE 25 mg Oral TabletIndications:Un controlled type 2 diabetes mellitus with hyperglycemia, with long-term current use of insulin (HCC),Diabetic polyneuropathy associated with type 2 diabetes mellitus (HCC) Take 1 tablet by mouth once daily 30 Tablet 08/21/2025 5 documented in this encounter Miscellaneous Notes * Telephone Encounter - Annie Parker MA - 08/21/2025 12:02 PM EDT Patient aware medication was sent to the pharmacy. * Telephone Encounter - Danica Birch LPN - 08/21/2025 11:56 AM EDT Select the most appropriate reason for this telephone message: Follow Up Follow Up Who is Calling:Patient Return Method of Communication:Phone call What is the caller following up on (make sure to reference any prior documentation/encounter):pt calling to follow up on med refill. Further follow-up needed?:Yes Additional Information: Please advise,thank you documented in this encounter Plan of Treatment Upcoming Encounters Date Type Department Care Team (Late st Contact Info) Description 10/09/2025 10:30 AM EST Office Visit [facility] [address] [place] [phone] Gordo Jordan MD [address] [place] [phone] 02/01/2026 11:00 AM EDT Office Visit [facility] [address] [facility] [address] [place] [address] Belinda Marques OD [address] [place] [address] documented as of this encounter [...] log to next follow up appointment with workforce investment act career manager General Not on track(2024 10:05 AM [...] Discontinue Reason Start Date End Da te empagliflozin (JARDIANCE) 25 mg Oral TabletIndications:Uncontro lled type 2 diabetes mellitus with hyperglycemia, with long-term current use of insulin (HCC),Diabetic polyneuropathy associated with type 2 diabetes mellitus (HCC) Take 1 Tablet by mouth daily. 07/26/2025 08/21/2025 amLODIPine (NORVASC) 5 mg Oral TabletIndications:Hyperten bharat associated with diabetes (HCC) Take 1 Tablet by mouth daily. 07/28/2025 08/21/2025 documented as of this encounter Additional Health Concerns Assessment Noted Time PHQ-9 Depression Total Score: 22 025 9:00 AM EDT PHQ-2 Depression Total Score: 5 07/26/20 9:00 AM EDT documented as of this encounter Care Teams Harbor Engineer Relationship Specialty Start Date End Date Gordo Jordan MD [address] [place] [address] PCP - General Family Medicine 08/07/25 Helen Patel Care Management Cell Installer 07/28/25 08/31/25 documented as of this encounter
--- OUTSIDE RECORDS SUMMARY | 2025-09-20 12:22 | XMS_ITS | Encounter Summary ---
Author Organization [place] [address] Care Team Providers Care Borematic Machine Operator Name Role Phone Danielle Monroy RN Unavailable Unavailable Helen Patel Unavailable Unavailable Gordo Jordan MD Primary Care Prov ider Reason for Visit * Reason Onset Date Comments Results 08/08/2025 Lab: BMP Encounter Details Date Type Department Care Team (Late st Contact Info) Description 08/08/2025 Results Follow-Up [facility] [address] [place] [phone] Stacy Mccabe APRN [address] [place] [phone] BASIC METABOLIC PANEL Social History Tobacco Use Types Packs/Day Years Used Date Smoking Tobacco: Former Cigarettes 0.6 8 0 11/16/1986 - 11/16/1990 Passive Smoke Exposure: Never Smokeless Tobacco: Never Alcohol Use Standard Drinks/Week Comments Not Currently 4 (1 standard drink = 0.6 oz pure alcohol) Sober for 20 years until May 2022 [facility] Utilities Answer Date Recorded In the past 12 months has [employer] electric, gas, oil, or water company threatened to shut off services in your home? No 06/22/2025 Overall Financial Resource Strain (CARDIA) Answe r Date Recorded How hard is it for you to pa y for the very basics like food, housing, medical care, and heating? Somewhat hard 06/22/2025 PHQ-2 Answer Date Recorded PHQ-2 Total Score 5 07/26/2025 [facility] [place] of Occupat ional Health - Occupational Stress [...] things needed for daily living? No 11/10/2023 [facility] IP Transportation Answer D ate [...] Telephone Encounter - Danielle Monroy RN - 08/09/2025 8:09 AM EDT I am not assisting him with housing, he cancelled his follow up appointment with me and does not wish to have my assistance. He is currently working with a case aide through the [facility] for housing assistance to my knowledge. As previously documented, his order for his blood pressure cuff is processing with [employer] and he can contact them at: [phone] There is nothing I can do about the blood pressure cuff since it is in process with his insurance. * Telephone Encounter - Annie Sofia MA - 08/08/2025 1:02 PM EDT Pt is aware of the following results Kidney function worsening and blood sugar significantly elevated. Increase water intake. Avoid NSAIDs. Monitor blood pressure at home and let us know if it is persistently elevated. Avoid added sugars and simple carbohydrates. Take all medications as prescribed. Recheck in 1-2 weeks. * Telephone Encounter - Rabia Barber MA - 08/08/2025 12:51 PM EDT Images from the original note were not included. Select the most appropriate reason for this telephone message: Patient Calling for Results Patient called for results on Lab BMP Which Provider ordered the test? Reba Mccabe APRN Date of test: 08/07/25 Advised patient of: abnormal result. Patient Instructions/ Questions: Pt states he does not have a BP monitor. Pt states he was told there is a hold up with insurance. Pt also states it is hard to use insulin because he is homeless and has no refrigerator. F/u appt scheduled with Reba Mccabe APRN on 08/16/25 (no openings with PCP untilaugust). Pt would like to get status on BP monitor and housing assistance. Medications Ordered/Pended (if yes, list medication): N/A Medications/Orders Needed (if yes, list orders): N/A Pharmacy Location Verified: No Other: Please put in the patient results note that pt is aware of the following results * Telephone Encounter - Annie Sofia MA - 08/08/2025 12:35 PM EDT ----- Message from Stacy Mccabe APRN sent at 08/08/2025 11:57 AM EDT ----- Kidney function worsening and blood sugar significantly elevated. Increase water intake. Avoid NSAIDs. Monitor blood pressure at home and let us know if it is persistently elevated. Avoid added sugars and simple carbohydrates. Take all medications as prescribed. Recheck in 1-2 weeks. ----- Message ----- From: Lab, Background User Sent: 08/07/2025 3:34 PM EDT To: Gordo Jordan MD documented in this encounter Plan of Treatment Upcoming Encounters Date Type Department Care Team ([facility] Contact Info) Description 10/09/2025 10:30 AM EST Office Visit [facility] [address] [place] [phone] Gordo Jordan MD [address] [place] [phone] 02/01/2026 11:00 AM EDT Office Visit [facility] [address] [facility] [address] [place] [address] Belinda Marques OD [address] [place] [address] documented as of this encounter Goals Goal [...] log to next follow up appointment with geriatric care manager General Not on track(2024 10:05 [...] Diagnoses Not on filedocumented in this encounter Discontinued Medications Medication Sig Discontinue Reason Start Date End Da te pregabalin (LYRICA) 150 mg Oral Capsule Take 150 mg by mouth 2 times daily. DELETE-Duplicate 08/08/2025 documented as of this encounter Additional Health Concerns Assessment Noted Time PHQ-9 Depression Total Score: 025 9:00 AM EDT PHQ-2 Depression Total Score: 5 07/26/20 25 9:00 AM EDT documented as of this encounter Care Teams Borematic Machine Operator Relationship Specialty Start Date End Date Julian, Gordo Monet MD [address] [place] [address] PCP - General Family Medicine 08/07/25 Danielle Monroy RN Case Counter Server Manager/Router Tender 07/26/25 08/08/25 Helen Patel Care Management Radiator Repairer 07/28/25 08/31/25 documented as of this encounter
--- OUTSIDE RECORDS SUMMARY | 2025-09-20 12:23 | XMS_ITS | Clinical Summary ---
Author Organization [employer] [facility] Address [address] [place] [phone] Phone Care Team Providers Care Financial Examiner Name Role Phone Tequila ESPARZA Leslye OLGUIN Primary Care Physician + Conditions or Problems Problem Name Problem Code Onset Date Status Entry Date Provider Comment Standard Description Annotate Body mass index (BMI) 40.0-44.9; adult Z68.41 (ICD-10-CM ) 06/21 Active 06/21 Kaitlynn Olea APRN Body mass index [BMI] 40.0-44.9, adult Body mass index (BMI) 40.0-44.9; adult Z68.41 (ICD-10-CM ) 06/17 Correction 06/17 Kaitlynn Olea APRN Body mass index [BMI] 40.0-44.9, adult Body mass index (BMI) 40.0-44.9; adult Z68.41 (ICD-10-CM ) 06/17 Removed 06/17 Jonathon Medina DO Body mass index [BMI] 40.0-44.9, adult Body mass index (BMI) 40.0-44.9; adult Z68.41 (ICD-10-CM ) 05/04 Correction 05/04 Jonathon Medina DO Body mass index [BMI] 40.0-44.9, adult Knee joint pain, right 16208044 (SNOMED CT) 06/17 Active 06/17 Jonathon Medina DO Knee pain Screening for tuberculosi s 102266733 (SNOMED CT) 06/17 Inactive 06/17 Jonathon Medina DO Tuberculosis screening Fall risk 777263038 (SNOMED CT) 06/17 Active 06/17 Jonathon Medina DO At increased risk for falls Diabetic neuropathy 592266455 (SNOMED CT) 06/17 Active 06/17 Jonathon Medina DO Neuropathy due to diabetes mellitus Body mass index (BMI) 40.0-44.9; adult Z68.41 (ICD-10-CM ) 05/04 Removed 05/04 Anum Coffey APRN Body mass index [BMI] 40.0-44.9, adult Body mass index (BMI) 40.0-44.9; adult Z68.41 (ICD-10-CM ) 12/30 Correction 12/30 Anum Coffey BACK SEWER Body mass index [BMI] 40.0-44.9, adult Allergic rhinitis, 74286120 (SNOMED CT) 12/30 Active 01/01 Leslye Keagle BACK SEWER BCADM Allergic rhinitis GERD-esopha geal reflux 952979764 (SNOMED CT) 12/30 Active 01/01 Leslye Keagle BACK SEWER BCADM Gastroesophagea l reflux disease Depression / anxiety 540430359 (SNOMED CT) 12/30 Active 01/01 Leslye Keagle BACK SEWER BCADM Mixed anxiety and depressive disorder BRONCHITIS ACUTE 77052542 (SNOMED CT) 12/30 Inactive 01/01 Leslye Keagle BACK SEWER BCADM Acute bronchitis Vitamin D deficiency 95616656 (SNOMED CT) 12/30 Active 01/01 Leslye Keagle BACK SEWER BCADM Vitamin D deficiency Body mass index (BMI) 40.0-44.9; adult Z68.41 (ICD-10-CM ) 12/30 Removed 12/30 Leslye Keagle BACK SEWER BCADM Body mass index [BMI] 40.0-44.9, adult Acute left otitis media 435344286 (SNOMED CT) 12/30 Inactive 12/30 Leslye Keagle BACK SEWER BCADM Acute left otitis media Knee pain, left 34534789 (SNOMED CT) 08/14 Active 08/14 Julito Head MD Knee pain Skin rash 940563401 (SNOMED CT) 08/14 Active 08/14 Julito Head MD Eruption BILATERAL LEGS Hypertensio n 69272312 (SNOMED CT) Active 08/14 Julito Head MD Hypertensive disorder Hyperlipide aaron 61182590 (SNOMED CT) Active 08/14 Julito Head MD Hyperlipidemia DENTAL CARIES 91362075 (SNOMED CT) Active 04/05 Mirian Harden MA Dental caries UNSPECIFIED ESSENTIAL HYPERTENSIO N 48137909 (SNOMED CT) 04/05 Active 04/05 Mirian Harden MA Essential hypertension OBESITY 792388091 (SNOMED CT) 04/05 Active 04/05 Mirian Harden MA Obesity Medications Medication Instructions Start Date Stop Date Generic Name NDC Provider TRAZODONE HCL 50 MG TABS TAKE 2 TABLETS BY MOUTH EVERY NIGHT AT BEDTIME TRAZODONE HCL 00985641884 Leslye Mandel BACK SEWER BCADM BUSPIRONE HCL 15 MG TABS TAKE 1/2 TABLET BY MOUTH TWICE DAILY BUSPIRONE HCL 99763154331 Anum Coffey BACK SEWER OMEPRAZOLE 40 MG CPDR TAKE 1 CAPSULE BY MOUTH EVERY DAY OMEPRAZOLE 87187943137 Anum Coffey BACK SEWER CANE 306LB 73 IN NEED-99 DX-Z91.81 [facility] [phone] Jonathon Carol DO CANE 1 cane [facility] [id number] Kaitlynn Olea APRN DICLOFENAC SODIUM 1 % TRANSDERMAL GEL 4 grams 4 times per day DICLOFENAC SODIUM 26721517620 Jonathon Carol DO TYLENOL 325 MG TABS TAKE 2 TABLETS BY MOUTH EVERY 8 HOURS NEEDED FOR PAIN ACETAMINOPHEN 19562643446 Jonathon Carol DO CANE FOR WALKING [facility] [phone] Jonathon Carol DO LEXAPRO 20 MG TABS TAKE 1 BY MOUTH EACH DAY ESCITALOPRAM OXALATE 22076146832 Jonathon Mcmanusram DO TRIAMCINOLONE ACETONIDE 0.1 % CREA APPLY TO AFFECTED AREA TWICE A DAY TRIAMCINOLONE ACETONIDE 87887934216 Anum Coffey BACK SEWER VITAMIN D3 1.25 MG (69958 UT) CAPS TAKE 1 CAPSULE BY MOUTH PER WEEK CHOLECALCIFEROL 92487141596 Leslye Keagle BACK SEWER BCADM BD PEN NEEDLE MINI U/F 31G X 5 MM USE WITH BASAGLAR AND HUMALOG FOR A TOTAL OF FOUR TIMES DAILY INSULIN PEN NEEDLE 20708001615 Leslye Keagle BACK SEWER BCADM BD PEN NEEDLE MINI U/F 31G X 5 MM USE WITH BASAGLAR DIRECTED INSULIN PEN NEEDLE 79080687475 Leslye Keagle BACK SEWER BCADM PEN NEEDLES 31G X 5 MM USE WITH BASAGLAR DAILY BRAND PER FORMULARY INSULIN PEN NEEDLE 80265174845 Leslye Keagle BACK SEWER BCADM BASAGLAR KWIKPEN 100 UNIT/ML SOPN INJECT 25 UNITS UNDER THE SKIN EVERY EVENING INSULIN GLARGINE 42680581765 Leslye Shermanagle BACK SEWER BCADM LORATADINE 10 MG TABS Take 1 tablet by mouth daily LORATADINE 46968969477 Leslye Keagle BACK SEWER BCADM OMEPRAZOLE 40 MG CPDR TAKE 1 CAPSULE BY MOUTH EACH DAY OMEPRAZOLE 75995773707 Leslye Keagle BACK SEWER BCADM BUSPIRONE HCL 15 MG TABS TAKE 1/2 TABLET BY MOUTH 2 TIMES A DAY BUSPIRONE HCL 74166539708 Anum Coffey BACK SEWER TRAZODONE HCL 50 MG TABS Take 2 tablets by mouth daily at bedtime TRAZODONE HCL 46653962997 Leslye Shermanagle BACK SEWER BCADM NORVASC 10 MG TABS Take 1 tablet by mouth daily AMLODIPINE BESYLATE 15777079953 Leslye Keagle BACK SEWER BCADM ATORVASTATIN CALCIUM 20 MG TABS TAKE 1 TABLET BY MOUTH AT BEDTIME ATORVASTATIN CALCIUM 07559073171 Leslye Keagle BACK SEWER BCADM BROMFED DM 30-2-10 MG/5ML ORAL SYRUP TAKE 10 ML BY MOUTH 4 TIMES A DAY NEEDED FOR COUGH PSEUDOEPH-BROMPHE N-DM 14566615096 Leslye Mandel APRN BCADM DICLOFENAC SODIUM 1 % TRANSDERMAL GEL 4 grams 4 times per day DICLOFENAC SODIUM 54963660320 Leslye Mandel APRN BCADM VITAMIN D3 1.25 MG (43308 UT) CAPS TAKE 1 CAPSULE BY MOUTH ONCE PER WEEK CHOLECALCIFEROL 52591469057 Leslye Mandel APRN BCADM VITAMIN D3 1.25 MG (07957 UT) CAPS TAKE 1 CAPSULE BY MOUTH ONCE PER WEEK CHOLECALCIFEROL 15380532291 Leslye Mandel APRN BCADM BROMFED DM 30-2-10 MG/5ML ORAL SYRUP TAKE 10 ML BY MOUTH 4 TIMES A DAY NEEDED FOR COUGH YAS-ROXANA N-DM 87765732836 Leslye Mandel APRN BCADM DICLOFENAC SODIUM 1 % TRANSDERMAL GEL 4 grams 4 times per day DICLOFENAC SODIUM 82533682423 Leslye Mandel APRN BCADM AMOXICILLIN 875 MG TABS TAKE 1 TABLET BY MOUTH 2 TIMES A DAY AMOXICILLIN 98309671420 Leslye Mandel APRN BCADM PROMETHAZINE-DM 6.25-15 MG/5ML SYRP TAKE 5 ML BY MOUTH EVERY 4 HOURS NEEDED FOR COUGH PROMETHAZINE-DM 75670514171 Leslye Mandel APRN BCADM MELOXICAM 15 MG TABS TAKE 1 TABLET BY MOUTH ONCE A DAY MELOXICAM 63501382640 Leslye Mandel APRN BCADM OMEPRAZOLE 40 MG CPDR TAKE 1 CAPSULE BY MOUTH EACH DAY OMEPRAZOLE 16385367364 Leslye Mandel APRN BCADM LORATADINE 10 MG TABS Take 1 tablet by mouth daily LORATADINE 30178920982 Leslye Mandel APRN BCADM ATORVASTATIN CALCIUM 20 MG TABS TAKE 1 TABLET BY MOUTH AT BEDTIME ATORVASTATIN CALCIUM 64531895633 Leslye Mandel APRN BCADM PREDNISONE 20 MG TABS TAKE 1 TABLET BY MOUTH 2 TIMES A DAY FOR 5 DAYS PREDNISONE 20438656796 Leslye Mandel APRN, BCADM MELOXICAM 15 MG TABS TAKE 1 TABLET BY MOUTH ONCE A DAY MELOXICAM 87919682492 Julito Head MD LIPITOR 20 MG TABS Take 1 tablet by mouth daily ATORVASTATIN CALCIUM 73250254083 Julito Head MD TRAZODONE HCL 50 MG TABS Take 2 tablets by mouth daily at bedtime TRAZODONE HCL 26794133291 Leslye Mandel APRN, BCADM LORATADINE 10 MG TABS Take 1 tablet by mouth daily LORATADINE 14035976195 Julito Head MD NORVASC 10 MG TABS Take 1 tablet by mouth daily AMLODIPINE BESYLATE 32345393676 Leslye Leonnikki ISAIAS BCADM LISINOPRIL 20 MG TABS TAKE 1 TABLET BY MOUTH 1 TIME A DAY LISINOPRIL 11144990350 Julito Head MD PRILOSEC 40 MG ORAL CAPSULE DELAYED RELEASE Take 1 tablet by mouth daily OMEPRAZOLE 16274038118 Julito Head MD BUSPIRONE HCL 15 MG TABS TAKE 1/2 TABLET BY MOUTH 2 TIMES A DAY BUSPIRONE HCL 30967899565 Leslye Mandel APRN BCADM LOSARTAN POTASSIUM-HCTZ 50-12.5 MG TABS Take one tablet by mouth daily LOSARTAN POTASSIUM-HCTZ 99727018190 Leslye Mandel APRN BCADM TRIAMCINOLONE ACETONIDE 0.1 % CREA APPLY TO AFFECTED AREA TWICE A DAY TRIAMCINOLONE ACETONIDE 66036479010 Julito Head MD LISINOPRIL 20 MG TABS TAKE 1 TABLET BY MOUTH 1 TIME A DAY LISINOPRIL 89340659025 Mirian Harden MA Medications Administered No information available. Allergies, Adverse Reactions, Alerts Observed no known allergies at Results Date Name Value Unit Range Flag Description Lab Report: LIPID PANEL WITH REFLEX TO DIRECT LDL, LIPID PANEL WITH REFL ... HGBA1C 9.5 % OF TOTAL HGB % <5.7 H Hemoglobin A1c/Hemoglobin, total in Blood - % VIT D 25-OH 11 ng/mL 30-100 L 25-Hydrox ycalciferol [Mass/volume] in Serum or Plasma TSH 1.29 u[iU]/mL 0.40-4.50 N Thyrotropi n [Units/volume] in Serum or Plasma RA FACTOR <14 IU/mL [iU]/mL <14 N Rheumatoi d factor [Units/volume] in Serum or Plasma RHETT HOMO PAT NEGATIVE NEGATIVE N RHETT (a ntinuclear antibody) pattern, homogeneous BASO % MANU 0.5 % N basophils as percent of blood leukocytes, manual count EOS % MANU 1.7 % N eosinophil s as percent of blood leukocytes, manual count MONOCYTE % 6.0 % N Monocytes/ 100 leukocytes in Blood by Automated count LYMPH% P BLD 34.1 % N lymphocy lamine as percent of blood leukocytes PMN % 57.7 % N Neutrophils/1 00 leukocytes in Blood by Automated count ABS BASOS 42 {Cells}/u L 0-200 N Basophils [#/volume] in Blood ABS EOS 143 {Cells}/u L 15-500 N Eosinophils [#/volume] in Blood ABS MONOS 504 {Cells}/u L 200-950 N Monocytes [#/volume] in Blood ABSLYMPHCT 2864 {Cells}/u L 850-3900 N Lymphocytes [#/volume] in Blood ABS NEUTROPH 4847 CELLS/UL 10*3/uL 0263-3585 N Neutrophils [#/volume] in Blood MPV 9.8 fL 7.5-12.5 N Platelet palma n volume [Entitic volume] in Blood by Dorina PLATELETK/UL 376 THOUSAND/UL 10*3/uL 140-400 N platelet count RDW 11.9 % 11.0-15.0 N Erythrocyte distribution width [Ratio] by Automated count OL-MCHC 34.3 g/dL 32.0-36.0 N mean corpus cular hemoglobin concentration, rbc MCH 30.8 pg 27.0-33.0 N MCH [Entiti c mass] by Automated count MCV 89.7 fL 80.0-100.0 N MCV [Entit ic volume] by Automated count HCT 40.8 % 38.5-50.0 N Hematocrit [Volume Fraction] of Blood by Automated count HGB 14.0 g/dL 13.2-17.1 N Hemoglobin [Mass/volume] in Blood RBC M/UL 4.55 MILLION/UL 10*6/uL 4.20-5.80 N red blood count WBC CT BLOOD 8.4 10*3/uL 3.8-10.8 N leukocy te count, blood SGPT (ALT) 19 U/L 9-46 N Alanine aminotransferase [Enzymatic activity/volume] in Serum or Plasma SGOT (AST) 13 U/L 10-35 N Aspartate aminotransferase [Enzymatic activity/volume] in Serum or Plasma ALK PHOS 93 U/L 40-115 N Alkaline bruce sphatase [Enzymatic activity/volume] in Blood BILI DIRECT 0.1 mg/dL < OR = 0.2 N Biliru bin.direct [Mass/volume] in Serum or Plasma BILI TOTAL 0.6 mg/dL 0.2-1.2 N Bilirubin. total [Mass/volume] in Serum or Plasma A/G RATIO 1.2 (calc) 1.0-2.5 N Albumin/ Globulin [Mass Ratio] in Serum or Plasma GLOBULIN TOT 3.5 G/DL (CALC) g/dL 1.9-3.7 N Globulin [Mass/volume] in Serum ALBUMIN EOP 4.3 g/dL 3.6-5.1 N Albumin [ Mass/volume] in Serum or Plasma by Electrophoresis PROTEIN, TOT 7.8 g/dL 6.1-8.1 N Protein [Mass/volume] in Serum or Plasma CALCIUM 9.7 mg/dL 8.6-10.3 N Calcium [Moles/volume] in Serum or Plasma CO2 29 mmol/L 20-31 N Carbon dioxid e, total [Moles/volume] in Venous blood CHLORIDE BLD 100 mmol/L 98-110 N chloride , blood POTASSIUM 3.9 mmol/L 3.5-5.3 N Potassium [Moles/volume] in Serum or Plasma SODIUM 137 mmol/L 135-146 N Sodium [Moles /volume] in Serum or Plasma BUN/CREAT 22 (calc) 6-22 N Urea nitrogen/Creatinine [Mass Ratio] in Serum or Plasma EGFR IF AFA 64 mL/min/1. 73m2 >OR = 60 N Glomerular filtratio n rate/1.73 sq M.predicted among blacks [Volume Rate/Area] in Serum, Plasma or Blood by Creatinine-based formula (MDRD) EGFR 55 mL/min/1. 73m2 >OR = 60 L Glomerular filtratio n rate/1.73 sq M.predicted [Volume Rate/Area] in Serum, Plasma or Blood by Creatinine-based formula (MDRD) CREATININE 1.46 mg/dL 0.70-1.33 H Creatini ne [Mass/volume] in Serum or Plasma BUN 32 mg/dL 7-25 H Urea nitrogen [Mass/volume] in Serum or Plasma GLUCOSE SER 263 mg/dL 65-99 H Glucose [ Mass/volume] in Serum or Plasma URIC ACID 5.5 mg/dL 4.0-8.0 N Urate [Mass /volume] in Serum or Plasma NON-HDL CHOL 118 MG/DL (CALC) mg/dL <130 N cholesterol, non -HDL, total CHOL/HDL % 4.9 (calc) <5.0 N cholest linh/HDL ratio, serum, percent LDL 95 MG/DL (CALC) mg/dL N Cholesterol in L DL [Mass/volume] in Serum or Plasma - mg/dL TRIGLYC TOT 136 mg/dL <150 N Triglycer charles [Mass/volume] in Serum or Plasma - mg/dL HDL 30 mg/dL >40 L Cholesterol i n HDL [Mass/volume] in Serum or Plasma - mg/dL CHOLESTEROL 148 mg/dL <200 N Cholester ol [Mass/volume] in Serum or Plasma - mg/dL Office Visit: Acute Visit Ve rsion 2 using combo CCC & HP forms PPD RESULT 0 mm PPD result s in mm Plan of Care Type Date Detail Pending order T1 CBC with diff Pending order T1 BMP Pending order T1 Hepatic Funct ion Panel Pending order T1 HGBA1c Pending order T1 Lipid Panel Pending order T1 TSH reflex to free T4 Pending order T2 Vitamin D 25 Hydroxy Pending order T2 Rheumatoid Fa ctor Quant Pending order T2 RHETT Pending order T1 Uric Acid Pending order CMP Pending order Lipid Panel Pending order CBC no diff Pending order TSH reflex to fr ee T4 Pending order HGBA1c Pending order X-Ray Knee Pending order HGBA1c Pending Order exclud ed from report: Pending order TSH reflex to fr ee T4 Pending Order exclud ed from report: Pending order CBC no diff Pending Order exclud ed from report: Pending order Lipid Panel Pending Order exclud ed from report: Pending order CMP Pending Order exclud ed from report: Pending order X-Ray Knee Pending Order exclud ed from report: Pending order SNOMED-CT: [id number] Current Medications Documented Patient education Medications Patient education Medications Patient education Medications Patient education Medications Patient education Medications Patient education Medications Patient education Medications Patient education Medications Patient education Medications Procedures Code Procedure Name Date Entry Date CPT-3077F Most recent systolic blood pressure >=140 mm Hg [id number] Medication Reconciliation [id number] 340B PPD Test CPT-3077F Most recent systolic blood pressure >=140 mm Hg [id number] Medication Reconciliation CPT-3075F Most recent systolic blood pressure 130-139 mm Hg [id number] Medication Reconciliation CPT-3074F Most recent systolic blood pressure <130 mm Hg CPT-3074F Most recent systolic blood pressure <130 mm [facility] 90637 T1 BMP [facility] 10070 T1 Hepatic Function Panel 20 03/01/14 [facility] 496 T1 HGBA1c [facility] 70895 T1 Lipid Panel [facility] 75660 T1 TSH reflex to free T4 201 06/17/14 [facility] 15354 T2 Vitamin D 25 Hydroxy 2017 [facility] 4418 T2 Rheumatoid Factor Quant 2 [facility] 249 T2 RHETT [facility] 905 T1 Uric Acid [facility] 6399 T1 CBC with diff 496 [facility] Test # HGBA1c 47524 [facility] Test # TSH reflex to free T4 [facility]# 1759 [place] [address] [facility] Test # Lipid Panel 9 12487 [facility] Test # CMP 9 X-Ray Knee X-Ray Knee [facility]-[id number] [facility]: [id number] Current Medications Documented Vital Signs Date Name Value Unit Description BMI (Body Mass Index) 40.19 kg/m2 Bod y Mass Index (Ratio) Body Temperature 98.1 [degF] temperat ure E&M Body Temperature 36.72 Annabelle temperat ure in centigrade E&M BP Diastolic 97 mm[Hg] blood pressu re, diastolic BP Systolic 148 mm[Hg] blood pressur e, systolic BSA (Body Surface Area) 2.67 b mary surface area Heart Rate 102 /min pulse rate 10 Heart Rate 187 /min pulse rate Height 73 [in_us] height E&M Height 185.42 cm height in cent imeters E&M Weight Measured 303.5 [lb_av] weight E& M Weight Measured 303.5 [lb_av] weight E& M Weight Measured 137.95 kg weight in kilograms E&M Immunizations Vaccine Administration Date Standard Description CVX Co de Dose influenza influenza 88 Unknown Advance Directives No information available.
--- OUTSIDE RECORDS SUMMARY | 2025-09-20 12:24 | XMS_ITS | Clinical Summary ---
Author Organization [facility] Address [address] [place] [address] Care Team Providers Care Inseminator Name Role Phone Unavailable Primary Care Provider Unavailabl e Social History Tobacco Use Types Packs/Day Years Used Date Smoking Tobacco: Never Assessed Sex and Gender Information Value Date Recorded Sex Assigned at Not on file Legal Sex Male 8:06 PM EDT Gender Identity Not on file Sexual Orientation Not on file Plan of Treatment Health Maintenance Due Date Last Done Comments DTap,Tdap,and Td (1 - Tdap) 1977 Colonoscopy 2011 PSA YEARLY 2016 Pneumococcal 50+ (1 of 1 - PCV) 2016 Shingrix (#1) 2016 Influenza Vaccine (#1) 2025 RSV Vaccine (60+ or ) (1 - 1-dose 75+ series) 2041 HPV Aged Out No longer eligi ble based on patient's age to complete this topic Meningococcal conjugate anita nt 4 (MCV4) Aged Out No longer eligible b ased on patient's age to complete this topic RSV Immunization (<20 months) Aged Out No longer eligible based on patient's age to complete this topic
--- OUTSIDE RECORDS SUMMARY | 2025-09-20 12:24 | XMS_ITS | Encounter Summary ---
Author Organization [place] [address] Care Team Providers Care Die Try Out Worker Name Role Phone Danielle Monroy RN Unavailable Unavailable Heeln Patel Unavailable Unavailable Gordo Jordan MD Primary Care Prov ider Reason for Visit * Reason Onset Date Comments Other 08/04/2025 Blood Pressure M onitor Misc Kit Encounter Details Date Type Department Care Team (Late st Contact Info) Description 08/04/2025 [facility]phone [facility] [address] [place] [phone] JordanGordo conde MD [address] [place] [phone] Other (Blood Pressure Monitor Misc Kit) Social History Tobacco Use Types Packs/Day Years Used Date Smoking Tobacco: Former Cigarettes 0.3 4 0 11/16/1986 - 11/16/1990 Passive Smoke Exposure: Never Smokeless Tobacco: Never Alcohol Use Standard Drinks/Week Comments Not Currently 4 (1 standard drink = 0.6 oz pure alcohol) Sober for 20 years until May 2022 [facility] Utilities Answer Date Recorded In the past 12 months has [employer] electric, gas, oil, or water company threatened to shut off services in your home? No 06/22/2025 Overall Financial Resource Strain (CARDIA) Answe r Date Recorded How hard is it for you to pa y for the very basics like food, housing, medical care, and heating? Somewhat hard 06/22/2025 PHQ-2 Answer Date Recorded PHQ-2 Total Score 5 07/26/2025 [employer] [facility] [employer] - Occupational Stress [...] things needed for daily living? No 11/10/2023 [facility] IP Transportation Answer D ate Recorded In [...] Telephone Encounter - Danielle Monroy RN - 08/04/2025 2:35 PM EDT Images from the original note were not included. He can call [employer] as discussed with him several times before. [phone] * Telephone Encounter - Magdalene Roque RMA - 08/04/2025 12:16 PM EDT Select the most appropriate reason for this telephone message: Other Who is calling (name & relationship to patient if not the patient): Patient What is needed OR why are they calling: Pt wants to know what is going on with his bp machine. He said that [facility] will not fill it and demanded someone from the office call him When is this needed by: na Where does this information need to go: PCP Return Method of Communication: Phone Call Additional information: CPASPt stated that his bp is high but could not give numbers because he is not checking it and no symptoms documented in this encounter Plan of Treatment Upcoming Encounters Date Type Department Care Team (Late st Contact Info) Description 10/09/2025 10:30 AM EST Office Visit [facility] [address] [place] [address] Gordo Jordan MD [address] [place] [phone] 02/01/2026 11:00 AM EDT Office Visit [facility] [address] [facility] [address] [place] [address] Belinda Marques OD [address] [place] [address] documented as of this encounter Goals Goal [...] maintain an ideal body weight General No nAnie Meneses MA Patient will utilize consume 4-5 meals a days following diabetic dietary guidelines 3 days a week over the next 6 weeks General Not on track(2024 10:04 AM EDT) Yes Danielle Monroy RN Patient will utilize glucometer to monitor blood glucose levels 3 times a day and bring log to next follow up appointment with client care coordinator General Not on track(2024 10:05 AM EDT) [...] documented as of this encounter Care Teams Die Try Out Worker Relationship Specialty Start Date End Date Jordan, Gordo Monet MD [address] [place] [address] PCP - General Family Medicine 08/07/25 Danielle Monroy RN Case Security Manager Manager/Business Account Leader 07/26/25 08/08/25 Helen Patel Care Management Paint Prepper 07/28/25 08/31/25 documented as of this encounter
--- OUTSIDE RECORDS SUMMARY | 2025-09-20 12:24 | XMS_ITS | Encounter Summary ---
Author Organization [place] [address] Care Team Providers Care Health Information Managers Name Role Phone Enrique Arcos MD Unavailable [phone] Babs Virgen MD Primary Care Provider Gordo Jordan MD Primary Care Prov ider Radha Moreira RN Unavailable Unavailabl Ana Alvarado BA, COS Unavailable Unavailable Stone Cerda BA, COS Unavailable UnavailEster Lang RN Unavailable Unavailable Minnie Tovar RN Unavailable Unavai Stone Frank BA, COS Unavailable UnavailLudivina Wesley RN Unavailable Unavailable Elli Woodward RN Unavailable Unavail able Ainsley Schuler RN Unavailable UnavailRadha Barney RN Unavailable UnavailRadha Barney RN Unavailable UnavailKatherine Scott DO Primary Care Provider + [phone] Montserrat Garcia RN Unavailable Unavailable Karen Guardado RN Unavailable Unavailable No Pcp, Per Patient Primary Care Provider Gordo Cornelius MD Primary Care Prov ider Danielle Monroy RN Unavailable Unavailable Helen Patel Unavailable Unavailable Gordo Jordan MD Primary Care Prov ider Reason for Visit * Reason Onset Date Comments Medication Refill 01/27/2019 Encounter Details Date Type Department Care Team (Late st Contact Info) Description 01/27/2019 Refill [facility] [address] [place] [address] Babs Virgen MD [address] [place] [address] Medication Refill Social History Tobacco Use Types Packs/Day Years Used Date Smoking Tobacco: Former Cigarettes 0 11/16/1986 - 11/16/1990 Smokeless Tobacco: Never Alcohol Use Standard Drinks/Week Comments No 0 (1 standard drink = 0.6 oz pur e alcohol) Sexually Active Control Partners Comments Yes Female [...] hearing? Answer Date of Assessment Author No 01/14/2019 8:56 AM Lyudmila Soriano CCMA * Is the person blind or does he/she have serious difficulty seeing even when wearing glasses? Answer Date of Assessment Author No 01/14/2019 8:56 AM Lyudmila Soriano CCMA * Does this person have serious difficulty walking or climbing stairs? Answer Date of Assessment Author No 01/14/2019 8:56 AM Lyudmila Soriano CCMA * Does this person have difficulty dressing or bathing? Answer Date of Assessment Author No 01/14/2019 8:56 AM Lyudmila Soriano CCMA * Because of a physical, mental or emotional condition, does this person have difficulty doing errands alone such as visiting a doctor's office or shopping? Answer Date of Assessment Author No 01/14/2019 8:56 AM Lyudmila Soriano CCMA documented as of this encounter Mental Status * Because of a physical, mental or emotional condition, does this person have serious difficulty concentrating, remembering or making decisions? Answer Entry Date Author No 01/14/2019 8:56 AM Lyudmila Soriano CCMA documented in this encounter Plan of Treatment Upcoming Encounters Date Type Department Care Team (Late st Contact Info) Description 10/09/2025 10:30 AM EST Office Visit [facility] [address] [place] [phone] Gordo Jordan MD [address] [place] [id number] 02/01/2026 11:00 AM EDT Office Visit [facility] [address] [facility] [address] [place] [address] Belinda Marques, OD [address] [place] [address] documented as of this encounter Goals Goal Patient Goal Type Associated Problems Recent Progress Patient-Stated? Author Blood Pressure < 140/90 Blood Pressure 122/84(2024 12:48 PM EDT) No Angel Duffy MD BMI (Calculated) < 30 General 34.4(08/17/20 12:48 PM EDT) No Annie Martinez CCMA Stay Tobacco Free Lifestyle On track( 022 3:33 PM EDT) No Annie Martinez CCMA LDL CALC < 100 Result Component 88(07/26/2025 10:21 AM EDT) No Angel Duffy MD HEMOGLOBIN A1C < 7.0 Result Component 11.6(07/26/20 10:27 AM EDT) No Annie Martinez CCMA Weight < 210 lb (95.255 kg) Weight 260 lb 6.4 oz (118.1 kg)( 12:48 PM EDT) No Angel Duffy MD documented as of this encounter Visit Diagnoses Diagnosis Cellulitis of toe of right foot Cellulitis and abscess of toe, unspecified documented in this encounter Additional Health Concerns Infection Onset Date Last Indicated Resolved Time COVID-19 09/14/2021 09/16/2021 10/03/2021 8:31 AM EST R/O C-Diff 11/14/2021 11/14/2021 11/14/2021 7:10 PM EST R/O C-Diff 12/09/2021 12/10/2021 12/10/2021 6:45 PM EST COVID-19 12/09/2021 12/09/2021 01/08/2022 10:1 2 PM EST R/O C-Diff 06/23/2025 06/23/2025 06/23/2025 9:05 PM EDT documented as of this encounter Care Teams Health Information Managers Relationship Specialty Start Date End Date Babs Virgen MD [address] [place] [id number] PCP - General Family Medicine 01/27/18 10/02/19 Gordo Jordan MD [address] [address] PCP - General Family Medicine 07/11/20 01/06/23 [place] [address] PCP - General Family Medicine 01/07/23 04/14/24 No Pcp, Per Patient PCP - General 06/22/25 07/25/25 Gordo Jordan MD [address] [id number] PCP - General Family Medicine 07/26/25 07/26/25 Gordo Jordan MD [address] [address] PCP - General Family Medicine 08/07/25 Enrique Arcos MD [address] [place] [phone] Internal Medicine-Gastroenterol ogy 02/04/16 07/10/20 Radha Moreira, RN [employer] Registered Nurse - Health Information Managers 09/25/20 05/09/21 Ana Knapp BA, COS Case Customer Quality Specialist 09/28/20 12/27/20 Stone Cerda, BA, COS Case Customer Quality Specialist 01/30/21 04/23/21 Ester Neff, RN [employer] 09/20/21 09/20/21 Minnie Tovar, RN [employer] Registered Nurse 10/11/21 10/14/21 Stone Cerda, BA, COS Case Customer Quality Specialist 10/18/21 12/04/21 Ludivina Pierce, RN [employer] Registered Nurse 11/06/21 11/06/21 Elli Woodward, RN [employer] Registered Nurse 11/21/21 11/21/21 Ainsley Schuler, reimbursement liaison Team Registered Nurse 12/23/21 12/23/21 Radha Moreira, RN [employer] Registered Nurse - Health Information Managers 05/30/22 06/01/22 Radha Moreira, RN [employer] Registered Nurse - Health Information Managers 05/30/22 05/24/23 Montserrat Garcia RN [employer] Registered Nurse 10/19/23 11/09/23 Karen Guardado RN [employer] 10/29/23 11/24/23 Danielle Monroy, slubber machine operator [employer] Truck Driver/[employer] 07/26/25 08/08/25 Helen Patel Care Management [employer] F[employer] 07/28/25 08/31/25 documented as of this encounter
--- OUTSIDE RECORDS SUMMARY | 2025-09-20 12:24 | XMS_ITS | Clinical Summary ---
Author Organization [facility] Address [address] [facility] [place] [address] Phone Care Team Providers Care Network Contractor Name Role Phone Gordo Jordan MD Primary Care Prov ider Allergies Active Allergy Reactions Criticality Noted Date Comments Lisinopril Other (See Comments) 07/28/2014 Cough Metformin Diarrhea 08/07/2025 Medications * This document contains information received from the source organization and may not represent a complete record from that organization. Blood-Glucose Meter Misc KitIndications:Un controlled type 2 diabetes mellitus with hyperglycemia, with long-term current use of insulin ([facility]),Diabetic polyneuropathy associated with type 2 diabetes mellitus (HCC) Check glucose TID QAC + QHS 1 Kit 025 Active FREESTYLE LANCETS 28 gauge Misc Misc 025 Active ESPERANZA PEN NEEDLE 32 gauge x 532 Misc Needle 025 Active insulin glargine (LANTUS) 100 unit/mL (3 mL) SubQ Insulin PenIndications:Un controlled type 2 diabetes mellitus with hyperglycemia, with long-term current use of insulin (HCC),Diabetic polyneuropathy associated with type 2 diabetes mellitus (HCC) Inject 50 Units under the skin every evening. 15 mL 1 025 Active ESPERANZA 2ND GEN PEN NEEDLE 32 gauge x 5/32 Misc NeedleIndications :Uncontrolled type 2 diabetes mellitus with hyperglycemia, with long-term current use of insulin (HCC),Diabetic polyneuropathy associated with type 2 diabetes mellitus (HCC) USE DIRECTED 100 Each 025 Active Blood Sugar Diagnostic (ACCU-CHEK GUIDE TEST STRIPS) [facility] StripIndications: Uncontrolled type 2 diabetes mellitus with hyperglycemia, with long-term current use of insulin ([facility]),Diabetic polyneuropathy associated with type 2 diabetes mellitus (HCC) 1 Strip by [facility].(Non-[place]aston g; Combo Route) route 3 times daily. E11.9 300 Each 3 Active aspirin 81 mg Oral Tablet, Delayed Release (E.C.)Indications :Uncontrolled type 2 diabetes mellitus with hyperglycemia, with long-term current use of insulin ([facility]),Hypertensio n associated with diabetes ([facility]) Take 1 Tablet by mouth daily (with breakfast). 90 Tablet 3 025 Active atorvastatin (LIPITOR) 20 mg Oral TabletIndications :Hyperlipidemia associated with type 2 diabetes mellitus ([facility]) Take 1 Tablet by mouth daily. 90 Tablet 3 025 Active pantoprazole (PROTONIX) 40 mg Oral Tablet, Delayed Release (E.C.)Indications :Gastroesophageal reflux disease without esophagitis Take 1 Tablet by mouth daily. 90 Tablet 3 025 Active folic acid (FOLVITE) 1 mg Oral TabletIndications :Folate deficiency Take 1 Tablet by mouth daily. Take 1 tablet by mouth once daily 90 Tablet 025 Active Lancets (ACCU-CHEK SOFTCLIX LANCETS) [facility] MiscIndications:U ncontrolled type 2 diabetes mellitus with hyperglycemia, with long-term current use of insulin ([facility]),Diabetic polyneuropathy associated with type 2 diabetes mellitus (HCC) USE DIRECTED E11.9 300 Each 11 025 Active DULoxetine (CYMBALTA) 60 mg Oral Capsule, Delayed Release(E.C.)Rosa cations:Diabetic polyneuropathy associated with type 2 diabetes mellitus ([facility]),Major depressive disorder, recurrent severe without psychotic features ([facility]),AURORA (generalized anxiety disorder) Take 1 Capsule by mouth daily. 90 Capsule 3 025 Active empagliflozin (JARDIANCE) 25 mg Oral TabletIndications :Uncontrolled type 2 diabetes mellitus with hyperglycemia, with long-term current use of insulin ([facility]),Diabetic polyneuropathy associated with type 2 diabetes mellitus (HCC) Take 1 Tablet by mouth daily. 30 Tablet 11 025 Active amLODIPine (NORVASC) 5 mg Oral TabletIndications :Hypertension associated with diabetes ([facility]) Take 1 Tablet by mouth daily. 30 Tablet Active methocarbamoL (ROBAXIN) 750 mg Oral TabletIndications :Chronic bilateral low back pain without sciatica,Primary osteoarthritis involving multiple joints Take 1 Tablet by mouth 3 times daily as needed for Pain. 90 Tablet Active hydrOXYzine (ATARAX) 25 mg Oral TabletIndications :AURORA (generalized anxiety disorder) Take 1 Tablet by mouth 3 times daily as needed. for anxiety 90 Tablet Active acetaminophen (TYLENOL) 500 mg Oral TabletIndications :Primary osteoarthritis of both knees Take 2 Tablets by mouth every 8 hours as needed for Pain. 90 Tablet Active Alcohol Swabs (ALCOHOL PREP PADS) Top Pads, MedicatedIndicati ons:Uncontrolled type 2 diabetes mellitus with hyperglycemia, with long-term current use of insulin ([facility]),Diabetic polyneuropathy associated with type 2 diabetes mellitus ([facility]) Apply 1 Each topically as needed. 100 Each Active acetaminophen (ACETAMINOPHEN EXTRA STRENGTH) 500 mg Oral TabletIndications :Primary osteoarthritis of both knees Take 2 Tablets by mouth every 8 hours as needed for Pain. 90 Tablet Active metoprolol succinate (TOPROL-XL) 200 mg Oral Tablet Sustained Release 24 hrIndications:Hyp ertension associated with diabetes ([facility]) Take 1 Tablet by mouth daily. 30 Tablet Active pregabalin (LYRICA) 150 mg Oral Capsule Take 1 Capsule by mouth 3 times daily. 90 Capsule 2 Active lidocaine 2 % MM Solution Take 5 mL by mouth 3 times daily as needed for Pain. 100 mL 025 Active chlorhexidine (PERIDEX) 0.12 % MM Mouthwash Take 10 mL by mouth 2 times daily. 250 mL 2 Active insulin aspart U-100 (NOVOLOG) 100 unit/mL (3 mL) SubQ Insulin PenIndications:Un controlled type 2 diabetes mellitus with hyperglycemia, with long-term current use of insulin ([facility]),Diabetic polyneuropathy associated with type 2 diabetes mellitus ([facility]) Inject 12 Units under the skin 3 times daily (before meals). Use as directed 30 mL Active lidocaine 2 % MM Solution Take 5 mL by mouth 3 times daily as needed for Pain. 100 mL Active Insulin [place], Disposable, (BD ULTRA-FINE MINI PEN NEEDLE) 31 gauge x 01/29 [facility] NeedleIndications :Uncontrolled type 2 diabetes mellitus with hyperglycemia, with long-term current use of insulin ([facility]),Diabetic polyneuropathy associated with type 2 diabetes mellitus (HCC) Use pen needle to administer insulin from pens as directed 100 Each Active empagliflozin (JARDIANCE) 25 mg Oral TabletIndications :Uncontrolled type 2 diabetes mellitus with hyperglycemia, with long-term current use of insulin ([facility]),Diabetic polyneuropathy associated with type 2 diabetes mellitus (HCC) Take 1 Tablet by mouth daily. 30 Tablet 3 Active Blood Sugar Diagnostic (ACCU-CHEK GUIDE TEST STRIPS) [facility] StripIndications: Uncontrolled type 2 diabetes mellitus with hyperglycemia, with long-term current use of insulin ([facility]),Diabetic polyneuropathy associated with type 2 diabetes mellitus ([facility]) 1 Strip by [facility].(Non-Gaston g; Combo Route) route 3 times daily. E11.9 300 Each 3 2024 Discontinued(R eorder) aspirin 81 mg Oral Tablet, Delayed Release (E.C.)Indications :Uncontrolled type 2 diabetes mellitus with hyperglycemia, with long-term current use of insulin ([facility]),Hypertensio n associated with diabetes ([facility]) Take 1 Tablet by mouth daily (with breakfast). 90 Tablet 2024 Discontinued(R eorder) atorvastatin (LIPITOR) 20 mg Oral TabletIndications :Hyperlipidemia associated with type 2 diabetes mellitus ([facility]) Take 1 Tablet by mouth daily. 90 Tablet 2024 Discontinued(R eorder) metoprolol succinate (TOPROL-XL) 200 mg Oral Tablet Sustained Release 24 hrIndications:Hyp ertension associated with diabetes ([facility]) Take 1 Tablet by mouth daily. 30 Tablet 2024 Discontinued pantoprazole (PROTONIX) 40 mg Oral Tablet, Delayed Release (E.C.)Indications :Gastroesophageal reflux disease without esophagitis Take 1 Tablet by mouth daily. 90 Tablet 2024 Discontinued(R eorder) folic acid (FOLVITE) 1 mg Oral TabletIndications :Folate deficiency Take 1 Tablet by mouth daily. Take 1 tablet by mouth once daily 90 Tablet 2024 Discontinued(R eorder) Lancets (ACCU-CHEK SOFTCLIX LANCETS) [facility] MiscIndications:U ncontrolled type 2 diabetes mellitus with hyperglycemia, with long-term current use of insulin ([facility]),Diabetic polyneuropathy associated with type 2 diabetes mellitus ([facility]) USE DIRECTED E11.9 300 Each 5 2024 Discontinued(R eorder) acetaminophen (TYLENOL) 500 mg Oral TabletIndications :Primary osteoarthritis of both knees Take 2 Tablets by mouth every 8 hours as needed for Pain. 90 Tablet 2024 Discontinued Insulin [place], Disposable, (BD ULTRA-FINE MINI PEN NEEDLE) 31 gauge x 3/16 [facility] NeedleIndications :Uncontrolled type 2 diabetes mellitus with hyperglycemia, with long-term current use of insulin ([facility]),Diabetic polyneuropathy associated with type 2 diabetes mellitus ([facility]) Use pen needle to administer insulin from pens as directed 100 Each 2024 Discontinued(R eorder) insulin glargine (LANTUS) 100 unit/mL (3 mL) SubQ Insulin PenIndications:Un controlled type 2 diabetes mellitus with hyperglycemia, with long-term current use of insulin ([facility]),Diabetic polyneuropathy associated with type 2 diabetes mellitus ([facility]) Inject 50 Units under the skin every evening. 15 mL 1 2024 Discontinued(R eorder) DULoxetine (CYMBALTA) 60 mg Oral Capsule, Delayed Release(E.C.)Rosa cations:Diabetic polyneuropathy associated with type 2 diabetes mellitus ([facility]),Major depressive disorder, recurrent severe without psychotic features ([facility]),AURORA (generalized anxiety disorder) Take 1 Capsule by mouth daily. 90 Capsule 2024 Discontinued(R eorder) insulin aspart U-100 (NOVOLOG) 100 unit/mL (3 mL) SubQ Insulin PenIndications:Un controlled type 2 diabetes mellitus with hyperglycemia, with long-term current use of insulin ([facility]),Diabetic polyneuropathy associated with type 2 diabetes mellitus (HCC) Inject 12 Units under the skin 3 times daily (before meals). Use as directed 15 mL 1 025 2024 Discontinued(R eorder) pregabalin (LYRICA) 150 mg Oral Capsule Take 1 Capsule by mouth 3 times daily. 90 Capsule 2 2024 Discontinued(R eorder) lidocaine 2 % MM Solution Take 5 mL by mouth 3 times daily as needed for Pain. 100 mL 2024 Discontinued(R eorder) insulin aspart U-100 (NOVOLOG) 100 unit/mL (3 mL) SubQ Insulin PenIndications:Un controlled type 2 diabetes mellitus with hyperglycemia, with long-term current use of insulin ([facility]),Diabetic polyneuropathy associated with type 2 diabetes mellitus ([facility]) Inject 12 Units under the skin 3 times daily (before meals). Use as directed 15 mL 1 2024 Discontinued(Venessa Brown e) lidocaine 2 % MM Solution Take 5 mL by mouth 3 times daily as needed for Pain. 100 mL 2024 Discontinued(R eorder) chlorhexidine (PERIDEX) 0.12 % MM Mouthwash Take 10 mL by mouth 2 times daily. 250 mL 2 2024 Discontinued(R eorder) JARDIANCE 25 mg Oral TabletIndications :Uncontrolled type 2 diabetes mellitus with hyperglycemia, with long-term current use of insulin ([facility]),Diabetic polyneuropathy associated with type 2 diabetes mellitus ([facility]) Take 1 tablet by mouth once daily 30 Tablet 2024 Discontinued(R eorder) amLODIPine (NORVASC) 5 mg Oral TabletIndications :Hypertension associated with diabetes ([facility]) Take 1 tablet by mouth once daily 30 Tablet 2024 Discontinued(R eorder) methocarbamoL (ROBAXIN) 750 mg Oral TabletIndications :Chronic bilateral low back pain without sciatica,Primary osteoarthritis involving multiple joints Take 1 Tablet by mouth 3 times daily as needed for Pain. 90 Tablet 2024 Discontinued(R eorder) hydrOXYzine (ATARAX) 25 mg Oral TabletIndications :AURORA (generalized anxiety disorder) Take 1 Tablet by mouth 3 times daily as needed. for anxiety 90 Tablet 2024 Discontinued(R eorder) acetaminophen (TYLENOL) 500 mg Oral TabletIndications :Primary osteoarthritis of both knees Take 2 Tablets by mouth every 8 hours as needed for Pain. 90 Tablet 2024 Discontinued(R eorder) Alcohol Swabs (ALCOHOL PREP PADS) Top Pads, MedicatedIndicati ons:Uncontrolled type 2 diabetes mellitus with hyperglycemia, with long-term current use of insulin ([facility]),Diabetic polyneuropathy associated with type 2 diabetes mellitus ([facility]) Apply 1 Each topically as needed. 100 Each 30 2024 Discontinued(R eorder) ACETAMINOPHEN EXTRA STRENGTH 500 mg Oral TabletIndications :Primary osteoarthritis of both knees TAKE 2 TABLETS BY MOUTH EVERY 8 HOURS NEEDED FOR PAIN 90 Tablet 2024 Discontinued(R eorder) metoprolol succinate (TOPROL-XL) 200 mg Oral Tablet Sustained Release 24 hrIndications:Hyp ertension associated with diabetes ([facility]) Take 1 tablet by mouth once daily 30 Tablet 2024 Discontinued(R eorder) insulin aspart U-100 (NOVOLOG) 100 unit/mL (3 mL) SubQ Insulin PenIndications:Un controlled type 2 diabetes mellitus with hyperglycemia, with long-term current use of insulin ([facility]),Diabetic polyneuropathy associated with type 2 diabetes mellitus ([facility]) Inject 12 Units under the skin 3 times daily (before meals). Use as directed 30 mL 2024 Discontinued(R eorder) lidocaine 2 % MM Solution Take 5 mL by mouth 3 times daily as needed for Pain. 100 mL 2024 Discontinued(R eorder) Insulin [place], Disposable, (BD ULTRA-FINE MINI PEN NEEDLE) 31 gauge x 316 [facility] NeedleIndications :Uncontrolled type 2 diabetes mellitus with hyperglycemia, with long-term current use of insulin ([facility]),Diabetic polyneuropathy associated with type 2 diabetes mellitus ([facility]) Use pen needle to administer insulin from pens as directed 100 Each 025 2024 Discontinued Active Problems Patient Care Coordination No te Formatting of this note migh t be different from the original. [facility]: 07/26/2025 advised patient of past No Show dismissals from multiple offices and that he will need to speak respectful to staff. [facility] CONTROLLED SUBSTANCE AGREEMENT: Medication: Lyrica Contract: 08/07/25 UDS: Next OV Les: Dismissed from [facility] 12/01/17 wjg Problem Noted Date Diagnosed Date Primary osteoarthritis of both knees 08/09/2025 Obesity, Class I, BMI 30-34.9 07/31/2025 Assessment & Plan (08/07/2025 11:05 AM EDT): Fecal incontinence 11/04/2023 Contracture of left Achilles tendon 10/18/2023 Status post transmetatarsal amputation of foot, left 10/07/2023 Overview (10/29/2023): 10/2023 during hospitalization for osteo Assessment & Plan (07/26/2025 3:20 PM EDT): Follows with podiatry; new orthotic shoes ordered recently per patient faculty support coordinator will assist with ordering new walker, [...] need a rollator/walker to assist with everyday ADLs. He is currently using this, but it needs to be replaced. A cane has bee ruled out as unsuccessful with asissting with ambulation. The patient has to take frequent breaks and needs to be able to sit when needed. Orders: methocarbamoL (ROBAXIN) 750 mg Oral Tablet; Take 1 Tablet by mouth 3 times daily as needed for Pain. Assessment & Plan (11/25/2023 4:42 PM EST): Continue pain control as needed. Plan to include surgery in pain management decisions. Can taper off opioids as tolerated. Assessment & Plan (10/29/2023 11:00 AM EST): Home PT scheduled Continue close follow up Lyrica for pain control Transportation unavailable 07/06/2023 Overview (07/06/2023): Difficulty with transportation, however he does have it arranged with a company now Controlled substance agreement signed 07/06/2023 Overview (11/25/2023): controlled substance agreement signed with [place] office Assessment & Plan (11/25/2023 4:44 PM EST): -les reviewed and appropriate -continue lyrica at current dose Assessment & Plan (07/06/2023 12:50 PM EDT): -Discussed with patient today again the terms of controlled substance agreement. Had him sign the form again today and read over what is involved. -Compliance drug screen done today -Discussed making a follow-up in 5 months so that patient has a 30-day shy. To get an appointment should he have to cancel. -If patient fails to follow the controlled substance agreement as discussed today will likely dismiss Chronic bilateral low back pain without sciatica 07/06/2023 Assessment & Plan (07/26/2025 3:20 PM EDT): Methocarbamol and acetaminophen refilled Patient requested refill of oxycodone - not provided as this does not appear to be an active prescription. Only prescription listed appeared to be for acute pain prescribed on 02/14/2024. PDMP showed no controlled substances dispensed within the last year. All new requests for controlled substances will need to be discussed with Dr. Jordan. Orders: methocarbamoL (ROBAXIN) 750 mg Oral Tablet; Take 1 Tablet by mouth 3 times daily as needed for Pain. Contracture of joints of bot h ankle and foot of left lower extremity 12/16/2021 Assessment & Plan (07/26/2025 3:20 PM EDT): Follows with podiatry; new orthotic shoes ordered recently per patient faculty support coordinator will assist with ordering new walker, [...] need a rollator/walker to assist with everyday ADLs. He is currently using this, but it needs to be replaced. A cane has bee ruled out as unsuccessful with asissting with ambulation. The patient has to take frequent breaks and needs to be able to sit when needed. Orders: methocarbamoL (ROBAXIN) 750 mg Oral Tablet; Take 1 Tablet by mouth 3 times daily as needed for Pain. Diabetic polyneuropathy asso ciated with type 2 diabetes mellitus 11/15/2021 Overview (11/25/2023): Pregabalin use Controlled substance agreement signed Assessment & Plan (08/07/2025 12:51 PM EDT): Goal A1C: < 6.5 and TIR >70% - Last A1c - 11.6 - 07/26/2025 - not at goal Compliance: - non-compliant with diet. Advised to follow a low carbohydrate / diabetic diet - non-compliant with medication. Advised to take medication as prescribed Home Glucose Monitoring: - FSBS - four times daily Retinopathy Screening: - patient has [...] took place at today's visit (see orders) Orders: BASIC METABOLIC PANEL; Future insulin aspart U-100 (NOVOLOG) 100 unit/mL (3 mL) SubQ Insulin Pen; Inject 12 Units under the skin 3 times daily (before meals). Use as directed Assessment & Plan (07/27/2025 6:24 AM EDT): I reviewed the causes and effects of diabetic neuropathy with the patient. I discussed with Renetta Shepperd the potential complications to include but not limited to neuropathic ulcerations, chronic neurologic pain, burning symptoms, loss or diminished sensation to hands and feet and the possible loss of balance from the disease process. I also discussed the importance of maintaining strict control of the diabetes to prevent such complications. The patient verbalized understanding of my recommendations. Discussed strict glucose control, HgA1c 11.6 Assessment & Plan (07/26/2025 3:20 PM EDT): Duloxetine refilled at 60 mg daily Patient [...] to 75 mg every 8 hours Orders: Blood-Glucose Meter [facility] Kit; Check glucose TID QAC + QHS Blood Sugar Diagnostic (ACCU-CHEK GUIDE TEST STRIPS) Mis Strip; 1 Strip by [facility].(Non-Drug; Combo Route) route 3 times daily. E11.9 Blood Pressure Monitor Mis Kit; 1 Units by Mis.(Non-Drug; Combo Route) route daily. metFORMIN (GLUCOPHAGE XR) 750 mg Oral ER 24 hr tablet; Take 1 Tablet by mouth daily (with breakfast). empagliflozin (JARDIANCE) 25 mg Oral Tablet; Take 1 Tablet by mouth daily. Lancets (ACCU-CHEK SOFTCLIX LANCETS) [facility]; USE DIRECTED E11.9 POCT GLYCATED HEMOGLOBIN, TOTAL COMPREHENSIVE METABOLIC PANEL; Future CBC WITH DIFF; Future LIPID PANEL REFLEX; Future MICROALBUMIN/CREATININE RATIO URINE; Future Insulin [place], Disposable, (BD ULTRA-FINE MINI PEN NEEDLE) 31 gauge x 3/16 [facility] Needle; Use pen needle to administer insulin from pens as directed Alcohol Swabs (ALCOHOL PREP PADS) Top Pads, Medicated; Apply 1 Each topically as needed. insulin glargine (LANTUS) 100 unit/mL (3 mL) SubQ Insulin Pen; Inject 50 Units under the skin every evening. insulin aspart U-100 (NOVOLOG) 100 unit/mL (3 mL) SubQ Insulin Pen; Inject 8 Units under the skin 3 times daily (before meals). Use as directed AMB REFERRAL TO PHARMACY/MEDICATION MANAGEMENT DULoxetine (CYMBALTA) 60 mg Oral Capsule, Delayed Release(E.C.); Take 1 Capsule by mouth daily. Assessment & Plan (11/25/2023 4:39 PM EST): Continue pregabalin at current dose Assessment & Plan (07/06/2023 12:48 PM EDT): -Continue pregabalin at current dose. See controlled substance agreement notes below. Major depressive disorder, r ecurrent severe without psychotic features 10/05/2021 Assessment & Plan (07/26/2025 3:20 PM EDT): Goal: achieve mental health wellness where ADLs, [...] daily if needed Hydroxyzine refill sent Orders: hydrOXYzine (ATARAX) 25 mg Oral Tablet; Take 1 Tablet by mouth 3 times daily as needed. for anxiety DULoxetine (CYMBALTA) 60 mg Oral Capsule, Delayed Release(E.C.); Take 1 Capsule by mouth daily. NC BEHAV ASSMT W/SCORE & DOCD/STAND INSTRUMENT Assessment & Plan (11/25/2023 4:40 PM EST): Stable Continue duloxetine AURORA (generalized anxiety disorder) 10/05/2021 Assessment & Plan (07/26/2025 3:20 PM EDT): Goal: achieve mental health wellness where ADLs, [...] daily if needed Hydroxyzine refill sent Orders: hydrOXYzine (ATARAX) 25 mg Oral Tablet; Take 1 Tablet by mouth 3 times daily as needed. for anxiety DULoxetine (CYMBALTA) 60 mg Oral Capsule, Delayed Release(E.C.); Take 1 Capsule by mouth daily. NC BEHAV ASSMT W/SCORE & DOCD/STAND INSTRUMENT Chronic pain of right knee 09/25/2021 Gastroparesis due to DM 09/14/2021 Hallux malleus of left foot 09/14/2021 Restless legs syndrome (RLS) 08/01/2016 Hyperlipidemia associated with type 2 diabetes chen lorenzo 04/16/2016 Assessment & Plan (07/26/2025 3:20 PM EDT): Atorvastatin 20 mg daily refilled CMP and lipid panel ordered Orders: atorvastatin (LIPITOR) 20 mg Oral Tablet; Take 1 Tablet by mouth daily. COMPREHENSIVE METABOLIC PANEL; Future CBC WITH DIFF; Future LIPID PANEL REFLEX; Future Assessment & Plan (11/25/2023 4:38 PM EST): Plan for lipid panel at follow up visit Assessment & Plan (07/06/2023 12:48 PM EDT): -Recently had lipid panel done within the year did not repeat today -Continue atorvastatin medication Type 2 diabetes mellitus wit h hyperglycemia, with long-term current use of insulin 01/29/2016 Assessment & Plan (08/17/2025 2:01 PM EDT): Goal A1C: < 6.5 and TIR >70% [...] took place at today's visit (see orders) Assessment & Plan (08/07/2025 12:51 PM EDT): Goal A1C: < 6.5 and TIR >70% - Last A1c - 11.6 - 07/26/2025 - not at goal Compliance: - non-compliant with diet. Advised to follow a low carbohydrate / diabetic diet - non-compliant with medication. Advised to take medication as prescribed Home Glucose Monitoring: - FSBS - four times daily Retinopathy Screening: - patient has [...] took place at today's visit (see orders) Orders: BASIC METABOLIC PANEL; Future insulin aspart U-100 (NOVOLOG) 100 unit/mL (3 mL) SubQ Insulin Pen; Inject 12 Units under the skin 3 times daily (before meals). Use as directed Assessment & Plan (08/07/2025 12:51 PM EDT): Goal A1C: < 6.5 and TIR >70% - Last A1c - 11.6 - 07/26/2025 - not at goal Compliance: - non-compliant with diet. Advised to follow a low carbohydrate / diabetic diet - non-compliant with medication. Advised to take medication as prescribed Home Glucose Monitoring: - FSBS - four times daily Retinopathy Screening: - patient has [...] took place at today's visit (see orders) Orders: BASIC METABOLIC PANEL; Future insulin aspart U-100 (NOVOLOG) 100 unit/mL (3 mL) SubQ Insulin Pen; Inject 12 Units under the skin 3 times daily (before meals). Use as directed Assessment & Plan (08/03/2025 12:05 PM EDT): Educated on findings. Patient symptomatic - discussed risks, benefits, and outcomes of cataract surgery. Patient declines consult at this time. He is aware he can call at anytime for appointment with Dr. Lemus. Patient requested manifest refraction and new [...] - OCT nerve WNL; OCT retina WNL. Assessment & Plan (10/29/2023 11:09 AM EST): Goal A1C: < 7.0 and TIR >70% - Last A1c - 11.0 - 10/01/2023 - not at goal - improving Compliance: - non-compliant with diet and medication. Advised to follow a low carbohydrate / diabetic diet and take medications as prescribed Home Glucose Monitoring: - working on using the dexcom Retinopathy Screening: Retinopathy Present - Last Eye Exam - 08/06/2023 ASA Therapy: - patient currently on aspirin Statin Therapy: - currently on a statin Medication Management: - medication management decisions took place at today's visit (see orders) 45 units lantus, 6 units novolg TID, likely need increase in these. Will view glucose reading prior to adjustment Start ozempic Increase jardiance to 25mg Diabetes education Assessment & Plan (07/06/2023 12:47 PM EDT): Goal A1C: < 7.0 and TIR >70% - Last A1c - 8.8 - 01/07/2023 - not at goal - A1C ordered today Compliance: - non-compliant with diet and medication. Advised to follow a low carbohydrate / diabetic diet and take medications as prescribed Retinopathy Screening: Retinopathy Present - Last Eye Exam - 12/03/2021 - patient reminded to complete a retinal exam annually - IRIS completed today Nephropathy Assessment: - microalbumin screening completed in the past 12 months Foot Assessment: Last Foot Exam Date - 11/06/2021 - no ulcers or pre-ulcers ASA Therapy: - patient currently on aspirin Statin Therapy: - currently on a statin Medication Management: - a reassessment of the patients current diagnoses, medications, labs, potential SE, appropriate dose and risks assessed and discussed today -Had to decrease the metformin dose due to side effects. However given last A1c suspect that this will only worsen the diabetic control and will need alternative method for control -He reports he is not taking the semaglutide and discussed with him the likelihood of having to restart this medication. -Also discussed with him it was likely that the A1c will reflect the need for tighter control and will probably have to change insulin doses. -Additionally can go up on the Ozempic dose given that he is only at the 0.25 which is really a transition dose rather than through a therapeutic - Hypertension associated with diabetes Assessment & Plan (08/17/2025 2:01 PM EDT): Goal BP: <130/80 BP Readings from Last [...] took place at today's visit (see orders) Assessment & Plan (08/07/2025 11:05 AM EDT): Goal BP: <130/80 BP Readings from Last 3 Encounters: 08/07/25 123/90 07/26/25 120/84 06/26/25 139/83 - at goal Compliance: - compliant with medications Home Blood Pressure Monitoring: - continue home BP monitoring as previous and bring readings to each office visit Advice: - continue a low salt diet and remain physically active Medication Management: - medication management decisions took place at today's visit (see orders) Assessment & Plan (07/26/2025 3:20 PM EDT): Goal BP: <130/90 BP Readings from Last [...] total fat) - increased dietary potassium consumption (4248-0493 mg of potassium per day) Medication Management: [...] - ok to resume given tachycardia Orders: aspirin 81 mg Oral Tablet, Delayed Release (E.C.); Take 1 Tablet by mouth daily (with breakfast). metoprolol succinate (TOPROL-XL) 200 mg Oral Tablet Sustained Release 24 hr; Take 1 Tablet by mouth daily. COMPREHENSIVE METABOLIC PANEL; Future CBC WITH DIFF; Future MICROALBUMIN/CREATININE RATIO URINE; Future AMB REFERRAL TO PHARMACY/MEDICATION MANAGEMENT Assessment & Plan (11/25/2023 4:35 PM EST): Goal BP: <140/90 in office and <135/85 at home - at goal Compliance: - compliant with medications Medication Management: - a reassessment of the patients current diagnoses, medications, labs, potential SE, appropriate dose and risks assessed and discussed today Assessment & Plan (10/29/2023 11:07 AM EST): Goal BP: <140/90 in office and <135/85 at home - at goal Medication Management: - a reassessment of the patients current diagnoses, medications, labs, potential SE, appropriate dose and risks assessed and discussed today Assessment & Plan (07/06/2023 12:41 PM EDT): Goal BP: <140/90 in office and <135/85 at home - at goal Compliance: - compliant with medications Medication Management: - a reassessment of the patients current diagnoses, medications, labs, potential SE, appropriate dose and risks assessed and discussed today GERD without esophagitis Resolved Problems Problem Noted Date Diagnosed Date Resolved Date DEMAR (acute kidney injury) 06/22/2025 Acute low back pain without sciatica, unspecified back pain laterality 06/21/2025 025 Cellulitis of hand 02/12/2024 Dog bite 02/12/2024 07/31/2025 Severe hyperglycemia due to diabetes mellitus 02/12/20 24 08/07/2025 Acute osteomyelitis of left ankle or foot 11/14/2023 11/25/2023 Diabetic foot infection 11/06/202311/16 Acute kidney injury superimp osed on chronic kidney disease 11/06/2023 11/25/2023 Hyponatremia 11/06/2023 11/25/2023 Diabetic foot infection 10/18/202310/16 Diabetic infection of left foot 10/07/2023 10/29/2023 Osteomyelitis of ankle or foot, left, acute 10/05/2023 10/29/2023 Abscess of left foot 10/02/2023 023 Gangrenous toe 10/01/2023 10/29/2023 Gangrene of toe of left foot 10/01/2023 10/29/2023 Folate deficiency 07/06/2023 08/07/2025 Assessment & Plan (07/26/2025 3:20 PM EDT): Folic acid refilled Orders: folic acid (FOLVITE) 1 mg Oral Tablet; Take 1 Tablet by mouth daily. Take 1 tablet by mouth once daily CBC WITH DIFF; Future Assessment & Plan (07/06/2023 1:27 PM EDT): Recheck at follow up Amputation of toe of left foot 01/07/2023 10/29/2023 Overview (01/07/2023): Secondary to osteo, diabetic foot infection Follows with podiatry Assessment & Plan (01/07/2023 12:31 PM EST): Continue to follow up with podiatry Regular foot exams Consider diabetic shoes Diabetic ulcer of toe of lef t foot associated with type 2 diabetes mellitus, with fat layer exposed 12/09/2021 04/16/2022 Hospital discharge follow-up 11/26/2021 01/07/2023 Chronic osteomyelitis involv ing ankle and foot, left 11/15/2021 10/29/2023 Diabetic ulcer of toe of lef t foot associated with type 2 diabetes mellitus, with necrosis of bone 11/15/2021 04/16/2022 Pathological fracture of pha lanx of toe of left foot with delayed healing 11/15/2021 Hallux malleus of left foot 11/15/2021 04/16/2022 Hammer toe of left foot 11/15/202110/16 Diarrhea 11/14/2021 01/07/2023 Homeless 10/17/2021 01/07/2023 Complicated bereavement 10/05/202107/17 Osteomyelitis of left foot 10/03/2021 0 01/07/2023 Hypokalemia 09/15/2021 01/07/2023 History of COVID-19 09/15/2021 02/21/20 Sepsis without acute organ dysfunction 09/14/2021 10/17/2021 Diabetic ulcer of toe of lef t foot associated with type 2 diabetes mellitus, with necrosis of bone 09/14/2021 04/16/2022 Diabetic peripheral neuropathy 01/19/2017 10/29/2023 Primary osteoarthritis invol ving multiple joints 08/01/2016 10/29/2023 Overview (01/07/2023): Both knees, ortho wanted patient to have surgery Assessment & Plan (07/06/2023 12:51 PM EDT): Patient requested x-ray of knees today. Explained to him we do not use serial x- rays to monitor the osteoarthritis and he just had an x-ray back in 2021. He states he did follow with Ortho since he at one time who wanted patient to have surgery but he declined. Discussed with him possible barrier to the surgical procedure will be the 6-week recovery time and he has no one to take care of him. However they did discuss the option of inpatient rehab which patient might be interested in Severe obesity (BMI 35.0-39. 9) with comorbidity 06/14/2014 07/31/2025 Assessment & Plan (11/25/2023 4:39 PM EST): Continue titration up on ozempic as tolerated AURORA (generalized anxiety disorder) 04/16/2022 Cellulitis of left foot 10/16 Ulcer of left foot, with fat layer exposed 07/06/2023 Cellulitis and abscess of toe of left foot 04/16/2022 Encounters Date Type Department Care Team Description 09/18/2025 Telephone [facility] [address] [place] [phone] Zuly Gasca MA Other; Medication Management (All Meds canceled by pharmacy due to Pt's behavior) 09/15/2025 2:00 PM EDT Telemedicine [facility] [address] [place] [address] Julianna Eid APRN Elevated blood pressure reading (Primary Dx) 09/15/2025 Refill [facility] [address] [place] [phone] Stacy Mccabe APRN Medication Refill 09/15/2025 Travel 09/15/2025 Telephone [facility] [address] [place] [phone] Gordo Jordan MD Medication Management (FREESTYLE LANCETS 28 gauge Misc Misc/) 09/15/2025 Nurse Triage [facility] [address] [place] [phone] Gordo Jordan MD 09/13/2025 Telephone [facility] [address] [place] [phone] Gordo Jordan MD Other (Did you get a Fax ); Patient Returning Call (On form ) 08/31/2025 Refill [facility] [address] [place] [phone] Gordo Jordan MD Medication Refill 08/31/2025 Telephone [facility] [address] [place] [phone] Stacy Mccabe APRN Medication Refill; Follow Up (Multiple Meds ) 08/31/2025 Telephone [facility] [address] [place] [phone] Gordo Jordan MD Medication Management (All medications ) 08/31/2025 Refill [facility] [address] [place] [phone] Gordo Jordan MD Medication Refill; Patient Returning Call ( ) 08/30/2025 Telephone [facility] [address] [place] [phone] Gordo Jordan MD Refill (Insulin [place], Disposable, (BD ULTRA-FINE MINI PEN NEEDLE) 31 gauge x 01/29 Misc Needle / insulin glargine (LANTUS) 100 unit/mL (3 mL) SubQ Insulin Pen); Medication Management (Pharmacy called to get status update for pt- pt is anxious about getting this called in) 08/30/2025 Refill [facility] [address] [place] [phone] Stacy Mccabe APRN Medication Refill 08/22/2025 Refill [facility] [address] [place] [phone] Gordo Jordan MD Medication Refill 08/22/2025 Telephone [facility] [address] [place] [phone] Gordo Jordan MD Symptoms (Only Use If Pt Pushes Back On Scheduling A Visit) (pt said his sugar has been running in the 400s for a week, no symptoms. Adv pt to speak to nurse triage, pt declined. ) 08/21/2025 Telephone [facility] [address] [place] [phone] Stacy Mccabe APRN Medication Refill (Toprol, Tylenol) 08/21/2025 Telephone [facility] [address] [place] [phone] Gordo Jordan MD Symptoms (Only Use If Pt Pushes Back On Scheduling A Visit) (High blood sugar x1 day ) 08/20/2025 Refill [facility] [address] [place] [phone] Gordo Jordan MD Medication Refill 08/20/2025 Refill [facility] [address] [place] [phone] tSacy Mccabe APRN Medication Refill (Multiple meds) 08/20/2025 Refill [facility] [address] [place] [phone] Stacy Mccabe APRN Medication Refill; Follow Up (Med refill ) 08/17/2025 1:45 PM EDT Office Visit [facility] [address] [place] [phone] Gordo Jordan MD Type 2 diabetes mellitus with hyperglycemia, with long-term current use of insulin (HCC) (Primary Dx); Acute kidney injury superimposed on stage 2 chronic kidney disease; Hypertension associated with diabetes (HCC) 08/16/2025 Refill [facility] [address] [place] [phone] Gordo Jordan MD 08/16/2025 Refill [facility] [address] [place] [phone] Stacy Mccabe APRN 08/16/2025 Travel 08/13/2025 8:11 AM EDT - 08/13/2025 11:03 AM EDT Emergency [facility] [address] [place] [address] Chandni Bass DO Uncontrolled type 2 diabetes mellitus with hyperglycemia (HCC) (Primary Dx); Chronic kidney disease, unspecified CKD stage Discharge Disposition: Home or Self Care 08/09/2025 Travel 08/09/2025 Patient Outreach [facility] [address] App[address] [place] [address] Helen Patel CM- Telephonic Outreach 08/08/2025 9:45 AM EDT Office Visit [facility] [address] [place] [address] Zane Méndez DO Primary osteoarthritis of both knees (Primary Dx); Pain in both knees, unspecified chronicity 08/08/2025 8:35 AM EDT Ancillary Procedure [facility] [address] [place] [address] Zane Méndez DO Pain in both knees, unspecified chronicity 08/08/2025 Results Follow-Up [facility] [address] [place] [phone] Stacy Mccabe APRN BASIC METABOLIC PANEL 08/08/2025 Telephone [facility] [address] [place] [phone] Gordo Jordan MD Prior Authorization (Lyrica and lidocaine) 08/07/2025 10:30 AM EDT Office Visit [facility] [address] [place] [phone] Gordo Jordan MD Type 2 diabetes mellitus with hyperglycemia, with long-term current use of insulin (HCC) (Primary Dx); Uncontrolled type 2 diabetes mellitus with hyperglycemia, with long-term current use of insulin (HCC); Diabetic polyneuropathy associated with type 2 diabetes mellitus ([facility]); Obesity, Class I, BMI 30-34.9; Hypertension associated with diabetes ([facility]); Tongue lesion; DEMAR (acute kidney injury) 08/07/2025 Telephone [facility] [address] [place] [phone] Gordo Jordan MD Forms (Was form received?) 08/07/2025 Telephone [facility] [address] [place] [phone] Gordo Jordan MD Prior Authorization (Lyrica, Lidocaine) 08/04/2025 Telephone [facility] [address] [place] [phone] Gordo Jordan MD Other (Blood Pressure Monitor Misc Kit) 08/03/2025 1:00 PM EDT Office [place] [facility] [place] [address] [phone] Czirr, Belinda, OD Blurred vision, bilateral (Primary Dx); Combined forms [...] with long-term current use of insulin (HCC) 08/02/2025 Telephone [facility] [address] [place] [phone] Gordo Jordan MD Other (On apt ) 08/02/2025 Patient Outreach [facility] [address] Appoint[place] [address] Helen Patel CM- Telephonic Outreach; Transportation; CM - Contact Made; Other 08/01/2025 Travel 08/01/2025 Telephone [facility] [address] [place] [phone] Gordo Jordan MD Other (Transportation ); Follow Up (Transportation) 07/31/2025 Patient Outreach [facility] [address] Appointment [place] [address] Helen Patel CM- Telephonic Outreach; CM - Contact Made; Transportation 07/30/2025 Travel 07/28/2025 Telephone [facility] [address] [place] [phone] Gordo Jordan MD Other (Patient is asking why an appointment was scheduled with Danielle Monroy. ); CM- Telephonic Outreach 07/28/2025 Telephone [facility] [address] [place] [phone] Gordo Jordan MD Results (Pt seeking results) 07/28/2025 Patient Outreach [facility] [address] Appoint[place] [address] Helen Patel CM- Telephonic Outreach 07/27/2025 Results [facility] [address] [place] [phone] Stacy Mccabe APRN COMPREHENSIVE METABOLIC PANEL, CBC WITH DIFF, LIPID PANEL REFLEX, Additional followed-up results: 2 07/27/2025 Patient Outreach [facility] [address] Appointment Location [place] [phone] Helen Patel Referral 07/27/2025 Telephone [facility] [address] [place] [phone] Gordo Jordan MD Results (Labs); Follow Up (Lab results) 07/27/2025 Telephone [facility] [address] [place] [phone] Gordo Jordan MD Medication Management (Metoprolol ); Follow Up (Med update) 07/27/2025 Telephone [facility] [address] [place] [phone] Gordo Jordan MD Other (Speak with Management); Results (Patient seeking results- 07/26, Stacy Mccabe APRN ) 07/26/2025 11:00 AM EDT Clinical Support [facility] [address] [place] [phone] Danielle Monroy RN Enrolled in chronic care management (Primary Dx); Type 2 diabetes mellitus with hyperglycemia, with long-term current use of insulin ([facility]); Hyperlipidemia associated with type 2 diabetes mellitus ([facility]) 07/26/2025 9:45 AM EDT Office Visit [facility] [address] [place] [phone] Stacy Mccabe APRN Uncontrolled type 2 diabetes mellitus with hyperglycemia, with long-term current use of insulin ([facility]) (Primary Dx); Diabetic polyneuropathy associated with type 2 diabetes mellitus ([facility]); Hyperlipidemia associated with type 2 diabetes mellitus ([facility]); Hypertension associated with diabetes ([facility]); Chronic bilateral low back pain without sciatica; Major depressive disorder, recurrent severe without psychotic features ([facility]); AURORA (generalized anxiety disorder); Gastroesophageal reflux disease without esophagitis; Folate deficiency; Primary osteoarthritis of both knees; Impaired mobility; Status post transmetatarsal amputation of foot, left (HCC); Contracture of joints of both ankle and foot of left lower extremity; Primary osteoarthritis involving multiple joints; Screening for prostate cancer; Oral aphthous ulcer 07/26/2025 Telephone [facility] [address] [place] [phone] Gordo Jordan MD Refill (Multi refills); Follow Up (Appt with Dr. Jordan / Patient calling back about this ) 07/26/2025 Telephone [facility] [address] [place] [phone] Gordo Jordan MD Medication Management 07/26/2025 Telephone [facility] [address] [place] [phone] Ainsley Luther, DO Medication Management (Magic Mouth ) 07/25/2025 10:30 AM EDT Office Visit [facility] [place] [facility] [address] [place] [phone] Lauryn Moore DPM History of transmetatarsal amputation of left foot (HCC) (Primary Dx); Diabetic polyneuropathy associated with type 2 diabetes mellitus (HCC); Acquired hammer toe of right foot 07/25/2025 Telephone [facility] 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 [place] [phone] Gordo Jordan MD Appointment Needed (Appt needed ) 06/22/2025 12:03 AM EDT - 06/26/2025 4:07 PM EDT Hospital Encounter [facility] [address] [place] [address] [place] [address] Ben العراقي MD Discharge Disposition: Home or Self Care 06/21/2025 7:51 PM EDT - 06/21/2025 11:45 PM EDT Emergency [facility] [address] [place] [address] Grace Barber MD Motiani, Karan, MD Acute low back pain without sciatica, unspecified back pain laterality (Primary Dx); Dehydration; DEMAR (acute kidney injury); Homeless; Hypokalemia Discharge Disposition: Discharge/Readmit 06/21/2025 Travel from Last 3 Months Immunizations Immunization Administration Dates Next Due Hepatitis A, Adult 06/16/2018 Hepatitis B, Adult 08/04/2019 Influenza Patient Reported 07/13/2015 Influenza Vaccine Quadrivalent PF 11/25/2023 Influenza Vaccine, Unspecified Formulation 07/13,07/22/2014 Influenza Virus Vaccine Quadrivalant, Flublok Influenza, Recombinant, Injectable, Preservative Free 07/16/2025 Moderna SARS-CoV-2 Vaccine 12+ Yrs (Light blue b order) 02/26/2021 Pfizer SARS-CoV-2 Bivalent B ooster Vaccine 12+ Years (Cain border) 01/07/2023 Pfizer SARS-CoV-2 Vaccine 12+ Yrs (Purple Cap) 0 03/29/2021,03/08/2021 Pfizer SARS-CoV-2 Vaccine Yogesh-sucrose 12+ Yrs 1 12/30/2022 Pneumococcal Polysaccharide 23 Valent 03/10/2016 Tdap 11/16/2008 Surgical History Surgery Date Site/Laterality Comments TOE AMPUTATION 12/12/2021 Left PARTIAL AMPUTATION OF LEFT SECOND TOE; Surgeon: Adrian Lazo DPM; Location: [facility] MAIN OR; Service: Podiatry TOE AMPUTATION 10/02/2023 Foot/Ankle/Left Left third toe amputation with incision and drainage soft tissue and bone left foot; Surgeon: Jose Angel Mills DPM; Location: [facility] MAIN OR; Service: Podiatry TOE AMPUTATION 10/09/2023 Foot/Ankle/Left Foot/Ankle/Left revision transmetatarsal amputation left foot with percutaneous achilles tendon lengthing; Surgeon: Adrian Lazo DPM; Location: [facility] MAIN OR; Service: Podiatry ACHILLES TENDON SURGERY 10/09/2023 Foot/Ankle/Left Surgeon: Adrian Lazo DPM; Location: [facility] MAIN OR; Service: Podiatry FOOT SURGERY 10/06/2023 Foot/Ankle/Left Left transmetatarsal amputation; Surgeon: Jose Angel Mills DPM; Location: [facility] MA[facility]; Service: Orthopedics FOOT SURGERY 11/12/2023 Foot/Ankle/Left left foot incision and drainage with bone biopsy; Surgeon: Adrian Lazo DPM; Location: [facility] MAIN OR; Service: Podiatry FOOT SURGERY 11/15/2023 Foot/Ankle/Left left foot debridement and delayed primary closure; Surgeon: Keshawn Barlow DPM; Location: [facility] MAIN OR; Service: Podiatry AMPUTATION 10/08 VASCULAR SURGERY Medical History Medical History Date Comments AURORA (generalized anxiety disorder) Osteoarthritis of both knees Depression 10/17/2018 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 Sleep apnea Hypertension Diabetes mellitus (HCC) History of COVID-19 09/15/2021 GERD (gastroesophageal reflux disease) Urinary incontinence 11/09/17 Foot ulcer (HCC) Difficulty walking Neuropathy in diabetes (HCC) Headache Chronic kidney disease Hyperlipidemia Family History Medical History Relation Name Comments High Blood Pressure Brother 1 Philip shepperd Hypertension Brother 1 Philip shepperd Heart Disease Brother 2 Sekou shepperd Hypertension Brother 2 Sekou shepperd Diabetes Father Philip shepperd High Blood Pressure Father Philip shepperd Diabetes Mother Kayla shepperd Heart Disease Mother Kayla shepperd High Blood Pressure Mother Kayla shepperd Hypertension Mother Kayla shepperd Cataracts Neg Hx Glaucoma Neg Hx Macular Degen Neg Hx Relation Name Status Comments Brother 1 Philip shepperd Alive Brother 2 Sekou shepperd Father Philip shepperd Alive Mother Kayla shepperd Social History Tobacco Use Types Packs/Day Years Used Date Smoking Tobacco: Some Days Cigarettes 0.6 8 Started: 11/16/1986; Last attempted to quit: 11/16/1990 Passive Smoke Exposure: Never Smokeless Tobacco: Never Alcohol Use Standard Drinks/Week Comments Yes 4 (1 standard drink = 0.6 oz pure alcohol) Sober for 20 years until May 2022 [facility] Utilities Answer Date Recorded In the past 12 months has [employer], oil, or water [employer] threatened to shut off services in your home? No 06/22/2025 Overall Financial Resource Strain (CARDIA) Answe r Date Recorded How hard is it for you to pa y for the very basics like food, housing, medical care, and heating? Somewhat hard 06/22/2025 PHQ-2 Answer Date Recorded PHQ-2 Total Score 5 07/26/2025 [facility] - Occupational Stress Questionnaire Answer Date [...] things needed for daily living? No 11/10/2023 [facility] IP Transportation Answer D ate [...] file Not on file Not on file Last Filed Vital Signs Vital Sign Reading Time Taken Comments Blood Pressure 122/84 08/17/2025 12:48 PM EDT Pulse 104 08/17/2025 12:48 PM EDT Temperature 36.6 C (97.9 F) 08/17/2025 12:48 PM EDT Respiratory Rate 16 08/13/2025 11:0 0 AM EDT Oxygen Saturation 99% 08/17/2025 12: 48 PM EDT Inhaled Oxygen Concentration - - Weight 118.1 kg (260 lb 6.4 oz) 025 12:48 PM EDT Height 185.4 cm (6' 1 ) 08/17/2025 12:4 8 PM EDT Body Mass Index 34.36 08/17/2025 12:48 PM EDT Plan of Treatment Upcoming Encounters Date Type Department Care Team (Late st Contact Info) Description 10/09/2025 10:30 AM EST Office Visit SEP [facility] [address] [place] [phone] Gordo Jordan MD [address] [place] [phone] 02/01/2026 11:00 AM EDT Office Visit SEP Ophthalmology [facility] [address] [facility] [address] [place] [phone] Belinda Marques OD [address] [place] [address] Health Maintenance Due Date Last Done Comments Cologuard 2011 Colon Cancer Screening 2011 Colonoscopy 2011 FIT 2011 Sigmoidoscopy 2011 Virtual Colonography 2011 Zoster (1 of 2) 2016 DTaP/TDaP/Td (2 - Td or Tdap) 11/16/2018 11/16/2008 Hepatitis A Vaccine (2 of 2 - Risk 2-dose series) 12/17/2018 06/16/2018 Annual Wellness Exam 01/07/2024 01/07/2023 Hepatitis B Vaccine (3 of 3 - 19+ 3-dose series) 10/15/2025 08/20/2025, 08/04/2019 Hemoglobin A1c 01/23/2026 07/26/2025, 0806/2025, 02/13/2024, Additional history exists Kidney Health: uACR 07/26/2026 07/26/2025, 09/25/2020, 06/30/2018, Additional history exists Lipids 07/26/2026 07/26/2025, 12/18, 08/19/2022, Additional history exists Diabetic Eye Exam 08/03/2026 08/03/2025, , 07/07/2023, Additional history exists Kidney Health: eGFR 08/13/2026 08/13/2025, 08/07/2025, 07/26/2025, Additional history exists Influenza Vaccine Completed 07/16/2025, , 08/19/2022, Additional history exists COVID-19 Vaccine Completed 08/09/2025, , 01/07/2023, Additional history exists Pneumococcal Vaccine 50+ Completed 08/20/2025, 02/15 Meningococcal B Vaccine Aged Out No l onger eligible based on patient's age to complete this topic Goals Goal Patient Goal Type Associated Problems [...] next follow up appointment with director career services General Not on track(2024 10:05 AM EDT) [...] 12:48 PM EDT) No Angel Duffy MD Procedures Procedure Name Priority Date/Time Associated Diagnosis Comments LIPASE LEVEL STAT 08/13/2025 8:28 AM EDT COMPREHENSIVE METABOLIC PANEL STAT 08/13/2025 8:28 AM EDT CBC WITH DIFF STAT 08/13/2025 8:28 AM EDT URINALYSIS REFLEX STAT 08/13/2025 8:22 AM EDT UA W/REFLEX TO CULTURE STAT 08/13/2025 8:22 AM EDT EXTRA CAIN URINE CX STAT 08/13/2025 8:22 AM EDT XR KNEE BILATERAL AP LATERAL INTERNAL AND EXTERNAL OBLIQUES Routine 08/08/2025 9:01 AM EDT Pain in both knees, unspecified chronicity BASIC METABOLIC PANEL Routine 08/07/2025 10:23 AM EDT Type 2 diabetes mellitus with hyperglycemia, with long-term current use of insulin (HCC) POCT GLYCATED HEMOGLOBIN, TOTAL Routine 07/26/2025 10:27 AM EDT Uncontrolled type 2 diabetes mellitus with hyperglycemia, with long-term current use of insulin (HCC) Diabetic polyneuropathy associated with type 2 diabetes mellitus (HCC) ALBUMIN/CREATININE RATIO, RANDOM URINE Routine 07/26/2025 10:21 AM EDT Uncontrolled type 2 diabetes mellitus with hyperglycemia, with long-term current use of insulin (HCC) Diabetic polyneuropathy associated with type 2 diabetes mellitus (HCC) Hypertension associated with diabetes (HCC) PROSTATE SPECIFIC ANTIGEN (SCREENING) Routine 07/26/2025 10:21 AM EDT Screening for prostate cancer LIPID PANEL REFLEX Routine 07/26/2025 10:21 AM EDT Uncontrolled type 2 diabetes mellitus with hyperglycemia, with long-term current use of insulin (HCC) Diabetic polyneuropathy associated with type 2 diabetes mellitus (HCC) Hyperlipidemia associated with type 2 diabetes mellitus (HCC) CBC WITH DIFF Routine 07/26/2025 10:21 [...] mellitus (HCC) Hypertension associated with diabetes (HCC) GLUCOSE METER POC Routine 06/26/2025 2:56 PM EDT GLUCOSE METER POC Routine 06/26/2025 12:13 PM EDT GLUCOSE METER POC Routine 06/26/2025 8:11 AM EDT GLUCOSE METER POC Routine 06/25/2025 10:33 PM EDT GLUCOSE METER POC Routine 06/25/2025 5:16 PM EDT GLUCOSE METER POC Routine 06/25/2025 12:12 PM EDT GLUCOSE METER POC Routine 06/25/2025 8:28 AM EDT BASIC METABOLIC PANEL Routine 06/25/2025 8:17 AM EDT GLUCOSE METER POC Routine 06/24/2025 6:52 PM EDT IP CONSULT TO ORTHOPEDIC SURGERY Routine 06/24/2025 12:29 PM EDT Procedure Note - Zane Méndez DO - 06/25/2025 7:58 AM EDTThis note is in progress. Images from the original note were not included. PATIENT NAME: Renetta Grubbs DATE OF (age): 60 y.o. PHYSICIAN: Michael Méndez DO Date of Visit: 06/25/2025 60 year old male with nondisplaced, axially stable sacral fracture andlumbar spondylotic findings on recent MRI. Orthopedic surgery consultedfor recommendations. Exam; per chart, unlikely any focal neurologic deficits FINDINGS: There is a nondisplaced horizontal fracture of the sacrum at the S2-L3 interspace. The included upper sacral ala on the axial images show nosacral ala fractures. Marrow signal: No aggressive marrow replacement. Modic type endplatechanges are noted at the L2-L3 level. Level by level analysis: L1-L2: There is mild broad-based disc bulge and mild facet hypertrophywithout neural encroachment. L2-L3: There is intervertebral narrowing and broad-based disc bulge withmild facet hypertrophy without neural encroachment. L3-L4: There is mild left foraminal disc bulge with crowding of theinferior recess of the left foramen. The lateral recesses, central canal andright foramen are patent. L4-L5: There is posterior midline annular tear with mild disc bulge,accentuated toward the left foramen. No neural encroachment. L5-S1: There is intervertebral narrowing with disc bulge, accentuated atboth foramina as well as bilateral facet hypertrophy. There is left greaterthan right foraminal stenosis. The lateral recesses and central canal arepatent. IMPRESSION: 1. Nondisplaced horizontal fracture of the sacrum at the S2-G4msgfalpuau. 2. Multilevel lumbar degenerative changes, most pronounced at L5-S1 wherethere is left greater than right foraminal stenosis Assessment: 60 year old male with lumbar spondylotic changes and foraminalstenosis; nondisplaced horizontal sacral fracture. Plan: No acute surgical intervention\ PT consult - WBAT Multimodal pain control - tylenol,steroid, toradol, low dose valium ifmuscle spasms, consider lidocaine patches as well If patient having focal neurologic symptoms recommend transfer to [facility] spine eval. Outpatient spine follow up Zane Méndez DO [facility] Office: [phone], [phone] GLUCOSE METER POC Routine 06/24/2025 11:58 AM EDT MRI LUMBAR SPINE WO CONTRAST MOI 06/24/2025 10:41 AM EDT BASIC METABOLIC PANEL Routine 06/24/2025 9:21 AM EDT CBC WITH DIFF Routine 06/24/2025 9:21 AM EDT GLUCOSE METER POC Routine 06/24/2025 9:10 AM EDT SHIGA TOXIN Routine 06/24/2025 5:57 AM EDT STOOL CULTURE (NO STAIN) Routine 06/24/2025 5:57 AM EDT GLUCOSE METER POC Routine 06/23/2025 8:41 PM EDT GLUCOSE METER POC Routine 06/23/2025 4:49 PM EDT C DIFF INTERPRETATION Routine 06/23/2025 4:36 PM EDT C DIFF TOXIN DNA Routine 06/23/2025 4:36 PM EDT GLUCOSE METER POC Routine 06/23/2025 12:58 PM EDT GLUCOSE METER POC Routine 06/23/2025 9:51 AM EDT HEMOGLOBIN A1C Routine 06/23/2025 6:35 AM EDT BASIC METABOLIC PANEL Early AM 06/23/2025 6:35 AM EDT GLUCOSE METER POC Routine 06/22/2025 9:29 PM EDT US RENAL AND BLADDER MOI 06/22/2025 7:13 PM EDT GLUCOSE METER POC Routine 06/22/2025 5:42 PM EDT GLUCOSE METER POC Routine 06/22/2025 1:53 PM EDT XR SACRUM AND COCCYX MOI 06/22/2025 12:14 PM EDT GLUCOSE METER POC Routine 06/22/2025 9:24 AM EDT SEDIMENTATION RATE AUTOMATED Routine 06/22/2025 8:02 AM EDT LACTIC ACID STAT 06/22/2025 8:02 AM EDT CBC WITH DIFF Routine 06/22/2025 8:02 AM EDT BLOOD CULTURE (NO STAIN) Routine 06/22/2025 8:02 AM EDT BLOOD CULTURE (NO STAIN) Routine 06/22/2025 8:02 AM EDT C-REACTIVE PROTEIN Routine 06/22/2025 8:01 AM EDT PROCALCITONIN Routine 06/22/2025 8:01 AM EDT MAGNESIUM LEVEL Routine 06/22/2025 8:01 AM EDT BASIC METABOLIC PANEL Routine 06/22/2025 8:01 AM EDT IP CONSULT TO SOCIAL WORK Routine 06/22/2025 1:24 AM EDT ADMIT Routine 06/22/2025 12:44 AM EDT PROCALCITONIN STAT 06/21/2025 11:17 PM EDT LACTIC ACID STAT 06/21/2025 11:17 PM EDT XR CHEST AP PORTABLE STAT 06/21/2025 11:01 PM EDT ADMIT STAT 06/21/2025 10:46 PM EDT GLUCOSE METER POC Routine 06/21/2025 10:06 PM EDT URINALYSIS REFLEX STAT 06/21/2025 9:48 PM EDT UA W/REFLEX TO CULTURE STAT 06/21/2025 9:48 PM EDT EXTRA CAIN URINE CX STAT 06/21/2025 9:48 PM EDT XR LUMBAR SPINE AP AND LATERAL MOI 06/21/2025 9:10 PM EDT BASIC METABOLIC PANEL STAT 06/21/2025 8:44 PM EDT CBC STAT 06/21/2025 8:44 PM EDT EK EKG 12 LEAD STAT 06/21/2025 8:37 PM EDT DIABETES EYE EXAM Routine 08/06/2023 9:39 AM EDT from Last 3 Months or Most Recently Relevant to Health Maintenance Results * (ABNORMAL) CBC WITH DIFF (08/13/2025 8:28 AM EDT) Only the most recent of4 resultswithin the time period is included. WBC 10.7(H) 3.7 - 10.3 x10(3)/mcL 08/13/2025 8:35 AM EDT [facility] RBC 4.99 4.60 - 6.10 x10(6)/mcL 08/13/2025 8:35 AM EDT [facility] Hgb 15.2 13.7 - 17.5 g/dL 08/13/2025 8:35 AM EDT [facility] Hct 43.2 40.0 - 51.0 % 08/13/2025 8:35 AM EDT [facility] MCV 86.6 80.0 - 100.0 fL 08/13/2025 8:35 AM EDT [facility] MCH 30.5 26.0 - 34.0 pg 08/13/2025 8:35 [address] EDT [facility] MCHC 35.2 30.7 - 35.5 g/dL 08/13/2025 8:35 AM EDT [facility] RDW 12.3 <=14.9 % 08/13/2025 8:35 AM EDT [facility] Platelet 354 155 - 369 x10(3)/mcL 08/13/2025 8:35 [address] EDT [facility] MPV 9.2 8.8 - 12.5 fL 08/13/2025 8:35 AM EDT [facility] Neut Percent 67.2 % 08/13/2025 8:35 AM EDT [facility] Comment:Neutrophils equals s egs plus bands Imm Gran% 0.4 % 08/13/2025 8:35 AM EDT [facility] Comment:Automated count of m etamyelocytes, myelocytes and promyelocytes. Lymph Percent 25.5 % 08/13/2025 8:35 AM EDT [facility] [place] Percent 5.3 % 08/13/2025 8:35 AM EDT [facility] Eos Percent 1.3 % 08/13/2025 8:35 AM EDT [facility] Baso Percent 0.3 % 08/13/2025 8:[address] [facility] Neut # 7.2(H) 1.6 - 6.1 x10(3)/mcL 08/13/2025 8:35 AM EDT [facility] Comment:Neutrophils equals s egs plus bands IMMGRAN# 0.0 0.0 - 0.1 x10(3)/mcL 08/13/2025 8:35 AM EDT [facility] Comment:Automated count of m etamyelocytes, myelocytes and promyelocytes. An absolute IG <0.1 is reported as 0.0. Lymph # 2.7 1.2 - 3.9 x10(3)/[facility] 08/13/2025 8:35 AM EDT [facility] [place] # 0.6 0.3 - 0.9 x10(3)/[facility] 08/13/2025 8:35 AM EDT [facility] Eos# 0.1 0.0 - 0.5 x10(3)/[facility] 08/13/2025 8:35 AM EDT [facility] Baso # 0.0 0.0 - 0.1 x10(3)/[facility] 08/13/2025 8:35 AM EDT [facility] Blood VENOUS BLOOD / Unknown Venipuncture / Unknown 08/13/2025 8:28 AM EDT 08/13/2025 8:33 AM EDT Chandni Bass DO HEMATOLOGY ORDERABLES Final Re sult Performing Organization Address [facility]/ZIP Co de Phone Number [facility] [address] [place] [address] * LIPASE LEVEL (08/13/2025 8:28 AM EDT) Pathologist [facility] Lipase Lvl 34 13 - 60 U/L 08/13/2025 8:55 AM EDT [facility] Blood VENOUS BLOOD / Unknown Venipuncture / Unknown 08/13/2025 8:28 AM EDT 08/13/2025 8:33 AM EDT Chandni Bass DO CHEMISTRY ORDERABLES Final Res ult Performing Organization Address [facility]/ZIP Co de Phone Number [facility] [address] [place] [address] * (ABNORMAL) COMPREHENSIVE METABOLIC PANEL (08/13/2025 8:28 AM EDT) Only the most recent of2 resultswithin the time period is included. Sodium 135(L) 136 - 145 mmol/L 08/13/2025 8:55 AM EDT [facility] Potassium 3.8 3.5 - 5.0 mmol/L 08/13/2025 8:55 AM [facility] Chloride 96(L) 98 - 107 mmol/L 08/13/2025 8:55 AM [facility] Total CO2 25 22 - 29 mmol/L 08/13/2025 8:55 AM [facility] Anion Gap 14 7 - 16 mmol/L 08/13/2025 8:55 AM T [facility] Calcium 9.6 8.6 - 10.4 mg/dL 08/13/2025 8:55 AM [facility] Glucose Lvl 429(H) 70 - 99 mg/dL 08/13/2025 8:55 AM [facility] BUN 20 6 - 20 mg/dL 08/13/2025 8:55 AM [facility] Creatinine 1.51(H) 0.67 - 1.30 mg/dL 08/13/2025 8:55 AM [facility] Albumin 4.3 3.5 - 5.2 gm/dL 08/13/2025 8:55 AM [facility] Total Protein 8.2 6.4 - 8.3 gm/dL 08/13/2025 8:55 AM [facility] Bili Total 0.5 0.2 - 1.4 mg/dL 08/13/2025 8:55 AM [facility] ALT 19 <=41 U/L 08/13/2025 8:55 AM [facility] AST 19 <=40 U/L 08/13/2025 8:55 AM [facility] Alk Phos 153(H) 40 - 129 U/L 08/13/2025 8:55 AM [facility] eGFR (CKD-EPIcr 2020) 53(L) >=60 mL/min/1.7 3 m2 08/13/2025 8:55 AM [facility] Comment:Estimated GFR was ca lculated using the CKD-EPIcr (2020) equation refit without race. The equation is recommended by the National Kidney Foundation - [place] [employer] of Nephrology Task Force. Blood VENOUS BLOOD / Unknown Venipuncture / Unknown 08/13/2025 8:28 AM EDT 08/13/2025 8:33 AM EDT us Chandni Bass DO CHEMISTRY ORDERABLES Final Res ult [facility] [address] [facility], [place] [id number] * (ABNORMAL) URINALYSIS REFLEX (08/13/2025 8:22 AM EDT) Only the most recent of2 resultswithin the time period is included. UA Color Light Yellow 08/13/2025 8:30 AM EDT [facility] UA Appear Clear Clear 08/13/2025 8:30 AM EDT [facility] UA Glucose 4+ (>1000mg/dL )(A) Negative mg/dL 08/13/2025 8:30 AM EDT [facility] UA Ketones Negative Negative mg/dL 08/13/2025 8:30 AM EDT [facility] UA Blood Negative Negative 08/13/2025 8:30 [address] EDT [facility] UA pH 6.0 5.0 - 8.0 pH 08/13/2025 8:30 AM EDT [facility] UA Protein Negative Negative mg/dL 08/13/2025 8:30 AM EDT [facility] UA Urobilinogen Normal <=1 mg/dL 8:30 [address] [facility] UA Bili Negative Negative 08/13/2025 8:[address] [facility] UA Nitrite Negative Negative 08/13/2025 8:30 [address] EDT [facility] UA Leuk Est Negative Negative 08/13/2025 8:30 [address] EDT [facility] UA Spec Grav 1.032 1.001 - 1.035 no units 08/13/2025 8:30 AM EDT [facility] Comment:Reference range jenny d for random specimens only. UA WBC 2 0 - 4 /HPF 08/13/2025 8:30 AM EDT [facility] UA RBC 1 0 - 3 /HPF 08/13/2025 8:30 AM EDT [facility] UA Squam Epi Few /LPF 08/13/2025 8:30 AM EDT [facility] UA Mucus Trace /LPF 08/13/2025 8:30 AM EDT [facility] Urine STRUCTURE OF URINARY TRACT PROPER / Unknown 08/13/2025 8:22 AM EDT 08/13/2025 8:24 AM EDT Chandni Bass DO URINE ORDERABLES Final Result Performing Organization Address City/[facility]/ZIP Co de Phone Number [facility] [address] [place] [address] * EXTRA CAIN URINE CX (08/13/2025 8:22 AM EDT) Only the most recent of2 resultswithin the time period is included. Urine STRUCTURE OF URINARY TRACT PROPER / Unknown 08/13/2025 8:22 AM EDT 08/13/2025 8:24 AM EDT Chandni Bass DO MICROBIOLOGY - GENERAL ORDERAB LES Final Result Performing Organization Address [facility] de Phone Number [facility] [address] [place] [address] * XR KNEE BILATERAL AP LATERAL INTERNAL AND EXTERNAL OBLIQUES (08/08/2025 9:01 AM EDT) Cheryl Evans - 08/08/2025 9:01 AM EDT Please see physician's note from office encounter for x-ray imaging result Zane Méndez DO IMG DIAGNOSTIC IMAGING ORDERAB LES Final Result * (ABNORMAL) BASIC METABOLIC PANEL (08/07/2025 10:23 AM EDT) Only the most recent of6 resultswithin the time period is included. Sodium 135(L) 136 - 145 mmol/L 08/07/2025 3:34 PM EDT [facility] Potassium 3.7 3.5 - 5.0 mmol/L 08/07/2025 3:34 PM EDT [facility] Chloride 94(L) 98 - 107 mmol/L 08/07/2025 3:34 PM EDT [facility] Total CO2 25 22 - 29 mmol/L 08/07/2025 3:34 PM EDT [facility] Anion Gap 16 7 - 16 mmol/L 08/07/2025 3:34 PM EDT [facility] Calcium 9.6 8.6 - 10.4 mg/dL 08/07/2025 3:34 PM EDT [facility] Glucose Lvl 415(H) 70 - 99 mg/dL 08/07/2025 3:34 PM EDT [facility] BUN 28(H) 6 - 20 mg/dL 08/07/2025 3:34 PM EDT [facility] Creatinine 1.70(H) 0.67 - 1.30 mg/dL 08/07/2025 3:34 PM EDT [facility] eGFR (CKD-EPIcr 2020) 46(L) >=60 mL/min/1.7 3 m2 08/07/2025 3:34 PM EDT [facility] Comment:Estimated GFR was ca lculated using the CKD-EPIcr (2020) equation refit without race. The equation is recommended by the National Kidney Foundation - [place] [employer] of Nephrology Task Force. Blood VENOUS BLOOD / Unknown Venipuncture / Unknown 08/07/2025 10:23 AM EDT 08/07/2025 10:23 AM EDT Gordo Jordan MD CHEMISTRY ORDERABL ES Final Result [facility] [address] [facility] , [place] [address] * (ABNORMAL) POCT GLYCATED HEMOGLOBIN, TOTAL (07/26/2025 10:27 AM EDT) Hemoglobin A1C 11.6(A) 4 - 6 % SEP OFFICE Lot Number SEP OFFICE Expiration Date SEP OFFICE SeriAl # SEP OFFICE 07/26/2025 10:2 7 AM EDT Stacy Mccabe APRN POINT OF CARE TEST ORDERABL ES Final Result SEP OFFICE * (ABNORMAL) LIPID PANEL REFLEX (07/26/2025 10:21 AM EDT) Cholesterol 150 <200 mg/dL 07/26/2025 5:29 PM EDT [facility] Comment: < 200 Desirable 200 - 239 Borderline High >= 240 High Triglyceride 149 <150 mg/dL 07/26/2025 5:29 PM EDT [facility] Comment: < 150 Normal 150 - 199 Borderline High 200 - 499 High >= 500 Very High HDL 36(L) >=40 mg/dL 07/26/2025 5:29 PM EDT [facility] Comment: > 60 Optimal 40 - 60 Acceptable < 40 Low LDL Calculated 88 <100 mg/dL 07/26/2025 5:29 PM EDT [facility] Comment: < 100 Optimal 100 - 129 Near or above optimal 130 - 159 Borderline High 160 - 189 High >= 190 Very High The National Institutes of Health (NIH) equation is used for all lipid panels that report calculated LDL (LDL-C). Non-HDL-C Calculated 114 <=129 mg/dL 07/26/2025 5:29 PM EDT [facility] Comment: <130 Desirable 130-159 Above Desirable 160-189 Borderline High 190-219 High >= 220 Very High Fasting Specimen? Unknown None 025 5:29 PM EDT [facility] Blood VENOUS BLOOD / Unknown Venipuncture / Unknown 07/26/2025 10:21 AM EDT 07/26/2025 10:21 AM EDT Stacy Mccabe APRN CHEMISTRY ORDERABLES Final Result [facility] [address] [facility] , [place] [address] * PROSTATE SPECIFIC ANTIGEN (SCREENING) (07/26/2025 10:21 AM EDT) Total Psa 2.79 <=4.00 ng/mL 07/26/2025 5:41 PM EDT [facility] Blood VENOUS BLOOD / Unknown Venipuncture / Unknown 07/26/2025 10:21 AM EDT 07/26/2025 10:21 AM EDT Narrative [facility] - 07/26/2025 5:41 PM EDT The Jason [...] hyperplasia or inflammatory conditions of the prostate. Stacy Mccabe APRN CHEMISTRY ORDERABLES Final Result Performing Organization Address City/[facility]/ZIP Co de Phone Number [facility] [employer] , [place] [address] * (ABNORMAL) MICROALBUMIN/CREATININE RATIO URINE (07/26/2025 10:21 AM EDT) Urine Albumin 34.5 mg/L 07/26/2025 4:58 PM EDT [facility] Urine Creatinine 101.0 mg/dL 07/26/2025 4:58 PM EDT [facility] Ur Albumin/Creat Ratio 34(H) 0 - 30 mg/g 07/26/2025 4:58 PM EDT [facility] Urine STRUCTURE OF URINARY TRACT PROPER / Unknown 07/26/2025 10:21 AM EDT 07/26/2025 10:21 AM EDT Stacy Mccabe APRN URINE ORDERABLES Final Resu lt Performing Organization Address City/[facility]/ZIP Co de Phone Number [facility] [employer] , [place] [address] [facility] [address] [place] [address] * (ABNORMAL) GLUCOSE METER POC (06/26/2025 2:56 PM EDT) Only the most recent of19 resultswithin the time period is included. [facility] Glucose Meter POC 212(H) 70 - 100 mg/dL 06/26/2025 2:58 PM EDT [facility] Sample Type Capillary 06/26/2025 2:58 PM EDT [facility] Patient Status Non-Critical Patient 06/26/2025 2:58 PM EDT [facility] Blood BLOOD SPECIMEN / Unknown 06/26/2025 2:56 PM EDT 06/26/2025 2:58 PM EDT us Ben العراقي MD POINT OF CARE TEST ORDERABLES F inal Result [facility] [address] [place] [id number] * MRI LUMBAR SPINE WO CONTRAST (06/24/2025 10:41 AM EDT) Anatomical Region Laterality Modality Spine, L-spine Magnetic Resonan ce 06/24/2025 10:4 1 AM EDT Impressions 06/24/2025 11:20 AM EDT 1. Nondisplaced horizontal fracture of the sacrum at the S2-L3 interspace. 2. Multilevel lumbar degenerative changes, most pronounced at L5-S1 where there is left greater than right foraminal stenosis. - Note: Radiology results need to be interpreted within a comprehensive clinical context. If you have questions about the radiology report, please contact the office of the ordering clinician. Narrative 06/24/2025 11:20 AM EDT MRI LUMBAR SPINE WITHOUT CONTRAST, 06/24/2025 10:41 AM CLINICAL HISTORY: -back pain. COMPARISON: Lumbar radiographs June 21, 2025 PROCEDURE COMMENTS: Multiplanar multiecho MR imaging of the lumbar spine without contrast. FINDINGS: There is a nondisplaced horizontal fracture of the sacrum at the S2-L3 interspace. The included upper sacral ala on the axial images show no sacral ala fractures. Marrow signal: No aggressive marrow replacement. Modic type endplate changes are noted at the L2-L3 level. Level by level analysis: L1-L2: There is mild broad-based disc bulge and mild facet hypertrophy without neural encroachment. L2-L3: There is intervertebral narrowing and broad-based disc bulge with mild facet hypertrophy without neural encroachment. L3-L4: There is mild left foraminal disc bulge with crowding of the inferior recess of the left foramen. The lateral recesses, central canal and right foramen are patent. L4-L5: There is posterior midline annular tear with mild disc bulge, accentuated toward the left foramen. No neural encroachment. L5-S1: There is intervertebral narrowing with disc bulge, accentuated at both foramina as well as bilateral facet hypertrophy. There is left greater than right foraminal stenosis. The lateral recesses and central canal are patent. Procedure Note Dl Hernandez MD - 06/24/2025 MRI LUMBAR SPINE WITHOUT CONTRAST, 06/24/2025 10:41 AM CLINICAL HISTORY: -back pain. COMPARISON: Lumbar radiographs June 21, 2025 PROCEDURE COMMENTS: Multiplanar multiecho MR imaging of the lumbar spinewithout contrast. FINDINGS: There is a nondisplaced horizontal fracture of the sacrum at the S2-L3 interspace. The included upper sacral ala on the axial images show nosacral ala fractures. Marrow signal: No aggressive marrow replacement. Modic type endplatechanges are noted at the L2-L3 level. Level by level analysis: L1-L2: There is mild broad-based disc bulge and mild facet hypertrophywithout neural encroachment. L2-L3: There is intervertebral narrowing and broad-based disc bulge withmild facet hypertrophy without neural encroachment. L3-L4: There is mild left foraminal disc bulge with crowding of theinferior recess of the left foramen. The lateral recesses, central canal andright foramen are patent. L4-L5: There is posterior midline annular tear with mild disc bulge,accentuated toward the left foramen. No neural encroachment. L5-S1: There is intervertebral narrowing with disc bulge, accentuated atboth foramina as well as bilateral facet hypertrophy. There is left greaterthan right foraminal stenosis. The lateral recesses and central canal arepatent. IMPRESSION: 1. Nondisplaced horizontal fracture of the sacrum at the S2-X6fuzqrandbk. 2. Multilevel lumbar degenerative changes, most pronounced at L5-S1 wherethere is left greater than right foraminal stenosis. - Note: Radiology results need to be interpreted within a comprehensiveclinical context. If you have questions about the radiology report, please contactthe office of the ordering clinician. us Kimberlee Mccoy MD IMG MRI ORDERABLES Final Resu lt * SHIGA TOXIN (06/24/2025 5:57 AM EDT) Shiga Toxin Shiga toxins (produced by E. coli) not detected. Shiga toxins (produced by E. coli) not detected. 06/24/2025 7:34 PM EDT [facility] Stool RECTUM STRUCTURE / Unknown 06/24/2025 5:57 AM EDT 06/24/2025 6:06 AM EDT Kimberlee Mccoy MD MICROBIOLOGY - GENERAL ORDERA BLES Final Result Performing Organization Address [facility] Co de Phone Number [facility] [address] [place] [address] , [place] [address] * STOOL CULTURE (NO STAIN) (06/24/2025 5:57 AM EDT) Culture No growth of enteric pathogens, including Salmonella, Shigella, Campylobacter, Vibrio, Yersinia, Aeromonas, Plesiomonas, or E. coli O157. 06/26/2025 11:08 AM EDT [facility] Stool RECTUM STRUCTURE / Unknown 06/24/2025 5:57 AM EDT 06/24/2025 6:05 AM EDT Kimberlee Mccoy MD MICROBIOLOGY - GENERAL ORDERA BLES Final Result Performing Organization Address [facility] Co de Phone Number [facility] [address] [facility] , [place] [address] * C DIFF INTERPRETATION (06/23/2025 4:36 PM EDT) C Diff Toxin DNA Negative Negative 06/23/2025 9:16 PM EDT [facility] Stool RECTUM STRUCTURE / Unknown 06/23/2025 4:36 PM EDT 06/23/2025 5:01 PM EDT Narrative [facility] [employer], [facility] - 06/23/2025 9:16 PM EDT Toxin producing C diff target DNA sequences not detected. CDI unlikely. Refer to CDI management guidance for negative result. Evaluate for other causes of diarrhea. Kimberlee Mccoy MD MICROBIOLOGY - GENERAL ORDERA BLES Final Result Performing Organization Address [facility] Co de Phone Number [facility] [employer] [address] , [place] [address] * C DIFF TOXIN DNA (06/23/2025 4:36 PM EDT) Stool RECTUM STRUCTURE / Unknown 06/23/2025 4:36 PM EDT 06/23/2025 5:01 PM EDT Kimberlee Mccoy MD MICROBIOLOGY - GENERAL ORDERA BLES Final Result Performing Organization Address [facility] Co de Phone Number [facility] [employer] , [place] [address] * (ABNORMAL) HEMOGLOBIN A1C (06/23/2025 6:35 AM EDT) Hgb A1C 11.1(H) 4.2 - 5.6 % 06/23/2025 12:43 PM EDT [facility] [employer] [employer], [facility] Est. Avg Glucose 272 mg/dL 06/23/2025 12:43 PM EDT [facility] [employer], [facility] Blood VENOUS BLOOD / Unknown Venipuncture / Unknown 06/23/2025 6:35 AM EDT 06/23/2025 7:48 AM EDT Narrative [facility] [employer], [facility] - 06/23/2025 12:43 PM EDT REFERENCE RANGE: Normal: 4.0-5.6% Pre-diabetes: 5.7-6.4% Provisional diagnosis of diabetes: >6.4% Hgb F>10% and anything which shortens red cell survival, such as hemolytic anemia, or unstable hemoglobin variants such as HbSS, HbSC, or HbCC, will lower the HbA1c value associated with a given level of glycemic control. us Kimberlee Mccoy MD CHEMISTRY ORDERABLES Final Re sult [facility] [employer] [address] [place] [address] , [place] [address] * US RENAL AND BLADDER (06/22/2025 7:13 PM EDT) Anatomical Region Laterality Modality Abdomen, Pelvis Ultrasound 06/22/2025 7:13 PM EDT Impressions 06/22/2025 7:32 PM EDT No evidence of active obstructive uropathy or other acute finding. - Note: Radiology results need to be interpreted within a comprehensive clinical context. If you have questions about the radiology report, please contact the office of the ordering clinician. Narrative 06/22/2025 7:32 PM EDT US KIDNEYS AND BLADDER, 06/22/2025 7:13 PM CLINICAL HISTORY: -DEMAR. COMPARISON: None. PROCEDURE COMMENTS: Routine sonographic evaluation of the kidneys and bladder with commercial sales representative images and manager business banking notes sent to PACS for radiologist review. FINDINGS: RIGHT: 9.7 x 6.0 x 4.9 cm. No hydronephrosis, solid-appearing mass, or shadowing stone. LEFT: 10.4 x 7.2 x 6.5 cm. No hydronephrosis, solid-appearing mass, or shadowing stone. PELVIS: No bladder mass identified. Procedure Note Brandy Tello MD - 06/22/2025 US KIDNEYS AND BLADDER, 06/22/2025 7:13 PM CLINICAL HISTORY: -DEMAR. COMPARISON: None. PROCEDURE COMMENTS: Routine sonographic evaluation of the kidneys andbladder with commercial sales representative images and manager business banking notes sent to PACS forradiologist review. FINDINGS: RIGHT: 9.7 x 6.0 x 4.9 cm. No hydronephrosis, solid-appearing mass, or shadowing stone. LEFT: 10.4 x 7.2 x 6.5 cm. No hydronephrosis, solid-appearing mass, or shadowing stone. PELVIS: No bladder mass identified. IMPRESSION: No evidence of active obstructive uropathy or other acute finding. - Note: Radiology results need to be interpreted within a comprehensiveclinical context. If you have questions about the radiology report, please contactthe office of the ordering clinician. Kimberlee Mccoy MD [facility] US ORDERABLES Final Resul t * XR SACRUM AND COCCYX (06/22/2025 12:14 PM EDT) Anatomical Region Laterality Modality T-spine Radiographic Freda ging 06/22/2025 12:1 4 PM EDT Impressions 06/22/2025 3:01 PM EDT No acute bony abnormality. - Note: Radiology results need to be interpreted within a comprehensive clinical context. If you have questions about the radiology report, please contact the office of the ordering clinician. Narrative 06/22/2025 3:01 PM EDT SACRUM AND COCCYX, 06/22/2025 12:14 PM CLINICAL HISTORY: -pain, fall COMPARISON: None. PROCEDURE COMMENTS: Three views of the sacrum and coccyx, including AP, angled, and lateral views. FINDINGS: No fracture deformity. No acute malalignment. Moderate bilateral sacroiliac osteoarthritis. Procedure Note William Pruitt MD - 06/22/2025 SACRUM AND COCCYX, 06/22/2025 12:14 PM CLINICAL HISTORY: -pain, fall COMPARISON: None. PROCEDURE COMMENTS: Three views of the sacrum and coccyx, including AP,angled, and lateral views. FINDINGS: No fracture deformity. No acute malalignment. Moderatebilateral sacroiliac osteoarthritis. IMPRESSION: No acute bony abnormality. - Note: Radiology results need to be interpreted within a comprehensiveclinical context. If you have questions about the radiology report, please contactthe office of the ordering clinician. Kimberlee [facility] DI[facility]NOST[facility] ORDERA BLES Final Result * BLOOD CULTURE (NO STAIN) (06/22/2025 8:02 AM EDT) Only the most recent of2 resultswithin the time period is included. Culture Result No Growth at 120 hours. BLOOD CULTURE (NO STAIN) 06/27/2025 2:00 PM EDT [facility] Blood VENOUS BLOOD / Unknown Venipuncture / Unknown 06/22/2025 8:02 AM EDT 06/22/2025 8:13 AM EDT Kimberlee Mccoy MD MICROBIOLOGY - GENERAL ORDERA BLES Final Result Performing Organization Address [facility] de Phone Number [facility] [address] [facility], [place] [address] * SEDIMENTATION RATE AUTOMATED (06/22/2025 8:02 AM EDT) Sed Rate 15 0 - 20 mm/hr 06/22/2025 8:21 AM EDT [facility] Blood VENOUS BLOOD / Unknown Venipuncture / Unknown 06/22/2025 8:02 AM EDT 06/22/2025 8:11 AM EDT Kimberlee Mccoy MD HEMATOLOGY ORDERABLES Final R esult Performing Organization Address [facility] Phone Number [address] [address] * LACTIC ACID (06/22/2025 8:02 AM EDT) Only the most recent of2 resultswithin the time period is included. Lactic Acid 1.3 0.5 - 1.9 mmol/L 06/22/2025 8:27 AM EDT [facility] Blood VENOUS BLOOD / Unknown Venipuncture / Unknown 06/22/2025 8:02 AM EDT 06/22/2025 8:11 AM EDT Kimberlee Mccoy MD CHEMISTRY ORDERABLES Final Re sult Performing Organization Address [facility] de Phone Number [facility] [address] [place] [address] * PROCALCITONIN (06/22/2025 8:01 AM EDT) Only the most recent of2 resultswithin the time period is included. Pathologist [facility] Procalcitonin 0.20 <=0.49 ng/mL 06/22/2025 8:37 AM EDT [facility] Blood VENOUS BLOOD / Unknown Venipuncture / Unknown 06/22/2025 8:01 AM EDT 06/22/2025 8:11 AM EDT Narrative [facility] - 06/22/2025 8:37 AM EDT Procalcitonin <0.50 ng/mL: Procalcitonin levels below 0.50 ng/mL on the first day of ICU admission represent a low risk for progression to severe sepsis and/or septic shock Procalcitonin >=0.50 ng/mL and <=2.00 ng/mL: If the procalcitonin measurement is performed shortly after the systemic infection process has started (usually less than 6 hours), this value may still be low. As various non-infectious conditions are known to induce procalcitonin as well, procalcitonin levels between 0.50 ng/mL and 2.00 ng/mL should be reviewed carefully to take into account the specific clinical background and condition(s) of the patient. Procalcitonin >2.00 ng/mL: Procalcitonin levels above 2.00 ng/mL on the first day of ICU admission represent a high risk for progression to severe sepsis and/or septic shock. Kimberlee Mccoy MD CHEMISTRY ORDERABLES Final Re sult [facility] [address] [place] [address] * (ABNORMAL) C-REACTIVE PROTEIN (06/22/2025 8:01 AM EDT) [facility] CRP 41.55(H) <=5.00 mg/L 06/22/2025 12:14 PM EDT [facility] [employer], [facility] Blood VENOUS BLOOD / Unknown Venipuncture / Unknown 06/22/2025 8:01 AM EDT 06/22/2025 8:11 AM EDT Kimberlee Mccoy MD CHEMISTRY ORDERABLES Final Re sult Performing Organization Address City/[facility]/ZIP Co de Phone Number [facility] [employer] [address], [address] [place], [place] [id number] * MAGNESIUM LEVEL (06/22/2025 8:01 AM EDT) Magnesium 1.9 1.6 - 2.4 mg/dL 06/22/2025 8:42 AM EDT [facility] Blood VENOUS BLOOD / Unknown Venipuncture / Unknown 06/22/2025 8:01 AM EDT 06/22/2025 8:11 AM EDT Kimberlee Mccoy MD CHEMISTRY ORDERABLES Final Re sult Performing Organization Address [facility] de Phone Number [facility] [address] [place] [address] * XR CHEST AP PORTABLE (06/21/2025 11:01 PM EDT) Anatomical Region Laterality Modality Chest Radiographic Freda ging 06/21/2025 11:0 1 PM EDT Impressions 06/21/2025 11:06 PM EDT No acute cardiopulmonary process. - Note: Radiology results need to be interpreted within a comprehensive clinical context. If you have questions about the radiology report, please contact the office of the ordering clinician. Narrative 06/21/2025 11:06 PM EDT XR CHEST AP PORTABLE, 06/21/2025 11:01 PM CLINICAL HISTORY: -sob COMPARISON: November 06, 2023 PROCEDURE COMMENTS: AP portable technique. FINDINGS: Stable cardiac and aortic configuration. No acute failure, pneumonia, or effusion. Grossly stable appearance of the lungs. Procedure Note Jose Angel Abernathy MD - 06/21/2025 XR CHEST AP PORTABLE, 06/21/2025 11:01 PM CLINICAL HISTORY: -sob COMPARISON: November 06, 2023 PROCEDURE COMMENTS: AP portable technique. FINDINGS: Stable cardiac and aortic configuration. No acute failure,pneumonia, or effusion. Grossly stable appearance of the lungs. IMPRESSION: No acute cardiopulmonary process. - Note: Radiology results need to be interpreted within a comprehensiveclinical context. If you have questions about the radiology report, please contactthe office of the ordering clinician. us Grace Barber MD IMG DIAGNOSTIC IMAGING THAISCassius HANSEN Final Result * XR LUMBAR SPINE AP AND LATERAL (06/21/2025 9:10 PM EDT) Anatomical Region Laterality Modality L-spine Radiographic Freda ging 06/21/2025 9:10 PM EDT Impressions 06/21/2025 9:13 PM EDT No acute abnormality of the lumbar spine. Multilevel degenerative changes of the lumbar spine as described. - Note: Radiology results need to be interpreted within a comprehensive clinical context. If you have questions about the radiology report, please contact the office of the ordering clinician. Narrative 06/21/2025 9:13 PM EDT AP AND LATERAL LUMBAR SPINE, 06/21/2025 9:10 PM CLINICAL HISTORY: -fall COMPARISON: 09/24/2021 PROCEDURE COMMENTS: Minimum of 3 views lumbar spine per protocol. FINDINGS: No visible acute vertebral fracture or traumatic malalignment. Vertebral body heights are maintained. Severe intervertebral disc space loss with endplate sclerosis and anterior osteophytosis at L2-L3. Mild to moderate intervertebral disc space loss at L5-S1. Mild lower lumbar predominant facet arthropathy. Procedure Note Esequiel Griffiths MD - 06/21/2025 AP AND LATERAL LUMBAR SPINE, 06/21/2025 9:10 PM CLINICAL HISTORY: -fall COMPARISON: 09/24/2021 PROCEDURE COMMENTS: Minimum of 3 views lumbar spine per protocol. FINDINGS: No visible acute vertebral fracture or traumatic malalignment. Vertebral body heights are maintained. Severe intervertebral disc spaceloss with endplate sclerosis and anterior osteophytosis at L2-L3. Mild tomoderate intervertebral disc space loss at L5-S1. Mild lower lumbar predominantfacet arthropathy. IMPRESSION: No acute abnormality of the lumbar spine. Multilevel degenerative changesof the lumbar spine as described. - Note: Radiology results need to be interpreted within a comprehensiveclinical context. If you have questions about the radiology report, please contactthe office of the ordering clinician. us Grace Barber MD IMG DIAGNOSTIC IMAGING ORDE TYRONE Final Result * (ABNORMAL) CBC (06/21/2025 8:44 PM EDT) WBC 18.5(H) 3.7 - 10.3 x10(3)/mcL 06/21/2025 8:54 PM EDT [facility] RBC 4.92 4.60 - 6.10 x10(6)/mcL 06/21/2025 8:54 PM EDT [facility] Hgb 14.9 13.7 - 17.5 g/dL 06/21/2025 8:54 PM EDT [facility] Hct 43.2 40.0 - 51.0 % 06/21/2025 8:54 PM EDT [facility] MCV 87.8 80.0 - 100.0 fL 06/21/2025 8:54 PM EDT [facility] MCH 30.3 26.0 - 34.0 pg 06/21/2025 8:54 PM EDT [facility] MCHC 34.5 30.7 - 35.5 g/dL 06/21/2025 8:54 PM EDT [facility] RDW 12.0 <=14.9 % 06/21/2025 8:54 PM EDT [facility] Platelet 320 155 - 369 x10(3)/mcL 06/21/2025 8:54 PM EDT [facility] MPV 9.4 8.8 - 12.5 fL 06/21/2025 8:54 PM EDT [facility] Blood VENOUS BLOOD / Unknown Venipuncture / Unknown 06/21/2025 8:44 PM EDT 06/21/2025 8:49 PM EDT us Grace Barber MD HEMATOLOGY ORDERABLES Final Result [facility] [address] [place] [address] * EK EKG 12 LEAD (06/21/2025 8:37 PM EDT) Anatomical Region Laterality Modality Electrocardiogra phy 06/21/2025 8:47 PM EDT Impressions 06/22/2025 10:[address] 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1965 Requested By: GRACE Larson Order Number: [id number] Reading MD: Angelo Jason MD Measurements Intervals [place] Rate: 116 P: -5 NC: 169 QRS: -56 QRSD: 114 T: 86 QT: 347 QTc: 483 Interpretive Statements SINUS TACHYCARDIA PATTERN CONSISTENT WITH PULMONARY DISEASE LEFT ANTERIOR FASCICULAR BLOCK ST DEVIATION AND MODERATE T-WAVE ABNORMALITY, CONSIDER LATERAL ISCHEMIA Electronically Signed On 06-22-2025 10:30:09 EDT by Angelo Jason MD us Grace Barber MD IMG ECG ORDERABLES Final Re sult * HM DIABETES EYE EXAM (08/06/2023 9:39 AM EDT) Left Diabetic Retinopathy Not Present Present/Not Present SEP OFFICE Right Diabetic Retinopathy Not Present Present/Not Present SEP OFFICE us Historical Provider HEALTH MAINTENANCE Edited Re sult - Final SEP OFFICE from Last 3 Months or Most Recently Relevant to Health Maintenance Insurance [employer] [place] [employer] [place] [employer] [place] Advance Directives For more information, please contact: [phone] * Full Code (Latest Code Status on File) Date Activated Date Inactivated Comments 06/22/2025 1:38 AM 06/26/2025 8:21 PM * Full Code Date Activated Date Inactivated Comments 02/12/2024 1:21 PM 02/14/2024 7:18 PM * Full Code Date Activated Date Inactivated Comments 10/01/2023 5:02 PM 10/18/2023 7:17 PM * Full Code Date Activated Date Inactivated Comments 12/09/2021 3:51 PM 12/21/2021 8:31 PM * Full Code Date Activated Date Inactivated Comments 11/14/2021 3:16 PM 11/20/2021 5:59 PM Care Teams Network Contractor Relationship Specialty Start Date End Date Gordo Jordan MD [address] [place] [address] PCP - General Family Medicine 08/07/25
[2025-09-20 12:26] LABS: Alanine Aminotransferase 23 U/L (12-78); Albumin Level 4.1 g/dl (3.5-5.0); Albumin/Globulin Ratio 1.1 (1.1-1.8); Alkaline Phosphatase 106 U/L (38-126); Anion Gap 8.2 mEq/L (5-15); Aspartate Amino Transferase 29 U/L (17-59); Bilirubin,Total 0.5 mg/dl (0.2-1.3); Blood Urea Nitrogen 27 mg/dl (9-20); Calcium 9.3 mg/dl (8.4-10.2); Carbon Dioxide 30 mmol/L (22.0-30.0); Chloride 104 mmol/L (98-107); Creatinine Clearance Estimated 93 mL/min (50-200); Creatinine,Serum 1.40 mg/dl (0.66-1.25); Estimated Glomerular Filt Rate 52 ml/min (>60); GFR (African American) 63 ML/MIN (>60); Globulin 3.8 g/dL (1.3-3.2); Glucose 105 mg/dl (74-100); Potassium 4.2 mmoL/L (3.5-5.1); Sodium 138 mmol/L (136-145); Total Protein,Serum 7.9 g/dl (6.3-8.2)
[2025-09-20 12:44] VITALS: BP 103/63; PULSE 64; O2SAT 93
[2025-09-20 13:00] VITALS: BP 115/70; PULSE 62; O2SAT 95
--- NOTE | 2025-09-20 13:24 | PC.NURSE ---
bg 210
[2025-09-20 13:30] VITALS: BP 114/67; PULSE 62; O2SAT 95
[2025-09-20 13:44] LABS: Hepatitis C Ab Qual. W/ RFX NEGATIVE (Negative)
--- NOTE | 2025-09-20 13:46 | PC.NURSE ---
lopez contacted for ride back to [facility]
[2025-09-20 13:48] VITALS: BP 114/67; PULSE 64; RESP 16; TEMP 36.6; O2SAT 96
[2025-09-20 20:45] LABS: Lipase 215 U/L (23-300); Magnesium 2.2 mg/dl (1.6-2.3)
== END 2025-09-20 13:54 | disposition home or self-care (01) ==
PROVIDERS: Nurse Practitioner; Emergency Provider Student in an Organized Health Care Education/Training Program; PCP Student in an Organized Health Care Education/Training Program
DX: E11.649 Type 2 diabetes mellitus with hypoglycemia without coma (principal); R11.0 Nausea; Z79.4 Long term (current) use of insulin
CPT/HCPCS: 71045; 80053; 83690; 83735; 85025; 86803; 87389; 93005; 96361; 96374; 99284; 99285; J2405; J7030

== ENCOUNTER 2025-10-13 12:54 | Emergency (ER) | payer MEDICAID, SELFPAY ==
--- OUTSIDE RECORDS SUMMARY | 2025-08-17 12:45 | XMS_ITS | Encounter Summary ---
Author Organization [place] [address] Care Team Providers Care Keyboard Instrument Tuner Name Role Phone Helen Patel Unavailable Unavailable Gordo Jordan MD Primary Care Prov ider Reason for Referral * Consultation (Routine) - Authorization Not Needed Specialty Diagnoses / Procedures Referred By Contac t Referred To Contact Diabetes Services Diagnoses Type 2 diabetes mellitus with hyperglycemia, with long-term current use of insulin (HCC) Procedures MA OFFICE/OUTPATIENT NEW MODERATE MDM 45 MINUTES Gordo Jordan MD [address] [address] Phone: tel: fax: [facility] Diabetes [address] [place] [phone] Phone: tel: fax: Referral ID Status Reason Start Date Expiration Date Visits Requested Visits Authorized [id number] Authorization Not Needed 08/18/2025 08/18/2026 99 99 Question Answer Is this a priority referral for a patient with diabetes? (i.e., 2 A1C s >= 9.0 in the last 18 months)? Yes Has this priority referral been handed off to the Brick Cleaner for immediate priority scheduling? No Reason for Visit * Reason Comments Diabetes Encounter Details Date Type Department Care Team (Late st Contact Info) Description 08/17/2025 1:45 PM EDT Office Visit [facility] [address] [place] [address] Gordo Jordan MD [address] [place] [id number] Type 2 diabetes mellitus with hyperglycemia, with long-term current use of insulin (HCC) (Primary Dx); Acute kidney injury superimposed on stage 2 chronic kidney disease; Hypertension associated with diabetes (HCC) Social History Tobacco Use Types Packs/Day Years Used Date Smoking Tobacco: Some Days Cigarettes 0.6 8 Started: 11/16/1986; Last attempted to quit: 11/16/1990 Passive Smoke Exposure: Never Smokeless Tobacco: Never Alcohol Use Standard Drinks/Week Comments Yes 4 (1 standard drink = 0.6 oz pure alcohol) Sober for 20 years until May 2022 [facility] Utilities Answer Date Recorded In the past 12 months has Valuation App, gas, oil, or water [employer] threatened to shut off services in your home? No 06/22/2025 Overall Financial Resource Strain (CARDIA) Answe r Date Recorded How hard is it for you to pa y for the very basics like food, housing, medical care, and heating? Somewhat hard 06/22/2025 PHQ-2 Answer Date Recorded PHQ-2 Total Score 5 07/26/2025 [facility] Occupat ional Health - Occupational Stress [...] things needed for daily living? No 11/10/2023 [facility] HRSN [facility] IP Transportation Answer D ate Recorded In the past 12 months, has l ack of reliable transportation kept you from medical appointments, meetings, work or from getting things needed for daily living? No 06/22/2025 Sexually Active Control Partners Comments Yes Condom Male Thave erection issues Sex and Gender Information [...] Sign Reading Time Taken Comments Blood Pressure 122/84 08/17/2025 12:48 PM EDT Pulse 104 08/17/2025 12:48 PM EDT Temperature 36.6 C (97.9 F) 08/17/2025 12:48 PM EDT Respiratory Rate - - Oxygen Saturation 99% 08/17/2025 12: 48 PM EDT Inhaled Oxygen Concentration - - Weight 118.1 kg (260 lb 6.4 oz) 025 12:48 PM EDT Height 185.4 cm (6' 1 ) 08/17/2025 12:4 8 PM EDT Body Mass Index 34.36 08/17/2025 12:48 PM EDT documented in this encounter Functional Status [...] documented in this encounter Progress Notes * Gordo Jordan MD - 08/17/2025 1:45 PM EDTAssociated Problem(s): Type 2 diabetes mellitus with hyperglycemia, with long-term current use of in sulin (HCC) Goal A1C: < 6.5 and TIR >70% - Last A1c - 11.6 - 07/26/2025 - not at goal Compliance: - non-compliant with diet. Advised to follow a low carbohydrate / diabetic diet Home Glucose Monitoring: - FSBS - 3 times daily Retinopathy Screening: - patient has no know retinopathy and was reminded to complete a retinal exam every 2 years Nephropathy Assessment: - microalbumin screening completed in the past 12 months Foot Assessment: - no ulcers or pre-ulcers Diet Advice: - discussed improving diet by reducing carbohydrates at today's visit Statin Therapy: - currently on a statin Medication Management: - medication management decisions took place at today's visit (see orders) * Gordo Jordan MD - 08/17/2025 1:45 PM EDTAssociated Problem(s): Hypertension associated with diabetes (HCC) Goal BP: <130/80 BP Readings from Last 3 Encounters: 08/17/25 122/84 08/13/25 151/100 08/07/25 123/90 - at goal Compliance: - compliant with medications Home Blood Pressure Monitoring: - continue home BP monitoring as previous and bring readings to each office visit Advice: - continue a low salt diet and remain physically active Medication Management: - medication management decisions took place at today's visit (see orders) * Dejan Malagon PharmD - 08/17/2025 1:45 PM EDT Pharmacy Consult 08/17/2025 with Dejan Malagon PharmD: Prior to appointment patient seen by ED for hyperglycemia. ED provider increased mealtime insulin to 12u TID from 8. BG's still appear elevated despite increased dose. Dr. Jordan and patient agree to sliding scale to improve glycemic response. Starting at a conservative correction factor. Educated patient on insulin administration, how to use the provided sliding scale chart, and importance of using the correction factor/ skipped meal dose when not eating or not feeling well. Insulin Dosing Basal Insulin Type: glargine Basal Insulin - P.M.: 50 Meal Insulin Type: aspart Breakfast Fixed Dose: 12 Correction: 1:30 @130 Lunch Fixed Dose: 12 Correction: 1:30 @130 Dinner Fixed Dose: 12 Correction: 1:30 @130 Patient also requests a referral to endocrinology. Thank you, Dejan Malagon, PharmD Disk Sander Pharmacist [facility] 08/17/2025 1:55 PM * Gordo Jordan MD - 08/17/2025 1:45 PM EDT Assessment & Plan 1. Diabetes Mellitus: Chronic. - Blood glucose levels have been fluctuating between 200 and 300. - Introduce a sliding scale for NovoLog: Administer 12 units regardless of blood sugar levels, and additional units based on specific blood sugar ranges - Maintain a daily fluid intake of 64 ounces, preferably water, and limit the consumption of sugarydrinks. - Avoid excessive use of ibuprofen and Aleve; Tylenol is recommended as a safer alternative. - Arrange a consultation with the clinical pharmacist, Elijah Malagon, to discuss any potential issues with medication management or side effects. - Repeat blood work in approximately 3 months to monitor A1c levels and kidney function. 2. Hypertension: Stable. - Blood pressure readings have shown improvement, with today's reading at 122/84. - Continue current medication regimen. - Monitor blood pressure regularly. 3. Chronic Kidney Disease: Stable. - Kidney function has shown improvement following IV fluid administration in the hospital. - Stay hydrated by drinking nonsugary fluids such as water, black coffee, and black or green tea. - Avoid excessive use of ibuprofen and Aleve to prevent further kidney damage. - Repeat blood work in approximately 3 months to monitor kidney function. Follow-up - Blood work will be repeated in approximately 3 months to monitor A1c levels and kidney function. Assessment & Plan Type 2 diabetes mellitus with hyperglycemia, with long-term current use of insulin ([facility]) Goal A1C: < 6.5 and TIR >70% - Last A1c - 11.6 - 07/26/2025 - not at goal Compliance: - non-compliant with diet. Advised to follow a low carbohydrate / diabetic diet Home Glucose Monitoring: - FSBS - 3 times daily Retinopathy Screening: - patient has no know retinopathy and was reminded to complete a retinal exam every 2 years Nephropathy Assessment: - microalbumin screening completed in the past 12 months Foot Assessment: - no ulcers or pre-ulcers Diet Advice: - discussed improving diet by reducing carbohydrates at today's visit Statin Therapy: - currently on a statin Medication Management: - medication management decisions took place at today's visit (see orders) Acute kidney injury superimposed on stage 2 chronic kidney disease Improved Avoidance of NSAID Proper hydration Yearly micoalbumin Hypertension associated with diabetes ([facility]) Goal BP: <130/80 BP Readings from Last 3 Encounters: 08/17/25 122/84 08/13/25 151/100 08/07/25 123/90 - at goal Compliance: - compliant with medications Home Blood Pressure Monitoring: - continue home BP monitoring as previous and bring readings to each office visit Advice: - continue a low salt diet and remain physically active Medication Management: - medication management decisions took place at today's visit (see orders) Return in about 3 months (around 11/17/2025) for Diabetes. Subjective Hermelindo Gunn is a 60 y.o. male Chief Complaint Patient presents with Diabetes History of Present Illness The patient presents for an ER follow-up. He reports that his blood sugar levels have been fluctuating between 200 and 300 over the past few days. He is currently on a regimen of Lantus, administered at night in doses of 50 units, and NovoLog, taken with meals in doses ranging from 6 to 12 units. He monitors his blood sugar levels three times daily. His diet consists of 2 to 3 meals per day, with no recent changes in carbohydrate or sugar intake. He consumes approximately two bottles of water daily, along with some Gatorade and one or two pops. He is still on the medication for blood pressure and has no problems getting or taking the medication. Social History: Diet: 2 to 3 meals per day, consumes two bottles of water daily, some Gatorade, and one or two pops. Review of Systems Constitutional: Negative for chills and fever. HENT: Negative for congestion, rhinorrhea and sore throat. Respiratory: Negative for cough and shortness of breath. Cardiovascular: Negative for chest pain and leg swelling. Gastrointestinal: Negative for abdominal pain, nausea and vomiting. Endocrine: Negative for cold intolerance and heat intolerance. Musculoskeletal: Negative for arthralgias and back pain. Skin: Positive for rash. Negative for color change. Neurological: Negative for dizziness, light-headedness and headaches. Hematological: Negative for adenopathy. Does not bruise/bleed easily. Objective Blood pressure 122/84, pulse 104, temperature 97.9 ??F (36.6 ??C), temperature source Forehead, height 6' 1 (1.854 m), weight 260 lb 6.4 oz (118.1 kg), SpO2 99%. Body mass index is 34.36 kg/m??. Physical Exam Respiratory: Clear to auscultation, no wheezing, rales or rhonchi Cardiovascular: Regular rate and rhythm, no murmurs, rubs, or gallops Physical Exam Constitutional: General: He is not in acute distress. Appearance: He is well-developed. He is not toxic-appearing. HENT: Head: Normocephalic and atraumatic. Eyes: Pupils: Pupils are equal, round, and reactive to light. Cardiovascular: Rate and Rhythm: Normal rate and regular rhythm. Heart sounds: Normal heart sounds. No murmur heard. No friction rub. No gallop. Pulmonary: Effort: Pulmonary effort is normal. No respiratory distress. Breath sounds: Normal breath sounds. No wheezing or rales. Chest: Chest wall: No tenderness. Skin: General: Skin is warm and dry. Findings: No erythema or rash. Neurological: Mental Status: He is alert and oriented to person, place, and time. Results Labs - Kidney function test: Kidney function improved - Blood glucose test: Blood sugar levels have been running between 200 and 300 The provider educated the patient (or legal wire rope sales representative) on the use of the ambient listening artificial intelligence tool, [employer]. They were informed that this AI tool [...] of such information, the patient (or legal wire rope sales representative), and each individual in attendance with the patient, verbally consented to the use of the AI tool. documented in this encounter Miscellaneous Notes * Addendum Note - Dejan Malagon PharmD - 08/17/2025 1:45 PM EDTAddended by: DEJAN MALAGON on: 08/18/2025 10:44 AM Modules accepted: Orders documented in this encounter Plan of Treatment Upcoming Encounters Date Type Department Care Team (Late st Contact Info) Description 02/01/2026 11:00 AM EDT Office Visit [facility] [address] [facility] [address] [place] [phone] Belinda Marques OD [address] [place] [address] Scheduled Referrals Name Type Priority Associated Diagnoses Order Schedule AMB REFERRAL TO ENDOCRINOLOGY Outpatient Referral Routine Type 2 diabetes mellitus with hyperglycemia, with long-term current use of insulin (HCC) Ordered: 08/18/2025 documented as of this encounter Goals Goal [...] log to next follow up appointment with care team assistant General Not on track(2024 10:05 AM EDT) [...] Procedure Name Priority Date/Time Associated Diagnosis Comments SCANNED LABS 09/26/2025 11:11 PM EST documented in this encounter Results * SCANNED LABS (09/26/2025 11:11 PM EST) 09/26/2025 11:1 1 PM EST us Unknown Provider HEMATOLOGY ORDERABLES Final Res ult documented in this encounter Visit Diagnoses Diagnosis Type 2 diabetes mellitus with hyperglycemia, with long-term current use of insulin (HCC)- Primary Acute kidney injury superimposed on stage 2 chronic kidney disease Hypertension associated with diabetes (HCC) Type II or unspecified type diabetes mellitus with other specified manifestations, not stated as uncontrolled documented in this encounter Additional Health Concerns Assessment Noted Time PHQ-9 Depression Total Score: 025 9:00 AM EDT PHQ-2 Depression Total Score: 07/26/20 25 9:00 AM EDT documented as of this encounter Care Teams Keyboard Instrument Tuner Relationship Specialty Start Date End Date Jordan, Gordo Monet MD [address] [place] [address] PCP - General Family Medicine 08/07/25 Helen Patel Care Management Press Operator [employer] 07/28/25 08/31/25 documented as of this encounter
--- OUTSIDE RECORDS SUMMARY | 2025-09-15 13:00 | XMS_ITS | Encounter Summary ---
Author Organization [place] [address] Care Team Providers Care Blocker Hand Name Role Phone Gordo Jordan MD Primary Care Prov ider Reason for Visit * Reason Comments Hypertension Encounter Details Date Type Department Care Team (Late st Contact Info) Description 09/15/2025 2:00 PM EDT Telemedicine [facility] Video Visits [address] [place] [address] Julianna Eid, LAMINA SEARCHER [address] [place], [place] [phone] Elevated blood pressure reading (Primary Dx) Social History Tobacco Use Types Packs/Day Years Used Date Smoking Tobacco: Some Days Cigarettes 0.6 8 Started: 11/16/1986; Last attempted to quit: 11/16/1990 Passive Smoke Exposure: Never Smokeless Tobacco: Never Alcohol Use Standard Drinks/Week Comments Yes 4 (1 standard drink = 0.6 oz pure alcohol) Sober for 20 years until May 2022 [facility] Utilities Answer Date Recorded In the past 12 months has [employer] [place], gas, oil, or water [employer] threatened to shut off services in your home? No 06/22/2025 Overall Financial Resource Strain (CARDIA) Answe r Date Recorded How hard is it for you to pa y for the very basics like food, housing, medical care, and heating? Somewhat hard 06/22/2025 PHQ-2 Answer Date Recorded PHQ-2 Total Score 5 07/26/2025 [facility] [place] of Occupat ional Health - Occupational Stress [...] things needed for daily living? No 11/10/2023 [facility] IP Transportation Answer D ate Recorded In [...] documented in this encounter Progress Notes * Julianna Eid APRN - 09/15/2025 2:00 PM EDT Hermelindo Gunn is a 60 y.o. male Chief Complaint: Chief Complaint Patient presents with Hypertension This virtual health visit is being conducted using a Video Visit Encounter that was attempted, but precluded by technical difficulties that required conversion to a telephone encounter (audio only). The patient provided verbal consent to a Telemedicine Visit, in accordance with [facility] telehealthlaws and policies. Visit transpired in a private space with a secure platform, and understands that this does not replace a face to face encounter. Visit lasted 10 minutes HISTORY OF PRESENT ILLNESS - SUBJECTIVE Hermelindo Gunn is complaining of hypertension, elevated blood pressure readings, dizziness which began today. Upset with assisted living facility and saying his doctor did not come see him. Due to technical difficulties, unable to connect over video, did speak with patient over the phone. He is notable to get his blood pressure machine to work to tell me what his current blood pressure is. Refusing to have someone at his facility assist him. Explained to patient that this situation would be better assessed at an in-person visit and recommended the patient be seen at urgent care or the ER. Patient hung up the phone without further discussion. Julianna Eid APRN Return for urgent care or ER for in person exam. documented in this encounter Plan of Treatment Upcoming Encounters Date Type Department Care Team (Late st Contact Info) Description 02/01/2026 11:00 AM EDT Office Visit [facility] [address] [facility] [address] [place] [address] JeraldBelinda OD [address] [place] [address] documented as of this encounter Goals Goal [...] log to next follow up appointment with veterinarian laboratory animal care General Not on track(2024 10:05 AM EDT) [...] as of this encounter Visit Diagnoses Diagnosis Elevated blood pressure reading- Primary Elevated blood pressure reading without diagnosis of hypertension documented in this encounter Additional Health Concerns Assessment Noted Time PHQ-9 Depression Total Score: 025 9:00 AM EDT PHQ-2 Depression Total Score: 07/26/20 25 9:00 AM EDT documented as of this encounter Care Teams Blocker Hand Relationship Specialty Start Date End Date Jordan, Gordo Monet MD [address] [place] [address] PCP - General Family Medicine 08/07/25 documented as of this encounter
--- NOTE | 2025-10-13 12:58 | ED_ITS ---
<Statement entered by Rinku Michelle MD - 10/13/25 17:34> I was consulted by the MARYJANE, and we discussed the complexity of the problems being addressed. I approve the treatment and management plan for this patient's care in the emergency department, thus performing a substantive portion of the medical decision making. Rinku Michelle MD Discharge Plan Disposition Patient Disposition: Home, Self-Care Condition: Good Prescriptions Prescriptions: New amoxicillin-pot clavulanate 875-125 mg tablet 1 tab PO BID Qty: 20 0RF Referrals Follow up/Referrals: Gordo Guerrero MD [Primary Care Provider, Family Practice] - See instructions Vicki Mallory DPM [Staff Physician, Podiatry] - See instructions Activity Restrictions/Add. Instructions Additional Instructions/Restrictions: You were evaluated on an emergency basis. It is very important that you follow- up with your primary care provider and any specialist who we discussed within the next 2 days in order to better assess your health more comprehensively. For example, incidental findings on imaging or laboratory results that were performed today may be discovered, which do not require immediate medical care, but may impact your health in the future. If your symptoms worsen or persist, please return to the emergency department immediately for reassessment. Take all medications as prescribed. In queue for allowing me to participate in your health care, and I hope you feel better soon. Clinical Impressions Clinical Impression: Avulsion of skin Instructions Patient Instructions: DI for Avulsion Laceration (Not Requiring Sutures) Print Language Print Language: Jamaican Discharge ED Provider: Rinku Michelle General Adult HPI General Chief complaint: Wound/Laceration Stated complaint: Wound On R Big Toe Time Seen by Provider: 10/13/25 12:58 History of Present Illness HPI narrative: 60-year-old male presents emergency department with complaints of wounds to bilateral feet. Patient states he is diabetic. He states that he did not realize he had a wound on his right great toe until someone said they saw if bleeding. He is unsure of what happened to his foot. He reports he has also had a wound to his left heel for the past several weeks. Patient has not been on any antibiotics. He denies fevers. He states he has not followed up with his doctor or podiatry for these wounds. Related Data Previous Rx's ?Medication ?Instructions ?Recorded amoxicillin 875 mg-potassium 1 tab PO BID #20 tabs clavulanate 125 mg tablet Allergies Allergy/AdvReac Type Severity Reaction Status Date / Time lisinopril Allergy Hives Verified 09/20/25 11:24 metformin Allergy Hives Verified 09/20/25 11:24 [facility] Disclaimer: The information contained in this section may have been updated after the patient was seen, as this information can be updated by other users. Social History (Updated 09/20/25 @ 13:34 by Terese Estrella (ED), [employer]) Smoking Status: Never smoker alcohol intake: former current occupational status: other Travel in the last 8 weeks?: Outside the [facility] Have you lived/traveled outside US in past 30 days?: No Contact w/someone who lives/traveled outside US past 30 days?: No Exposure to someone with infectious disease in past 14 days?: No Do you have a fever (greater than 100.4 F or 38 C)?: No Have you tested positive for COVID-19?: No Exposed to someone with COVID-19 in past 14 days?: No Do you have a sore throat?: No Do you have a cough?: No Do you have any weakness?: No Do you have any diarrhea?: No Are you experiencing any unusual bleeding?: No Do you have any muscle aches/pain?: No Do you have any abdominal pain?: No Are you experiencing loss of taste or smell?: No ROS Obtained: Yes other Musculoskeletal Musculoskeletal: Reports numbness Integumentary/Breasts Skin/Breast: Reports wounds Neurologic Neurologic: Reports numbness Physical Exam Narrative Physical exam: General: Awake, aware, in no acute distress HEENT: Normocephalic, no evidence of trauma CV: RRR, no murmurs, rubs, or gallops Pulm: CTA bilaterally with no rhonchi, rales, wheezes ABD: Nontender, no swelling, guarding, or rebound tenderness Psych, appropriate mood and affect Skin: Patient has a tissue avulsion to the medial aspect of his right great toe. Minimal bleeding noted. No obvious deformity or foreign body present. Patient has significant calluses to the bottom of his right foot with cracking. The cracking appears to be chronic there does not appear to be any bleeding or drainage or pain on palpation of these areas. On patient's left heel he does have a significant crack within the callus that reveals pink fleshy tissue. No drainage or bleeding noted from the wound. Patient does report tenderness to palpation of this area. General General appearance: alert Respiratory Respiratory exam: Present normal lung sounds bilaterally Cardiovascular Cardiovascular exam: Present regular rate Neurological Exam Neurological exam: Present alert Medical Decision Making Medical Records Screening: Per USPSTF and CDC recommendations, given the prevalence of disease in our region, it is our hospital?s policy to screen for HIV and viral Hepatitis for all patients aged 18 and over and those with ongoing risk factors. Les Inquiry Pt receiving controlled substance: No Vital Signs: 10/13/25 13:05 Temperature 98.3 F Temperature Source Oral Pulse Rate [Right] 72 Respiratory Rate 18 Blood Pressure [Right Arm] 110/62 Blood Pressure Mean [Right Arm] 78 Blood Pressure Source [Right Arm] Automatic Cuff Blood Pressure Position [Right Arm] Sitting 02 Sat by Pulse Oximetry 99 Oxygen Delivery Method Room Air Orders (Tests/Meds): ORDERS Category Date Time Status XR foot LT min 3V Stat Exams 10/13/25 13:10 Completed XR foot RT min 3V Stat Exams 10/13/25 13:10 Completed Medical Decision Narrative: Initial impression of presenting illness: 60-year-old male presents emergency department with complaints of wound to bilateral feet. Patient is diabetic. He states that he did not realize he had a wound to his right great toe until someone informed him that the area was bleeding. He is unsure of any injury to the area. Patient also reports that he has a wound to his left heel that has been present for the past 2 weeks. Patient states he has not taken any antibiotics. Patient states he has not followed up with his primary care provider or podiatry for these wounds. Differential diagnosis includes but is not limited to: Laceration, tissue avulsion, cellulitis, osteomyelitis, foreign body Patient arrives hemodynamically stable, afebrile, without respiratory distress with vital signs interpreted by myself. Initial physical exam reveals a small tissue avulsion to the medial aspect of patient's right great toe. There is minimal bleeding present. Patient reports decree sensation to his right foot. Patient does have significant calluses to the bottom of his right foot with cracking that is present. The cracks do not appear to be new. There is no erythema, edema, bleeding from these cracks. 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 He does have a callus on the left heel that also has a crack that is present. The crack is exposing fleshy pink tissue. No bleeding or drainage noted from this wound. Patient does report tenderness to palpation. 2+ pulses in bilateral lower extremities. Rest of exam is unremarka ble. Initial diagnostic plan: Wound care and dressing, x-ray of bilateral feet Results from initial plan were reviewed and interpreted by myself, pertinent positives include: X-ray of bilateral feet was unremarkable for acute findings. Interventions in the ED: Wound care and bandaging was completed. Patient was made aware of the results and the findings, upon reevaluation patient has remained stable throughout stay, symptoms remained stable. Upon reevaluation patient's resting comfortably bed with no signs of acute distress. Bleeding is controlled. Disposition: Reviewed findings today's workup with patient informed no acute abnormalities were noted on his x-rays. Recommended that he keep his close bandage and change them twice daily. Also recommended that he monitor his feet daily for signs of infection or any additional wounds. Advised patient that I will give him contact information for podiatry and recommended he schedule close outpatient follow-up. Informed him that we will discharge with a prescription for Augmentin. Recommended that he complete the full course of antibiotics. Advised him to follow-up with his primary care provider and podiatry or return to the emergency department any new or worsening symptoms. Patient is agreeable to plan of care. Patient made aware of findings and had a detailed discussion with symptomatic care and return precautions, patient voiced understanding. Critical Care Critical Care Time Critical Care Time: No
[2025-10-13 13:05] VITALS: BP 110/62; PULSE 72; RESP 18; TEMP 36.8; O2SAT 99; BMI 32.5
--- NOTE | 2025-10-13 13:10 | XR_ITS ---
FINAL REPORT CLINICAL HISTORY: wound/diabetic FINDINGS: AP, oblique and lateral views of the left foot were obtained. There is no prior exam for comparison. 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 Lucency of the base of the 5th metatarsal could be related to old fracture. No convincing bony destruction to suggest osteomyelitis. There is mild soft tissue edema of the hindfoot. No radiopaque foreign body identified. IMPRESSION: No acute osseous abnormality of the left foot. Chronic changes. Mild soft tissue edema. Reviewed, Interpreted and Dictated by Mora Soto MD Transcribed by Sommer Madrid Authenticated and [facility]
--- NOTE | 2025-10-13 13:10 | XR_ITS ---
FINAL REPORT CLINICAL HISTORY: wound/diabetic FINDINGS: AP, oblique and lateral views of the right foot were obtained. There is no prior exam for comparison. There is no acute fracture or dislocation. There is deformity of the 5th metatarsal which may be related to old fracture. 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 Soft tissues are unremarkable. IMPRESSION: No acute osseous abnormality of the right foot. Degenerative/chronic changes. Reviewed, Interpreted and Dictated by Mora Soto MD Transcribed by Sommer Madrid Authenticated and [facility]
--- OUTSIDE RECORDS SUMMARY | 2025-10-13 13:33 | XMS_ITS | Encounter Summary ---
Author Organization [place] [address] Care Team Providers Care Phone Engineer Name Role Phone Gordo Jordan MD Primary Care Prov ider Reason for Visit * Reason Onset Date Comments Symptoms (Only Use If Pt Pushes Back On Scheduli ng A Visit) 09/15/2025 Elevated BP Encounter Details Date Type Department Care Team (Late st Contact Info) Description 09/15/2025 Nurse Triage [facility] emergency department [facility] [address] [place] [phone] Gordo Jordan MD [address] [place] [id number] Social History Tobacco Use Types Packs/Day [...] Recorded In the past 12 months has [employer], gas, oil, or water company threatened to shut off services in your home? No 06/22/2025 Overall Financial Resource Strain (CARDIA) Answe r Date Recorded How hard is it for you to pa y for the very basics like food, housing, medical care, and heating? 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 Yes (remember to route this message [facility] Nurse Triage Vest # [id number]) Additional Information: Transferred to nurse triage documented in this encounter Plan of Treatment Upcoming Encounters Date Type Department Care Team (Late st Contact Info) Description 02/01/2026 11:00 AM EDT Office Visit [facility] [address] [facility] [address] [place] [id number] Belinda Marques OD [address] [phone] documented as of this encounter Goals Goal [...] next follow up appointment with resident care coordinator General Not on track(2024 10:05 [...] documented as of this encounter Care Teams Phone Engineer Relationship Specialty Start Date End Date Gordo Jordan MD [address] [id number] PCP - General Family Medicine 08/07/25 documented as of this encounter
--- OUTSIDE RECORDS SUMMARY | 2025-10-13 13:33 | XMS_ITS | Encounter Summary ---
Author Organization [place] [address] Care Team Providers Care Regional Branch Manager Name Role Phone Danielle Monroy RN Unavailable Unavailable Helen Patel Unavailable Unavailable Gordo Jordan MD Primary Care Prov ider Reason for Visit * Reason Onset Date Comments Results 07/27/2025 Labs Follow Up 07/27/2025 Lab results Encounter Details Date Type Department Care Team (Late Contact Info) Description 07/27/2025 Telephone [facility] [employer] [address] [place] [phone] JordanGordo conde MD [address] [address] Results (Labs); Follow Up (Lab results) Social History Tobacco Use Types Packs/Day Years Used Date Smoking Tobacco: Former Cigarettes 0.3 4 0 11/16/1986 - 11/16/1990 Passive Smoke Exposure: Never Smokeless Tobacco: Never Alcohol Use Standard Drinks/Week Comments Not Currently 4 (1 standard drink = 0.6 oz pure alcohol) Sober for 20 years until May 2022 [facility] Utilities Answer Date Recorded In the past [...] Date Recorded PHQ-2 Total Score 5 07/26/2025 [facility] Occupat ional Health - Occupational Stress [...] 11/10/2023 [facility] IP Transportation Answer D ate Recorded In [...] Stacy Mccabe APRN Where was test performed: [facility] Return Method of Communication: Phone Call Additional Information: N/A documented in this encounter Plan of Treatment Upcoming Encounters Date Type Department Care Team (Late st Contact Info) Description 02/01/2026 11:00 AM EDT Office Visit [facility] [address] [facility] [address] [place] [address] Belinda Marques, OD [address] [phone] documented as of this encounter Goals Goal [...] next follow up appointment with home care music therapist General Not on track(2024 10:05 AM EDT) [...] documented as of this encounter Care Teams Regional Branch Manager Relationship Specialty Start Date End Date Jordan, Gordo Monet MD [address] [place] [address] PCP - General Family Medicine 08/07/25 Danielle Monroy RN [facility] Administrator Manager/Senior Advisory 07/26/25 08/08/25 Helen Patel Care Management Complex Director 07/28/25 08/31/25 documented as of this encounter
--- OUTSIDE RECORDS SUMMARY | 2025-10-13 13:33 | XMS_ITS | Clinical Summary ---
Author Organization [employer] [facility] Address [address] [place] [address] Phone Care Team Providers Care Overcoiler Name Role Phone Tequila ESPARZA Leslye OLGUIN [...] [BMI] 40.0-44.9, adult Knee joint pain, right 44547624 (SNOMED CT) 06/17 Active 06/17 Jonathon Medina DO Knee pain Screening for tuberculosi s 783354531 (SNOMED CT) 06/17 Inactive 06/17 Jonathon Medina DO Tuberculosis screening Fall risk 966663511 (SNOMED CT) 06/17 Active 06/17 Jonathon Medina DO At increased risk for falls Diabetic neuropathy 850780389 (SNOMED CT) 06/17 Active 06/17 Jonathon Medina DO Neuropathy due to diabetes mellitus Body mass index (BMI) 40.0-44.9; adult Z68.41 (ICD-10-CM ) 05/04 Removed 05/04 Anum Coffey APRN Body mass index [BMI] 40.0-44.9, adult Body mass index (BMI) 40.0-44.9; adult Z68.41 (ICD-10-CM ) 12/30 Correction 12/30 Anum Coffey OPERATING ROOM RN Body mass index [BMI] 40.0-44.9, adult Allergic rhinitis, 74991449 (SNOMED CT) 12/30 Active 01/01 Leslye Keagle OPERATING ROOM RN BCADM Allergic rhinitis GERD-esopha geal reflux 982612231 (SNOMED CT) 12/30 Active 01/01 Leslye Keagle OPERATING ROOM RN BCADM Gastroesophagea l reflux disease Depression / anxiety 832137703 (SNOMED CT) 12/30 Active 01/01 Leslye Keagle OPERATING ROOM RN BCADM Mixed anxiety and depressive disorder BRONCHITIS ACUTE 90046400 (SNOMED CT) 12/30 Inactive 01/01 Leslye Keagle OPERATING ROOM RN BCADM Acute bronchitis Vitamin D deficiency 38495158 (SNOMED CT) 12/30 Active 01/01 Leslye Keagle OPERATING ROOM RN BCADM Vitamin D deficiency Body mass index (BMI) 40.0-44.9; adult Z68.41 (ICD-10-CM ) 12/30 Removed 12/30 Leslye Keagle OPERATING ROOM RN BCADM Body mass index [BMI] 40.0-44.9, adult Acute left otitis media 008620863 (SNOMED CT) 12/30 Inactive 12/30 Leslye Keagle OPERATING ROOM RN BCADM Acute left otitis media Knee pain, left 14977871 (SNOMED CT) 08/14 Active 08/14 Julito Head MD Knee pain Skin rash 154060149 (SNOMED CT) 08/14 Active 08/14 Julito Head MD Eruption BILATERAL LEGS Hypertensio n 67598074 (SNOMED CT) Active 08/14 Julito Head MD Hypertensive disorder Hyperlipide aaron 45007638 (SNOMED CT) Active 08/14 Julito Head MD Hyperlipidemia DENTAL CARIES 15311096 (SNOMED CT) Active 04/05 Mirian Harden MA Dental caries UNSPECIFIED ESSENTIAL HYPERTENSIO N 11514074 (SNOMED CT) 04/05 Active 04/05 Mirian Harden MA Essential hypertension OBESITY 973876687 (SNOMED CT) 04/05 Active 04/05 Mirian Harden MA Obesity Medications Medication Instructions Start Date Stop Date Generic Name NDC Provider TRAZODONE HCL 50 MG TABS TAKE 2 TABLETS BY MOUTH EVERY NIGHT AT BEDTIME TRAZODONE HCL 42991227934 Leslye Mandel OPERATING ROOM RN BCADM BUSPIRONE HCL 15 MG TABS TAKE 1/2 TABLET BY MOUTH TWICE DAILY BUSPIRONE HCL 53086799456 Anum Coffey OPERATING ROOM RN OMEPRAZOLE 40 MG CPDR TAKE 1 CAPSULE BY MOUTH EVERY DAY OMEPRAZOLE 38202608358 Anum Coffey OPERATING ROOM RN CANE 306LB 73 IN NEED-99 DX-Z91.81 [facility]. DEVICES [id number] Jonathon Carlo DO CANE 1 cane [facility]. DEVICES [id number] Kaitlynn Olea APRN DICLOFENAC SODIUM 1 % TRANSDERMAL GEL 4 grams 4 times per day DICLOFENAC SODIUM 45803653574 Jonathon Carol DO TYLENOL 325 MG TABS TAKE 2 TABLETS BY MOUTH EVERY 8 HOURS NEEDED FOR PAIN ACETAMINOPHEN 33160739678 Jonathon Carol DO CANE FOR WALKING [facility]. DEVICES [id number] Jonathon Carol DO LEXAPRO 20 MG TABS TAKE 1 BY MOUTH EACH DAY ESCITALOPRAM OXALATE 91746842457 Jonathon Mcmanusram DO TRIAMCINOLONE ACETONIDE 0.1 % CREA APPLY TO AFFECTED AREA TWICE A DAY TRIAMCINOLONE ACETONIDE 73998626909 Anum Coffey OPERATING ROOM RN VITAMIN D3 1.25 MG (21679 UT) CAPS TAKE 1 CAPSULE BY MOUTH PER WEEK CHOLECALCIFEROL 42636421967 Leslye Keagle OPERATING ROOM RN BCADM BD PEN NEEDLE MINI U/F 31G X 5 MM USE WITH BASAGLAR AND HUMALOG FOR A TOTAL OF FOUR TIMES DAILY INSULIN PEN NEEDLE 58318911656 Leslye Keagle OPERATING ROOM RN BCADM BD PEN NEEDLE MINI U/F 31G X 5 MM USE WITH BASAGLAR DIRECTED INSULIN PEN NEEDLE 70360532266 Leslye Keagle OPERATING ROOM RN BCADM PEN NEEDLES 31G X 5 MM USE WITH BASAGLAR DAILY BRAND PER FORMULARY INSULIN PEN NEEDLE 35724191721 Leslye Keagle OPERATING ROOM RN BCADM BASAGLAR KWIKPEN 100 UNIT/ML SOPN INJECT 25 UNITS UNDER THE SKIN EVERY EVENING INSULIN GLARGINE 34805674060 Leslye Shermanagle OPERATING ROOM RN BCADM LORATADINE 10 MG TABS Take 1 tablet by mouth daily LORATADINE 08887506245 Leslye Keagle OPERATING ROOM RN BCADM OMEPRAZOLE 40 MG CPDR TAKE 1 CAPSULE BY MOUTH EACH DAY OMEPRAZOLE 01353458975 Leslye Keagle OPERATING ROOM RN BCADM BUSPIRONE HCL 15 MG TABS TAKE 1/2 TABLET BY MOUTH 2 TIMES A DAY BUSPIRONE HCL 41407026283 Anum Coffey OPERATING ROOM RN TRAZODONE HCL 50 MG TABS Take 2 tablets by mouth daily at bedtime TRAZODONE HCL 17528580834 Leslye Shermanagle OPERATING ROOM RN BCADM NORVASC 10 MG TABS Take 1 tablet by mouth daily AMLODIPINE BESYLATE 77169371906 Leslye Keagle OPERATING ROOM RN BCADM ATORVASTATIN CALCIUM 20 MG TABS TAKE 1 TABLET BY MOUTH AT BEDTIME ATORVASTATIN CALCIUM 54462417054 Leslye Keagle OPERATING ROOM RN BCADM BROMFED DM 30-2-10 MG/5ML ORAL SYRUP TAKE 10 ML BY MOUTH 4 TIMES A DAY NEEDED FOR COUGH PSEUDOEPH-BROMPHE N-DM 57015191096 Leslye Mandel APRN BCADM DICLOFENAC SODIUM 1 % TRANSDERMAL GEL 4 grams 4 times per day DICLOFENAC SODIUM 30225780225 Leslye Mandel APRN BCADM VITAMIN D3 1.25 MG (88513 UT) CAPS TAKE 1 CAPSULE BY MOUTH ONCE PER WEEK CHOLECALCIFEROL 97478940415 Leslye Mandel APRN BCADM VITAMIN D3 1.25 MG (11372 UT) CAPS TAKE 1 CAPSULE BY MOUTH ONCE PER WEEK CHOLECALCIFEROL 34914188603 Leslye Mandel APRN BCADM BROMFED DM 30-2-10 MG/5ML ORAL SYRUP TAKE 10 ML BY MOUTH 4 TIMES A DAY NEEDED FOR COUGH YAS-ROXANA N-DM 26808970049 Leslye Mandel APRN BCADM DICLOFENAC SODIUM 1 % TRANSDERMAL GEL 4 grams 4 times per day DICLOFENAC SODIUM 01586413695 Leslye Mandel APRN BCADM AMOXICILLIN 875 MG TABS TAKE 1 TABLET BY MOUTH 2 TIMES A DAY AMOXICILLIN 66196747510 Leslye Mandel APRN BCADM PROMETHAZINE-DM 6.25-15 MG/5ML SYRP TAKE 5 ML BY MOUTH EVERY 4 HOURS NEEDED FOR COUGH PROMETHAZINE-DM 64490194615 Leslye Mandel APRN BCADM MELOXICAM 15 MG TABS TAKE 1 TABLET BY MOUTH ONCE A DAY MELOXICAM 08255960164 Leslye Mandel APRN BCADM OMEPRAZOLE 40 MG CPDR TAKE 1 CAPSULE BY MOUTH EACH DAY OMEPRAZOLE 89105244765 Leslye Mandel APRN BCADM LORATADINE 10 MG TABS Take 1 tablet by mouth daily LORATADINE 50530547418 Leslye Mandel APRN BCADM ATORVASTATIN CALCIUM 20 MG TABS TAKE 1 TABLET BY MOUTH AT BEDTIME ATORVASTATIN CALCIUM 18057825883 Leslye Mandel APRN BCADM PREDNISONE 20 MG TABS TAKE 1 TABLET BY MOUTH 2 TIMES A DAY FOR 5 DAYS PREDNISONE 51911537581 Leslye Mandel APRN, BCADM MELOXICAM 15 MG TABS TAKE 1 TABLET BY MOUTH ONCE A DAY MELOXICAM 97943398940 Julito Head MD LIPITOR 20 MG TABS Take 1 tablet by mouth daily ATORVASTATIN CALCIUM 85293377306 Julito Head MD TRAZODONE HCL 50 MG TABS Take 2 tablets by mouth daily at bedtime TRAZODONE HCL 28839497398 Leslye Mandel APRN, BCADM LORATADINE 10 MG TABS Take 1 tablet by mouth daily LORATADINE 67121929324 Julito Head MD NORVASC 10 MG TABS Take 1 tablet by mouth daily AMLODIPINE BESYLATE 51416427425 Leslye Leonnikki ISAIAS BCADM LISINOPRIL 20 MG TABS TAKE 1 TABLET BY MOUTH 1 TIME A DAY LISINOPRIL 07069392065 Julito Head MD PRILOSEC 40 MG ORAL CAPSULE DELAYED RELEASE Take 1 tablet by mouth daily OMEPRAZOLE 89350197931 Julito Head MD BUSPIRONE HCL 15 MG TABS TAKE 1/2 TABLET BY MOUTH 2 TIMES A DAY BUSPIRONE HCL 32627114791 Leslye Mandel APRN BCADM LOSARTAN POTASSIUM-HCTZ 50-12.5 MG TABS Take one tablet by mouth daily LOSARTAN POTASSIUM-HCTZ 92381187382 Leslye Mandel APRN BCADM TRIAMCINOLONE ACETONIDE 0.1 % CREA APPLY TO AFFECTED AREA TWICE A DAY TRIAMCINOLONE ACETONIDE 25169872873 Julito Head MD LISINOPRIL 20 MG TABS TAKE 1 TABLET BY MOUTH 1 TIME A DAY LISINOPRIL 47390686769 Mirian Harden MA Medications Administered No information [...] in Blood ABS NEUTROPH 4847 CELLS/UL 10*3/uL 2162-3084 N Neutrophils [#/volume] in Blood MPV 9.8 [...] exclud ed from report: Pending order SNOMED-CT: 27458 [id number] Current Medications Documented Patient education Medications Patient education Medications Patient education Medications Patient education Medications Patient education Medications Patient education Medications Patient education Medications Patient education Medications Patient education Medications Procedures Code Procedure Name Date Entry Date CPT-3077F Most recent systolic blood pressure >=140 mm Hg [id number] Medication Reconciliation [id number] 340B PPD Test CPT-3077F Most recent systolic blood pressure >=140 mm Hg [id number] Medication Reconciliation CPT-3075F Most recent systolic blood pressure 130-139 mm Hg [id number] Medication Reconciliation CPT-3074F Most recent systolic blood pressure <130 mm Hg CPT-3074F Most recent systolic blood pressure <130 mm Hg [facility] 42761 T1 BMP [facility] 19158 T1 Hepatic Function Panel 20 03/01/14 [facility] 496 T1 HGBA1c [facility] 46916 T1 Lipid Panel [facility] 39293 T1 TSH reflex to free T4 201 06/17/14 [facility] 88619 T2 Vitamin D 25 Hydroxy 2017 [facility] 4418 T2 Rheumatoid Factor Quant 2 [facility] 249 T2 RHETT [facility] 905 T1 Uric Acid [facility] 6399 T1 CBC with diff 496 [facility] Test # HGBA1c 59288 [facility] Test # TSH reflex to free T4 [facility]# 1759 [place] diff 75739 [facility] Test # Lipid Panel 9 50603 [facility] Test # CMP 9 X-Ray Knee X-Ray Knee [facility]-[id number] [facility] [id number] Current Medications Documented Vital Signs Date Name [...]
--- OUTSIDE RECORDS SUMMARY | 2025-10-13 13:33 | XMS_ITS | Encounter Summary ---
Author Organization [place] [address] Care Team Providers Care Trucker Hand Name Role Phone Danielle Monroy RN Unavailable Unavailable Helen Patel Unavailable Unavailable JordanGordo conde MD Primary Care Prov ider Encounter Details Date Type Department Care Team (Latest Contact Info) Description 07/27/2025 Results Follow-Up [facility] [address] [place] [phone] Stacy Mccabe APRN [address] [place] [address] COMPREHENSIVE METABOLIC PANEL, CBC WITH DIFF, LIPID PANEL REFLEX, Additional followed-up results: 2 Social History Tobacco Use Types Packs/Day Years Used Date Smoking Tobacco: Former Cigarettes 0.3 4 0 11/16/1986 - 11/16/1990 Passive Smoke Exposure: Never Smokeless Tobacco: Never Alcohol Use Standard Drinks/Week Comments Not Currently 4 (1 standard drink = 0.6 oz pure alcohol) Sober for 20 years until May 2022 [facility] Utilities Answer Date Recorded In the [...] Date Recorded PHQ-2 Total Score 5 07/26/2025 [facility] Occupat ional Health - Occupational Stress [...] things needed for daily living? No 11/10/2023 [facility] IP Transportation Answer [...] [address] [facility] [address] [place] [phone] Belinda Marques OD [address] [phone] documented as of this encounter Goals Goal [...] log to next follow up appointment with specialist wound care General Not on track(2024 10:05 AM [...] documented as of this encounter Care Teams Trucker Hand Relationship Specialty Start Date End Date Jordan, Gordo Monet MD [address] [place] [address] PCP - General Family Medicine 08/07/25 Danielle Monroy, foil cutter Healthcare Manager/Label Stamper 07/26/25 08/08/25 Helen Patel Care Management Product Safety Engineer 07/28/25 08/31/25 documented as of this encounter
--- OUTSIDE RECORDS SUMMARY | 2025-10-13 13:33 | XMS_ITS | Encounter Summary ---
Author Organization [place] [address] Care Team Providers Care Clinical Trial Associate Name Role Phone Gordo Jordan MD Primary Care Prov ider Reason for Visit * Reason Onset Date Comments Other 09/21/2025 pt wants to know if the office has received the fax from [employer] regarding his transportation Encounter Details Date Type Department Care Team ([facility] Contact Info) Description 09/21/2025 Telephone [facility] [address] [place] [phone] Gordo Jordan MD [address] [place] [address] Other (pt wants to know if the office has received the fax from [employer] regarding his transportation) Social History Tobacco Use Types Packs/Day Years [...] Recorded In the past 12 months has [employer], gas, oil, or water company threatened to shut off services in your home? No 06/22/2025 Overall Financial Resource Strain (CARDIA) Answe r Date Recorded How hard is it for you to pa y for the very basics like food, housing, medical care, and heating? Somewhat hard 06/22/2025 PHQ-2 Answer Date Recorded PHQ-2 Total Score 5 07/26/2025 [facility] of Occupat ional [facility] - Occupational Stress Questionnaire Answer Date [...] things needed for daily living? No 11/10/2023 [facility] IP Transportation Answer D ate Recorded [...] Telephone Encounter - Carlos A Morrow - 09/21/2025 1:39 PM EST Select the most appropriate reason for this telephone message: Other Who is calling: Patient Return Method of Communication: Phone Call What is needed OR why are they calling: pt wants to know if the office has received the fax from [facility] regarding his transportation When is this needed by: jennifer Where does this information need to go: pcp Additional information:please advise pt. documented in this encounter Plan of Treatment Upcoming Encounters Date Type Department Care Team (Late st Contact Info) Description 02/01/2026 11:00 AM EDT Office Visit [facility] [address] [facility] [address] [place] [address] Belinda Marques OD [address] [place] [address] documented as of this encounter Goals Goal [...] log to next follow up appointment with manager progressive care General Not on track(2024 10:05 AM [...] documented as of this encounter Care Teams Clinical Trial Associate Relationship Specialty Start Date End Date Gordo Jordan MD [address] [address] PCP - General Family Medicine 08/07/25 documented as of this encounter
--- OUTSIDE RECORDS SUMMARY | 2025-10-13 13:33 | XMS_ITS | Encounter Summary ---
Author Organization [place] [address] Care Team Providers Care Photograph Printer Name Role Phone Jordan, Gordo Monet MD Primary Care Prov ider Danielle Monroy RN Unavailable Unavailable Helen Patel Unavailable Unavailable Jordan, Gordo Monet MD Primary Care Prov ider Reason for Visit * Reason Onset Date Comments Medication Management 07/26/2025 [facility] Encounter Details Date Type Department Care Team (Late st Contact Info) Description 07/26/2025 Telephone [facility] [address] [place] [phone] Ainsley Luther, DO [address] [place] [address] Medication Management (Magic Mouth ) Social History Tobacco Use Types Packs/Day Years Used Date Smoking Tobacco: Former Cigarettes 0.3 4 0 11/16/1986 - 11/16/1990 Passive Smoke Exposure: Never Smokeless Tobacco: Never Alcohol Use Standard Drinks/Week Comments Not Currently 4 (1 standard drink = 0.6 oz pure alcohol) Sober for 20 years until May 2022 [facility] Utilities Answer Date Recorded In the past 12 months has [employer], gas, oil, or water [employer] threatened to shut off services in your home? No 06/22/2025 Overall Financial Resource Strain (CARDIA) Answe r Date Recorded How hard is it for you to pa y for the very basics like food, housing, medical care, and heating? Somewhat hard 06/22/2025 PHQ-2 Answer Date Recorded PHQ-2 Total Score 5 07/26/2025 [facility] - Occupational Stress Questionnaire Answer Date Recorded [...] things needed for daily living? No 11/10/2023 [facility] IP Transportation Answer D ate Recorded [...] message: Medication Management/Problem Who is calling? [facility] What medication(s) do you have concerns about: [...] of prescription Last appointment date: today Pharmacy: [id number] [place] [address] [address] [facility] - [phone] [address] [facility] [id number] PAT #: [id number] Return Method of Communication: Phone Call Additional Information: N/A documented in this encounter Plan of Treatment Upcoming Encounters Date Type Department Care Team (Late st Contact Info) Description 02/01/2026 11:00 AM EDT Office Visit [facility] [address] [facility] [address] [place] [address] Belinda Marques OD [address] [phone] documented as of this encounter Goals Goal [...] log to next follow up appointment with customer care associate General Not on track(2024 10:05 AM EDT) [...] documented as of this encounter Care Teams Photograph Printer Relationship Specialty Start Date End Date Gordo Jordan MD [address] [address] PCP - General Family Medicine 07/26/25 07/26/25 Gordo Jordan MD [address] [address] PCP - General Family Medicine 08/07/25 Danielle Monroy, wood inspector Ventilator Specialist/Chief Steward/Stewardess 07/26/25 08/08/25 Helen Patel Care Management Boiling Off Winder 07/28/25 08/31/25 documented as of this encounter
--- OUTSIDE RECORDS SUMMARY | 2025-10-13 13:33 | XMS_ITS | Encounter Summary ---
Author Organization [facility] [place] [address] Care Team Providers Care Afterschool Name Role Phone Gordo Jordan MD Primary Care Prov ider Encounter Details Date Type Department Care Team (Latest Contact Info) Description 09/15/2025 Travel Social History Tobacco Use Types Packs/Day Years Used Date Smoking Tobacco: Some Days Cigarettes 0.6 8 Started: 11/16/1986; Last attempted to quit: 11/16/1990 Passive Smoke Exposure: Never Smokeless Tobacco: Never Alcohol Use Standard Drinks/Week Comments Yes 4 (1 standard drink = 0.6 oz pure alcohol) Sober for 20 years until May 2022 [facility] Utilities Answer Date Recorded In the past 12 months has [employer], gas, oil, or water [employer] threatened to shut off services in your home? No 06/22/2025 Overall Financial Resource Strain (CARDIA) Answe r Date Recorded How hard is it for you to pa y for the very basics like food, housing, medical care, and heating? Somewhat hard 06/22/2025 PHQ-2 Answer Date Recorded PHQ-2 Total Score 5 07/26/2025 [facility] [place] of Occupat ional Health - Occupational Stress [...] things needed for daily living? No 11/10/2023 [facility] IP Transportation Answer D ate [...] Office Visit [facility] [address] [facility] [address] [place] [address] Jerald Belinda, OD [address] [phone] documented as of this encounter Goals Goal [...] to next follow up appointment with manager care General Not on track(2024 10:05 AM [...] documented as of this encounter Care Teams Afterschool Relationship Specialty Start Date End Date Gordo Jordan MD [address] [place] [address] PCP - General Family Medicine 08/07/25 documented as of this encounter
--- OUTSIDE RECORDS SUMMARY | 2025-10-13 13:33 | XMS_ITS | Encounter Summary ---
Author Organization [place] [address] Care Team Providers Care Television Analyzer Name Role Phone Gordo Jordan MD Primary Care Prov ider Reason for Referral * Medication Prior Authorization - Closed Specialty Diagnoses / Procedures Referred By Contac t Referred To Contact Diagnoses Uncontrolled type 2 diabetes mellitus with hyperglycemia, with long-term current use of insulin (HCC) Diabetic polyneuropathy associated with type 2 diabetes mellitus (HCC) Gordo Jordan MD [address] [address] Phone: tel: fax: Referral ID Status Reason Start Date Expiration Date Visits Re quested Visits Authorized [id number] Closed 1 1 Reason for Visit * Reason Comments Medication Refill Encounter Details Date Type Department Care Team ([facility] Contact Info) Description 10/08/2025 Refill [facility] [address] [place] [phone] Gordo Jordan MD [address] [address] Medication Refill Social History Tobacco Use Types Packs/Day Years Used Date Smoking Tobacco: Some Days Cigarettes 0.6 8 Started: 11/16/1986; Last attempted to quit: 11/16/1990 Passive Smoke Exposure: Never Smokeless Tobacco: Never Alcohol Use Standard Drinks/Week Comments Yes 4 (1 standard drink = 0.6 oz pure alcohol) Sober for 20 years until May 2022 [facility] Utilities Answer Date Recorded In [...] Date Recorded PHQ-2 Total Score 5 07/26/2025 [facility] of Occupat ional Health - Occupational Stress [...] things needed for daily living? No 11/10/2023 [facility] IP Transportation Answer D ate Recorded [...] Refills Last Filled Start Date End Date NOVOLOG FLEXPEN U-100 INSULIN 100 unit/mL (3 mL) SubQ Insulin PenIndications:Uncon trolled type 2 diabetes mellitus with hyperglycemia, with long-term current use of insulin (HCC),Diabetic polyneuropathy associated with type 2 diabetes mellitus (HCC) INJECT 12 UNITS UNDER THE SKIN 3 TIMES A DAY 15 mL 10/10/2025 documented in this encounter Plan of Treatment Upcoming Encounters Date Type Department Care Team (Late st Contact Info) Description 02/01/2026 11:00 AM EDT Office Visit [facility] [address] [facility] [address] [place] [phone] Belinda Marques OD [address] [place] [address] documented as of this encounter [...] log to next follow up appointment with certified caregiver General Not on track(2024 10:05 AM [...] times daily (before meals). Use as directed 09/04/2025 10/10/2025 documented as of this encounter Additional Health Concerns Assessment Noted Time PHQ-9 Depression Total Score: 025 9:00 AM EDT PHQ-2 Depression Total Score: 07/26/20 9:00 AM EDT documented as of this encounter Care Teams Television Analyzer Relationship Specialty Start Date End Date Jordan, Gordo Monet MD [address] [place] [address] PCP - General Family Medicine 08/07/25 documented as of this encounter
--- OUTSIDE RECORDS SUMMARY | 2025-10-13 13:33 | XMS_ITS | Encounter Summary ---
Author [place] [address] Care Team Providers Care Exceptional Student Education Aide Name Role Phone No Pcp, Per [...] 07/04/2025 Telephone [facility] [address] [place] [phone] Gordo Jordan MD [address] [place] [address] Appointment Needed (Appt needed ) Social History Tobacco Use Types Packs/Day Years Used Date Smoking Tobacco: Former Cigarettes 0.3 4 0 11/16/1986 - 11/16/1990 Passive Smoke Exposure: Never Smokeless Tobacco: Never Alcohol Use Standard Drinks/Week Comments Not Currently 4 (1 standard drink = 0.6 oz pure alcohol) Sober for 20 years until May 2022 [facility] Utilities Answer Date Recorded In [...] Date Recorded PHQ-2 Total Score 5 07/26/2025 [facility] [place] of Occupat ional Health - Occupational Stress [...] things needed for daily living? No 11/10/2023 [facility] IP Transportation Answer D ate Recorded In [...] energy 2 07/26/2025 9:00 AM Annie Goldman MA Poor appetite or overeating 3 07/26/2025 9: 00 AM Annie Goldman MA Feeling bad about yourself - or that you are a failure or have let yourself or your family down 2 07/26/2025 9:00 AM Ngiel Goldmna MA Trouble concentrating on thi ngs, such [...] SEP Ophthalmology Cov [address] [facility] [address] [place] [phone] Belinda Marques OD [address] [place] [address] documented as of this encounter Goals Goal [...] log to next follow up appointment with medical care administrator General Not on track(2024 10:05 AM EDT) [...] documented as of this encounter Care Teams Exceptional Student Education Aide Relationship Specialty Start Date End Date No Pcp, Per Patient PCP - General 06/22/25 07/25/25 Gordo Jordan MD [address] [address] PCP - General Family Medicine 07/26/25 07/26/25 Gordo Jordan MD [address] [address] PCP - General Family Medicine 08/07/25 Danielle Monroy, octave board assembler City Carrier/Plate And Frame Filter Operator 07/26/25 08/08/25 Helen Patel Care Management Plate Conditioner 07/28/25 08/31/25 documented as of this encounter
--- OUTSIDE RECORDS SUMMARY | 2025-10-13 13:33 | XMS_ITS | Encounter Summary ---
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 [place] [phone] Ainsley Luther M, DO [address] [place] [address] Appointment Needed (Pt out of insulin /DIRECT SALES PROFESSIONAL ) Social History Tobacco Use Types Packs/Day [...] Date Recorded PHQ-2 Total Score 5 07/26/2025 [facility] [place] of Occupat ional [facility] - Occupational Stress Questionnaire Answer Date Recorded [...] things needed for daily living? No 11/10/2023 [facility] IP Transportation Answer D ate [...] 3:53 PM EDT Spw pt, Yonathan. w/ BILINGUAL BRANCH MANAGER JN tomorrow 07/26 for meds. DIRECT SALES PROFESSIONAL EST APPT 08/30 with AE. understands he [...] were not included. * Telephone Encounter - Henry Montalvo - 07/25/2025 3:16 PM EDT Select the most appropriate reason for this telephone message: Appointment Needed Appointment Requested By: Patient Provider Preference: Any Available Type of Appt Needed: New Patient Detailed Reason for Appt: DIRECT SALES PROFESSIONAL, est care, adv med recordds/control meds, no [...] Ophthalmology Cov [address] [facility] [address] [place] [address] Belinda Marques OD [address] [place] [phone] documented as of this encounter Goals Goal [...] next follow up appointment with customer care representative General Not on track(2024 10:05 AM [...] documented as of this encounter Care Teams Manager Maritime Relationship Specialty Start Date End Date No Pcp, Per Patient PCP - General 06/22/25 07/25/25 Gordo Jordan MD [address] [address] PCP - General Family Medicine 07/26/25 07/26/25 Gordo Jordan MD [address] [address] PCP - General Family Medicine 08/07/25 Danielle Monroy, workers compensation coordinator Hair Blender/Department Coordinator 07/26/25 08/08/25 Helen Patel Care Management Rn Military 07/28/25 08/31/25 documented as of this encounter
--- NOTE | 2025-10-13 13:34 | PC.NURSE ---
Gave patient a blanket
--- OUTSIDE RECORDS SUMMARY | 2025-10-13 13:34 | XMS_ITS | Encounter Summary ---
Author Organization [place] [address] Care Team Providers Care Support Service Tech Name Role Phone Gordo Jordan MD Primary Care Prov ider Reason for Visit * Reason Onset Date Comments Other 09/13/2025 Did you get a Fa x Patient Returning Call 09/13/2025 On form Follow Up 09/13/2025 Fax Encounter Details Date Type Department Care Team ([facility] Contact Info) Description 09/13/2025 Telephone [facility] [address] [place] [phone] Gordo Jordan MD [address] [address] Other (Did you get a Fax ); Patient Returning Call (On form ); Follow Up (Fax) Social History Tobacco Use Types Packs/Day Years Used Date Smoking Tobacco: Some Days Cigarettes 0.6 8 Started: 11/16/1986; Last attempted to quit: 11/16/1990 Passive Smoke Exposure: Never Smokeless Tobacco: Never Alcohol Use Standard Drinks/Week Comments Yes 4 (1 standard drink = 0.6 oz pure alcohol) Sober for 20 years until May 2022 [facility] Utilities Answer Date Recorded In the past 12 months has e [employer], gas, oil, or water company threatened to shut off services in your home? No 06/22/2025 Overall Financial Resource Strain (CARDIA) Answe r Date Recorded How hard is it for you to pa y for the very basics like food, housing, medical care, and heating? Somewhat hard 06/22/2025 PHQ-2 Answer Date Recorded PHQ-2 Total Score 5 07/26/2025 [facility] - Occupational Stress Questionnaire Answer [...] things needed for daily living? No 11/10/2023 [facility] IP Transportation Answer D ate Recorded [...] Author No 10/18/2023 11:50 AM Mckayla Pelaez, RN * Is the person blind or [...] * Telephone Encounter - Montserrat Fowler - 09/22/2025 8:51 AM EST Paperwork signed/ faxed. Patient notified. * Telephone Encounter - Jessica Gonzalez RMA - 09/21/2025 4:57 PM EST Form received, placed on BB desk for signature. BB informed * Telephone Encounter - Rabia Barber MA - 09/21/2025 10:54 AM EST Select the most appropriate reason for this telephone message: Follow Up Follow Up Who is Calling:Patient Return Method of Communication:Phone call What is the caller following up on (make sure to reference any prior documentation/encounter):Pt called to see if PCP ever received papers from [employer]? Further follow-up needed?:Yes Additional Information:Pt given office fax # and says he is going to call [employer] again as well. * Telephone Encounter - Eliseo Dean RMA [...] seeing if you got the fax from [place] for his transportation. It needs to be [...] SEP Ophthalmology Cov [address] [facility] [address] [place] [address] Belinda Marques OD [address] [place] [address] documented as of this encounter [...] log to next follow up appointment with sub acute care nurse General Not on track(2024 10:05 [...] documented as of this encounter Care Teams Support Service Tech Relationship Specialty Start Date End Date Jordan, Gordo Monet MD [address] [place] [address] PCP - General Family Medicine 08/07/25 documented as of this encounter
--- OUTSIDE RECORDS SUMMARY | 2025-10-13 13:34 | XMS_ITS | Encounter Summary ---
Author Organization [place] [address] Care Team Providers Care Diesel Engine Ii Pipe Fitter Name Role Phone EwaedeMagdyHelen Unavailable Unavailable Gordo Jordan MD Primary Care Prov ider Encounter Details Date Type Department Care Team (Late st Contact Info) Description 08/16/2025 Refill [facility] [address] [place] [phone] Gordo Jordan MD [address] [place] [address] Social History Tobacco Use Types Packs/Day Years Used Date Smoking Tobacco: Former Cigarettes 0.6 8 0 11/16/1986 - 11/16/1990 Passive Smoke Exposure: Never Smokeless Tobacco: Never Alcohol Use Standard Drinks/Week Comments Not Currently 4 (1 standard drink = 0.6 oz pure alcohol) Sober for 20 years until May 2022 [facility] Utilities Answer Date Recorded In the past 12 months has [employer], gas, oil, or water [employer] threatened to shut off services in your home? No 06/22/2025 Overall Financial Resource Strain (CARDIA) Answe r Date Recorded How hard is it for you to pa y for the very basics like food, housing, medical care, and heating? Somewhat hard 06/22/2025 PHQ-2 Answer Date Recorded PHQ-2 Total Score 5 07/26/2025 [facility] [place] of Occupat ional Health - Occupational Stress [...] things needed for daily living? No 11/10/2023 [facility] IP Transportation Answer D ate Recorded [...] AM EDT Office Visit SEP Ophthalmology Cov [facility]note 2] [address] [facility] [address] [place] [address] Belinda Marques OD [address] [place] [phone] documented as of this encounter Goals Goal [...] log to next follow up appointment with regular senior care provider General Not on track(2024 10:05 [...] documented as of this encounter Care Teams Diesel Engine Ii Pipe Fitter Relationship Specialty Start Date End Date Jordan, Gordo Monet MD [address] [place] [address] PCP - General Family Medicine 08/07/25 Helen Patel Care Management Vacuum Tank Tender 07/28/25 08/31/25 documented as of this encounter
--- OUTSIDE RECORDS SUMMARY | 2025-10-13 13:34 | XMS_ITS | Encounter Summary ---
Author Organization [place] [address] Care Team Providers Care Floor Covering Contractor Name Role Phone BenitoeneidaedeAnnan Unavailable Unavailable Gordo [...] (Late st Contact Info) Description 08/22/2025 Telephone [facility] [employer] [facility] [address] [place] [phone] Gordo Jordan MD [address] [place] [address] Symptoms (Only Use If Pt Pushes [...] Sober for 20 years until May 2022 [facility] Utilities Answer Date Recorded In the past 12 months has [facility] [employer], gas, oil, or water [employer] threatened to shut off services in your home? No 06/22/2025 Overall Financial Resource Strain (CARDIA) Answe r Date Recorded How hard is it for you to pa y for the very basics like food, housing, medical care, and heating? Somewhat hard 06/22/2025 PHQ-2 Answer Date Recorded PHQ-2 Total Score 5 07/26/2025 [facility] of Occupat ional Health - Occupational [...] needed for daily living? No 11/10/2023 [facility] IP Transportation Answer D ate [...] 4:09 PM EDT Patient responded again to [email or web address] message regarding BG. It came down to <200, but as of today back up to 240. Of note patient also states BP was 226/140 today. Called patient to discuss rechecking BP, but unavailable and VM box not set up yet. Sending [email or web address] message recommending patient recheck and if >180/120 [...] not improved. Thank you, Dejan Malagon, PharmD Tacking Machine Operator Pharmacist [facility] 08/22/2025 3:40 PM * Telephone Encounter - Eliseo Dean RMA - 08/22/2025 2:32 PM EDT Closing encounter look at telephone encounter on 08/21/25. If having sores on his mouth he will need to make an appointment PCP is out of /6/25 until 08/28/25 His message about sugars have been routed to Dejan to review and discuss with pt when he gets a chance to review his inbox. He will reach out to the pt. As far as lock on medication. Not sure what pt is talking about if needing refills can [facility] or let call center know what [...] Visit SEP Ophthalmology Cov [address] [facility] [address] [place] [phone] Belinda Marques OD [address] [place] [address] documented as of this encounter Goals Goal [...] next follow up appointment with patient care representative General Not on track(2024 10:05 [...] documented as of this encounter Care Teams Floor Covering Contractor Relationship Specialty Start Date End Date Julian, Gordo Monet MD [address] [place] [address] PCP - General Family Medicine 08/07/25 Helen Patel Care Management Faculty Physician 07/28/25 08/31/25 documented as of this encounter
--- OUTSIDE RECORDS SUMMARY | 2025-10-13 13:34 | XMS_ITS | Encounter Summary ---
Author Organization [place] [address] Care Team Providers Care Flight Control Specialist Name Role Phone Helen Patel Unavailable Unavailable Gordo Jordan MD Primary Care Prov ider Encounter Details Date Type Department Care Team (Late st Contact Info) Description 08/16/2025 Refill [facility] [address] [place] [phone] Stacy Mccabe, ISAIAS [address] [place] [phone] Social History Tobacco Use Types Packs/Day Years Used Date Smoking Tobacco: Former Cigarettes 0.6 8 0 11/16/1986 - 11/16/1990 Passive Smoke Exposure: Never Smokeless Tobacco: Never Alcohol Use Standard Drinks/Week Comments Not Currently 4 (1 standard drink = 0.6 oz pure alcohol) Sober for 20 years until May 2022 [facility] Utilities Answer Date Recorded In the past 12 months has [employer], gas, oil, or water [employer] threatened to shut off services in your home? No 06/22/2025 Overall Financial Resource Strain (CARDIA) Answe r Date Recorded How hard is it for you to pa y for the very basics like food, housing, medical care, and heating? Somewhat hard 06/22/2025 PHQ-2 Answer Date Recorded PHQ-2 Total Score 5 07/26/2025 [facility] [place] of Occupat ional Health - Occupational Stress [...] things needed for daily living? No 11/10/2023 [facility] IP Transportation Answer D ate Recorded [...] EDT Office Visit SEP Ophthalmology Cov [address] [facility] [address] [place] [phone] Belinda Marques OD [address] [place] [address] documented as of this encounter Goals Goal [...] log to next follow up appointment with administrator health care facility General Not on track(2024 10:05 AM EDT) [...] Generalized anxiety disorder Hypertension associated with diabetes ([facility]) Type II or unspecified type diabetes [...] documented as of this encounter Care Teams Flight Control Specialist Relationship Specialty Start Date End Date Jordan, Gordo Monet MD [address] [place] [address] PCP - General Family Medicine 08/07/25 Helen Patel Care Management Batch Or Continuous Still Operator 07/28/25 08/31/25 documented as of this encounter
--- OUTSIDE RECORDS SUMMARY | 2025-10-13 13:34 | XMS_ITS | Encounter Summary ---
Author Organization [place] [address] Care Team Providers Care Stand Up Comedian Name Role Phone Jorge Helen Israel Unavailable Gordo Jordan MD Primary Care Prov ider Reason for Visit * Reason Onset Date Comments Medication Management 08/31/2025 All medica tions Encounter Details Date Type Department Care Team (Late st Contact Info) Description 08/31/2025 Telephone [facility] [address] [place] [phone] Gordo Jordan MD [address] [place] [address] Medication Management (All medications ) Social History Tobacco Use Types Packs/Day Years Used Date Smoking Tobacco: Some Days Cigarettes 0.6 8 Started: 11/16/1986; Last attempted to quit: 11/16/1990 Passive Smoke Exposure: Never Smokeless Tobacco: Never Alcohol Use Standard Drinks/Week Comments Yes 4 (1 standard drink = 0.6 oz pure alcohol) Sober for 20 years until May 2022 [facility] Utilities Answer Date Recorded In the past 12 months has [employer], gas, oil, or water company threatened to shut off services in your home? No 06/22/2025 Overall Financial Resource Strain (CARDIA) Answe r Date Recorded How hard is it for you to pa y for the very basics like food, housing, medical care, and heating? Somewhat hard 06/22/2025 PHQ-2 Answer Date Recorded PHQ-2 Total Score 5 07/26/2025 [facility] [place] of Occupat ional Health - Occupational Stress [...] 11/10/2023 [facility] IP Transportation Answer D ate [...] 90 days with refills Last appointment date: na Pharmacy: [facility], [place] Additional Information: Pt was not happy at all that these are not a 90 days supply with refills and wants them change today he said documented in this encounter Plan of Treatment Upcoming Encounters Date Type Department Care Team (Late st Contact Info) Description 02/01/2026 11:00 AM EDT Office Visit SEP Ophthalmology Cov [address] [facility] [address] [place] [phone] Belinda Marques OD [address] [place] [address] documented as of this encounter Goals Goal [...] to next follow up appointment with home health care provider General Not on track(2024 10:05 [...] documented as of this encounter Care Teams Stand Up Comedian Relationship Specialty Start Date End Date Gordo Jordan MD [address] [place] [address] PCP - General Family Medicine 08/07/25 Helen Patel Care Management Policy Writer Typist 07/28/25 08/31/25 documented as of this encounter
--- OUTSIDE RECORDS SUMMARY | 2025-10-13 13:34 | XMS_ITS | Encounter Summary ---
Author [place] [address] Care Team Providers Care Rotoprinter Name Role Phone Helen Patel Unavailable Gordo Jordan MD Primary Care Prov ider Reason for Visit * Reason Onset Date Comments Symptoms (Only Use If Pt Pus hes Back On Scheduling A Visit) 08/21/2025 High blood sugar x1 day Encounter Details Date Type Department Care Team (Late st Contact Info) Description 08/21/2025 Telephone [facility] [facility] [address] [place] [phone] Gordo Jordan MD [address] [place] [address] Symptoms (Only Use If Pt Pushes [...] Sober for 20 years until May 2022 [facility] Utilities Answer Date Recorded In the past 12 months has [employer], gas, oil, or water [employer] threatened to shut off services in your home? No 06/22/2025 Overall Financial Resource Strain (CARDIA) Answe r Date Recorded How hard is it for you to pa y for the very basics like food, housing, medical care, and heating? Somewhat hard 06/22/2025 PHQ-2 Answer Date Recorded PHQ-2 Total Score 5 07/26/2025 [facility] - Occupational Stress Questionnaire Answer Date [...] needed for daily living? No 11/10/2023 [facility] IP Transportation Answer D ate Recorded [...] (no pain) Desired Outcome: Advice Pharmacy & Location:[address] [address] [place] [phone] [[id number]] Was patient transferred to Nurse Triage for additional help? N/A Additional Information: Please advise,thank you documented in this encounter Plan of Treatment Upcoming Encounters Date Type Department Care Team (Late st Contact Info) Description 02/01/2026 11:00 AM EDT Office Visit SEP Ophthalmology Cov [address] [facility] [address] [place] [address] Roseanna Marqueszabeth, OD [address] [place] [phone] documented as of this encounter Goals Goal [...] to next follow up appointment with care clinician General Not on track(2024 10:05 AM EDT) [...] documented as of this encounter Care Teams Rotoprinter Relationship Specialty Start Date End Date Gordo Jordan MD [address] [place] [address] PCP - General Family Medicine 08/07/25 Helen Patel Care Management Stable Hand 07/28/25 08/31/25 documented as of this encounter
--- OUTSIDE RECORDS SUMMARY | 2025-10-13 13:34 | XMS_ITS | Encounter Summary ---
Author [place] [address] Care Team Providers Care Dye Expert Name Role Phone Helen Patel Unavailable JordanGordo conde MD Primary Care Prov ider Reason for Visit * Reason Comments Medication Refill Encounter Details Date Type Department Care Team (Late st Contact Info) Description 08/30/2025 Refill [facility] [address] [place] [phone] Stacy Mccabe APRN [address] [place] [phone] Medication Refill Social History Tobacco Use Types Packs/Day Years Used Date Smoking Tobacco: Some Days Cigarettes 0.6 8 Started: 11/16/1986; Last attempted to quit: 11/16/1990 Passive Smoke Exposure: Never Smokeless Tobacco: Never Alcohol Use Standard Drinks/Week Comments Yes 4 (1 standard drink = 0.6 oz pure alcohol) Sober for 20 years until May 2022 [facility] Utilities Answer Date Recorded In the past 12 months has [employer], gas, oil, or water [employer] threatened to shut off services in your home? No 06/22/2025 Overall Financial Resource Strain (CARDIA) Answe r Date Recorded How hard is it for you to pa y for the very basics like food, housing, medical care, and heating? Somewhat hard 06/22/2025 PHQ-2 Answer Date Recorded PHQ-2 Total Score 5 07/26/2025 [facility] [place] of Occupat ional Health - Occupational Stress [...] things needed for daily living? No 11/10/2023 [facility] IP Transportation Answer D ate [...] 1500 [facility] [address] [place] [address] Belinda Marques OD [address] [place] [phone] documented as of this encounter Goals Goal [...] documented as of this encounter Care Teams Dye Expert Relationship Specialty Start Date End Date Jordan, Gordo Monet MD [address] [place] [address] PCP - General Family Medicine 08/07/25 Helen Patel Care Management Slip Filler 07/28/25 08/31/25 documented as of this encounter
--- OUTSIDE RECORDS SUMMARY | 2025-10-13 13:34 | XMS_ITS | Encounter Summary ---
Author [place] [address] Care Team Providers Care Experimental Physicist Name Role Phone Helen Patel Unavailable JordanGordo conde MD Primary Care Prov ider Reason for Visit * Reason Onset Date Comments Medication Refill 08/20/2025 Multiple meds Encounter Details Date Type Department Care Team (Late st Contact Info) Description 08/20/2025 Refill [facility] [address] [place] [phone] Stacy Mccabe APRN [address] [place] [address] Medication Refill (Multiple meds) Social History Tobacco Use Types Packs/Day Years Used Date Smoking Tobacco: Some Days Cigarettes 0.6 8 Started: 11/16/1986; Last attempted to quit: 11/16/1990 Passive Smoke Exposure: Never Smokeless Tobacco: Never Alcohol Use Standard Drinks/Week Comments Yes 4 (1 standard drink = 0.6 oz pure alcohol) Sober for 20 years until May 2022 [facility] Utilities Answer Date Recorded In the past 12 months has [employer] electric, gas, oil, or water company threatened to shut off services in your home? No 06/22/2025 Overall Financial Resource Strain (CARDIA) Answe r Date Recorded How hard is it for you to pa y for the very basics like food, housing, medical care, and heating? Somewhat hard 06/22/2025 PHQ-2 Answer Date Recorded PHQ-2 Total Score 5 07/26/2025 [facility] [place] of Occupat ional Health - Occupational [...] things needed for daily living? No 11/10/2023 [facility] IP Transportation Answer D [...] Notes * Telephone Encounter - Aakash Castaneda, communications officer - 08/22/2025 3:02 PM EDT Alcohol prep [...] supply with 0 refills. Pt notified via A-Vu Mediat if active. Pantoprazole Refill requested too soon. Refill denied. Last sent on 07/26/25 for a 90 day supply with 0 refills. Pt notified via Mychart if active. Lantus Refill requested too soon. Refill denied. Last sent on 07/26/25 for a 90 day supply with 0 refills. Pt notified via Calpianhart if active. Folic acid Refill requested too soon. Refill denied. Last sent on 07/26/25 for a 90 day supply with 0 refills. Pt notified via [employer] Mediat if active. Jardiance Duplicate refill request. This [...] EDT Office Visit [facility] [address] [phone] Belinda Marques OD [address] [place] [phone] documented as of this encounter Goals Goal [...] to next follow up appointment with care connector General Not on track(2024 10:05 AM EDT) [...] use of insulin ([facility]),Diabetic polyneuropathy associated with type 2 diabetes mellitus ([facility]) Apply 1 Each topically as needed. Reorder 07/26/2025 08/20/2025 documented as of this encounter Additional Health Concerns Assessment Noted Time PHQ-9 Depression Total Score: 22 025 9:00 AM EDT PHQ-2 Depression Total Score: 5 07/26/20 25 9:00 AM EDT documented as of this encounter Care Teams Experimental Physicist Relationship Specialty Start Date End Date Julian, Gordo Moent MD [address] [place] [address] PCP - General Family Medicine 08/07/25 Helen Patel Care Management Cold Patcher 07/28/25 08/31/25 documented as of this encounter
--- OUTSIDE RECORDS SUMMARY | 2025-10-13 13:34 | XMS_ITS | Encounter Summary ---
Author Organization [facility] [place] [address] Care Team Providers Care Stay Cutter Name Role Phone Helen Patel Unavailable Unavailable [...] 20 years until May 2022 [facility] Utilities Answer Date Recorded In the past 12 months has [employer] electric, gas, oil, or water [employer] threatened to shut off services in your home? No 06/22/2025 Overall Financial Resource Strain (CARDIA) Answe r Date Recorded How hard is it for you to pa y for the very basics like food, housing, medical care, and heating? Somewhat hard 06/22/2025 PHQ-2 Answer Date Recorded PHQ-2 Total Score 5 07/26/2025 [facility] [place] of Occupat ional Health - Occupational Stress [...] living? No 11/10/2023 [facility] IP Transportation Answer D ate [...] Visit [facility] 1500 [facility] [address] [place] [address] JeraldBelinda, OD [address] [place] [address] [phone] documented as of this encounter Goals Goal [...] to next follow up appointment with adult live in caregiver General Not on track(2024 10:05 AM [...] documented as of this encounter Care Teams Stay Cutter Relationship Specialty Start Date End Date Gordo Jordan MD [address] [place] [address] PCP - General Family Medicine 08/07/25 Helen Patel Care Management Esl Instructor 07/28/25 08/31/25 documented as of this encounter
--- OUTSIDE RECORDS SUMMARY | 2025-10-13 13:34 | XMS_ITS | Encounter Summary ---
Author Organization [place] [address] Care Team Providers Care Carrier Washer Name Role Phone Helen Patel Unavailable Gordo Jordan MD Primary Care Prov ider Reason for Visit * Reason Onset Date Comments Refill 08/30/2025 Insulin [place], Disposable, (BD ULTRA-FINE MINI PEN NEEDLE) 31 gauge x 3/16 Misc Needle / insulin glargine (LANTUS) 100 unit/mL (3 mL) SubQ Insulin Pen Medication Management 08/30/2025 Pharmacy c alled to get status update for pt- pt is anxious about getting this called in Encounter Details Date Type Department Care Team (Late st Contact Info) Description 08/30/2025 Telephone [facility] [address] [place] [phone] Gordo Jordan MD [address] [phone] Refill (Insulin [place], Disposable, (BD ULTRA-FINE MINI PEN NEEDLE) 31 [...] Date Recorded PHQ-2 Total Score 5 07/26/2025 [facility] of Occupat ional Health - Occupational Stress [...] things needed for daily living? No 11/10/2023 [facility] IP Transportation Answer D ate [...] every evening. 15 mL 1 08/30/2025 Insulin [place], Disposable, (BD ULTRA-FINE MINI PEN NEEDLE) 31 [...] the skin every evening. - Subcutaneous Insulin [place], Disposable, (BD ULTRA-FINE MINI PEN NEEDLE) 31 [...] about it Last appointment date: 08/17 Pharmacy: [facility] [address] [place] [phone] [phone] [facility] [phone] Additional Information: Please advise- already pended * Telephone Encounter - Le Sharma MA - 08/30/2025 2:28 PM EDT Select the most appropriate reason for this telephone message: Medication Refill Who is requesting the refill: Patient Return Method of Communication: Phone Call Medication(s)Name/Dosage/Frequency: Disp Refills Start End Insulin [place], Disposable, (BD ULTRA-FINE MINI PEN NEEDLE) 31 [...] w/ prescribing provider: 11/06/25 Pharmacy & Location: [address] [address] [facility] [phone] [[id number]] Informed patient refill requests can take up [...] Visit [facility] [address] [facility] [address] [place] [phone] Belinda Marques OD [address] [place] [address] documented as of this encounter Goals Goal [...] to next follow up appointment with healthcare economics manager General Not on track(2024 10:05 AM [...] Reason Start Date End Da te Insulin [place], Disposable, (BD ULTRA-FINE MINI PEN NEEDLE) 31 [...] documented as of this encounter Care Teams Carrier Washer Relationship Specialty Start Date End Date Jordan, Gordo Monet MD [address] [place] [phone] PCP - General Family Medicine 08/07/25 Helen Patel Care Management Welfare Centre Manager 07/28/25 08/31/25 documented as of this encounter
--- OUTSIDE RECORDS SUMMARY | 2025-10-13 13:34 | XMS_ITS | Encounter Summary ---
Author Organization [place] [address] Care Team Providers Care Auricular Detoxification Specialist Name Role Phone Anna Patelambrose Israel Unavailable Gordo Jordan MD Primary Care Prov ider Reason for Visit * Reason Onset Date Comments Medication Refill 08/20/2025 Encounter Details Date Type Department Care Team (Late st Contact Info) Description 08/20/2025 Refill [facility] [address] [place] [phone] Gordo Jordan MD [address] [place] [address] Medication Refill Social History Tobacco Use Types Packs/Day Years Used Date Smoking Tobacco: Some Days Cigarettes 0.6 8 Started: 11/16/1986; Last attempted to quit: 11/16/1990 Passive Smoke Exposure: Never Smokeless Tobacco: Never Alcohol Use Standard Drinks/Week Comments Yes 4 (1 standard drink = 0.6 oz pure alcohol) Sober for 20 years until May 2022 [facility] Utilities Answer Date Recorded In the past 12 months has [employer] electric, gas, oil, or water company threatened to shut off services in your home? No 06/22/2025 Overall Financial Resource Strain (CARDIA) Answe r Date Recorded How hard is it for you to pa y for the very basics like food, housing, medical care, and heating? Somewhat hard 06/22/2025 PHQ-2 Answer Date Recorded PHQ-2 Total Score 5 07/26/2025 [facility] of Occupat ional Health - Occupational Stress [...] things needed for daily living? No 11/10/2023 [facility] IP Transportation Answer [...] EDT Office Visit [facility] 1500 [facility] [address] [place] [phone] Belinda Marques OD [address] [place] [phone] documented as of this encounter Goals Goal [...] log to next follow up appointment with student career development specialist General Not on track(09/12/ 2025 10:05 AM EDT) Yes Danielle Monroy RN [...] 11.6( 025 10:27 AM EDT) No Annie Maritnez CCMA Weight < 210 lb (95.255 kg) [...] documented as of this encounter Care Teams Auricular Detoxification Specialist Relationship Specialty Start Date End Date Jordan, Gordo Monet MD [address] [place] [address] PCP - General Family Medicine 08/07/25 Helen Patel Care Management Consulting Technical Director 07/28/25 08/31/25 documented as of this encounter
--- OUTSIDE RECORDS SUMMARY | 2025-10-13 13:34 | XMS_ITS | Encounter Summary ---
Author Organization [place] [address] Care Team Providers Care Battery Stacker Name Role Phone Helen Patel Unavailable Unavailable Gordo Jordan MD Primary Care Prov ider Reason for Visit * Reason Onset Date Comments Medication Refill Follow Up 08/20/2025 Med refill Encounter Details Date Type Department Care Team (Late st Contact Info) Description 08/20/2025 Refill [facility] [address] [place] [phone] Stacy Mccabe APRN [address] [place] [address] Medication Refill; Follow Up (Med refill ) Social History Tobacco Use Types Packs/Day Years Used Date Smoking Tobacco: Some Days Cigarettes 0.6 8 Started: 11/16/1986; Last attempted to quit: 11/16/1990 Passive Smoke Exposure: Never Smokeless Tobacco: Never Alcohol Use Standard Drinks/Week Comments Yes 4 (1 standard drink = 0.6 oz pure alcohol) Sober for 20 years until May 2022 [facility] Utilities Answer Date Recorded In the past 12 months has [employer] electric, gas, oil, or water company threatened to shut off services in your home? No 06/22/2025 Overall Financial Resource Strain (CARDIA) Answe r Date Recorded How hard is it for you to pa y for the very basics like food, housing, medical care, and heating? Somewhat hard 06/22/2025 PHQ-2 Answer Date Recorded PHQ-2 Total Score 5 07/26/2025 [facility] of Occupat ional Health - Occupational Stress [...] for daily living? No 11/10/2023 [facility] IP Transportation Answer D ate Recorded In [...] [facility] [address] [place] [address] JeraldBelinda, OD [address] [place] [phone] documented as of this encounter Goals Goal [...] next follow up appointment with career development associate General Not on track(2024 10:05 AM [...] documented as of this encounter Care Teams Battery Stacker Relationship Specialty Start Date End Date Gordo Jordan MD 200 [place] [address] PCP - General Family Medicine 08/07/25 Helen Patel Care Management Instruction Librarian 07/28/25 08/31/25 documented as of this encounter
--- OUTSIDE RECORDS SUMMARY | 2025-10-13 13:34 | XMS_ITS | Encounter Summary ---
Author [place] [address] Care Team Providers Care Press Puller Name Role Phone Anna Patelambrose Israel Unavailable Gordo Jordan MD Primary Care Prov ider Reason for Visit * Reason Onset Date Comments Medication Refill 08/22/2025 Encounter Details Date Type Department Care Team (Late st Contact Info) Description 08/22/2025 Refill [facility] [address] [place] [phone] Gordo Jordan MD [address] [place] [address] Medication Refill Social History Tobacco Use Types Packs/Day Years Used Date Smoking Tobacco: Some Days Cigarettes 0.6 8 Started: 11/16/1986; Last attempted to quit: 11/16/1990 Passive Smoke Exposure: Never Smokeless Tobacco: Never Alcohol Use Standard Drinks/Week Comments Yes 4 (1 standard drink = 0.6 oz pure alcohol) Sober for 20 years until May 2022 [facility] Utilities Answer Date Recorded In the past 12 months has [employer] electric, gas, oil, or water company threatened to shut off services in your home? No 06/22/2025 Overall Financial Resource Strain (CARDIA) Answe r Date Recorded How hard is it for you to pa y for the very basics like food, housing, medical care, and heating? Somewhat hard 06/22/2025 PHQ-2 Answer Date Recorded PHQ-2 Total Score 5 07/26/2025 [facility] [place] of Occupat ional Health - Occupational Stress [...] things needed for daily living? No 11/10/2023 [facility] IP Transportation Answer D ate [...] and sent to requesting pharmacy. Routed to [facility] if an appointment is needed. Lidocaine There is no CRS protocol for this medication. Accidentally approved all, called [facility] to cancel the Lidocaine. Spoke to Marko, who canceled the order. documented in this encounter Plan of Treatment Upcoming Encounters Date Type Department Care Team (Late st Contact Info) Description 02/01/2026 11:00 AM EDT Office Visit [facility] [address] [facility] [address] [place] [address] SravanBelinda herman OD [address] [place] [phone] documented as of this encounter Goals Goal [...] to next follow up appointment with manager intensive care unit General Not on track(2024 10:05 AM EDT) [...] documented as of this encounter Care Teams Press Puller Relationship Specialty Start Date End Date Gordo Jordan MD 200 [place] [address] PCP - General Family Medicine 08/07/25 Helen Patel Care Management Credit Verification Clerk 07/28/25 08/31/25 documented as of this encounter
--- OUTSIDE RECORDS SUMMARY | 2025-10-13 13:34 | XMS_ITS | Encounter Summary ---
Author [place] [address] Care Team Providers Care Workers Compensation Paralegal Name Role Phone Anna Patelambrose Israel Unavailable Gordo Jordan MD Primary Care Prov ider Reason for Visit * Reason Onset Date Comments Medication Refill 09/04/2025 Encounter Details Date Type Department Care Team (Late st Contact Info) Description 08/31/2025 Refill [facility] [address] [place] [phone] Gordo Jrodan MD [address] [place] [phone] Medication Refill Social History Tobacco Use [...] Recorded In the past 12 months has [employer] electric, gas, oil, or water company threatened to shut off services in your home? No 06/22/2025 Overall Financial Resource Strain (CARDIA) Answe r Date Recorded How hard is it for you to pa y for the very basics like food, housing, medical care, and heating? Somewhat hard 06/22/2025 PHQ-2 Answer Date Recorded PHQ-2 Total Score 5 07/26/2025 [facility] [place] of Occupat ional Health - Occupational Stress [...] needed for daily living? No 11/10/2023 [facility] IP Transportation Answer D ate Recorded [...] Last Filled Start Date End Date Insulin [place], Disposable, (BD ULTRA-FINE MINI PEN NEEDLE) 31 [...] as needed for Pain. 100 mL 09/04/2025 chlorhexidine (PERIDEX) 0.12 % MM Mouthwash Take 10 mL by mouth 2 times daily. 250 mL 2 09/04/2025 lidocaine 2 % MM Solution Take 5 mL by mouth 3 times daily as needed for Pain. 100 mL 09/04/2025 pregabalin (LYRICA) 150 mg Oral Capsule Take 1 Capsule by mouth 3 times daily. 90 Capsule 2 09/04/2025 insulin aspart U-100 (NOVOLOG) 100 unit/mL (3 mL) SubQ Insulin PenIndications:Unco ntrolled type 2 diabetes mellitus with hyperglycemia, with long-term current use of insulin (HCC),Diabetic polyneuropathy associated with type 2 diabetes mellitus (HCC) Inject 12 Units under the skin 3 times daily (before meals). Use as directed 30 mL 09/04/2025 documented in this encounter Miscellaneous Notes * Telephone Encounter - Gordo Jordan MD - 09/04/2025 1:25 PM EDT Orders placed. Deleted duplicates documented in this encounter Plan of Treatment Upcoming Encounters Date Type Department Care Team (Late st Contact Info) Description 02/01/2026 11:00 AM EDT Office Visit [facility] [address] [facility] [address] [place] [address] Belinda Marques, OD [address] [place] [phone] documented as of this encounter Goals Goal [...] log to next follow up appointment with urgent care General Not on track(2024 10:05 AM [...] 025 10:27 AM EDT) No Annie Martinez CCMSoo Weight < 210 lb (95.255 kg) Weight [...] documented as of this encounter Care Teams Workers Compensation Paralegal Relationship Specialty Start Date End Date Jordan, Gordo Monet MD 200 [place] [address] PCP - General Family Medicine 08/07/25 Helen Patel Care Management Railway Signal Technician 07/28/25 08/31/25 documented as of this encounter
--- OUTSIDE RECORDS SUMMARY | 2025-10-13 13:34 | XMS_ITS | Encounter Summary ---
Author Organization [place] [address] Care Team Providers Care Marketing Officer Name Role Phone Gordo Jordan MD Primary Care Prov ider Reason for Visit * Reason Onset Date Comments Medication Refill 09/15/2025 Encounter Details Date Type Department Care Team (Late st Contact Info) Description 09/15/2025 Refill [facility] [address] [place] [phone] Stacy Mccabe, BRIQUETTE MAKER [address] [place] [address] Medication Refill Social History Tobacco Use Types Packs/Day Years Used Date Smoking Tobacco: Some Days Cigarettes 0.6 8 Started: 11/16/1986; Last attempted to quit: 11/16/1990 Passive Smoke Exposure: Never Smokeless Tobacco: Never Alcohol Use Standard Drinks/Week Comments Yes 4 (1 standard drink = 0.6 oz pure alcohol) Sober for 20 years until May 2022 [facility] Utilities Answer Date Recorded In the past 12 months has [employer], gas, oil, or water [employer] threatened to shut off services in your home? No 06/22/2025 Overall Financial Resource Strain (CARDIA) Answe r Date Recorded How hard is it for you to pa y for the very basics like food, housing, medical care, and heating? Somewhat hard 06/22/2025 PHQ-2 Answer Date Recorded PHQ-2 Total Score 5 07/26/2025 [facility] [place] of Occupat ional Health - Occupational Stress [...] things needed for daily living? No 11/10/2023 [facility] IP Transportation Answer D ate [...] EDT Office Visit [facility] [address] [employer] [address] [place] [address] Belinda Marques OD [address] [place] [phone] documented as of this encounter Goals Goal [...] next follow up appointment with home care manager General Not on track(2024 10:05 [...] documented as of this encounter Care Teams Marketing Officer Relationship Specialty Start Date End Date Jordan, Gordo Monet MD 200 [place] [address] PCP - General Family Medicine 08/07/25 documented as of this encounter
--- OUTSIDE RECORDS SUMMARY | 2025-10-13 13:34 | XMS_ITS | Encounter Summary ---
Author Organization [place] [address] Care Team Providers Care Manager Technical Support Name Role Phone Anna Patelambrose Israel Unavailable Gordo Jordan MD Primary Care Prov ider Reason for Visit * Reason Onset Date Comments Medication Refill Patient Returning Call 08/31/2025 Encounter Details Date Type Department Care Team (Late st Contact Info) Description 08/31/2025 Refill [facility] [address] [place] [phone] Gordo Jordan MD [address] [place] [address] Medication Refill; Patient Returning Call ( [...] In the past 12 months has [employer] electric, gas, oil, or water company threatened to shut off services in your home? No 06/22/2025 Overall Financial Resource Strain (CARDIA) Answe r Date Recorded How hard is it for you to pa y for the very basics like food, housing, medical care, and heating? Somewhat hard 06/22/2025 PHQ-2 Answer Date Recorded PHQ-2 Total Score 5 07/26/2025 [facility] [place] of Occupat ional Health - Occupational Stress [...] daily living? No 11/10/2023 [facility] IP Transportation Answer D ate Recorded In [...] EDT Office Visit [facility] 1500 [facility] [address] [place] [phone] Jerald Belinda, OD 1400 [place] [address] documented as of this encounter Goals Goal [...] Not on track(2024 10:04 AM EDT) Yes Dainelle Monroy RN Patient will utilize glucometer to [...] Reason Start Date End Da te Insulin [place], Disposable, (BD ULTRA-FINE MINI PEN NEEDLE) 31 [...] as of this encounter Care Teams Manager Technical Support Relationship Specialty Start Date End Date Gordo Jordan MD [address] [address] PCP - General Family Medicine 08/07/25 Helen Patel Care Management Human Resources Clerk 07/28/25 08/31/25 documented as of this encounter
--- OUTSIDE RECORDS SUMMARY | 2025-10-13 13:34 | XMS_ITS | Encounter Summary ---
Author Organization [place] [address] Care Team Providers Care Privacy Analyst Name Role Phone Gordo Jordan MD Primary Care Prov ider Reason for Visit * Reason Onset Date Comments Medication Management 09/15/2025 FREESTYLE LANCETS 28 gauge Misc Misc Encounter Details Date Type Department Care Team (Late st Contact Info) Description 09/15/2025 Telephone [facility] [address] [place] [phone] Gordo Jordan MD [address] [place] [address] Medication Management (FREESTYLE LANCETS 28 gauge [...] Recorded In the past 12 months has [employer] electric, gas, oil, or water company threatened to shut off services in your home? No 06/22/2025 Overall Financial Resource Strain (CARDIA) Answe r Date Recorded How hard is it for you to pa y for the very basics like food, housing, medical care, and heating? Somewhat hard 06/22/2025 PHQ-2 Answer Date Recorded PHQ-2 Total Score 5 07/26/2025 [facility] [place] of Occupat ional Health - Occupational Stress [...] things needed for daily living? No 11/10/2023 [facility] IP Transportation Answer D ate Recorded In [...] Refills Start End FREESTYLE LANC[facility]/26[facility]25 -- Class: Historical Med [...] [facility] [address] [place] [id number] Belinda Marques OD [address] [place] [address] documented as of this encounter Goals Goal [...] next follow up appointment with home care liaison General Not on track(2024 10:05 AM EDT) [...] documented as of this encounter Care Teams Privacy Analyst Relationship Specialty Start Date End Date Gordo Jordan MD [address] [place] [address] PCP - General Family Medicine 08/07/25 documented as of this encounter
--- OUTSIDE RECORDS SUMMARY | 2025-10-13 13:34 | XMS_ITS | Encounter Summary ---
Author Organization [place] [address] Care Team Providers Care Client Support Administrator Name Role Phone Gordo Jordan MD Primary Care Prov ider Reason for Visit * Reason Onset Date Comments Other 09/18/2025 Medication Management 09/18/2025 All Meds c anceled by pharmacy due to Pt's behavior Encounter Details Date Type Department Care Team (Late st Contact Info) Description 09/18/2025 Telephone [facility] [address] [place] [address] Zuly Gasca MA Other; Medication [...] for 20 years until May 2022 [facility] Utilities Answer Date Recorded In the past 12 months has [facility] electric, gas, oil, or water company threatened to shut off services in your home? No 06/22/2025 Overall Financial Resource Strain (CARDIA) Answe r Date Recorded How hard is it for you to pa y for the very basics like food, housing, medical care, and heating? Somewhat hard 06/22/2025 PHQ-2 Answer Date Recorded PHQ-2 Total Score 5 07/26/2025 [facility] [place] of Occupat ional Health - Occupational Stress [...] things needed for daily living? No 11/10/2023 [facility] IP [...] message: Medication Management/Problem Who is calling: Pharmacy [employer] Return Method of Communication: Phone Call What medication(s) do you have concerns about: ALL Medications Prescribing provider: Tobi What are your concerns/request: ecommerce merchandising manager is calling to inform PCP that they [...] [facility] [address] [place] [address] [address] [facility] [address] - [phone] Additional Information: Please Advise Provider, thank you * Telephone Encounter - Zuly Gasca MA - 09/18/2025 1:59 PM EST [facility] pharmacy in [place], [place] will no longer fill pt medications stating pt is being rude to staff and keeps interrupting when trying to explain issues. Pt needs to find a new pharmacy documented in this encounter Plan of Treatment Upcoming Encounters Date Type Department Care Team (Late st Contact Info) Description 02/01/2026 11:00 AM EDT Office Visit [facility] [address] [facility] [address] [place] [address] Belinda Marques OD [address] [place] [address] documented as of this encounter [...] next follow up appointment with health care marketing specialist General Not on track(2024 10:05 AM [...] documented as of this encounter Care Teams Client Support Administrator Relationship Specialty Start Date End Date Gordo Jordan MD [address] [place] [address] PCP - General Family Medicine 08/07/25 documented as of this encounter
--- OUTSIDE RECORDS SUMMARY | 2025-10-13 13:34 | XMS_ITS | Encounter Summary ---
Author Organization [place] [address] Care Team Providers Care Seating And Mobility Technologist Name Role Phone Helen Patel Unavailable Gordo Jordan MD Primary Care Prov ider Reason for Visit * Reason Onset Date Comments Medication Refill 09/15/2025 Follow Up 08/31/2025 Multiple Meds Encounter Details Date Type Department Care Team ([facility] Contact Info) Description 08/31/2025 Telephone [facility] [address] [place] [phone] Stacy Mccabe APRN [address] [place] [address] Medication Refill; Follow Up (Multiple Meds ) Social History Tobacco Use Types Packs/Day Years Used Date Smoking Tobacco: Some Days Cigarettes 0.6 8 Started: 11/16/1986; Last attempted to quit: 11/16/1990 Passive Smoke Exposure: Never Smokeless Tobacco: Never Alcohol Use Standard Drinks/Week Comments Yes 4 (1 standard drink = 0.6 oz pure alcohol) Sober for 20 [address] May [address] [facility] Utilities Answer Date Recorded [...] Date Recorded PHQ-2 Total Score 5 07/26/2025 [place] [facility] Occupat ional Health - Occupational Stress [...] things needed for daily living? No 11/10/2023 [facility] IP Transportation Answer [...] mg Oral TabletIndications:Hy pertension associated with diabetes ([facility]) Take 1 Tablet by mouth daily. 30 Tablet 11 09/18/2025 empagliflozin (JARDIANCE) 25 mg Oral TabletIndications:Un controlled type 2 diabetes mellitus with hyperglycemia, with long-term current use of insulin ([facility]),Diabetic polyneuropathy associated with type 2 diabetes mellitus ([facility]) Take 1 Tablet by mouth daily. 30 Tablet 11 09/18/2025 DULoxetine (CYMBALTA) 60 mg Oral Capsule, Delayed Release(E.C.)Indicat ions:Diabetic polyneuropathy associated with type 2 diabetes mellitus ([facility]),Major depressive disorder, recurrent severe without psychotic features ([facility]),AURORA (generalized anxiety disorder) Take 1 Capsule by mouth daily. 90 Capsule 3 09/18/2025 Lancets (ACCU-CHEK SOFTCLIX LANCETS) Mis MiscIndications:Unco ntrolled type 2 diabetes mellitus with hyperglycemia, with long-term current use of insulin ([facility]),Diabetic polyneuropathy associated with type 2 diabetes mellitus ([facility]) USE DIRECTED E11.9 300 Each [...] perlipidemia associated with type 2 diabetes mellitus ([facility]) Take 1 Tablet by mouth daily. 90 Tablet 3 09/18/2025 aspirin 81 mg Oral Tablet, Delayed Release (E.C.)Indications:Un controlled type 2 diabetes mellitus with hyperglycemia, with long-term current use of insulin ([facility]),Hypertension associated with diabetes ([facility]) Take 1 Tablet by mouth daily (with breakfast). 90 Tablet 3 09/18/2025 Blood Sugar Diagnostic (ACCU-CHEK GUIDE TEST STRIPS) Misc StripIndications:Unc ontrolled type 2 diabetes mellitus with hyperglycemia, with long-term current use of insulin ([facility]),Diabetic polyneuropathy associated with type 2 diabetes mellitus ([facility]) 1 Strip by [facility].(Non-Drug ; Combo Route) route 3 times daily. [...] [address] [facility] [address] [place] [id number] Jerald Belinda, OD [address] [place] [address] documented as of this encounter Goals Goal [...] log to next follow up appointment with daycare teacher General Not on track(2024 10:05 AM EDT) [...] hyperglycemia, with long-term current use of insulin ([facility]) Diabetic polyneuropathy associated with type 2 diabetes mellitus ([facility]) Hypertension associated with diabetes ([facility]) Type II or unspecified type diabetes mellitus with other specified manifestations, not stated as uncontrolled Hyperlipidemia associated with type 2 diabetes mellitus ([facility]) Gastroesophageal reflux disease without esophagitis Esophageal reflux [...] Sugar Diagnostic (ACCU-CHEK GUIDE TEST STRIPS) Misc StripIndications:Uncontro lled type 2 diabetes mellitus with hyperglycemia, with long-term current use of insulin (HCC),Diabetic polyneuropathy associated with type 2 diabetes mellitus (HCC) 1 Strip by [facility].(Non-Drug; Combo Route) route 3 times daily. E11.9 Reorder 07/26/2025 08/31/2025 aspirin 81 mg Oral Tablet, Delayed Release (E.C.)Indications:Uncontr olled type 2 diabetes mellitus with hyperglycemia, with long-term current use of insulin ([facility]),Hypertension associated with diabetes ([facility]) Take 1 Tablet by mouth daily (with breakfast). Reorder 07/26/2025 08/31/2025 atorvastatin (LIPITOR) 20 mg Oral TabletIndications:Hyperli pidemia associated with type 2 diabetes mellitus ([facility]) Take 1 Tablet by mouth daily. Reorder 07/26/2025 08/31/2025 pantoprazole (PROTONIX) 40 mg Oral Tablet, Delayed Release (E.C.)Indications:Gastroe sophageal reflux disease without esophagitis Take 1 Tablet by mouth daily. Reorder 07/26/2025 08/31/2025 folic acid (FOLVITE) 1 mg Oral TabletIndications:Folate deficiency Take 1 Tablet by mouth daily. Take 1 tablet by mouth once daily Reorder 07/26/2025 08/31/2025 Lancets (ACCU-CHEK SOFTCLIX LANCETS) [facility] MiscIndications:Uncontrol led type 2 diabetes mellitus with hyperglycemia, with long-term current use of insulin ([facility]),Diabetic polyneuropathy associated with type 2 diabetes mellitus ([facility]) USE DIRECTED E11.9 Reorder 07/26/2025 08/31/2025 DULoxetine (CYMBALTA) 60 mg Oral Capsule, Delayed Release(E.C.)Indications: Diabetic polyneuropathy associated with type 2 diabetes mellitus ([facility]),Major depressive disorder, recurrent severe without psychotic features ([facility]),AURORA (generalized anxiety disorder) Take 1 Capsule by mouth daily. Reorder 07/26/2025 08/31/2025 amLODIPine (NORVASC) 5 mg Oral TabletIndications:Hyperte nsion associated with diabetes ([facility]) Take 1 tablet by mouth once daily [...] (HCC) Apply 1 Each topically as needed. Reorder [...] documented as of this encounter Care Teams Seating And Mobility Technologist Relationship Specialty Start Date End Date Gordo Jordan MD [address] [place] [address] PCP - General Family Medicine 08/07/25 Helen Patel Care Management Certified Procedural Coder 07/28/25 08/31/25 documented as of this encounter
--- OUTSIDE RECORDS SUMMARY | 2025-10-13 13:34 | XMS_ITS | Encounter Summary ---
Author Organization [place] [address] Care Team Providers Care Planner Internship Name Role Phone Helen Patel Unavailable Unavailable Gordo Jordan MD Primary Care Prov ider Reason for Visit * Reason Onset Date Comments CM- Telephonic Outreach 08/09/2025 Encounter Details Date Type Department Care Team (Late st Contact Info) Description 08/09/2025 Patient Outreach [facility] Care Managment [address] [place] [address] Helen Patel CM- Telephonic Outreach Social History [...] Recorded In the past 12 months has [employer], gas, oil, or water [employer] threatened to shut off services in your home? No 06/22/2025 Overall Financial Resource Strain (CARDIA) Answe r Date Recorded How hard is it for you to pa y for the very basics like food, housing, medical care, and heating? Somewhat hard 06/22/2025 PHQ-2 Answer Date Recorded PHQ-2 Total Score 5 07/26/2025 [facility] [place] of Occupat ional Health - Occupational [...] for daily living? No 11/10/2023 [facility] IP Transportation Answer D ate Recorded In [...] of Assessment Author No 10/18/2023 11:50 AM Mckyala Pelaez RN * Is the person blind [...] - 09/01/2025 12:23 PM EDT Care Management Loop Machine Operator will no longer follow patient for transportation &/or social determinant of health resources. Reason for sign off: Transportation needs met If additional resources are needed, please submit a new AMB Care Management referral for assistance. * Helen Patel - 08/09/2025 9:19 AM EDT Care Management Patient Outreach patient repeatedly called CM Loop Machine Operator phone line 6 plus times and left one voicemail stating that he would call until [facility]. [facility] attempted to return Voicemail Attempted to contact patient regarding transportation Outcome: Patient did not answer No voicemail available / voicemail full Associate contact: Bertha: [phone] documented in this encounter Plan of Treatment Upcoming Encounters Date Type Department Care Team (Late st Contact Info) Description 02/01/2026 11:00 AM EDT Office Visit [facility] Ophthal[facility] [address] [facility] [address] [place] [address] Belinda Marques OD [address] [place] [address] documented as of this encounter Goals Goal Patient Goal Type Associated Problems Recent Progress Patient-Stated? Author Blood Pressure < 140/90 Blood Pressure 122/84(08/17 12:48 PM EDT) No Angel Duffy MD BMI (Calculated) < 30 General 34.4( 12:48 PM EDT) No Annie aMrtinez CCMA Patient to regain strength and endurance [...] next follow up appointment with home care consultant General Not on track(2024 10:05 [...] documented as of this encounter Care Teams Planner Internship Relationship Specialty Start Date End Date Gordo Jordan MD [address] [address] PCP - General Family Medicine 08/07/25 Helen Patel Care Management Loop Machine Operator 07/28/25 08/31/25 documented as of this encounter
--- OUTSIDE RECORDS SUMMARY | 2025-10-13 13:34 | XMS_ITS | Encounter Summary ---
Author Organization [place] [address] Care Team Providers Care Flux Plant Operator Name Role Phone Helen Patel Unavailable Unavailable Gordo Jordan MD Primary Care Prov ider Reason for Visit * Reason Comments Medication Refill Toprol, Tylenol Encounter Details Date Type Department Care Team (Late st Contact Info) Description 08/21/2025 Telephone [facility] [address] [place] [phone] Stacy Mccabe, ISAIAS [address] [place] [address] Medication Refill (Toprol, Tylenol) Social History Tobacco Use Types Packs/Day Years Used Date Smoking Tobacco: Some Days Cigarettes 0.6 8 Started: 11/16/1986; Last attempted to quit: 11/16/1990 Passive Smoke Exposure: Never Smokeless Tobacco: Never Alcohol Use Standard Drinks/Week Comments Yes 4 (1 standard drink = 0.6 oz pure alcohol) Sober for 20 years until May 2022 [facility] Utilities Answer Date Recorded In the past 12 months has [employer] electric, gas, oil, or water company threatened to shut off services in your home? No 06/22/2025 Overall Financial Resource Strain (CARDIA) Answe r Date Recorded How hard is it for you to pa y for the very basics like food, housing, medical care, and heating? Somewhat hard 06/22/2025 PHQ-2 Answer Date Recorded PHQ-2 Total Score 5 07/26/2025 [facility] [place] of Occupat ional Health - Occupational Stress [...] daily living? No 11/10/2023 [facility] IP Transportation Answer D ate Recorded [...] w/ prescribing provider: 11/06/25 Pharmacy & Location: [facility] [id number] [place] [address] [address] [facility] - [phone] [address] [facility] [id number] PAT #: [id number] Informed patient refill requests can take up to 72 business hours for response No Additional Information: Pt is requesting additional refills on these meds so he doesn't have to call every month. documented in this encounter Plan of Treatment Upcoming Encounters Date Type Department Care Team (Late st Contact Info) Description 02/01/2026 11:00 AM EDT Office Visit [facility] [address] [place] [address] [address] [place] [address] Belinda Marques, OD [address] [place] [id number] documented as of this encounter Goals Goal [...] an ideal body weight General No Annie Meneess MA Patient will utilize consume 4-5 meals a days following diabetic dietary guidelines 3 days a week over the next 6 weeks General Not on track(2024 10:04 AM EDT) Yes Danielle Monroy RN Patient will utilize glucometer to monitor blood glucose levels 3 times a day and bring log to next follow up appointment with child care giver General Not on track(2024 10:05 AM EDT) [...] documented as of this encounter Care Teams Flux Plant Operator Relationship Specialty Start Date End Date Gordo Jordan MD [address] [address] PCP - General Family Medicine 08/07/25 Helen Patel Care Management X Ray Developer 07/28/25 08/31/25 documented as of this encounter
--- OUTSIDE RECORDS SUMMARY | 2025-10-13 13:35 | XMS_ITS | Encounter Summary ---
Author Organization [place] [address] Care Team Providers Care Manufacturing Supervisor 2Nd Shift Name Role Phone Enrique Arcos MD Unavailable [phone] Babs Virgen MD Primary Care Provider Gordo [...] UnavailKatherine Scott DO Primary Care Provider + [phone] Montserrat Garcia RN Unavailable Unavailable Karen Guardado [...] 01/27/2019 Refill [facility] [address] [place] [address] Babs Virgen MD [address] [place] [address] Medication Refill Social History Tobacco [...] [facility] [address] [facility] [address] [place] [address] Belinda Marques OD [address] [place] [address] documented as of this encounter Goals Goal Patient Goal Type Associated Problems Recent Progress Patient-Stated? Author Blood Pressure < 140/90 Blood Pressure 122/84(2024 12:48 PM EDT) No Angel Duffy MD BMI (Calculated) < 30 General 34.4(08/17/20 12:48 PM EDT) No Annie Martinez CCMA Stay Tobacco Free Lifestyle On track( 3:33 [...] PM EST R/O C-Diff 06/23/2025 06/23/2025 06/23/2025 9:0 5 PM EDT documented as of this encounter Care Teams Manufacturing Supervisor 2Nd Shift Relationship Specialty Start Date End Date Babs Virgen MD [address] [place] [address] PCP - General Family Medicine 01/27/18 10/02/19 Gordo Jordan MD [address] [address] PCP - General Family Medicine 07/11/20 01/06/23 Katherine Lim DO [address] [place], [place] [id number] PCP - General Family Medicine 01/07/23 04/14/24 No Pcp, Per Patient PCP - General 06/22/25 07/25/25 Gordo Jordan MD [address] [address] PCP - General Family Medicine 07/26/25 07/26/25 Gordo Jordan MD [address] [address] PCP - General Family Medicine 08/07/25 Enrique Arcos MD [address] [place] [phone] Internal Medicine-Gastroenterol ogy 02/04/16 07/10/20 Radha Moreira, RN Shake Splitter Registered Nurse - Wafer Production Lead Worker 09/25/20 05/09/21 Ana Knapp BA, COS Case Movie Operator 09/28/20 12/27/20 Stone Cerda BA, COS Case Movie Operator 01/30/21 04/23/21 Ester Neff, RN Shake Splitter 09/20/21 09/20/21 Minnie Tovar, RN Shake Splitter Registered Nurse 10/11/21 10/14/21 Stone Cerda, BA, COS Case Movie Operator 10/18/21 12/04/21 Ludivina Pierce, RN Shake Splitter Registered Nurse 11/06/21 11/06/21 Elli Woodward, RN Shake Splitter Registered Nurse 11/21/21 11/21/21 Ainsley Schuler, molecular modeler Team Registered Nurse 12/23/21 12/23/21 Radha Moreira RN Shake Splitter Registered Nurse - Wafer Production Lead Worker 05/30/22 06/01/22 Radha Moreira RN Shake Splitter Registered Nurse - Wafer Production Lead Worker 05/30/22 05/24/23 Montserrat Garcia, RN Shake Splitter Registered Nurse 10/19/23 11/09/23 Karen Guardado RN Shake Splitter 10/29/23 11/24/23 Danielle Monroy, balance engineer Spot Billing Clerk/Shake Splitter 07/26/25 08/08/25 Helen Patel Care Management Powder Truck Driver 07/28/25 08/31/25 documented as of this encounter
--- OUTSIDE RECORDS SUMMARY | 2025-10-13 13:35 | XMS_ITS | Clinical Summary ---
Author Organization [facility] OD Address [address] [place] [address] Phone Care Team Providers Care Road Manager Name Role Phone Gordo Jordan MD Primary [...] hyperglycemia, with long-term current use of insulin ([facility]),Diabetic polyneuropathy associated with type 2 diabetes mellitus [...] Blood Sugar Diagnostic (ACCU-CHEK GUIDE TEST STRIPS) [facility] StripIndications: Uncontrolled type 2 diabetes mellitus with hyperglycemia, with long-term current use of insulin ([facility]),Diabetic polyneuropathy associated with type 2 diabetes mellitus (HCC) 1 Strip by [facility].(Non-Gaston g; Combo Route) route 3 times daily. E11.9 300 Each 3 Active aspirin 81 mg Oral Tablet, Delayed Release (E.C.)Indications :Uncontrolled type 2 diabetes mellitus with hyperglycemia, with long-term current use of insulin ([facility]),Hypertensio n associated with diabetes ([facility]) Take 1 Tablet by mouth daily (with breakfast). 90 Tablet 3 025 Active atorvastatin (LIPITOR) 20 mg Oral TabletIndications :Hyperlipidemia associated with type 2 diabetes mellitus ([facility]) Take 1 Tablet by mouth daily. 90 [...] Tablet 025 Active Lancets (ACCU-CHEK SOFTCLIX LANCETS) [facility] MiscIndications:U ncontrolled type 2 diabetes mellitus with hyperglycemia, with long-term current use of insulin ([facility]),Diabetic polyneuropathy associated with type 2 diabetes mellitus (HCC) USE DIRECTED E11.9 300 Each 11 025 Active DULoxetine (CYMBALTA) 60 mg Oral Capsule, Delayed Release(E.C.)Rosa cations:Diabetic polyneuropathy associated with type 2 diabetes mellitus ([facility]),Major depressive disorder, recurrent severe without psychotic features ([facility]),AURORA (generalized anxiety disorder) Take 1 Capsule by mouth daily. 90 Capsule 3 025 Active empagliflozin (JARDIANCE) 25 mg Oral TabletIndications :Uncontrolled type 2 diabetes mellitus with hyperglycemia, with long-term current use of insulin ([facility]),Diabetic polyneuropathy associated with type 2 diabetes mellitus (HCC) Take 1 Tablet by mouth daily. 30 Tablet 11 025 Active amLODIPine (NORVASC) 5 mg Oral TabletIndications :Hypertension associated with diabetes ([facility]) Take 1 Tablet by mouth daily. 30 [...] hyperglycemia, with long-term current use of insulin ([facility]),Diabetic polyneuropathy associated with type 2 diabetes mellitus ([facility]) Apply 1 Each topically as needed. 100 Each Active acetaminophen (ACETAMINOPHEN EXTRA STRENGTH) 500 mg Oral TabletIndications :Primary osteoarthritis of both knees Take 2 Tablets by mouth every 8 hours as needed for Pain. 90 Tablet Active metoprolol succinate (TOPROL-XL) 200 mg Oral Tablet Sustained Release 24 hrIndications:Hyp ertension associated with diabetes ([facility]) Take 1 Tablet by mouth daily. 30 [...] 2 times daily. 250 mL 2 Active lidocaine 2 % MM Solution Take 5 mL by mouth 3 times daily as needed for Pain. 100 mL 025 Active Insulin Milbank, Disposable, (BD ULTRA-FINE MINI PEN NEEDLE) 31 gauge x 3/16 Mis NeedleIndications :Uncontrolled type 2 diabetes mellitus with hyperglycemia, with long-term current use of insulin ([facility]),Diabetic polyneuropathy associated with type 2 diabetes mellitus ([facility]) Use pen needle to administer insulin from pens as directed 100 Each Active empagliflozin (JARDIANCE) 25 mg Oral TabletIndications :Uncontrolled type 2 diabetes mellitus with hyperglycemia, with long-term current use of insulin (HCC),Diabetic polyneuropathy associated with type 2 diabetes mellitus (HCC) Take 1 Tablet by mouth daily. 30 Tablet 3 Active NOVOLOG FLEXPEN U-100 INSULIN 100 unit/mL (3 mL) SubQ Insulin PenIndications:Un controlled type 2 diabetes mellitus with hyperglycemia, with long-term current use of insulin (HCC),Diabetic polyneuropathy associated with type 2 diabetes mellitus (HCC) INJECT 12 UNITS UNDER THE SKIN 3 TIMES A DAY 15 mL Active JARDIANCE 25 mg Oral TabletIndications :Uncontrolled type 2 diabetes mellitus with hyperglycemia, with long-term current use of insulin (HCC),Diabetic polyneuropathy associated with type 2 diabetes mellitus (HCC) Take 1 tablet by mouth once daily 30 Tablet 025 2024 Discontinued(R vida) insulin aspart U-100 (NOVOLOG) 100 unit/mL (3 mL) SubQ Insulin PenIndications:Un controlled type 2 diabetes mellitus with hyperglycemia, with long-term current use of insulin ([facility]),Diabetic polyneuropathy associated with type 2 diabetes mellitus (HCC) Inject 12 Units under the skin 3 times daily (before meals). Use as directed 30 mL 025 2024 Discontinued Active Problems Patient Care Coordination No te Formatting of this note migh t be different from the original. [facility]: 07/26/2025 advised patient of past No Show dismissals from multiple offices and that he will need to speak respectful to staff. [facility] CONTROLLED SUBSTANCE AGREEMENT: Medication: Lyrica Contract: 08/07/25 UDS: Next OV Les: Dismissed from [facility] 12/01/17 w Problem Noted Date Diagnosed Date Primary osteoarthritis [...] new orthotic shoes ordered recently per patient internet marketing coordinator will assist with ordering new walker, [...] Overview (11/25/2023): controlled substance agreement signed with [place] office Assessment & Plan (11/25/2023 4:44 PM [...] new orthotic shoes ordered recently per patient internet marketing coordinator will assist with ordering new walker, [...] mg every 8 hours Orders: Blood-Glucose Meter [facility] Kit; Check glucose TID QAC + QHS Blood Sugar Diagnostic (ACCU-CHEK GUIDE TEST STRIPS) Mis Strip; 1 Strip by Mis.(Non-Drug; Combo Route) route 3 times daily. E11.9 Blood Pressure Monitor Mis Kit; 1 Units by Mis.(Non-Drug; Combo Route) route daily. metFORMIN (GLUCOPHAGE XR) 750 mg Oral ER 24 hr tablet; Take 1 Tablet by mouth daily (with breakfast). empagliflozin (JARDIANCE) 25 mg Oral Tablet; Take 1 Tablet by mouth daily. Lancets (ACCU-CHEK SOFTCLIX LANCETS) [facility]; USE DIRECTED E11.9 POCT GLYCATED HEMOGLOBIN, TOTAL COMPREHENSIVE METABOLIC PANEL; Future CBC WITH DIFF; Future LIPID PANEL REFLEX; Future MICROALBUMIN/CREATININE RATIO URINE; Future Insulin Milbank, Disposable, (BD ULTRA-FINE MINI PEN NEEDLE) 31 gauge x 3/16 [facility] Needle; Use pen needle to administer insulin [...] Hyperlipidemia associated with type 2 diabetes [facility] [place] 04/16/2016 Assessment & Plan (07/26/2025 3:20 PM [...] total fat) - increased dietary potassium consumption (2849-4154 mg of potassium per day) Medication Management: [...] 09/15/2021 01/07/2023 History of COVID-19 09/15/2021 02/21/20 24 Sepsis without acute organ dysfunction 09/14/2021 10/17/2021 [...] Encounters Date Type Department Care Team Description 10/08/2025 Refill [facility] [address] [place] [phone] Gordo Jordan MD Medication Refill 09/21/2025 Telephone [facility] [address] [place] [phone] Gordo Jordan MD Other (pt wants to know if the office has received the fax from [employer] regarding his transportation) 09/18/2025 Telephone [facility] [address] [place] [phone] Zuly Gasca MA Other; Medication Management (All Meds canceled by pharmacy due to Pt's behavior) 09/15/2025 2:00 PM EDT Telemedicine [facility] Video Visits [facility] [place] [address] Julianna Eid APRN Elevated blood pressure reading (Primary Dx) 09/15/2025 Refill [facility] [address] [place] [phone] Stacy Mccabe APRN Medication Refill 09/15/2025 Travel 09/15/2025 Telephone [facility] [address] [place] [phone] Gordo Jordan MD Medication Management (FREESTYLE LANCETS 28 gauge Misc Misc/) 09/15/2025 Nurse Triage [facility] [address] [place] [phone] Gordo Jordan MD 09/13/2025 Telephone [facility] [address] [place] [phone] Gordo Jordan MD Other (Did you get a Fax ); Patient Returning Call (On form ); Follow Up (Fax) 08/31/2025 Refill [facility] [address] [place] [phone] Gordo Jordan MD Medication Refill 08/31/2025 Telephone [facility] [address] [place] [phone] Stacy Mccabe APRN Medication Refill; Follow Up (Multiple Meds ) 08/31/2025 Telephone [facility] [address] [place] [phone] Gordo Jordan MD Medication Management (All medications ) 08/31/2025 Refill [facility] [address] [place] [phone] Gordo Jordan MD Medication Refill; Patient Returning Call ( ) 08/30/2025 Telephone [facility] [address] [place] [phone] Gordo Jordan MD Refill (Insulin Milbank, Disposable, (BD ULTRA-FINE MINI PEN NEEDLE) 31 gauge x 01/29 Misc Needle / insulin glargine (LANTUS) 100 unit/mL (3 mL) SubQ Insulin Pen); Medication Management (Pharmacy called to get status update for pt- pt is anxious about getting this called in) 08/30/2025 Refill [facility] [address] [place] [phone] Stacy Mccabe APRN Medication Refill 08/22/2025 Refill [facility] [address] [place] [phone] Gordo Jordan MD Medication Refill 08/22/2025 Telephone [facility] [address] [place] [phone] Gordo Jordan MD Symptoms (Only Use If Pt Pushes Back On Scheduling A Visit) (pt said his sugar has been running in the 400s for a week, no symptoms. Adv pt to speak to nurse triage, pt declined. ) 08/21/2025 Telephone [facility] [address] [place] [phone] Stacy Mccabe APRN Medication Refill (Toprol, Tylenol) 08/21/2025 Telephone [facility] [address] [place] [phone] Gordo Jordan MD Symptoms (Only Use If Pt Pushes Back On Scheduling A Visit) (High blood sugar x1 day ) 08/20/2025 Refill [facility] [address] [place] [phone] Gordo Jordan MD Medication Refill 08/20/2025 Refill [facility] [address] [place] [phone] Stacy Mccabe APRN Medication Refill (Multiple meds) 08/20/2025 Refill [facility] [address] [place] [phone] Stacy Mccabe APRN Medication Refill; Follow Up (Med refill ) 08/17/2025 1:45 PM EDT Office Visit [facility] [address] [place] [phone] Gordo Jordan MD Type 2 diabetes mellitus with hyperglycemia, with long-term current use of insulin (HCC) (Primary Dx); Acute kidney injury superimposed on stage 2 chronic kidney disease; Hypertension associated with diabetes (HCC) 08/16/2025 Refill [facility] [address] [place] [phone] Gordo Jordan MD 08/16/2025 Refill [facility] [address] [place] [phone] Stacy Mccabe APRN 08/16/2025 Travel 08/13/2025 8:11 AM EDT - 08/13/2025 11:03 AM EDT Emergency [facility] [address] [place] [address] Chandni Bass DO Uncontrolled type 2 diabetes mellitus with hyperglycemia (HCC) (Primary Dx); Chronic kidney disease, unspecified CKD stage Discharge Disposition: Home or Self Care 08/09/2025 Travel 08/09/2025 Patient Outreach [facility] [address] [place] [address] Helen Patel CM- Telephonic Outreach 08/08/2025 9:45 AM EDT [facility] [address] [place] [phone] Zane Méndez DO Primary osteoarthritis of both knees (Primary Dx); Pain in both knees, unspecified chronicity 08/08/2025 8:35 AM EDT Ancillary Procedure [facility] [address] [address] Zane Méndez DO Pain in both knees, unspecified chronicity 08/08/2025 Results Follow-Up [facility] [address] [place] [phone] Stacy Mccabe APRN BASIC METABOLIC PANEL 08/08/2025 Telephone [facility] [address] [place] [phone] Gordo Jordan MD Prior Authorization (Lyrica and lidocaine) 08/07/2025 10:30 AM EDT Office Visit [facility] [address] [place] [phone] Gordo Jordan MD Type 2 diabetes mellitus with hyperglycemia, with long-term current use of insulin (HCC) (Primary Dx); Uncontrolled type 2 diabetes mellitus with hyperglycemia, with long-term current use of insulin (HCC); Diabetic polyneuropathy associated with type 2 diabetes mellitus (HCC); Obesity, Class I, BMI 30-34.9; Hypertension associated with diabetes (HCC); Tongue lesion; DEMAR (acute kidney injury) 08/07/2025 Telephone [facility] [address] [place] [phone] Gordo Jordan MD Forms (Was form received?) 08/07/2025 Telephone [facility] [address] [place] [phone] Gordo Jordan MD Prior Authorization (Lyrica, Lidocaine) 08/04/2025 Telephone [facility] [address] [place] [phone] Gordo Jordan MD Other (Blood Pressure Monitor Misc Kit) 08/03/2025 1:00 PM EDT Office Visit [facility] Ophthalmology [address] [phone] Czirr, Belinda, OD Blurred vision, bilateral (Primary [...] use of insulin (HCC) 08/02/2025 Telephone [facility] [address] [place] [phone] Gordo Jordan MD Other (On apt ) 08/02/2025 Patient Outreach [facility] [address] [address] [place] [address] Helen Patel CM- Telephonic Outreach; Transportation; CM - Contact Made; Other 08/01/2025 Travel 08/01/2025 Telephone [facility] [address] [place] [phone] Gordo Jordan MD Other (Transportation ); Follow Up (Transportation) 07/31/2025 [facility] [address] [place] [address] Helen Patel CM- Telephonic Outreach; CM - Contact Made; Transportation 07/30/2025 Travel 07/28/2025 Telephone [facility] [address] [place] [phone] Gordo Jordan MD Other (Patient is asking why an appointment was scheduled with Danielle Monroy. ); CM- Telephonic Outreach 07/28/2025 Telephone [facility] [address] [place] [phone] Gordo Jordan MD Results (Pt seeking results) 07/28/2025 Patient Outreach [facility] Care Managment [facility] [address] [place] [address] Helen Patel CM- Telephonic Outreach 07/27/2025 Results Follow-Up [facility] [address] [place] [phone] Stacy Mccabe APRN COMPREHENSIVE METABOLIC PANEL, CBC WITH DIFF, LIPID PANEL REFLEX, Additional followed-up results: 2 07/27/2025 Patient Outreach [facility] [place] [address] Helen Patel Referral 07/27/2025 Telephone [facility] [address] [place] [phone] Gordo Jordan MD Results (Labs); Follow Up (Lab results) 07/27/2025 [facility]phone [facility] [address] [phone] Gordo Jordan MD Medication Management (Metoprolol ); Follow Up (Med update) 07/27/2025 Telephone [facility] [address] [place] [phone] Gordo Jordan MD Other (Speak with Management); Results (Patient seeking results- 07/26, Stacy Mccabe APRN ) 07/26/2025 11:00 AM EDT Clinical Support [facility] [address] [place] [phone] Danielle Monroy RN Enrolled in chronic care management (Primary Dx); Type 2 diabetes mellitus with hyperglycemia, with long-term current use of insulin ([facility]); Hyperlipidemia associated with type 2 diabetes mellitus (HCC) 07/26/2025 9:45 AM EDT Office Visit [facility] [address] [place] [phone] Stacy Mccabe APRN Uncontrolled type 2 diabetes mellitus with hyperglycemia, with long-term current use of insulin ([facility]) (Primary Dx); Diabetic polyneuropathy associated with type 2 diabetes mellitus ([facility]); Hyperlipidemia associated with type 2 diabetes mellitus ([facility]); Hypertension associated with diabetes ([facility]); Chronic bilateral low back pain without sciatica; Major depressive disorder, recurrent severe without psychotic features ([facility]); AURORA (generalized anxiety disorder); Gastroesophageal reflux disease without esophagitis; Folate deficiency; Primary osteoarthritis of both knees; Impaired mobility; Status post transmetatarsal amputation of foot, left (HCC); Contracture of joints of both ankle and foot of left lower extremity; Primary osteoarthritis involving multiple joints; Screening for prostate cancer; Oral aphthous ulcer 07/26/2025 Telephone [facility] [address] [place] [phone] Gordo Jordan MD Refill (Multi refills); Follow Up (Appt with Dr. Jordan / Patient calling back about this ) 07/26/2025 Telephone [facility] [address] [place] [phone] Gordo Jordan MD Medication Management 07/26/2025 Telephone [facility] [address] [place] [phone] Ainsley Luther, DO Medication Management (Magic Mouth ) 07/25/2025 10:30 AM EDT Office Visit [facility] [address] [place] [phone] Lauryn Moore, DPM History of transmetatarsal amputation of left foot (HCC) (Primary Dx); Diabetic polyneuropathy associated with type 2 diabetes mellitus (HCC); Acquired hammer toe of right foot 07/25/2025 Telephone [facility] [address] [place] [phone] Ainsley Luther, DO Appointment Needed (Pt out of insulin /[employer] ) 07/25/2025 Telephone [facility] Podiatry [address] [place] [phone] Lauryn Moore, DPM Other from Last 3 Months Immunizations Immunization Administration [...] SECOND TOE; Surgeon: Adrian Lazo DPM; Location: [facility] MAIN OR; Service: Podiatry TOE AMPUTATION 10/02/2023 [...] [facility] MAIN OR; Service: Orthopedics FOOT SURGERY 11/12/2023 Foot/Ankle/Left left foot incision and drainage with bone biopsy; Surgeon: Adrian Lazo DPM; Location: [facility] MAIN OR; Service: Podiatry FOOT SURGERY 11/15/2023 Foot/Ankle/Left left foot debridement and delayed primary closure; Surgeon: Keshawn Barlow DPM; Location: [facility] MAIN OR; Service: Podiatry AMPUTATION 10/08 VASCULAR SURGERY Medical History Medical History Date Comments AURROA (generalized anxiety disorder) Osteoarthritis of both knees [...] Mother Kayla shepperd Heart Disease Mother Kayla gunn High Blood Pressure Mother Kayla gunn Hypertension Mother Kayla gunn Cataracts Neg Hx Glaucoma Neg Hx Macular Degen Neg Hx Relation Name Status Comments Brother 1 Philip gunn Alive Brother 2 Sekou gunn Father Philip gunn Alive Mother Kayla gunn Social History Tobacco Use Types Packs/Day Years Used Date Smoking Tobacco: Some Days Cigarettes 0.6 8 Started: 11/16/1986; Last attempted to quit: 11/16/1990 Passive Smoke Exposure: Never Smokeless Tobacco: Never Alcohol Use Standard Drinks/Week Comments Yes 4 (1 standard drink = 0.6 oz pure alcohol) Sober for 20 years until May 2022 [facility] Utilities Answer Date Recorded In the [...] Total Score 5 07/26/2025 [facility] [place] [facility] - Occupational [...] things needed for daily living? No [facility]/10[facility]2023 [facility] IP Transportation Answer D [...] [place] [facility] [address] [place] [phone] Belinda Marques OD [address] [place] [address] Health Maintenance Due Date Last Done Comments [...] 10/15/2025 08/20/2025, 08/04/2019 Hemoglobin A1c 01/23/2026 07/26/2025, 08/06/2025, 02/13/2024, Additional history exists Kidney Health: uACR [...] to next follow up appointment with career law clerk General Not on track(2024 10:05 AM EDT) [...] Comments SCANNED LABS 09/26/2025 11:11 PM EST LIPASE LEVEL STAT 08/13/2025 8:28 AM EDT COMPREHENSIVE METABOLIC PANEL STAT 08/13/2025 8:28 AM EDT CBC WITH DIFF STAT 08/13/2025 8:28 AM EDT URINALYSIS REFLEX STAT 08/13/2025 8:2 2 AM EDT UA W/REFLEX TO CULTURE STAT 08/13/2025 8:22 AM EDT EXTRA CAIN URINE CX STAT 08/13/2025 8 :22 AM EDT XR KNEE BILATERAL AP LATERAL [...] prostate cancer LIPID PANEL REFLEX Routine 07/26/2025 10 :21 [...] mellitus (HCC) Hypertension associated with diabetes (HCC) HM DIABETES EYE EXAM Routine 08/06/2023 9:39 AM EDT from Last 3 Months or Most Recently Relevant to Health Maintenance Results * SCANNED LABS (09/26/2025 11:11 PM EST) 09/26/2025 11:1 1 PM EST us Unknown Provider HEMATOLOGY ORDERABLES Final Res ult * (ABNORMAL) CBC WITH DIFF (08/13/2025 8:28 AM EDT) Only the most recent of2 resultswithin the time period is included. WBC 10.7(H) 3.7 - 10.3 x10(3)/mcL 08/13/2025 8:35 AM EDT [facility] RBC 4.99 4.60 - 6.10 x10(6)/mcL 08/13/2025 8:35 AM EDT [facility] Hgb 15.2 13.7 - 17.5 g/dL 08/13/2025 8:35 AM EDT [facility] Hct 43.2 40.0 - 51.0 % 08/13/2025 8:35 AM EDT [facility] MCV 86.6 80.0 - 100.0 fL 08/13/2025 8:35 AM EDT [facility] MCH 30.5 26.0 - 34.0 pg 08/13/2025 8:35 AM EDT [facility] MCHC 35.2 30.7 - 35.5 g/dL 08/13/2025 8:35 AM EDT [facility] RDW 12.3 <=14.9 % 08/13/2025 8:35 AM EDT [facility] Platelet 354 155 - 369 x10(3)/mcL 08/13/2025 8:35 AM EDT [facility] MPV 9.2 8.8 - 12.5 fL 08/13/2025 8:35 AM EDT [facility] Neut Percent 67.2 % 08/13/2025 8:35 AM EDT [facility] Comment:Neutrophils equals s egs plus bands Imm Gran% 0.4 % 08/13/2025 8:35 AM EDT [facility] Comment:Automated count of m etamyelocytes, myelocytes and promyelocytes. Lymph Percent 25.5 % 08/13/2025 8:35 AM EDT [facility] [place] Percent 5.3 % 08/13/2025 8:35 AM EDT [facility] [facility] Eos Percent 1.3 % 08/13/2025 8:35 AM EDT [facility] Baso Percent 0.3 % 08/13/2025 8:35 AM EDT [facility] Neut # 7.2(H) 1.6 - 6.1 x10(3)/[facility] 08/13/2025 8:35 AM EDT [facility] Comment:Neutrophils equals s egs plus bands IMMGRAN# 0.0 0.0 - 0.1 x10(3)/[facility] 08/13/2025 8:35 AM EDT [facility] Comment:Automated count of m etamyelocytes, myelocytes and promyelocytes. An absolute IG <0.1 is reported as 0.0. Lymph # 2.7 1.2 - 3.9 x10(3)/[facility] 08/13/2025 8:35 AM EDT [facility] [place] # 0.6 0.3 - 0.9 x10(3)/[facility] 08/13/2025 8:35 AM EDT [facility] Eos# 0.1 0.0 - 0.5 x10(3)/[facility] 08/13/2025 8:35 AM EDT [facility] Baso # 0.0 0.0 - 0.1 x10(3)/[facility] 08/13/2025 8:35 AM EDT [facility] Blood VENOUS BLOOD / Unknown Venipuncture / Unknown 08/13/2025 8:28 AM EDT 08/13/2025 8:33 AM EDT us Chandni Bass DO HEMATOLOGY ORDERABLES Final Re sult [facility] [address] [place] [address] * LIPASE LEVEL (08/13/2025 8:28 AM EDT) Lipase Lvl 34 13 - 60 U/L 08/13/2025 8:55 AM EDT [facility] Blood VENOUS BLOOD / Unknown Venipuncture / Unknown 08/13/2025 8:28 AM EDT 08/13/2025 8:33 AM EDT us Chandni Bass DO CHEMISTRY ORDERABLES Final Res ult [facility] [address] [facility], [place] [id number] * (ABNORMAL) COMPREHENSIVE METABOLIC PANEL (08/13/2025 8:28 AM EDT) Only the most recent of2 resultswithin the time period is included. Sodium 135(L) 136 - 145 mmol/L 08/13/2025 8:55 AM EDT [facility] Potassium 3.8 3.5 - 5.0 mmol/L 08/13/2025 8:55 AM EDT [facility] Chloride 96(L) 98 - 107 mmol/L 08/13/2025 8:55 AM EDT [facility] Total CO2 25 22 - 29 mmol/L 08/13/2025 8:55 AM EDT [facility] Anion Gap 14 7 - 16 mmol/L 08/13/2025 8:55 AM EDT [facility] Calcium 9.6 8.6 - 10.4 mg/dL 08/13/2025 8:55 AM EDT [facility] Glucose Lvl 429(H) 70 - 99 mg/dL 08/13/2025 8:55 AM EDT [facility] BUN 20 6 - 20 mg/dL 08/13/2025 8:55 AM EDT [facility] Creatinine 1.51(H) 0.67 - 1.30 mg/dL 08/13/2025 8:55 AM EDT [facility] Albumin 4.3 3.5 - 5.2 gm/dL 08/13/2025 8:55 AM EDT [facility] Total Protein 8.2 6.4 - 8.3 gm/dL 08/13/2025 8:55 AM EDT [facility] Bili Total 0.5 0.2 - 1.4 mg/dL 08/13/2025 8:55 AM EDT [facility] ALT 19 <=41 U/L 08/13/2025 8:55 AM EDT [facility] AST 19 <=40 U/L 08/13/2025 8:55 AM EDT [facility] Alk Phos 153(H) 40 - 129 U/L 08/13/2025 8:55 AM EDT [facility] eGFR (CKD-EPIcr 2020) 53(L) >=60 mL/min/1.7 3 m2 08/13/2025 8:55 AM EDT [facility] Comment:Estimated GFR was ca lculated using the CKD-EPIcr (2020) equation refit without race. The equation is recommended by the National Kidney Foundation - [place] Society of Nephrology Task Force. Blood VENOUS BLOOD / Unknown Venipuncture / Unknown 08/13/2025 8:28 AM EDT 08/13/2025 8:33 AM EDT us Chandni Bass DO CHEMISTRY ORDERABLES Final Res ult [facility] [address] [place] [address] * (ABNORMAL) URINALYSIS REFLEX (08/13/2025 8:22 AM EDT) UA Color Light Yellow 08/13/2025 8:30 AM EDT [facility] UA Appear Clear Clear 08/13/2025 8:30 AM EDT [facility] UA Glucose 4+ (>1000mg/dL )(A) Negative mg/dL 08/13/2025 8:30 AM EDT [facility] UA Ketones Negative Negative mg/dL 08/13/2025 8:30 AM EDT [facility] UA Blood Negative Negative 08/13/2025 8:30 AM EDT [facility] UA pH 6.0 5.0 - 8.0 pH 08/13/2025 8:30 AM EDT [facility] UA Protein Negative Negative mg/dL 08/13/2025 8:30 AM EDT [facility] UA Urobilinogen Normal <=1 mg/dL 8:30 AM EDT [facility] UA Bili Negative Negative 08/13/2025 8:30 AM EDT [facility] UA Nitrite Negative Negative 08/13/2025 8:30 AM EDT [facility] UA Leuk Est Negative Negative 08/13/2025 8:30 AM EDT [facility] UA Spec Grav 1.032 1.001 - 1.035 no units 08/13/2025 8:30 AM EDT [facility] Comment:Reference range jenny d for random specimens only. UA WBC 2 0 - 4 /HPF 08/13/2025 8:30 AM EDT [facility] UA RBC 1 0 - 3 /HPF 08/13/2025 8:30 AM EDT [facility] UA Squam Epi Few /LPF 08/13/2025 8:30 AM EDT [facility] UA Mucus Trace /LPF 08/13/2025 8:30 AM EDT [facility] Urine STRUCTURE OF URINARY TRACT PROPER / Unknown 08/13/2025 8:22 AM EDT 08/13/2025 8:24 AM EDT us Chandni Bass DO URINE ORDERABLES Final Result Performing Organization Address [facility] de Phone Number [facility] [address] [place] [address] * EXTRA CAIN URINE CX (08/13/2025 8:22 AM EDT) Urine STRUCTURE OF URINARY TRACT PROPER / Unknown 08/13/2025 8:22 AM EDT 08/13/2025 8:24 AM EDT us Chandni Bass DO MICROBIOLOGY - GENERAL ORDERAB LES Final Result Performing Organization Address [facility] de Phone Number [facility] [address] [place] [address] * XR KNEE BILATERAL AP LATERAL INTERNAL AND EXTERNAL OBLIQUES (08/08/2025 9:01 AM EDT) Narrative [employer], Audit - 08/08/2025 9:01 AM EDT Please see physician's note from office encounter for x-ray imaging result Zane Méndez DO IMG DIAGNOSTIC IMAGING ORDERAB LES Final Result * (ABNORMAL) BASIC METABOLIC PANEL (08/07/2025 10:23 AM EDT) Sodium 135(L) 136 - 145 mmol/L 08/07/2025 3:34 PM EDT [facility] Potassium 3.7 3.5 - 5.0 mmol/L 08/07/2025 3:34 PM EDT [facility] Chloride 94(L) 98 - 107 mmol/L 08/07/2025 3:34 PM EDT [facility] Total CO2 25 22 - 29 mmol/L 08/07/2025 3:34 PM EDT [facility] Anion Gap 16 7 - 16 mmol/L 08/07/2025 3:34 PM EDT [facility] Calcium 9.6 8.6 - 10.4 mg/dL 08/07/2025 3:34 PM EDT [facility] Glucose Lvl 415(H) 70 - 99 mg/dL 08/07/2025 3:34 PM EDT [facility] BUN 28(H) 6 - 20 mg/dL 08/07/2025 3:34 PM EDT [facility] Creatinine 1.70(H) 0.67 - 1.30 mg/dL 08/07/2025 3:34 PM EDT [facility] eGFR (CKD-EPIcr 2020) 46(L) >=60 mL/min/1.7 3 m2 08/07/2025 3:34 PM EDT [facility] Comment:Estimated GFR was ca lculated using the CKD-EPIcr (2020) equation refit without race. The equation is recommended by the National Kidney Foundation - [place] Society of Nephrology Task Force. Blood VENOUS BLOOD / Unknown Venipuncture / Unknown 08/07/2025 10:23 AM EDT 08/07/2025 10:23 AM EDT Gordo Jordan MD CHEMISTRY ORDERABL ES Final Result [facility] [address] [facility] , [place] [address] * (ABNORMAL) POCT GLYCATED HEMOGLOBIN, TOTAL (07/26/2025 [...] <200 mg/dL 07/26/2025 5:29 PM EDT [email or web address] Comment: < 200 Desirable 200 - 239 Borderline High >= 240 High Triglyceride 149 <150 mg/dL 07/26/2025 5:29 PM EDT [facility] Comment: < 150 Normal 150 - 199 Borderline High 200 - 499 High >= 500 Very High HDL 36(L) >=40 mg/dL 07/26/2025 5:29 PM EDT [facility] Comment: > 60 Optimal 40 - 60 Acceptable < 40 Low LDL Calculated 88 <100 mg/dL 07/26/2025 5:29 PM EDT [facility] Comment: < 100 Optimal 100 - 129 Near or above optimal 130 - 159 Borderline High 160 - 189 High >= 190 Very High The National Institutes of Health (NIH) equation is used for all lipid panels that report calculated LDL (LDL-C). Non-HDL-C Calculated 114 <=129 mg/dL 07/26/2025 5:29 PM EDT [facility] Comment: <130 Desirable 130-159 Above Desirable 160-189 Borderline High 190-219 High >= 220 Very High Fasting Specimen? Unknown None 025 5:29 PM EDT [facility] Blood VENOUS BLOOD / Unknown Venipuncture / Unknown 07/26/2025 10:21 AM EDT 07/26/2025 10:21 AM EDT Stacy Mccabe APRN CHEMISTRY ORDERABLES Final Result Performing Organization Address [facility] de Phone Number [facility] , [place] [address] * PROSTATE SPECIFIC ANTIGEN (SCREENING) (07/26/2025 10:21 AM EDT) Pathologist [facility] Total Psa 2.79 <=4.00 ng/mL 07/26/2025 5:41 PM EDT [facility] [employer] [facility] Blood VENOUS BLOOD / Unknown Venipuncture / Unknown 07/26/2025 10:21 AM EDT 07/26/2025 10:21 AM EDT Narrative [facility] [employer] [facility] - 07/26/2025 5:41 PM EDT The Jason [...] CHEMISTRY ORDERABLES Final Result Performing Organization Address [facility] de Phone Number [facility] [employer] , [place] [address] * (ABNORMAL) MICROALBUMIN/CREATININE RATIO URINE (07/26/2025 10:21 AM EDT) Urine Albumin 34.5 mg/L 07/26/2025 4:58 PM EDT [facility], [facility] Urine Creatinine 101.0 mg/dL 07/26/2025 4:58 PM EDT [facility], [facility] Ur Albumin/Creat Ratio 34(H) 0 - 30 mg/g 07/26/2025 4:58 PM EDT [facility] Urine STRUCTURE OF URINARY TRACT PROPER / Unknown 07/26/2025 10:21 AM EDT 07/26/2025 10:21 AM EDT Stacy Mccabe BOX PRESS OPERATOR URINE ORDERABLES Final Resu lt [facility] [address] [facility] [address] [place] [address] [facility] [address] [place], [place] [id number] * DIABETES EYE EXAM (08/06/2023 9:39 AM EDT) Left Diabetic Retinopathy Not Present Present/Not Present SEP OFFICE Right Diabetic Retinopathy Not Present Present/Not Present SEP OFFICE Historical Provider HEALTH MAINTENANCE Edited Re sult - Final Performing Organization Address City/State/[facility] Co de Phone Number SEP OFFICE from Last 3 Months or Most Recently Relevant to Health Maintenance Insurance [employer] [place] [employer] [place] Advance Directives For more information, please contact: [phone] * Full Code (Latest Code Status on [...] 3:16 PM 11/20/2021 5:[address] Manager Relationship Specialty Start Date End Date Jordan, Gordo Monet MD [address] [phone] PCP - General Family Medicine 08/07/25
--- NOTE | 2025-10-13 14:11 | PC.NURSE ---
provider to bedside to discuss discharge instructions. Pt prepped for discharge, pending transport back to [place] side.
[2025-10-13 14:13] VITALS: BP 117/61; PULSE 71; RESP 18; TEMP 36.9; O2SAT 98
--- NOTE | 2025-10-13 14:19 | PC.NURSE ---
Pt provided with drink and snack
== END 2025-10-13 15:15 | disposition home or self-care (01) ==
PROVIDERS: Emergency Provider Student in an Organized Health Care Education/Training Program; PCP Student in an Organized Health Care Education/Training Program
DX: S91.101A Unspecified open wound of right great toe without damage to nail, initial encounter (principal); S91.302A Unspecified open wound, left foot, initial encounter; E11.9 Type 2 diabetes mellitus without complications; X58.XXXA Exposure to other specified factors, initial encounter
CPT/HCPCS: 73630; 99282; 99283

== ENCOUNTER 2025-11-13 10:00 | Outpatient (RCR) | payer MEDICAID, SELFPAY | END 2025-11-13 23:59 | disposition home or self-care (01) | LOC: PT 10:00 | PROVIDERS: PCP Student in an Organized Health Care Education/Training Program; Visit Provider Nurse Practitioner Family | DX: E11.621 Type 2 diabetes mellitus with foot ulcer (principal); L97.529 Non-pressure chronic ulcer of other part of left foot with unspecified severity | CPT/HCPCS: 97162; 97597 ==

== ENCOUNTER 2025-11-15 13:59 | Emergency (ER) | payer MEDICAID, SELFPAY ==
[2025-11-15] VITALS (17 sets, daily range): BP systolic 104–171; BP diastolic 40–115; PULSE 42–142; RESP 18–20; TEMP 36.3–36.9; O2SAT 82–98; BMI 37.5
--- NOTE | 2025-11-15 14:01 | XR_ITS ---
FINAL REPORT CLINICAL HISTORY: toe infection COMPARISON: 10/13/2025 FINDINGS: AP, oblique and lateral views of the right foot were obtained. There is new bony destruction involving the distal tuft of the great toe consistent with osteomyelitis. There is no acute fracture other area of bone destruction. There is a soft tissue defect in the distal great toe. Punctate radiodensity along the plantar aspect of the distal great toe is consistent with foreign body. There is subcutaneous air within the soft tissues of the great toe. No other interval change is noted. IMPRESSION: Osteomyelitis of the distal tuft great toe with soft tissue gangrene. Small punctate foreign body not seen on the prior exam. Reviewed, Interpreted and Dictated by Mora Soto MD Transcribed by Sommer Madrid Authenticated and [facility]
--- NOTE | 2025-11-15 14:04 | CT_ITS ---
FINAL REPORT TECHNIQUE: Postcontrast images of the right lower extremity was performed by computed tomography. Extensive 3-D reconstruction images were performed. A CTA was performed. This study was performed with techniques to keep radiation doses as low as reasonably achievable (ALARA). Individualized dose reduction techniques using automated exposure control or adjustment of mA and/or kV according to the patient''s size were employed. CLINICAL HISTORY: with runoff great toe infection COMPARISON: None FINDINGS: The right external and internal iliac arteries are patent without stenosis. The right common femoral artery is patent without stenosis. The superficial femoral and profunda arteries are patent without stenosis. There is minimal plaque in the SFA. The popliteal artery is patent. There is three-vessel runoff in the calf. The arterial vessels of the foot appear patent. There is no evidence of vessel occlusion. The known bony destruction of the distal phalanx is not well demonstrated on this exam. As appropriate, reconstructions for bone detail were not submitted. IMPRESSION: No evidence of vessel occlusion or significant stenosis. Reviewed, Interpreted and Dictated by Mora Soto MD Transcribed by Sommer Madrid Authenticated and [facility]
[2025-11-15 14:11] LABS: Albumin Level 3.8 g/dl (3.5-5.0); Chloride 96 mmol/L (98-107); Potassium 4.4 mmoL/L (3.5-5.1); Sodium 134 mmol/L (136-145)
[2025-11-15 14:13] LABS: Hematocrit 40.3 % (42.0-52.0); Hemoglobin 13.0 g/dL (14.1-18.0); Immature Granulocytes % 0.4 %; Magnesium 2.2 mg/dl (1.6-2.3); Mean Corpuscular HGB Conc 32.3 g/dL (31.8-35.4); Mean Corpuscular Hemoglobin 29.8 pg (27.0-31.2); Mean Corpuscular Volume 92.4 fl (80-94); Nucleated Red Blood Cells % 0 %; Platelet Count 507 K/mm3 (142-424); Red Blood Count 4.36 M/mm3 (4.60-6.20); Red Cell Distribution Width-SD 41.8 fL; White Blood Count 24.9 K/mm3 (4.8-10.8)
--- OUTSIDE RECORDS SUMMARY | 2025-11-15 14:13 | XMS_ITS | Encounter Summary ---
Author Organization [place] [address] Care Team Providers Care Fluid Power Mechanic Name Role Phone Gordo Jordan MD Primary Care Prov ider Reason for Visit * Reason Comments Medication Refill Encounter Details Date Type Department Care Team (Late st Contact Info) Description 10/08/2025 Refill [facility] [address] [place] [phone] Gordo Jordan MD [address] [place] [id number] Medication Refill Social History Tobacco Use Types Packs/Day Years Used Date Smoking Tobacco: Some Days Cigarettes 0.6 8 Started: 11/16/1986; Last attempted to quit: 11/16/1990 Passive Smoke Exposure: Never Smokeless Tobacco: Never Alcohol Use Standard Drinks/Week Comments Yes 4 (1 standard drink = 0.6 oz pure alcohol) Sober for 20 years until May 2022 [facility] Utilities Answer Date Recorded In the past 12 months has [employer], gas, oil, or water Anygma threatened to shut off services in your home? No 06/22/2025 Overall Financial Resource Strain (CARDIA) Answe r Date Recorded How hard is it for you to pa y for the very basics like food, housing, medical care, and heating? Somewhat hard 06/22/2025 PHQ-2 Answer Date Recorded PHQ-2 Total Score 5 07/26/2025 [facility] of Occupat ional Health - Occupational Stress [...] things needed for daily living? No 11/10/2023 [facility] IP Transportation Answer D ate [...] 3 TIMES A DAY 15 mL 10/10/2025 5 documented in this encounter Plan of Treatment Upcoming Encounters Date Type Department Care Team (Late st Contact Info) Description 02/01/2026 11:00 AM EDT Office Visit [facility] Ophthalmology [facility] [address] [phone] Belinda Marques, SHAE [address] [phone] documented as of this encounter Goals Goal [...] to next follow up appointment with career technical education teacher General Not on track(2024 10:05 AM [...] documented as of this encounter Care Teams Fluid Power Mechanic Relationship Specialty Start Date End Date Gordo Jordan MD [address] [id number] PCP - General Family Medicine 08/07/25 documented as of this encounter
--- OUTSIDE RECORDS SUMMARY | 2025-11-15 14:13 | XMS_ITS | Clinical Summary ---
Author Organization [facility] Address [address] [place] [phone] Phone Care Team Providers Care Customer Account Representative Name Role Phone Tequila ESPARZA Leslye OLGUIN [...] [BMI] 40.0-44.9, adult Knee joint pain, right 65183859 (SNOMED CT) 06/17 Active 06/17 Jonathon Medina DO Knee pain Screening for tuberculosi s 760538279 (SNOMED CT) 06/17 Inactive 06/17 Jonathon Medina DO Tuberculosis screening Fall risk 996245917 (SNOMED CT) 06/17 Active 06/17 Jonathon Medina DO At increased risk for falls Diabetic neuropathy 778996025 (SNOMED CT) 06/17 Active 06/17 Jonathon Medina DO Neuropathy due to diabetes mellitus Body mass index (BMI) 40.0-44.9; adult Z68.41 (ICD-10-CM ) 05/04 Removed 05/04 Anum Coffey APRN Body mass index [BMI] 40.0-44.9, adult Body mass index (BMI) 40.0-44.9; adult Z68.41 (ICD-10-CM ) 12/30 Correction 12/30 Anum Coffey DIRECTOR ALUMNI RELATIONS Body mass index [BMI] 40.0-44.9, adult Allergic rhinitis, 09779120 (SNOMED CT) 12/30 Active 01/01 Leslye Keagle DIRECTOR ALUMNI RELATIONS BCADM Allergic rhinitis GERD-esopha geal reflux 668674516 (SNOMED CT) 12/30 Active 01/01 Leslye Keagle DIRECTOR ALUMNI RELATIONS BCADM Gastroesophagea l reflux disease Depression / anxiety 027843535 (SNOMED CT) 12/30 Active 01/01 Leslye Keagle DIRECTOR ALUMNI RELATIONS BCADM Mixed anxiety and depressive disorder BRONCHITIS ACUTE 34598106 (SNOMED CT) 12/30 Inactive 01/01 Leslye Keagle DIRECTOR ALUMNI RELATIONS BCADM Acute bronchitis Vitamin D deficiency 62486915 (SNOMED CT) 12/30 Active 01/01 Leslye Keagle DIRECTOR ALUMNI RELATIONS BCADM Vitamin D deficiency Body mass index (BMI) 40.0-44.9; adult Z68.41 (ICD-10-CM ) 12/30 Removed 12/30 Leslye Keagle DIRECTOR ALUMNI RELATIONS BCADM Body mass index [BMI] 40.0-44.9, adult Acute left otitis media 643655464 (SNOMED CT) 12/30 Inactive 12/30 Leslye Keagle DIRECTOR ALUMNI RELATIONS BCADM Acute left otitis media Knee pain, left 50531372 (SNOMED CT) 08/14 Active 08/14 Julito Head MD Knee pain Skin rash 875698747 (SNOMED CT) 08/14 Active 08/14 Julito Head MD Eruption BILATERAL LEGS Hypertensio n 94710777 (SNOMED CT) Active 08/14 Julito Head MD Hypertensive disorder Hyperlipide aaron 75699394 (SNOMED CT) Active 08/14 Julito Head MD Hyperlipidemia DENTAL CARIES 83774611 (SNOMED CT) Active 04/05 Mirian Harden MA Dental caries UNSPECIFIED ESSENTIAL HYPERTENSIO N 47568170 (SNOMED CT) 04/05 Active 04/05 Mirian Harden MA Essential hypertension OBESITY 310298665 (SNOMED CT) 04/05 Active 04/05 Mirian Harden MA Obesity Medications Medication Instructions Start Date Stop Date Generic Name NDC Provider TRAZODONE HCL 50 MG TABS TAKE 2 TABLETS BY MOUTH EVERY NIGHT AT BEDTIME TRAZODONE HCL 53633187441 Leslye Mandel DIRECTOR ALUMNI RELATIONS BCADM BUSPIRONE HCL 15 MG TABS TAKE 1/2 TABLET BY MOUTH TWICE DAILY BUSPIRONE HCL 33682361861 Anum Coffey DIRECTOR ALUMNI RELATIONS OMEPRAZOLE 40 MG CPDR TAKE 1 CAPSULE BY MOUTH EVERY DAY OMEPRAZOLE 10786399916 Anum Coffey DIRECTOR ALUMNI RELATIONS CANE 306LB 73 IN NEED-99 DX-Z91.81 [facility] [phone] Jonathon Carol DO CANE 1 cane [facility] [place] [id number] Kaitlynn Olea APRN DICLOFENAC SODIUM 1 % TRANSDERMAL GEL 4 grams 4 times per day DICLOFENAC SODIUM 75071157847 Jonathon Carol DO TYLENOL 325 MG TABS TAKE 2 TABLETS BY MOUTH EVERY 8 HOURS NEEDED FOR PAIN ACETAMINOPHEN 79805534426 Jonathon Carol DO CANE FOR WALKING [facility] [place] [phone] Jonathon Carol DO LEXAPRO 20 MG TABS TAKE 1 BY MOUTH EACH DAY ESCITALOPRAM OXALATE 92602871093 Jonathon Mcmanusram DO TRIAMCINOLONE ACETONIDE 0.1 % CREA APPLY TO AFFECTED AREA TWICE A DAY TRIAMCINOLONE ACETONIDE 32866932881 Anum Coffey DIRECTOR ALUMNI RELATIONS VITAMIN D3 1.25 MG (26041 UT) CAPS TAKE 1 CAPSULE BY MOUTH PER WEEK CHOLECALCIFEROL 92335485260 Leslye Keagle DIRECTOR ALUMNI RELATIONS BCADM BD PEN NEEDLE MINI U/F 31G X 5 MM USE WITH BASAGLAR AND HUMALOG FOR A TOTAL OF FOUR TIMES DAILY INSULIN PEN NEEDLE 68002729580 Leslye Keagle DIRECTOR ALUMNI RELATIONS BCADM BD PEN NEEDLE MINI U/F 31G X 5 MM USE WITH BASAGLAR DIRECTED INSULIN PEN NEEDLE 88938681373 Leslye Keagle DIRECTOR ALUMNI RELATIONS BCADM PEN NEEDLES 31G X 5 MM USE WITH BASAGLAR DAILY BRAND PER FORMULARY INSULIN PEN NEEDLE 54709412508 Leslye Keagle DIRECTOR ALUMNI RELATIONS BCADM BASAGLAR KWIKPEN 100 UNIT/ML SOPN INJECT 25 UNITS UNDER THE SKIN EVERY EVENING INSULIN GLARGINE 41142754948 Leslye Shermanagle DIRECTOR ALUMNI RELATIONS BCADM LORATADINE 10 MG TABS Take 1 tablet by mouth daily LORATADINE 28528957862 Leslye Keagle DIRECTOR ALUMNI RELATIONS BCADM OMEPRAZOLE 40 MG CPDR TAKE 1 CAPSULE BY MOUTH EACH DAY OMEPRAZOLE 62141143603 Leslye Keagle DIRECTOR ALUMNI RELATIONS BCADM BUSPIRONE HCL 15 MG TABS TAKE 1/2 TABLET BY MOUTH 2 TIMES A DAY BUSPIRONE HCL 79373129390 Anum Coffey DIRECTOR ALUMNI RELATIONS TRAZODONE HCL 50 MG TABS Take 2 tablets by mouth daily at bedtime TRAZODONE HCL 19302882872 Leslye Shermanagle DIRECTOR ALUMNI RELATIONS BCADM NORVASC 10 MG TABS Take 1 tablet by mouth daily AMLODIPINE BESYLATE 06923023001 Leslye Keagle DIRECTOR ALUMNI RELATIONS BCADM ATORVASTATIN CALCIUM 20 MG TABS TAKE 1 TABLET BY MOUTH AT BEDTIME ATORVASTATIN CALCIUM 23671756045 Leslye Keagle DIRECTOR ALUMNI RELATIONS BCADM BROMFED DM 30-2-10 MG/5ML ORAL SYRUP TAKE 10 ML BY MOUTH 4 TIMES A DAY NEEDED FOR COUGH PSEUDOEPH-BROMPHE N-DM 09780738572 Leslye Mandel APRN BCADM DICLOFENAC SODIUM 1 % TRANSDERMAL GEL 4 grams 4 times per day DICLOFENAC SODIUM 21911146532 Leslye Mandel APRN BCADM VITAMIN D3 1.25 MG (00533 UT) CAPS TAKE 1 CAPSULE BY MOUTH ONCE PER WEEK CHOLECALCIFEROL 16780943087 Leslye Mandel APRN BCADM VITAMIN D3 1.25 MG (19438 UT) CAPS TAKE 1 CAPSULE BY MOUTH ONCE PER WEEK CHOLECALCIFEROL 95467971215 Leslye Mandel APRN BCADM BROMFED DM 30-2-10 MG/5ML ORAL SYRUP TAKE 10 ML BY MOUTH 4 TIMES A DAY NEEDED FOR COUGH YAS-ROXANA N-DM 02902786808 Leslye Mandel APRN BCADM DICLOFENAC SODIUM 1 % TRANSDERMAL GEL 4 grams 4 times per day DICLOFENAC SODIUM 01802852142 Leslye Mandel APRN BCADM AMOXICILLIN 875 MG TABS TAKE 1 TABLET BY MOUTH 2 TIMES A DAY AMOXICILLIN 61476674295 Leslye Mandel APRN BCADM PROMETHAZINE-DM 6.25-15 MG/5ML SYRP TAKE 5 ML BY MOUTH EVERY 4 HOURS NEEDED FOR COUGH PROMETHAZINE-DM 39857309029 Leslye Mandel APRN BCADM MELOXICAM 15 MG TABS TAKE 1 TABLET BY MOUTH ONCE A DAY MELOXICAM 77454318967 Leslye Mandel APRN BCADM OMEPRAZOLE 40 MG CPDR TAKE 1 CAPSULE BY MOUTH EACH DAY OMEPRAZOLE 86744699265 Leslye Mandel APRN BCADM LORATADINE 10 MG TABS Take 1 tablet by mouth daily LORATADINE 09243983232 Leslye Mandel APRN BCADM ATORVASTATIN CALCIUM 20 MG TABS TAKE 1 TABLET BY MOUTH AT BEDTIME ATORVASTATIN CALCIUM 22962475385 Leslye Mandel APRN BCADM PREDNISONE 20 MG TABS TAKE 1 TABLET BY MOUTH 2 TIMES A DAY FOR 5 DAYS PREDNISONE 69097382422 Leslye Mandel APRN, BCADM MELOXICAM 15 MG TABS TAKE 1 TABLET BY MOUTH ONCE A DAY MELOXICAM 64230021363 Julito Head MD LIPITOR 20 MG TABS Take 1 tablet by mouth daily ATORVASTATIN CALCIUM 48823405076 Julito Head MD TRAZODONE HCL 50 MG TABS Take 2 tablets by mouth daily at bedtime TRAZODONE HCL 42598744548 Leslye Mandel APRN, BCADM LORATADINE 10 MG TABS Take 1 tablet by mouth daily LORATADINE 88341265895 Julito Head MD NORVASC 10 MG TABS Take 1 tablet by mouth daily AMLODIPINE BESYLATE 59370282811 Leslye Leonnikki ISAIAS BCADM LISINOPRIL 20 MG TABS TAKE 1 TABLET BY MOUTH 1 TIME A DAY LISINOPRIL 52190356309 Julito Head MD PRILOSEC 40 MG ORAL CAPSULE DELAYED RELEASE Take 1 tablet by mouth daily OMEPRAZOLE 25582565929 Julito Head MD BUSPIRONE HCL 15 MG TABS TAKE 1/2 TABLET BY MOUTH 2 TIMES A DAY BUSPIRONE HCL 20584586647 Leslye Mandel APRN BCADM [place] POTASSIUM-HCTZ 50-12.5 MG TABS Take one tablet by mouth daily [place] POTASSIUM-HCTZ 70698672095 Leslye Mandel APRN BCADM TRIAMCINOLONE ACETONIDE 0.1 % CREA APPLY TO AFFECTED AREA TWICE A DAY TRIAMCINOLONE ACETONIDE 80242495829 Julito Head MD LISINOPRIL 20 MG TABS TAKE 1 TABLET BY MOUTH 1 TIME A DAY LISINOPRIL 56189356340 Mirian Harden MA Medications Administered No information [...] in Blood ABS NEUTROPH 4847 CELLS/UL 10*3/uL 5626-2207 N Neutrophils [#/volume] in Blood MPV 9.8 [...] exclud ed from report: Pending order SNOMED-CT: 07929 [id number] Current Medications Documented Patient education Medications Patient education Medications Patient education Medications Patient education Medications Patient education Medications Patient education Medications Patient education Medications Patient education Medications Patient education Medications Procedures Code Procedure Name Date Entry Date CPT-3077F Most recent systolic blood pressure >=140 mm Hg [id number] Medication Reconciliation [id number] 340B PPD Test CPT-3077F Most recent systolic blood pressure >=140 mm Hg SCT-[id number] Medication Reconciliation CPT-3075F Most recent systolic blood pressure 130-139 mm Hg SCT-[id number] Medication Reconciliation CPT-3074F Most recent systolic blood pressure <130 mm Hg CPT-3074F Most recent systolic blood pressure <130 mm Hg [facility] 49950 T1 BMP [facility] 48081 T1 Hepatic Function Panel 20 03/01/14 [facility] 496 T1 HGBA1c [facility] 56124 T1 Lipid Panel [facility] 99727 T1 TSH reflex to free T4 201 06/17/14 [facility] 11861 T2 Vitamin D 25 Hydroxy 2017 [facility] 4418 T2 Rheumatoid Factor Quant 2 [facility] 249 T2 RHETT [facility] 905 T1 Uric Acid [facility] 6399 T1 CBC with diff 496 [facility] Test # HGBA1c 93330 [facility] Test # TSH reflex to free T4 [facility]# 1759 [place] [address] [facility] Test # Lipid Panel 9 97703 [facility] Test # CMP 9 X-Ray Knee X-Ray Knee [facility][id number] [facility]: [phone] [id number] Current Medications Documented Vital Signs Date Name [...]
[2025-11-15 14:14] LABS: Alanine Aminotransferase 33 U/L (12-78); Albumin/Globulin Ratio 1.0 (1.1-1.8); Alkaline Phosphatase 94 U/L (38-126); Anion Gap 13.4 mEq/L (5-15); Aspartate Amino Transferase 26 U/L (17-59); Bilirubin,Total 0.9 mg/dl (0.2-1.3); Blood Urea Nitrogen 41 mg/dl (9-20); Calcium 9.4 mg/dl (8.4-10.2); Carbon Dioxide 29 mmol/L (22.0-30.0); Creatine Kinase 42 U/L (55-170); Creatinine Clearance Estimated 91 mL/min (50-200); Creatinine,Serum 1.60 mg/dl (0.66-1.25); Estimated Glomerular Filt Rate 44 ml/min (>60); GFR (African American) 54 ML/MIN (>60); Globulin 3.8 g/dL (1.3-3.2); Glucose 318 mg/dl (74-100); Total Protein,Serum 7.6 g/dl (6.3-8.2)
--- OUTSIDE RECORDS SUMMARY | 2025-11-15 14:14 | XMS_ITS | Encounter Summary ---
Author Organization [facility] [address] Care Team Providers Care Help Desk Rep Name Role Phone Gordo Jordan MD Primary Care Prov ider Reason for Visit * Reason Onset Date Comments Other 09/13/2025 Did you get a Fa x Patient Returning Call 09/13/2025 On form Follow Up 09/13/2025 Fax Encounter Details Date Type Department Care Team ([facility] Contact Info) Description 09/13/2025 Telephone [facility] [address] [place] [phone] Gordo Jordan MD [address] [address] Other (Did you get a [...] In the past 12 months has e [employer], gas, oil, or water company threatened to shut off services in your home? No 06/22/2025 Overall Financial Resource Strain (CARDIA) Answe r Date Recorded How hard is it for you to pa y for the very basics like food, housing, medical care, and heating? Somewhat hard 06/22/2025 PHQ-2 Answer Date Recorded PHQ-2 Total Score 5 07/26/2025 [facility] - Occupational Stress Questionnaire Answer Date Recorded [...] things needed for daily living? No 11/10/2023 [facility] IP Transportation Answer D ate Recorded [...] see if PCP ever received papers from [employer]? Further follow-up needed?:Yes Additional Information:Pt given office fax # and says he is going to call [employer] again as well. * Telephone Encounter [...] seeing if you got the fax from [place] for his transportation. It needs to be [...] [facility] [address] [facility] [address] [place] [address] Belinda Marques OD [address] [place] [address] documented as of this encounter [...] Not on track(2024 10:04 AM EDT) Yes Danilele Monroy RN Patient will utilize glucometer to monitor blood glucose levels 3 times a day and bring log to next follow up appointment with resident care aid General Not on track(2024 10:05 AM EDT) [...] documented as of this encounter Care Teams Help Desk Rep Relationship Specialty Start Date End Date Jordan, Gordo Monet MD [address] [place] [address] PCP - General Family Medicine 08/07/25 documented as of this encounter
--- OUTSIDE RECORDS SUMMARY | 2025-11-15 14:14 | XMS_ITS | Encounter Summary ---
Author Organization [place] [address] Care Team Providers Care Remote Encoding Center Manager Name Role Phone Gordo Jordan MD Primary Care Prov ider Reason for Visit * Reason Onset Date Comments Medication Refill 09/15/2025 Encounter Details Date Type Department Care Team (Late st Contact Info) Description 09/15/2025 Refill [facility] [address] [place] [phone] Stacy Mccabe, METROLOGY SPECIALIST [address] [place] [phone] Medication Refill Social History Tobacco Use [...] Recorded In the past 12 months has [employer], gas, oil, or water [employer] threatened to shut off services in your home? No 06/22/2025 Overall Financial Resource Strain (CARDIA) Answe r Date Recorded How hard is it for you to pa y for the very basics like food, housing, medical care, and heating? Somewhat hard 06/22/2025 PHQ-2 Answer Date Recorded PHQ-2 Total Score 5 07/26/2025 [facility] [place] of Occupat ional Health - Occupational Stress [...] things needed for daily living? No 11/10/2023 [facility] IP Transportation Answer D ate [...] EDT Office Visit [facility] [address] [facility] [address] [place] [address] Belinda Marques OD [address] [place] [phone] documented as of this encounter Goals Goal [...] log to next follow up appointment with critical care nurse specialist General Not on track(2024 10:05 AM [...] documented as of this encounter Care Teams Remote Encoding Center Manager Relationship Specialty Start Date End Date Gordo Jordan MD [address] [place] [address] PCP - General Family Medicine 08/07/25 documented as of this encounter
--- OUTSIDE RECORDS SUMMARY | 2025-11-15 14:14 | XMS_ITS | Encounter Summary ---
Author Organization [place] [address] Care Team Providers Care Deputy Administrator Name Role Phone Gordo Jordan MD Primary Care Prov ider Encounter Details Date Type Department Care Team (Late st Contact Info) Description 10/16/2025 Refill [facility] [address] [place] [phone] Stacy Mccabe, BIOCHEMICAL ENGINEER [address] [place] [phone] Social History Tobacco Use Types Packs/Day Years Used Date Smoking Tobacco: Some Days Cigarettes 0.6 8 Started: 11/16/1986; Last attempted to quit: 11/16/1990 Passive Smoke Exposure: Never Smokeless Tobacco: Never Alcohol Use Standard Drinks/Week Comments Yes 4 (1 standard drink = 0.6 oz pure alcohol) Sober for 20 years until May 2022 [facility] Utilities Answer Date Recorded In the past 12 months has [employer], gas, oil, or water [employer] threatened to shut off services in your home? No 06/22/2025 Overall Financial Resource Strain (CARDIA) Answe r Date Recorded How hard is it for you to pa y for the very basics like food, housing, medical care, and heating? Somewhat hard 06/22/2025 PHQ-2 Answer Date Recorded PHQ-2 Total Score 5 07/26/2025 [facility] of Occupat ional Health - Occupational Stress [...] daily living? No 11/10/[address] [facility] IP Transportation Answer D ate [...] [address] [facility] [address] [place] [phone] Belinda Marques, OD [address] [place] [address] documented as of this encounter [...] completion of in home exercises. General No Montesrrat Garcia RN Maintain a healthy diet, exercise [...] log to next follow up appointment with small animal caretaker General Not on track(2024 10:05 AM [...] osteoarthrosis, lower leg documented in this encounter Additional Health Concerns Assessment Noted Time PHQ-9 Depression Total Score: 22 025 9:00 AM EDT PHQ-2 Depression Total Score: 5 07/26/20 25 9:00 AM EDT documented as of this encounter Care Teams Deputy Administrator Relationship Specialty Start Date End Date Jordan, Gordo Monet MD [address] [place] [address] PCP - General Family Medicine 08/07/25 documented as of this encounter
--- OUTSIDE RECORDS SUMMARY | 2025-11-15 14:14 | XMS_ITS | Encounter Summary ---
Author Organization [place] [address] Care Team Providers Care Automatic Beam Warper Tender Name Role Phone Gordo Jordan MD Primary Care Prov ider Encounter Details Date Type Department Care Team (Late st Contact Info) Description 10/16/2025 Refill [facility] [address] [place] [phone] Gordo Jordan MD [address] [place] [address] Social History Tobacco Use Types Packs/Day Years Used Date Smoking Tobacco: Some Days Cigarettes 0.6 8 Started: 11/16/1986; Last attempted to quit: 11/16/1990 Passive Smoke Exposure: Never Smokeless Tobacco: Never Alcohol Use Standard Drinks/Week Comments Yes 4 (1 standard drink = 0.6 oz pure alcohol) Sober for 20 years until May 2022 [facility] Utilities Answer Date Recorded In the past 12 months has [employer], gas, oil, or water [employer] threatened to shut off services in your home? No 06/22/2025 Overall Financial Resource Strain (CARDIA) Answe r Date Recorded How hard is it for you to pa y for the very basics like food, housing, medical care, and heating? Somewhat hard 06/22/2025 PHQ-2 Answer Date Recorded PHQ-2 Total Score 5 07/26/2025 [facility] [place] of Occupat ional Health - Occupational Stress [...] things needed for daily living? No 11/10/2023 [facility] IP Transportation Answer D ate Recorded [...] Last Filled Start Date End Date insulin aspart U-100 (NOVOLOG FLEXPEN U-100 INSULIN) 100 unit/mL (3 mL) SubQ Insulin PenIndications:Unco ntrolled type 2 diabetes mellitus with hyperglycemia, with long-term current use of insulin (HCC),Diabetic polyneuropathy associated with type 2 diabetes mellitus (HCC) Inject 12 Units under the skin 3 times daily (before meals). 15 mL 2 10/20/2025 Insulin Gunter, Disposable, (BD ULTRA-FINE MINI PEN NEEDLE) 31 gauge x 3/16 Misc NeedleIndications:U ncontrolled type 2 diabetes mellitus with hyperglycemia, with long-term current use of insulin (HCC),Diabetic polyneuropathy associated with type 2 diabetes mellitus (HCC) Use pen needle to administer insulin from pens as directed 100 Each 10/20/2025 lidocaine 2 % MM Solution Take 5 mL by mouth 3 times daily as needed for Pain. 100 mL 10/20/2025 chlorhexidine (PERIDEX) 0.12 % MM Mouthwash Take 10 mL by mouth 2 times daily. 250 mL 2 10/20/2025 lidocaine 2 % MM Solution Take 5 mL by mouth 3 times daily as needed for Pain. 100 mL 10/20/2025 Insulin Gunter, Disposable, (ESPERANZA 2ND GEN PEN NEEDLE) 32 gauge x 5/32 Misc NeedleIndications:U ncontrolled type 2 diabetes mellitus with hyperglycemia, with long-term current use of insulin (HCC),Diabetic polyneuropathy associated with type 2 diabetes mellitus (HCC) Inject 1 Each under the skin 4 times daily. 120 Each 5 10/20/2025 insulin glargine (LANTUS) 100 unit/mL (3 mL) SubQ Insulin PenIndications:Unco ntrolled type 2 diabetes mellitus with hyperglycemia, with long-term current use of insulin (HCC),Diabetic polyneuropathy associated with type 2 diabetes mellitus (HCC) Inject 50 Units under the skin every evening. 15 mL 1 10/20/2025 documented in this encounter Miscellaneous Notes * Telephone Encounter - Gordo Jordan MD - 10/21/2025 12:18 AM EST New pharmacy has not been setup, still says Arya Matthews) * Telephone Encounter - Eliseo Dean RMA - 10/20/2025 6:12 PM EST EMILY:08/17/25 Next OV:NEEDS OV sent MyChart pregabalin (LYRICA) 150 mg Oral Capsule , # 90, refills 2 LF:09/04/25 [facility] CONTROLLED SUBSTANCE AGREEMENT: Medication: Lyrica Contract: 08/07/25 documented in this encounter Plan of Treatment Upcoming Encounters Date Type Department Care Team (Late st Contact Info) Description 02/01/2026 11:00 AM EDT Office Visit [facility] [address] [facility] [address] [place] [phone] Belinda Marques OD [address] [place] [address] documented as of this encounter Goals Goal [...] next follow up appointment with health care coordinator General Not on track(2024 10:05 [...] documented as of this encounter Care Teams Automatic Beam Warper Tender Relationship Specialty Start Date End Date Gordo Jordan MD [address] [place] [address] PCP - General Family Medicine 08/07/25 documented as of this encounter
--- OUTSIDE RECORDS SUMMARY | 2025-11-15 14:14 | XMS_ITS | Encounter Summary ---
Author Organization [place] [address] Care Team Providers Care Water Quality Control Engineer Name Role Phone Gordo Jordan MD Primary Care Prov ider Reason for Referral * Medication Prior Authorization - Closed Specialty Diagnoses / Procedures Referred By Contac t Referred To Contact Gordo Jordan MD [address] [place] [address] Phone: tel: fax: Referral ID Status Reason Start Date Expiration Date Visits Re quested Visits Authorized [id number] Closed 1 1 Reason for Visit * Reason Onset Date Comments Refill 10/17/2025 Dexcon 6 or 7 / the whole system Encounter Details Date Type Department Care Team ([facility] Contact Info) Description 10/17/2025 Telephone [facility] [address] [place] [phone] Gordo Jordan MD [address] [place] [address] Refill (Dexcon 6 or 7 / the whole system ) Social History Tobacco Use Types Packs/Day Years Used Date Smoking Tobacco: Some Days Cigarettes 0.6 8 Started: 11/16/1986; Last attempted to quit: 11/16/1990 Passive Smoke Exposure: Never Smokeless Tobacco: Never Alcohol Use Standard Drinks/Week Comments Yes 4 (1 standard drink = 0.6 oz pure alcohol) Sober for 20 years until May 2022 [facility] Utilities Answer Date Recorded In [...] [facility] of Occupat ional Health - Occupational Stress [...] things needed for daily living? No 11/10/2023 [facility] IP Transportation Answer D ate Recorded [...] Refills Last Filled Start Date End Date DEXCOM G7 SENSOR Misc Device Follow package directions to apply sensor for continuous blood glucose monitoring. Change sensor every 10 days. 3 Each 10/17/2025 documented in this encounter Miscellaneous Notes * Telephone Encounter - Luís Nava MA - 10/17/2025 11:15 AM EST Script sent. Will fax form once signed off by provider. * Telephone Encounter - Gordo Jordan MD - 10/17/2025 11:13 AM EST ok * Telephone Encounter - Luís Nava MA - 10/17/2025 11:11 AM EST Form received and placed on Dr. Jordan's desk to sign off on. Okay to send script? * Telephone Encounter - Minnie Dumont - 10/17/2025 10:25 AM EST Select the most appropriate reason for this telephone message: Medication Refill Who is requesting the refill: Patient Return Method of Communication: Phone Call Medication(s)Name/Dosage/Frequency: Dexcon 6 or 7/ sensor/ the whole system Prescribing provider: has not been prescribed pt asking for a new system Did patient contact the pharmacy first: No has not been prescribed (For any future refill, we recommend you contact your pharmacy first How many days left on hand: 0 Future appt date w/ prescribing provider: none Pharmacy & Location: [facility] [address] [place] [address] [address] [phone] [[id number]] Informed patient refill requests can take up to 72 business hours for response Yes Additional Information: med is not pended documented in this encounter Plan of Treatment Upcoming Encounters Date Type Department Care Team (Late st Contact Info) Description 02/01/2026 11:00 AM EDT Office Visit [facility] [address] [place] [address] [address] [place] [address] Belinda Maruqes OD [address] [phone] documented as of this encounter Goals Goal [...] next follow up appointment with career technical supervisor General Not on track(2024 10:05 AM EDT) [...] documented as of this encounter Care Teams Water Quality Control Engineer Relationship Specialty Start Date End Date Gordo Jordan MD [address] [place] [address] PCP - General Family Medicine 08/07/25 documented as of this encounter
--- OUTSIDE RECORDS SUMMARY | 2025-11-15 14:14 | XMS_ITS | Encounter Summary ---
Author Organization [place] [address] Care Team Providers Care Flow Machine Operator Name Role Phone Danielle Monroy RN Unavailable Unavailable Helen Patel Unavailable Unavailable JordanGordo conde MD Primary Care Prov ider Encounter Details Date Type Department Care Team (Latest Contact Info) Description 07/27/2025 Results Follow-Up [facility] [address] [place] [phone] Stacy Mccabe APRN [address] [place] [address] COMPREHENSIVE METABOLIC PANEL, CBC WITH DIFF, LIPID [...] 20 years until May 2022 [facility] Utilities Answer Date Recorded In [...] Date Recorded PHQ-2 Total Score 5 07/26/2025 [facility] of Occupat ional Health - Occupational Stress [...] things needed for daily living? No 11/10/2023 [facility] IP Transportation Answer D ate [...] [address] [facility] [address] [place] [phone] Belinda Marques OD [address] [phone] documented as of this encounter Goals Goal [...] log to next follow up appointment with vp care management General Not on track(2024 10:05 AM EDT) [...] documented as of this encounter Care Teams Flow Machine Operator Relationship Specialty Start Date End Date Jordan, Gordo Monet MD [address] [place] [address] PCP - General Family Medicine 08/07/25 Danielle Monroy, public improvement inspector Manual Machinist/Plant Propagator 07/26/25 08/08/25 Helen Patel Care Management Returned Goods Inspector 07/28/25 08/31/25 documented as of this encounter
--- OUTSIDE RECORDS SUMMARY | 2025-11-15 14:14 | XMS_ITS | Encounter Summary ---
Author Organization [place] [address] Care Team Providers Care Operations Asst Name Role Phone Helen Patel Unavailable Gordo Jordan MD Primary Care Prov ider Reason for Visit * Reason Onset Date Comments Medication Refill 09/15/2025 Follow Up 08/31/2025 Multiple Meds Encounter Details Date Type Department Care Team ([facility] Contact Info) Description 08/31/2025 Telephone [facility] [address] [place] [phone] Stacy Mccabe APRN [address] [place] [address] Medication Refill; Follow Up (Multiple Meds ) Social History Tobacco Use Types Packs/Day Years Used Date Smoking Tobacco: Some Days Cigarettes 0.6 8 Started: 11/16/1986; Last attempted to quit: 11/16/1990 Passive Smoke Exposure: Never Smokeless Tobacco: Never Alcohol Use Standard Drinks/Week Comments Yes 4 (1 standard drink = 0.6 oz pure alcohol) Sober for 20 years until May 2022 [facility] Utilities Answer Date Recorded In the past [...] Date Recorded PHQ-2 Total Score 5 07/26/2025 [facility] [place] of Occupat ional Health - Occupational Stress [...] needed for daily living? No 11/10/2023 [facility] IP Transportation Answer D ate [...] as needed for Pain. 90 Tablet 09/18/2025 acetaminophen (TYLENOL) 500 mg Oral TabletIndications:Pr [...] daily as needed for Pain. 90 Tablet 09/18/2025 amLODIPine (NORVASC) 5 mg Oral TabletIndications:Hy pertension associated with diabetes (HCC) Take 1 Tablet by mouth daily. 30 Tablet 09/18/2025 empagliflozin (JARDIANCE) 25 mg Oral TabletIndications:Un controlled type 2 diabetes mellitus with hyperglycemia, with long-term current use of insulin ([facility]),Diabetic polyneuropathy associated with type 2 diabetes mellitus ([facility]) Take 1 Tablet by mouth daily. 30 Tablet 11 09/18/2025 Alcohol Swabs (ALCOHOL PREP PADS) Top Pads, MedicatedIndications :Uncontrolled type 2 diabetes mellitus with hyperglycemia, with long-term current use of insulin ([facility]),Diabetic polyneuropathy associated with type 2 diabetes mellitus ([facility]) Apply 1 Each topically as needed. 100 Each 11 09/18/2025 5 DULoxetine (CYMBALTA) 60 mg Oral Capsule, Delayed Release(E.C.)Indicat ions:Diabetic polyneuropathy associated with type 2 diabetes mellitus ([facility]),Major depressive disorder, recurrent severe without psychotic features ([facility]),AURORA (generalized anxiety disorder) Take 1 Capsule by mouth daily. 90 Capsule 3 09/18/2025 5 Lancets (ACCU-CHEK SOFTCLIX LANCETS) Misc MiscIndications:Unco ntrolled type 2 diabetes mellitus with hyperglycemia, with long-term current use of insulin ([facility]),Diabetic polyneuropathy associated with type 2 diabetes mellitus ([facility]) USE DIRECTED E11.9 300 Each 11 09/18/2025 5 folic acid (FOLVITE) 1 mg Oral TabletIndications:Fo late deficiency Take 1 Tablet by mouth daily. Take 1 tablet by mouth once daily 90 Tablet 3 09/18/2025 5 pantoprazole (PROTONIX) 40 mg Oral Tablet, Delayed Release (E.C.)Indications:Ga stroesophageal reflux disease without esophagitis Take 1 Tablet by mouth daily. 90 Tablet 3 09/18/2025 5 atorvastatin (LIPITOR) 20 mg Oral TabletIndications:Hy perlipidemia associated with type 2 diabetes mellitus ([facility]) Take 1 Tablet by mouth daily. 90 Tablet 3 09/18/2025 5 aspirin 81 mg Oral Tablet, Delayed Release (E.C.)Indications:Un controlled type 2 diabetes mellitus with hyperglycemia, with long-term current use of insulin ([facility]),Hypertension associated with diabetes ([facility]) Take 1 Tablet by mouth daily (with breakfast). 90 Tablet 3 09/18/2025 5 Blood Sugar Diagnostic (ACCU-CHEK GUIDE TEST STRIPS) Misc StripIndications:Unc ontrolled type 2 diabetes mellitus with hyperglycemia, with long-term current use of insulin (HCC),Diabetic polyneuropathy associated with type 2 diabetes mellitus (HCC) 1 Strip by [facility].(Non-Drug ; Combo Route) route 3 times daily. E11.9 300 Each 3 09/18/2025 5 documented in this encounter Miscellaneous Notes [...] Cov [address] [facility] [address] [place] [address] Belinda Marques OD [address] [phone] documented as of this encounter Goals Goal [...] log to next follow up appointment with acute care assistant General Not on track(2024 10:05 [...] hyperglycemia, with long-term current use of insulin ([facility]) Diabetic polyneuropathy associated with type 2 diabetes mellitus (HCC) Hypertension associated with diabetes ([facility]) Type II or unspecified type diabetes mellitus with other specified manifestations, not stated as uncontrolled Hyperlipidemia associated with type 2 diabetes mellitus ([facility]) Gastroesophageal reflux disease without esophagitis Esophageal reflux [...] Blood Sugar Diagnostic (ACCU-CHEK GUIDE TEST STRIPS) [facility] StripIndications:Uncontro lled type 2 diabetes mellitus with hyperglycemia, with long-term current use of insulin ([facility]),Diabetic polyneuropathy associated with type 2 diabetes mellitus ([facility]) 1 Strip by [facility].(Non-Drug; Combo Route) route 3 times daily. E11.9 Reorder 07/26/2025 08/31/2025 aspirin 81 mg Oral Tablet, Delayed Release (E.C.)Indications:Uncontr olled type 2 diabetes mellitus with hyperglycemia, with long-term current use of insulin ([facility]),Hypertension associated with diabetes ([facility]) Take 1 Tablet by mouth daily (with breakfast). Reorder 07/26/2025 08/31/2025 atorvastatin (LIPITOR) 20 mg Oral TabletIndications:Hyperli pidemia associated with type 2 diabetes mellitus ([facility]) Take 1 Tablet by mouth daily. Reorder 07/26/2025 08/31/2025 pantoprazole (PROTONIX) 40 mg Oral Tablet, Delayed Release (E.C.)Indications:[place] sophageal reflux disease without esophagitis Take 1 Tablet by mouth daily. Reorder 07/26/2025 08/31/2025 folic acid (FOLVITE) 1 mg Oral TabletIndications:Folate deficiency Take 1 Tablet by mouth daily. Take 1 tablet by mouth once daily Reorder 07/26/2025 08/31/2025 Lancets (ACCU-CHEK SOFTCLIX LANCETS) [facility] MiscIndications:Uncontrol led type 2 diabetes mellitus with hyperglycemia, with long-term current use of insulin ([facility]),Diabetic polyneuropathy associated with type 2 diabetes mellitus ([facility]) USE DIRECTED E11.9 Reorder 07/26/2025 08/31/2025 DULoxetine (CYMBALTA) 60 mg Oral Capsule, Delayed Release(E.C.)Indications: Diabetic polyneuropathy associated with type 2 diabetes mellitus ([facility]),Major depressive disorder, recurrent severe without psychotic features ([facility]),AURORA (generalized anxiety disorder) Take 1 Capsule by mouth daily. Reorder 07/26/2025 08/31/2025 amLODIPine (NORVASC) 5 mg Oral TabletIndications:Hyperte nsion associated with diabetes ([facility]) Take 1 tablet by mouth once daily [...] documented as of this encounter Care Teams Operations Asst Relationship Specialty Start Date End Date Jordan, Gordo Monet MD [address] [place] [address] PCP - General Family Medicine 08/07/25 Helne Patel Care Management Type Casting Machine Operator 07/28/25 08/31/25 documented as of this encounter
--- OUTSIDE RECORDS SUMMARY | 2025-11-15 14:14 | XMS_ITS | Encounter Summary ---
Author Organization [place] [address] Care Team Providers Care Wharf Labourer Name Role Phone Gordo Jordan MD Primary Care Prov ider Reason for Visit * Reason Onset Date Comments Relaying Information 10/17/2025 Disp Refill s Start End DEXCOM G7 SENSOR Misc Device 3 Each 0 10/17/2025 - Sig: Follow package directions to apply sensor for continuous blood glucose monitoring. Change sensor every 10 days. Sent to pharmacy as: Dexcom G7 Sensor device Cosign for Ordering: Required by Gordo Jordan MD E-Prescribing Status: Receipt confirmed by pharmacy (10/17/2025 11:18 AM EST) Prior authorization: Closed - Submitted Product Code is not valid. Please resolve and resubmit. Encounter Details Date Type Department Care Team ([facility] Contact Info) Description 10/17/2025 [facility]phone [facility] [address] [place] [phone] Gordo Jordan MD [address] [address] Relaying Information ( Disp Refills Start End /DEXCOM G7 SENSOR Misc Device 3 Each 0 10/17/2025 - /Sig: Follow package directions to apply sensor for continuous blood glucose monitoring. Change sensor every 10 days. /Sent to pharmacy as: Dexcom G7 Sensor device /Cosign for Ordering: Required by Gordo Jordan MD /E-Prescribing Status: Receipt confirmed by pharmacy (10/17/2025 11:18 AM EST) /Prior authorization: Closed - Submitted Product Code is not valid. Please resolve and resubmit. //) Social History Tobacco Use Types Packs/Day Years Used Date Smoking Tobacco: Some Days Cigarettes 0.6 8 Started: 11/16/1986; Last attempted to quit: 11/16/1990 Passive Smoke Exposure: Never Smokeless Tobacco: Never Alcohol Use Standard Drinks/Week Comments Yes 4 (1 standard drink = 0.6 oz pure alcohol) Sober for 20 years until May 2022 [facility] Utilities Answer Date Recorded In the past 12 months has th e [employer], gas, oil, or water [employer] threatened to shut off services in your home? No 06/22/2025 Overall Financial Resource Strain (CARDIA) Answe r Date Recorded How hard is it for you to pa y for the very basics like food, housing, medical care, and heating? Somewhat hard 06/22/2025 PHQ-2 Answer Date Recorded PHQ-2 Total Score 5 07/26/2025 [facility] of Occupat ional [facility] - Occupational Stress Questionnaire [...] things needed for daily living? No 11/10/2023 [facility] IP Transportation Answer D ate [...] encounter Miscellaneous Notes * Telephone Encounter - Leobardo Carly Blanchard - 10/17/2025 11:32 AM EST Select the most appropriate reason for this telephone message: Relaying Information Relaying Information Who is Calling: [facility] (Include pharmacy and caller's name) Return Method of Communication:Phone call What information is the caller relaying: Please send this script somewhere else. Pt has verbally abused the [facility] staff and they no longerwill fill his scripts. / please remove verito burgess from his chart. Disp Refills Start End DEXCOM G7 SENSOR Misc Device 3 Each 0 10/17/2025 -- Sig: Follow package directions to apply sensor for continuous blood glucose monitoring. Change sensor every 10 days. Sent to pharmacy as: Dexcom G7 Sensor device Cosign for Ordering: Required by Gordo Jordan MD E-Prescribing Status: Receipt confirmed by pharmacy (10/17/2025 11:18 AM EST) Prior authorization: Closed - Submitted Product Code is not valid. Please resolve and resubmit. documented in this encounter Plan of Treatment Upcoming Encounters Date Type Department Care Team (Late st Contact Info) Description 02/01/2026 11:00 AM EDT Office Visit [facility]hthal[facility] [address] [facility] [address] [place] [phone] Belinda Marques OD [address] [phone] documented as of this encounter Goals Goal [...] track(2024 10:04 AM EDT) Yes Danielle Monroy, RN Patient will utilize glucometer to monitor blood glucose levels 3 times a day and bring log to next follow up appointment with personal care service provider General Not on track(2024 10:05 AM [...] documented as of this encounter Care Teams Wharf Labourer Relationship Specialty Start Date End Date Gordo Jordan MD [address] [place] [address] PCP - General Family Medicine 08/07/25 documented as of this encounter
--- OUTSIDE RECORDS SUMMARY | 2025-11-15 14:14 | XMS_ITS | Encounter Summary ---
Author Organization [place] [address] Care Team Providers Care Legal Adviser Name Role Phone Gordo Jordan MD Primary Care Prov ider Reason for Visit * Reason Onset Date Comments Other 09/21/2025 pt wants to know if the office has received the fax from [employer] regarding his transportation Encounter Details Date Type Department Care Team ([facility] Contact Info) Description 09/21/2025 Telephone [facility] [address] [place] [phone] Gordo Jordan MD [address] [place] [address] Other (pt wants to know if the office has received the fax from [employer] regarding his transportation) Social History Tobacco Use Types Packs/Day Years Used Date Smoking Tobacco: Some Days Cigarettes 0.6 8 Started: 11/16/1986; Last attempted to quit: 11/16/1990 Passive Smoke Exposure: Never Smokeless Tobacco: Never Alcohol Use Standard Drinks/Week Comments Yes 4 (1 standard drink = 0.6 oz pure alcohol) Sober for 20 years until May 2022 [facility] Utilities Answer Date Recorded In the past 12 months has [employer], gas, oil, or water company threatened to shut off services in your home? No 06/22/2025 Overall Financial Resource Strain (CARDIA) Answe r Date Recorded How hard is it for you to pa y for the very basics like food, housing, medical care, and heating? Somewhat hard 06/22/2025 PHQ-2 Answer Date Recorded PHQ-2 Total Score 5 07/26/2025 [facility] of Occupat ional [facility] - Occupational Stress Questionnaire Answer Date [...] things needed for daily living? No 11/10/2023 [facility] IP Transportation Answer D ate Recorded In [...] of Assessment Author No 10/18/2023 11:50 AM Mcakyla Pelaez, JESSICA * Is the person blind [...] the office has received the fax from [facility] regarding his transportation When is this needed by: jennifer Where does this information need to go: pcp Additional information:please advise pt. documented in this encounter Plan of Treatment Upcoming Encounters Date Type Department Care Team (Late st Contact Info) Description 02/01/2026 11:00 AM EDT Office Visit [facility] [address] [facility] [address] [place] [phone] Belinda Marques OD [address] [place] [address] documented as of this encounter Goals Goal [...] follow up appointment with health care marketing manager General Not on track(2024 10:05 AM [...] documented as of this encounter Care Teams Legal Adviser Relationship Specialty Start Date End Date Gordo Jordan MD [address] [address] PCP - General Family Medicine 08/07/25 documented as of this encounter
--- OUTSIDE RECORDS SUMMARY | 2025-11-15 14:14 | XMS_ITS | Encounter Summary ---
Author Organization [place] [address] Care Team Providers Care Journeyman Carpenter Name Role Phone Helen Patel Unavailable Unavailable Gordo Jordan MD Primary Care Prov ider Encounter Details Date Type Department Care Team (Late st Contact Info) Description 08/16/2025 Refill [facility] [address] [place] [phone] Stacy Mccabe, ISAIAS [address] [place] [phone] Social History Tobacco Use Types Packs/Day Years Used Date Smoking Tobacco: Former Cigarettes 0.6 8 0 11/16/1986 - 11/16/1990 Passive Smoke Exposure: Never Smokeless Tobacco: Never Alcohol Use Standard Drinks/Week Comments Not Currently 4 (1 standard drink = 0.6 oz pure alcohol) Sober for 20 years until May 2022 [facility] Utilities Answer Date Recorded In the past 12 months has [employer], gas, oil, or water [employer] threatened to shut off services in your home? No 06/22/2025 Overall Financial Resource Strain (CARDIA) Answe r Date Recorded How hard is it for you to pa y for the very basics like food, housing, medical care, and heating? Somewhat hard 06/22/2025 PHQ-2 Answer Date Recorded PHQ-2 Total Score 5 07/26/2025 [facility] [place] of Occupat ional Health - Occupational Stress [...] things needed for daily living? No 11/10/2023 [facility] IP Transportation Answer D ate [...] [address] [facility] [address] [place] [phone] Belinda Marques OD [address] [place] [address] documented as of this encounter Goals Goal [...] log to next follow up appointment with multi care technician General Not on track(2024 10:05 AM EDT) [...] Generalized anxiety disorder Hypertension associated with diabetes ([facility]) Type II or unspecified type [...] documented as of this encounter Care Teams Journeyman Carpenter Relationship Specialty Start Date End Date Jordan, Gordo Monet MD [address] [place] [address] PCP - General Family Medicine 08/07/25 Helen Patel Care Management Slate Worker 07/28/25 08/31/25 documented as of this encounter
--- OUTSIDE RECORDS SUMMARY | 2025-11-15 14:14 | XMS_ITS | Encounter Summary ---
Author Organization [place] [address] Care Team Providers Care Document Specialist Name Role Phone Enrique Arcos MD Unavailable [phone] Babs Virgen MD Primary Care Provider Gordo [...] UnavailKatherine [place] DO Primary Care Provider + [phone] Montserrat Garcia RN Unavailable Unavailable Karen Guardado [...] 01/27/2019 [facility]ill [facility] [address] [place] [address] Babs Virgen MD [address] [place] [address] Medication Refill Social History Tobacco [...] [facility] [address] [place] [address] Belinda Marques OD [address] [place] [address] documented as of this encounter Goals Goal [...] documented as of this encounter Care Teams Document Specialist Relationship Specialty Start Date End Date Babs Virgen MD [address] [place] [phone] PCP - General Family Medicine 01/27/18 10/02/19 Gordo Jordan MD [address] [id number] PCP - General Family Medicine 07/11/20 01/06/23 Katheirne Lim DO [address] [place], [place] [id number] PCP - General Family Medicine 01/07/23 04/14/24 No Pcp, Per Patient PCP - General 06/22/25 07/25/25 Gordo Jordan MD [address] [address] PCP - General Family Medicine 07/26/25 07/26/25 Gordo Jordan MD [address] [address] PCP - General Family Medicine 08/07/25 Enrique Arcos MD [address] [place] [phone] Internal Medicine-Gastroenterol ogy 02/04/16 07/10/20 Radha Moreira, RN Child Nutrition Manager Registered Nurse - Fbi Sharpshooter 09/25/20 05/09/21 Ana Kanpp BA, COS Case Core Paster 09/28/20 12/27/20 Stone Cerda BA, COS Case Core Paster 01/30/21 04/23/21 Ester Neff, RN Child Nutrition Manager 09/20/21 09/20/21 Minnie Tovar, RN Child Nutrition Manager Registered Nurse 10/11/21 10/14/21 Stone Cerda, BA, COS Case Core Paster 10/18/21 12/04/21 Ludivina Pierce, RN Child Nutrition Manager Registered Nurse 11/06/21 11/06/21 Elli Woodward, RN Child Nutrition Manager Registered Nurse 11/21/21 11/21/21 Ainsley Schuler, burrer machine Team Registered Nurse 12/23/21 12/23/21 Radha Moreira RN Child Nutrition Manager Registered Nurse - Fbi Sharpshooter 05/30/22 06/01/22 Radha Moreira RN Child Nutrition Manager Registered Nurse - Fbi Sharpshooter 05/30/22 05/24/23 Montserrat Garcia, RN Child Nutrition Manager Registered Nurse 10/19/23 11/09/23 Karen Guardado RN Child Nutrition Manager 10/29/23 11/24/23 Danielle Monroy, data entry coordinator Diamond Setter Apprentice/Child Nutrition Manager 07/26/25 08/08/25 Helen Patel Care Management Detective And Intelligence Analyst 07/28/25 08/31/25 documented as of this encounter
--- OUTSIDE RECORDS SUMMARY | 2025-11-15 14:14 | XMS_ITS | Encounter Summary ---
Author Organization [place] [address] Care Team Providers Care Heel Lining Paster Name Role Phone Helen Patel Unavailable Gordo Jordan MD Primary Care Prov ider Reason for Visit * Reason Onset Date Comments Symptoms (Only Use If Pt Pus hes Back On Scheduling A Visit) 08/21/2025 High blood sugar x1 day Encounter Details Date Type Department Care Team (Late st Contact Info) Description 08/21/2025 Telephone [facility] [address] [place] [phone] Gordo Jordan MD [address] [place] [phone] Symptoms (Only Use If Pt Pushes [...] Sober for 20 years until May 2022 [facility] Utilities Answer Date Recorded In the past 12 months has Dress Code, gas, oil, or water [employer] threatened to shut off services in your home? No 06/22/2025 Overall Financial Resource Strain (CARDIA) Answe r Date Recorded How hard is it for you to pa y for the very basics like food, housing, medical care, and heating? Somewhat hard 06/22/2025 PHQ-2 Answer Date Recorded PHQ-2 Total Score 5 07/26/2025 [facility] - Occupational Stress Questionnaire Answer Date [...] things needed for daily living? No 11/10/2023 [facility] IP Transportation Answer D ate [...] (no pain) Desired Outcome: Advice Pharmacy & Location:[address] [address] [place] [phone] [[id number]] Was patient transferred to Nurse Triage for additional help? N/A Additional Information: Please advise,thank you documented in this encounter Plan of Treatment Upcoming Encounters Date Type Department Care Team (Late st Contact Info) Description 02/01/2026 11:00 AM EDT Office Visit [facility] [address] [facility] [address] [place] [address] Roseanna Marqueszabeth, OD [address] [place] [phone] documented as of this encounter Goals Goal [...] to next follow up appointment with career services representative General Not on track(2024 10:05 AM [...] documented as of this encounter Care Teams Heel Lining Paster Relationship Specialty Start Date End Date Gordo Jordan MD [address] [place] [address] PCP - General Family Medicine 08/07/25 Helen Patel Care Management Junior Technical Writer 07/28/25 08/31/25 documented as of this encounter
--- OUTSIDE RECORDS SUMMARY | 2025-11-15 14:14 | XMS_ITS | Clinical Summary ---
Author Organization [facility] Address [address] [place] [address] Phone Care Team Providers Care Steel Engraver Name Role Phone Gordo Jordan MD Primary Care Prov ider Allergies Active Allergy Reactions Criticality Noted Date Comments Lisinopril Other (See Comments) 07/28/2014 Cough Metformin Diarrhea 08/07/2025 Medications * This document contains information received from the source organization and may not represent a complete record from that organization. Blood-Glucose Meter [facility] KitIndications:Unc ontrolled type 2 diabetes mellitus with hyperglycemia, with long-term current use of insulin ([facility]),Diabetic polyneuropathy associated with type 2 diabetes mellitus ([facility]) Check glucose TID QAC + QHS 1 Kit 5 Active FREESTYLE LANCETS [facility] Misc 5 Active ESPERANZA PEN NEEDLE 32 gauge x [facility] Needle 5 Active empagliflozin (JARDIANCE) 25 mg Oral TabletIndications: Uncontrolled type 2 diabetes mellitus with hyperglycemia, with long-term current use of insulin ([facility]),Diabetic polyneuropathy associated with type 2 diabetes mellitus ([facility]) Take 1 Tablet by mouth daily. 30 Tablet 11 5 Active amLODIPine (NORVASC) 5 mg Oral TabletIndications: Hypertension associated with diabetes ([facility]) Take 1 Tablet by mouth daily. 30 Tablet 11 5 Active methocarbamoL (ROBAXIN) 750 mg Oral TabletIndications: Chronic bilateral low back pain without sciatica,Primary osteoarthritis involving multiple joints Take 1 Tablet by mouth 3 times daily as needed for Pain. 90 Tablet 11 5 Active hydrOXYzine (ATARAX) 25 mg Oral TabletIndications: AURORA (generalized anxiety disorder) Take 1 Tablet by mouth 3 times daily as needed. for anxiety 90 Tablet 11 5 Active acetaminophen (TYLENOL) 500 mg Oral TabletIndications: Primary osteoarthritis of both knees Take 2 Tablets by mouth every 8 hours as needed for Pain. 90 Tablet 5 Active acetaminophen (ACETAMINOPHEN EXTRA STRENGTH) 500 mg Oral TabletIndications: Primary osteoarthritis of both knees Take 2 Tablets by mouth every 8 hours as needed for Pain. 90 Tablet 11 5 Active metoprolol succinate (TOPROL-XL) 200 mg Oral Tablet Sustained Release 24 hrIndications:Hype rtension associated with diabetes ([facility]) Take 1 Tablet by mouth daily. 30 Tablet 11 5 Active pregabalin (LYRICA) 150 mg Oral Capsule Take 1 Capsule by mouth 3 times daily. 90 Capsule 2 5 Active insulin glargine (LANTUS) 100 unit/mL (3 mL) SubQ Insulin PenIndications:Unc ontrolled type 2 diabetes mellitus with hyperglycemia, with long-term current use of insulin ([facility]),Diabetic polyneuropathy associated with type 2 diabetes mellitus ([facility]) Inject 50 Units under the skin every evening. 15 mL 1 5 Active Insulin [place], Disposable, (ESPERANZA 2ND GEN PEN NEEDLE) 32 gauge x 5/32 Misc NeedleIndications: Uncontrolled type 2 diabetes mellitus with hyperglycemia, with long-term current use of insulin ([facility]),Diabetic polyneuropathy associated with type 2 diabetes mellitus ([facility]) Inject 1 Each under the skin 4 times daily. 120 Each 5 5 Active lidocaine 2 % MM Solution Take 5 mL by mouth 3 times daily as needed for Pain. 100 mL 5 Active chlorhexidine (PERIDEX) 0.12 % MM Mouthwash Take 10 mL by mouth 2 times daily. 250 mL 2 5 Active lidocaine 2 % MM Solution Take 5 mL by mouth 3 times daily as needed for Pain. 100 mL 5 Active Insulin [place], Disposable, (BD ULTRA-FINE MINI PEN NEEDLE) 31 gauge x 3/16 Misc NeedleIndications: Uncontrolled type 2 diabetes mellitus with hyperglycemia, with long-term current use of insulin ([facility]),Diabetic polyneuropathy associated with type 2 diabetes mellitus (HCC) Use pen needle to administer insulin from pens as directed 100 Each 5 Active insulin aspart U-100 (NOVOLOG FLEXPEN U-100 INSULIN) 100 unit/mL (3 mL) SubQ Insulin PenIndications:Unc ontrolled type 2 diabetes mellitus with hyperglycemia, with long-term current use of insulin ([facility]),Diabetic polyneuropathy associated with type 2 diabetes mellitus ([facility]) Inject 12 Units under the skin 3 times daily (before meals). 15 mL 2 5 Active Blood Sugar Diagnostic (ACCU-CHEK GUIDE TEST STRIPS) [facility] StripIndications:U ncontrolled type 2 diabetes mellitus with hyperglycemia, with long-term current use of insulin ([facility]),Diabetic polyneuropathy associated with type 2 diabetes mellitus ([facility]) 1 Strip by [facility].(Non-Drug , Combo Route) route 3 times daily. E11.9 300 Each 3 5 Active aspirin 81 mg Oral Tablet, Delayed Release (E.C.)Indications: Uncontrolled type 2 diabetes mellitus with hyperglycemia, with long-term current use of insulin ([facility]),Hypertension associated with diabetes ([facility]) Take 1 Tablet by mouth daily (with breakfast). 90 Tablet 3 5 Active atorvastatin (LIPITOR) 20 mg Oral TabletIndications: Hyperlipidemia associated with type 2 diabetes mellitus ([facility]) Take 1 Tablet by mouth daily. 90 Tablet 3 5 Active pantoprazole (PROTONIX) 40 mg Oral Tablet, Delayed Release (E.C.)Indications: Gastroesophageal reflux disease without esophagitis Take 1 Tablet by mouth daily. 90 Tablet 3 5 Active folic acid (FOLVITE) 1 mg Oral TabletIndications: Folate deficiency Take 1 Tablet by mouth daily. Take 1 tablet by mouth once daily 90 Tablet 3 5 Active Lancets (ACCU-CHEK SOFTCLIX LANCETS) [facility] MiscIndications:Un controlled type 2 diabetes mellitus with hyperglycemia, with long-term current use of insulin ([facility]),Diabetic polyneuropathy associated with type 2 diabetes mellitus ([facility]) USE DIRECTED E11.9 300 Each 11 5 Active DULoxetine (CYMBALTA) 60 mg Oral Capsule, Delayed Release(E.C.)Indic ations:Diabetic polyneuropathy associated with type 2 diabetes mellitus (HCC),Major depressive disorder, recurrent severe without psychotic features (HCC),AURORA (generalized anxiety disorder) Take 1 Capsule by mouth daily. 90 Capsule 3 5 Active Alcohol Swabs (ALCOHOL PREP PADS) Top Pads, MedicatedIndicatio ns:Uncontrolled type 2 diabetes mellitus with hyperglycemia, with long-term current use of insulin (HCC),Diabetic polyneuropathy associated with type 2 diabetes mellitus (HCC) Apply 1 Each topically as needed. 100 Each 11 5 Active empagliflozin (JARDIANCE) 25 mg Oral TabletIndications: Uncontrolled type 2 diabetes mellitus with hyperglycemia, with long-term current use of insulin ([facility]),Diabetic polyneuropathy associated with type 2 diabetes mellitus (HCC) Take 1 Tablet by mouth daily. 30 Tablet 3 5 Active insulin glargine (LANTUS) 100 unit/mL (3 mL) SubQ Insulin PenIndications:Unc ontrolled type 2 diabetes mellitus with hyperglycemia, with long-term current use of insulin ([facility]),Diabetic polyneuropathy associated with type 2 diabetes mellitus ([facility]) Inject 50 Units under the skin every evening. 15 mL 1 5 Active Insulin [place], Disposable, (ESPERANZA 2ND GEN PEN NEEDLE) 32 gauge x 5/32 Misc NeedleIndications: Uncontrolled type 2 diabetes mellitus with hyperglycemia, with long-term current use of insulin ([facility]),Diabetic polyneuropathy associated with type 2 diabetes mellitus (HCC) USE DIRECTED 100 Each 5 Active lidocaine 2 % MM Solution Take 5 mL by mouth 3 times daily as needed for Pain. 100 mL 5 Active chlorhexidine (PERIDEX) 0.12 % MM Mouthwash Take 10 mL by mouth 2 times daily. 250 mL 2 5 Active lidocaine 2 % MM Solution Take 5 mL by mouth 3 times daily as needed for Pain. 100 mL 5 Active Insulin [place], Disposable, (BD ULTRA-FINE MINI PEN NEEDLE) 31 gauge x 3/16 Misc NeedleIndications: Uncontrolled type 2 diabetes mellitus with hyperglycemia, with long-term current use of insulin ([facility]),Diabetic polyneuropathy associated with type 2 diabetes mellitus (HCC) Use pen needle to administer insulin from pens as directed 100 Each 5 Active insulin aspart U-100 (NOVOLOG FLEXPEN U-100 INSULIN) 100 unit/mL (3 mL) SubQ Insulin PenIndications:Unc ontrolled type 2 diabetes mellitus with hyperglycemia, with long-term current use of insulin (HCC),Diabetic polyneuropathy associated with type 2 diabetes mellitus (HCC) INJECT 12 UNITS UNDER THE SKIN 3 TIMES A DAY Strength: 100 unit/mL (3 mL) 15 mL 5 Active DEXCOM G7 SENSOR Misc Device Follow package directions to apply sensor for continuous blood glucose monitoring. Change sensor every 10 days. 3 Each 5 Active Active Problems Patient Care Coordination No te Formatting of this note migh t be different from the original. [facility] 07/26/2025 advised patient of past No Show dismissals from multiple offices and that he will need to speak respectful to staff. [facility] CONTROLLED SUBSTANCE AGREEMENT: Medication: Lyrica Contract: 08/07/25 UDS: Next OV Les: Dismissed from [facility] 12/01/17 wjg Problem Noted Date Diagnosed Date [...] new orthotic shoes ordered recently per patient closing coordinator will assist with ordering new walker, [...] Overview (11/25/2023): controlled substance agreement signed with [facility] Assessment & Plan (11/25/2023 4:44 PM [...] new orthotic shoes ordered recently per patient closing coordinator will assist with ordering new walker, [...] mg every 8 hours Orders: Blood-Glucose Meter Misc Kit; Check glucose TID QAC + QHS Blood Sugar Diagnostic (ACCU-CHEK GUIDE TEST STRIPS) Misc Strip; 1 Strip by Misc.(Non-Drug; Combo Route) route 3 times daily. E11.9 Blood Pressure Monitor Misc Kit; 1 Units by Misc.(Non-Drug; Combo Route) route daily. metFORMIN (GLUCOPHAGE XR) 750 mg Oral ER 24 hr tablet; Take 1 Tablet by mouth daily (with breakfast). empagliflozin (JARDIANCE) 25 mg Oral Tablet; Take 1 Tablet by mouth daily. Lancets (ACCU-CHEK SOFTCLIX LANCETS) Mis Mis; USE DIRECTED E11.9 POCT GLYCATED HEMOGLOBIN, TOTAL COMPREHENSIVE METABOLIC PANEL; Future CBC WITH DIFF; Future LIPID PANEL REFLEX; Future MICROALBUMIN/CREATININE RATIO URINE; Future Insulin [place], Disposable, (BD ULTRA-FINE MINI PEN NEEDLE) 31 [...] Release(E.C.); Take 1 Capsule by mouth daily. NM BEHAV ASSMT W/SCORE & DOCD/STAND INSTRUMENT Assessment [...] Release(E.C.); Take 1 Capsule by mouth daily. NM BEHAV ASSMT W/SCORE & DOCD/STAND INSTRUMENT Chronic [...] total fat) - increased dietary potassium consumption (1010-5620 mg of potassium per day) Medication Management: [...] Encounters Date Type Department Care Team Description 10/27/2025 Telephone [facility] [address] [place] [address] Gordo Jordan MD Medication Management (Several ) 10/17/2025 Telephone [facility] [address] [place] [phone] Gordo Jordan MD Relaying Information ( Disp Refills Start End [...] not valid. Please resolve and resubmit. //) 10/17/2025 Telephone [facility] [address] [place] [phone] Gordo Jordan MD Refill (Dexcon 6 or 7 / the whole system ) 10/16/2025 Refill [facility] [address] [place] [phone] Gordo Jordan MD Medication Refill 10/16/2025 Refill [facility] [address] [place] [phone] Stacy Mccabe APRN Medication Refill 10/16/2025 Refill [facility] [address] [place] [phone] Gordo Jordan MD 10/16/2025 Refill [facility] [address] [place] [phone] Stacy Mccabe APRN 10/08/2025 Refill [facility] [address] [place] [phone] Gordo Jordan MD Medication Refill 09/21/2025 Telephone [facility] [address] [place] [phone] Gordo Jordan MD Other (pt wants to know if the office has received the fax from [facility] regarding his transportation) 09/18/2025 Telephone [facility] [address] [place] [phone] Zuly Gasca MA Other; Medication Management (All Meds canceled by pharmacy due to Pt's behavior) 09/15/2025 2:00 PM EDT Telemedicine [facility] [address] [place] [phone] Julianna Eid APRN Elevated blood pressure reading (Primary Dx) 09/15/2025 Refill [facility] [address] [place] [phone] Stacy Mccabe APRN Medication Refill 09/15/2025 Travel 09/15/2025 Telephone [facility] [address] [place] [phone] Gordo Jordan MD Medication Management (FREESTYLE LANCETS 28 gauge Misc Misc/) 09/15/2025 Nurse Triage [facility] [address] [place] [phone] Gordo Jordan MD 09/13/2025 Telephone [facility] [address] [place] [phone] Gordo Jordan MD Other (Did you get a Fax ); Patient Returning Call (On form ); Follow Up (Fax) 08/31/2025 Refill [facility] [address] [place] [phone] Gordo Jordan MD Medication Refill 08/31/2025 Telephone [facility] [address] [place] [phone] Stacy Mccabe APRN Medication Refill; Follow Up (Multiple Meds ) 08/31/2025 Telephone [facility] [address] [place] [phone] Gordo Jordan MD Medication Management (All medications ) 08/31/2025 Refill [facility] [address] [place] [phone] Gordo Jordan MD Medication Refill; Patient Returning Call ( ) 08/30/2025 Telephone [facility] [address] [place] [phone] Gordo Jordan MD Refill (Insulin [place], Disposable, (BD ULTRA-FINE MINI PEN NEEDLE) 31 gauge x 16 Misc Needle / insulin glargine (LANTUS) 100 unit/mL (3 mL) SubQ Insulin Pen); Medication Management (Pharmacy called to get status update for pt- pt is anxious about getting this called in) 08/30/2025 Refill [facility] [address] [place] [phone] Stacy Mccabe APRN Medication Refill 08/22/2025 Refill [facility] [address] [place] [phone] Gordo Jordan MD Medication Refill 08/22/2025 Telephone [facility] [address] [place] [phone] Gorod Jordan MD Symptoms (Only Use If Pt Pushes Back On Scheduling A Visit) (pt said his sugar has been running in the 400s for a week, no symptoms. Adv pt to speak to nurse triage, pt declined. ) 08/21/2025 Telephone [facility] [address] [place] [phone] Stacy Mccabe APRN Medication Refill (Toprol, Tylenol) 08/21/2025 Telephone [facility] [address] [place] [phone] Gordo Jordan MD Symptoms (Only Use If Pt Pushes Back On Scheduling A Visit) (High blood sugar x1 day ) 08/20/2025 Refill [facility] [address] [place] [phone] Gordo Jordan MD Medication Refill 08/20/2025 Refill [facility] [address] [place] [phone] Stacy Mccabe APRN Medication Refill (Multiple meds) 08/20/2025 Refill [facility] [address] [place] [phone] Stacy Mccabe APRN Medication Refill; Follow Up (Med refill ) 08/17/2025 1:45 PM EDT Office Visit [facility] [address] [place] [phone] Gordo Jordan MD Type 2 diabetes mellitus with hyperglycemia, with long-term current use of insulin (HCC) (Primary Dx); Acute kidney injury superimposed on stage 2 chronic kidney disease; Hypertension associated with diabetes (HCC) 08/16/2025 Refill [facility] [address] [place] [phone] Gordo Jordan MD 08/16/2025 Refill [facility] [address] [place] [phone] Stacy Mccabe APRN 08/16/2025 Travel from Last 3 Months Immunizations Immunization [...] PARTIAL AMPUTATION OF LEFT SECOND TOE; Surgeon: Adrain Lazo DPM; Location: [facility]; Service: Podiatry TOE AMPUTATION 10/02/2023 [...] bone biopsy; Surgeon: Adrian Lazo DPM; Location: [facility] MA[facility]; Service: Podiatry FOOT SURGERY 11/15/2023 Foot/Ankle/Left left foot debridement and delayed primary closure; Surgeon: Keshawn Barlow DPM; Location: [facility] MA[facility] OR; Service: Podiatry AMPUTATION [...] Brother 2 Sekou shepperd Diabetes Father Philip palaciospperd High Blood Pressure Father Philip palaciospperd Diabetes Mother Kayla palaciospperd Heart Disease Mother Kayla palaciospperkarla High Blood Pressure Mother Kayla palaciospperd Hypertension Mother Kayla gunn Cataracts Neg Hx Glaucoma Neg Hx Macular Degen Neg Hx Relation Name Status Comments Brother 1 Philip shepperd Alive Brother 2 Sekou shepperd Father Philip shepperd Alive Mother Kayla palaciospperkarla Social History Tobacco Use Types Packs/Day Years Used Date Smoking Tobacco: Some Days Cigarettes 0.6 8 Started: 11/16/1986; Last attempted to quit: 11/16/1990 Passive Smoke Exposure: Never Smokeless Tobacco: Never Alcohol Use Standard Drinks/Week Comments Yes 4 (1 standard drink = 0.6 oz pure alcohol) Sober for 20 years until May 2022 [facility] Utilities Answer Date Recorded In the past 12 months has [employer] electric, gas, oil, or water [employer] threatened to shut off services in your home? No 06/22/2025 Overall Financial Resource Strain (CARDIA) Answe r Date Recorded How hard is it for you to pa y for the very basics like food, housing, medical care, and heating? Somewhat hard 06/22/2025 PHQ-2 Answer Date Recorded PHQ-2 Total Score 5 07/26/2025 [facility] - Occupational Stress Questionnaire Answer Date [...] things needed for daily living? No 11/10/2023 [facility] Transportation Answer D ate [...] [facility] [address] [place] [address] Belinda Marques, OD [address] [place] [address] Health Maintenance Due Date Last Done Comments [...] 10/15/2025 08/20/2025, 08/04/2019 Hemoglobin A1c 01/23/2026 07/26/2025, 08/0 06/2025, 02/13/2024, Additional history exists Kidney Health: uACR [...] to next follow up appointment with healthcare specialist General Not on track(2024 10:05 AM [...] Comments SCANNED LABS 09/26/2025 11:11 PM EST COMPREHENSIVE METABOLIC PANEL STAT 08/13/2025 8:28 AM EDT POCT GLYCATED HEMOGLOBIN, TOTAL Routine 07/26/2025 10:27 [...] mellitus (HCC) Hypertension associated with diabetes (HCC) LIPID PANEL REFLEX Routine 07/26/2025 10 :21 AM EDT Uncontrolled type 2 diabetes mellitus with hyperglycemia, with long-term current use of insulin (HCC) Diabetic polyneuropathy associated with type 2 diabetes mellitus (HCC) Hyperlipidemia associated with type 2 diabetes mellitus (HCC) DIABETES EYE EXAM Routine 08/06/2023 9:39 AM EDT from Last 3 Months or Most Recently Relevant to Health Maintenance Results * SCANNED LABS (09/26/2025 11:11 PM EST) 09/26/2025 11:1 1 PM EST us Unknown Provider HEMATOLOGY ORDERABLES Final Res ult * (ABNORMAL) COMPREHENSIVE METABOLIC PANEL (08/13/2025 8:28 AM EDT) Sodium 135(L) 136 - 145 mmol/L 08/13/2025 8:55 AM EDT [facility] Potassium 3.8 3.5 - 5.0 mmol/L 08/13/2025 8:55 AM EDT [facility] Chloride 96(L) 98 - 107 mmol/L 08/13/2025 8:55 AM EDT [facility] Total CO2 25 22 - 29 mmol/L 08/13/2025 8:55 AM EDT [facility] Anion Gap 14 7 - 16 mmol/L 08/13/2025 8:55 AM EDT [facility] Calcium 9.6 8.6 - 10.4 mg/dL 08/13/2025 8:55 AM EDT [facility] Glucose Lvl 429(H) 70 - 99 mg/dL 08/13/2025 8:55 AM EDT [facility] BUN 20 6 - 20 mg/dL 08/13/2025 8:55 AM EDT [facility] Creatinine 1.51(H) 0.67 - 1.30 mg/dL 08/13/2025 8:55 AM EDT [facility] Albumin 4.3 3.5 - 5.2 gm/dL 08/13/2025 8:55 AM EDT [facility] Total Protein 8.2 6.4 - 8.3 gm/dL 08/13/2025 8:55 AM EDT [facility] Bili Total 0.5 0.2 - 1.4 mg/dL 08/13/2025 8:55 AM EDT [facility] ALT 19 <=41 U/L 08/13/2025 8:55 AM EDT [facility] AST 19 <=40 U/L 08/13/2025 8:55 AM EDT [facility] Alk Phos 153(H) 40 - 129 U/L 08/13/2025 8:55 AM EDT [facility] eGFR (CKD-EPIcr 2020) 53(L) >=60 mL/min/1.7 3 m2 08/13/2025 8:55 AM EDT [facility] Comment:Estimated GFR was ca lculated using the CKD-EPIcr (2020) equation refit without race. The equation is recommended by the National Kidney Foundation - [place] [employer] of Neph[employer] Task Force. Blood VENOUS BLOOD / Unknown Venipuncture / Unknown 08/13/2025 8:28 AM EDT 08/13/2025 8:33 AM EDT us Chandni Bass DO CHEMISTRY ORDERABLES Final Res ult Performing Organization Address City/[facility]/ZIP Co de Phone Number [facility] [address] [place] [address] * (ABNORMAL) POCT GLYCATED HEMOGLOBIN, TOTAL (07/26/2025 10:27 AM EDT) Hemoglobin A1C 11.6(A) 4 - 6 % SEP OFFICE Lot Number SEP OFFICE Expiration Date SEP OFFICE SeriAl # SEP OFFICE 07/26/2025 10:2 7 AM EDT us Stacy Mccabe BIOLOGY INSTRUCTOR POINT OF CARE TEST ORDERABL ES Final Result Performing Organization Address City/[facility]/ZIP Co de Phone Number SEP OFFICE * (ABNORMAL) LIPID PANEL REFLEX (07/26/2025 10:21 AM EDT) Cholesterol 150 <200 mg/dL 07/26/2025 5:29 PM EDT PREFERRED [employer] [employer] Comment: < 200 Desirable 200 - 239 Borderline High >= 240 High Triglyceride 149 <150 mg/dL 07/26/2025 5:29 PM EDT [employer] [employer] Comment: < 150 Normal 150 - 199 Borderline High 200 - 499 High >= 500 Very High HDL 36(L) >=40 mg/dL 07/26/2025 5:29 PM EDT PREFERRED [email or web address] Comment: > 60 Optimal 40 - 60 Acceptable < 40 Low LDL Calculated 88 <100 mg/dL 07/26/2025 5:29 PM EDT [employer] Comment: < 100 Optimal 100 - 129 Near or above optimal 130 - 159 Borderline High 160 - 189 High >= 190 Very High The National Institutes of Health (NIH) equation is used for all lipid panels that report calculated LDL (LDL-C). Non-HDL-C Calculated 114 <=129 mg/dL 07/26/2025 5:29 PM EDT [employer] Comment: <130 Desirable 130-159 Above Desirable 160-189 Borderline High 190-219 High >= 220 Very High Fasting Specimen? Unknown None 025 5:29 PM EDT [facility] Blood VENOUS BLOOD / Unknown Venipuncture / Unknown 07/26/2025 10:21 AM EDT 07/26/2025 10:21 AM EDT Stacy Mccabe APRN CHEMISTRY ORDERABLES Final Result PREFERRED [facility] [address] [facility] [facility] , [place] [address] * (ABNORMAL) MICROALBUMIN/CREATININE RATIO URINE (07/26/2025 10:21 AM EDT) Urine Albumin 34.5 mg/L 07/26/2025 4:58 PM EDT PREFERRED LAB [facility] Urine Creatinine 101.0 mg/dL 07/26/2025 4:58 PM EDT [facility] Ur Albumin/Creat Ratio 34(H) 0 - 30 mg/g 07/26/2025 4:58 PM EDT [facility] Urine STRUCTURE OF URINARY TRACT PROPER / Unknown 07/26/2025 10:21 AM EDT 07/26/2025 10:21 AM EDT Stacy Mccabe BIOLOGY INSTRUCTOR URINE ORDERABLES Final Resu lt [facility] [address] [address] [facility] [address], [place] [address] [facility] [address] [place] [address] * DIABETES EYE EXAM (08/06/2023 9:39 AM EDT) Left Diabetic Retinopathy Not Present Present/Not Present SEP OFFICE Right Diabetic Retinopathy Not Present Present/Not Present SEP OFFICE Historical Provider HEALTH MAINTENANCE Edited Re sult - Final SEP OFFICE from Last 3 Months or Most Recently Relevant to Health Maintenance Insurance [employer] [place] [employer] [place] [facility] Advance Directives For more information, please contact: [phone] * Full Code (Latest Code Status on [...] 3:16 PM 11/20/2021 5:59 PM Care Teams Steel Engraver Relationship Specialty Start Date End Date Gordo Jordan MD [address] [place] [address] PCP - General Family Medicine 08/07/25
--- OUTSIDE RECORDS SUMMARY | 2025-11-15 14:14 | XMS_ITS | Encounter Summary ---
Author Organization [place] [address] Care Team Providers Care Agricultural Real Estate Agent Name Role Phone Gordo Jordan MD Primary Care Prov ider Reason for Visit * Reason Onset Date Comments Medication Management 09/15/2025 FREESTYLE LANCETS 28 gauge Misc Misc Encounter Details Date Type Department Care Team (Late st Contact Info) Description 09/15/2025 Telephone [facility] [address] [place] [phone] Gordo Jordan MD [address] [place] [phone] Medication Management (FREESTYLE LANCETS 28 gauge Misc Misc/) Social History Tobacco Use Types Packs/Day Years Used Date Smoking Tobacco: Some Days Cigarettes 0.6 8 Started: 11/16/1986; Last attempted to quit: 11/16/1990 Passive Smoke Exposure: Never Smokeless Tobacco: Never Alcohol Use Standard Drinks/Week Comments Yes 4 (1 standard drink = 0.6 oz pure alcohol) Sober for 20 years until May 2022 [facility] Utilities Answer Date Recorded In the past 12 months has [employer] electric, gas, oil, or water company threatened to shut off services in your home? No 06/22/2025 Overall Financial Resource Strain (CARDIA) Answe r Date Recorded How hard is it for you to pa y for the very basics like food, housing, medical care, and heating? Somewhat hard 06/22/2025 PHQ-2 Answer Date Recorded PHQ-2 Total Score 5 07/26/2025 [facility] [place] [facility] Occupat ional Health - Occupational Stress [...] daily living? No 11/10/2023 [facility] IP Transportation Answer D ate Recorded [...] Refills Start End FREESTYLE LANCETS [facility] -- 07/26/2025 -- Class: Historical [...] Visit SEP Ophthalmology Cov [address] [facility] [address] [place] [phone] Belinda Marques OD [address] [place] [address] documented as of this encounter Goals Goal [...] next follow up appointment with palliative care physician General Not on track(2024 10:05 AM EDT) [...] documented as of this encounter Care Teams Agricultural Real Estate Agent Relationship Specialty Start Date End Date Gordo Jordan MD [address] [place] [address] PCP - General Family Medicine 08/07/25 documented as of this encounter
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
--- OUTSIDE RECORDS SUMMARY | 2025-11-15 14:14 | XMS_ITS | Encounter Summary ---
Author Organization [place] [address] Care Team Providers Care Date Night Caregiver Name Role Phone Jorge Helen Israel Unavailable oGrdo Jordan MD Primary Care Prov ider Reason for Visit * Reason Onset Date Comments Medication Management 08/31/2025 All medica tions Encounter Details Date Type Department Care Team (Late st Contact Info) Description 08/31/2025 Telephone [facility] [address] [place] [phone] Gordo Jordan MD [address] [place] [phone] Medication Management (All medications ) Social [...] Recorded In the past 12 months has [employer] electric, gas, oil, or water company threatened to shut off services in your home? No 06/22/2025 Overall Financial Resource Strain (CARDIA) Answe r Date Recorded How hard is it for you to pa y for the very basics like food, housing, medical care, and heating? Somewhat hard 06/22/2025 PHQ-2 Answer Date Recorded PHQ-2 Total Score 5 07/26/2025 [facility] [place] of Occupat ional Health - Occupational Stress [...] [facility] IP Transportation Answer D ate Recorded In [...] refills Last appointment date: na Pharmacy: [facility] Additional Information: Pt was not happy at all that these are not a 90 days supply with refills and wants them change today he said documented in this encounter Plan of Treatment Upcoming Encounters Date Type Department Care Team (Late st Contact Info) Description 02/01/2026 11:00 AM EDT Office Visit SEP Ophthalmology Cov [address] [facility] [address] [place] [phone] Belinda Marques OD [address] [place] [address] documented as of this encounter Goals Goal [...] next follow up appointment with resident care supervisor General Not on track(2024 10:05 AM [...] documented as of this encounter Care Teams Date Night Caregiver Relationship Specialty Start Date End Date Gordo Jordan MD [address] [place] [address] PCP - General Family Medicine 08/07/25 Helen Patel Care Management Administrative Medical Director 07/28/25 08/31/25 documented as of this encounter
--- OUTSIDE RECORDS SUMMARY | 2025-11-15 14:14 | XMS_ITS | Encounter Summary ---
Author Organization [place] [address] Care Team Providers Care Home And Family Living Professor Name Role Phone Gordo Jordan MD Primary Care Prov ider Reason for Visit * Reason Onset Date Comments Medication Refill 10/17/2025 Encounter Details Date Type Department Care Team (Late st Contact Info) Description 10/16/2025 Refill [facility] [address] [place] [phone] Stacy Mccabe, WAFER ABRADING MACHINE TENDER [address] [place] [phone] Medication Refill Social History Tobacco Use [...] Recorded In the past 12 months has [employer], gas, oil, or water [employer] threatened to shut off services in your home? No 06/22/2025 Overall Financial Resource Strain (CARDIA) Answe r Date Recorded How hard is it for you to pa y for the very basics like food, housing, medical care, and heating? Somewhat hard 06/22/2025 PHQ-2 Answer Date Recorded PHQ-2 Total Score 5 07/26/2025 [facility] [place] of Occupat ional Health - Occupational Stress [...] needed for daily living? No 11/10/2023 [facility] IP Transportation Answer D ate [...] Assessment Author No 10/18/2023 11:50 AM Mckayla Peleaz RN * Is the person blind or [...] Tablet by mouth daily. 30 Tablet 3 10/18/2025 Alcohol Swabs (ALCOHOL PREP PADS) Top Pads, MedicatedIndications :Uncontrolled type 2 diabetes mellitus with hyperglycemia, with long-term current use of insulin (HCC),Diabetic polyneuropathy associated with type 2 diabetes mellitus (HCC) Apply 1 Each topically as needed. 100 Each 11 10/18/2025 DULoxetine (CYMBALTA) 60 mg Oral Capsule, Delayed Release(E.C.)Indicat ions:Diabetic polyneuropathy associated with type 2 diabetes mellitus (HCC),Major depressive disorder, recurrent severe without psychotic features (HCC),AURORA (generalized anxiety disorder) Take 1 Capsule by mouth daily. 90 Capsule 3 10/18/2025 Lancets (ACCU-CHEK SOFTCLIX LANCETS) Misc MiscIndications:Unco ntrolled type 2 diabetes mellitus with hyperglycemia, with long-term current use of insulin ([facility]),Diabetic polyneuropathy associated with type 2 diabetes mellitus (HCC) USE DIRECTED E11.9 300 Each 11 10/18/2025 folic acid (FOLVITE) 1 mg Oral TabletIndications:Fo late deficiency Take 1 Tablet by mouth daily. Take 1 tablet by mouth once daily 90 Tablet 3 10/18/2025 pantoprazole (PROTONIX) 40 mg Oral Tablet, Delayed Release (E.C.)Indications:Ga stroesophageal reflux disease without esophagitis Take 1 Tablet by mouth daily. 90 Tablet 3 10/18/2025 atorvastatin (LIPITOR) 20 mg Oral TabletIndications:Hy perlipidemia associated with type 2 diabetes mellitus (HCC) Take 1 Tablet by mouth daily. 90 Tablet 3 10/18/2025 aspirin 81 mg Oral Tablet, Delayed Release (E.C.)Indications:Un controlled type 2 diabetes mellitus with hyperglycemia, with long-term current use of insulin (HCC),Hypertension associated with diabetes (HCC) Take 1 Tablet by mouth daily (with breakfast). 90 Tablet 3 10/18/2025 Blood Sugar Diagnostic (ACCU-CHEK GUIDE TEST STRIPS) Misc StripIndications:Unc ontrolled type 2 diabetes mellitus with hyperglycemia, with long-term current use of insulin (HCC),Diabetic polyneuropathy associated with type 2 diabetes mellitus (HCC) 1 Strip by Misc.(Non-Drug , Combo Route) route 3 times daily. E11.9 300 Each 3 10/18/2025 documented in this encounter Plan of Treatment Upcoming Encounters Date Type Department Care Team (Late st Contact Info) Description 02/01/2026 11:00 AM EDT Office Visit SEP Ophthalmology Cov [address] [facility] [address] [place] [phone] Belinda Marques OD [address] [place] [phone] documented as of this encounter Goals Goal [...] log to next follow up appointment with toddler caregiver General Not on track(2024 10:05 AM [...] hyperglycemia, with long-term current use of insulin ([facility]) Diabetic polyneuropathy associated with type 2 diabetes mellitus (HCC) Hypertension associated with diabetes ([facility]) Type II or unspecified type [...] AURORA (generalized anxiety disorder) Generalized anxiety disorder documented in this encounter Discontinued Medications Medication Sig Discontinue Reason Start Date End Da te Blood Sugar Diagnostic (ACCU-CHEK GUIDE TEST STRIPS) [facility] StripIndications:Uncontro lled type 2 diabetes mellitus with hyperglycemia, with long-term current use of insulin (HCC),Diabetic polyneuropathy associated with type 2 diabetes mellitus (HCC) 1 Strip by [facility].(Non-Drug; Combo Route) route 3 times daily. E11.9 Reorder 09/18/2025 10/16/2025 aspirin 81 mg Oral Tablet, Delayed Release (E.C.)Indications:Uncontr olled type 2 diabetes mellitus with hyperglycemia, with long-term current use of insulin (HCC),Hypertension associated with diabetes (HCC) Take 1 Tablet by mouth daily (with breakfast). Reorder 09/18/2025 10/16/2025 atorvastatin (LIPITOR) 20 mg Oral TabletIndications:Hyperli pidemia associated with type 2 diabetes mellitus (HCC) Take 1 Tablet by mouth daily. Reorder 09/18/2025 10/16/2025 pantoprazole (PROTONIX) 40 mg Oral Tablet, Delayed Release (E.C.)Indications:Gastroe sophageal reflux disease without esophagitis Take 1 Tablet by mouth daily. Reorder 09/18/2025 10/16/2025 folic acid (FOLVITE) 1 mg Oral TabletIndications:Folate deficiency Take 1 Tablet by mouth daily. Take 1 tablet by mouth once daily Reorder 09/18/2025 10/16/2025 Lancets (ACCU-CHEK SOFTCLIX LANCETS) Misc MiscIndications:Uncontrol led type 2 diabetes mellitus with hyperglycemia, with long-term current use of insulin ([facility]),Diabetic polyneuropathy associated with type 2 diabetes mellitus (HCC) USE DIRECTED E11.9 Reorder 09/18/2025 10/16/2025 DULoxetine (CYMBALTA) 60 mg Oral Capsule, Delayed Release(E.C.)Indications: Diabetic polyneuropathy associated with type 2 diabetes mellitus (HCC),Major depressive disorder, recurrent severe without psychotic features (HCC),AURORA (generalized anxiety disorder) Take 1 Capsule by mouth daily. Reorder 09/18/2025 10/16/2025 Alcohol Swabs (ALCOHOL PREP PADS) Top Pads, MedicatedIndications:Unco ntrolled type 2 diabetes mellitus with hyperglycemia, with long-term current use of insulin (HCC),Diabetic polyneuropathy associated with type 2 diabetes mellitus (HCC) Apply 1 Each topically as needed. Reorder 09/18/2025 10/16/2025 empagliflozin (JARDIANCE) 25 mg Oral TabletIndications:Uncontr olled type 2 diabetes mellitus with hyperglycemia, with long-term current use of insulin (HCC),Diabetic polyneuropathy associated with type 2 diabetes mellitus (HCC) Take 1 Tablet by mouth daily. Reorder 09/18/2025 10/16/2025 documented as of this encounter Additional Health Concerns Assessment Noted Time PHQ-9 Depression Total Score: 025 9:00 AM EDT PHQ-2 Depression Total Score: 07/26/20 25 9:00 AM EDT documented as of this encounter Care Teams Home And Family Living Professor Relationship Specialty Start Date End Date Gordo Jordan MD [address] [place] [address] PCP - General Family Medicine 08/07/25 documented as of this encounter
--- OUTSIDE RECORDS SUMMARY | 2025-11-15 14:14 | XMS_ITS | Encounter Summary ---
Author Organization [place] [address] Care Team Providers Care Agricultural Lender Name Role Phone Gordo Jordan MD Primary Care Prov ider Reason for Visit * Reason Onset Date Comments Medication Refill 10/17/2025 Encounter Details Date Type Department Care Team (Late st Contact Info) Description 10/16/2025 Refill [facility] [address] [place] [phone] Gordo Jordan MD [address] [place] [phone] Medication Refill Social History Tobacco Use Types Packs/Day Years Used Date Smoking Tobacco: Some Days Cigarettes 0.6 8 Started: 11/16/1986; Last attempted to quit: 11/16/1990 Passive Smoke Exposure: Never Smokeless Tobacco: Never Alcohol Use Standard Drinks/Week Comments Yes 4 (1 standard drink = 0.6 oz pure alcohol) Sober for 20 years until May 2022 [facility] Utilities Answer Date Recorded In the past 12 months has [employer], gas, oil, or water [employer] threatened to shut off services in your home? No 06/22/2025 Overall Financial Resource Strain (CARDIA) Answe r Date Recorded How hard is it for you to pa y for the very basics like food, housing, medical care, and heating? Somewhat hard 06/22/2025 PHQ-2 Answer Date Recorded PHQ-2 Total Score 5 07/26/2025 [facility] of Occupat ional Health - Occupational Stress [...] things needed for daily living? No 11/10/2023 [facility] IP Transportation Answer D ate [...] Strength: 100 unit/mL (3 mL) 15 mL 10/18/2025 Insulin [place], Disposable, (BD ULTRA-FINE MINI PEN NEEDLE) 31 gauge x 3/16 Misc NeedleIndications:U ncontrolled type 2 diabetes mellitus with hyperglycemia, with long-term current use of insulin (HCC),Diabetic polyneuropathy associated with type 2 diabetes mellitus (HCC) Use pen needle to administer insulin from pens as directed 100 Each 10/18/2025 lidocaine 2 % MM Solution Take 5 mL by mouth 3 times daily as needed for Pain. 100 mL 10/18/2025 chlorhexidine (PERIDEX) 0.12 % MM Mouthwash Take 10 mL by mouth 2 times daily. 250 mL 2 10/18/2025 lidocaine 2 % MM Solution Take 5 mL by mouth 3 times daily as needed for Pain. 100 mL 10/18/2025 Insulin [place], Disposable, (ESPERANZA 2ND GEN PEN NEEDLE) 32 gauge x 5/32 Misc NeedleIndications:U ncontrolled type 2 diabetes mellitus with hyperglycemia, with long-term current use of insulin (HCC),Diabetic polyneuropathy associated with type 2 diabetes mellitus (HCC) USE DIRECTED 100 Each 10/18/2025 insulin glargine (LANTUS) 100 unit/mL (3 mL) SubQ Insulin PenIndications:Unco ntrolled type 2 diabetes mellitus with hyperglycemia, with long-term current use of insulin (HCC),Diabetic polyneuropathy associated with type 2 diabetes mellitus (HCC) Inject 50 Units under the skin every evening. 15 mL 1 10/18/2025 documented in this encounter Plan of Treatment Upcoming Encounters Date Type Department Care Team (Late st Contact Info) Description 02/01/2026 11:00 AM EDT Office Visit [facility] [address] [facility] [address] [place] [phone] Belinda Marques OD [address] [phone] documented as of this encounter Goals Goal [...] log to next follow up appointment with wound care nurse General Not on track(2024 10:05 [...] Reason Start Date End Da te insulin glargine (LANTUS) 100 unit/mL (3 mL) SubQ Insulin PenIndications:Uncontrol led type 2 diabetes mellitus with hyperglycemia, with long-term current use of insulin (HCC),Diabetic polyneuropathy associated with type 2 diabetes mellitus (HCC) Inject 50 Units under the skin every evening. Reorder 08/30/2025 10/16/2025 ESPERANZA 2ND GEN PEN NEEDLE 32 gauge x 5/32 Misc NeedleIndications:Uncont rolled type 2 diabetes mellitus with hyperglycemia, with long-term current use of insulin (HCC),Diabetic polyneuropathy associated with type 2 diabetes mellitus (HCC) USE DIRECTED Reorder 09/01/2025 10/16/20 25 lidocaine 2 % MM Solution Take 5 mL by mouth 3 times daily as needed for Pain. Reorder 09/04/2025 10/16/2025 chlorhexidine (PERIDEX) 0.12 % MM Mouthwash Take 10 mL by mouth 2 times daily. Reorder 09/04/2025 10/16/2025 lidocaine 2 % MM Solution Take 5 mL by mouth 3 times daily as needed for Pain. Reorder 09/04/2025 10/16/2025 Insulin [place], Disposable, (BD ULTRA-FINE MINI PEN NEEDLE) 31 gauge x 3/16 Misc NeedleIndications:Uncont rolled type 2 diabetes mellitus with hyperglycemia, with long-term current use of insulin (HCC),Diabetic polyneuropathy associated with type 2 diabetes mellitus (HCC) Use pen needle to administer insulin from pens as directed Reorder 09/04/2025 10/16/2025 NOVOLOG FLEXPEN U-100 INSULIN 100 unit/mL (3 mL) SubQ Insulin PenIndications:Uncontrol led type 2 diabetes mellitus with hyperglycemia, with long-term current use of insulin (HCC),Diabetic polyneuropathy associated with type 2 diabetes mellitus (HCC) INJECT 12 UNITS UNDER THE SKIN 3 TIMES A DAY Reorder 10/10/2025 10/16/2025 documented as of this encounter Additional Health Concerns Assessment Noted Time PHQ-9 Depression Total Score: 025 9:00 AM EDT PHQ-2 Depression Total Score: 5 07/26/20 25 9:00 AM EDT documented as of this encounter Care Teams Agricultural Lender Relationship Specialty Start Date End Date Jordan, Gordo Monet MD [address] [place] [address] PCP - General Family Medicine 08/07/25 documented as of this encounter
--- OUTSIDE RECORDS SUMMARY | 2025-11-15 14:14 | XMS_ITS | Encounter Summary ---
Author Organization [place] [address] Care Team Providers Care Food Bagging Machine Operator Name Role Phone EwaedeMagdyHelen Unavailable Unavailable Gordo Jordan MD Primary Care Prov ider Encounter Details Date Type Department Care Team (Late st Contact Info) Description 08/16/2025 Refill [facility] [address] [place] [phone] Gordo Jordan MD [address] [place] [phone] Social History Tobacco Use Types Packs/Day Years Used Date Smoking Tobacco: Former Cigarettes 0.6 8 0 11/16/1986 - 11/16/1990 Passive Smoke Exposure: Never Smokeless Tobacco: Never Alcohol Use Standard Drinks/Week Comments Not Currently 4 (1 standard drink = 0.6 oz pure alcohol) Sober for 20 years until May 2022 [facility] Utilities Answer Date Recorded In the past 12 months has [employer], gas, oil, or water [employer] threatened to shut off services in your home? No 06/22/2025 Overall Financial Resource Strain (CARDIA) Answe r Date Recorded How hard is it for you to pa y for the very basics like food, housing, medical care, and heating? Somewhat hard 06/22/2025 PHQ-2 Answer Date Recorded PHQ-2 Total Score 5 07/26/2025 [facility] [place] of Occupat ional Health - Occupational Stress [...] 11/10/2023 [facility] IP Transportation Answer D ate Recorded [...] AM EDT Office Visit [facility] Jose Angel Solares [facility] [address] [place] [address] Belinda Marques OD [address] [phone] documented as of this encounter Goals Goal [...] log to next follow up appointment with outdoor emergency care technician General Not on track(2024 10:05 [...] documented as of this encounter Care Teams Food Bagging Machine Operator Relationship Specialty Start Date End Date Jordan, Gordo Monet MD [address] [place] [address] PCP - General Family Medicine 08/07/25 Helen Patel Care Management Sr. Director Product Management 07/28/25 08/31/25 documented as of this encounter
--- OUTSIDE RECORDS SUMMARY | 2025-11-15 14:14 | XMS_ITS | Encounter Summary ---
Author Organization [place] [address] Care Team Providers Care Resource Coordinator Name Role Phone Gordo Jordan MD Primary Care Prov ider Reason for Visit * Reason Onset Date Comments Other 09/18/2025 Medication Management 09/18/2025 All Meds c anceled by pharmacy due to Pt's behavior Encounter Details Date Type Department Care Team (Late st Contact Info) Description 09/18/2025 Telephone [facility] [address] [place] [phone] Zuly Gasca MA Other; Medication [...] 20 years until May 2022 [facility] Utilities Answer Date Recorded In the past 12 months has [employer], gas, oil, or water company threatened to shut off services in your home? No 06/22/2025 Overall Financial Resource Strain (CARDIA) Answe r Date Recorded How hard is it for you to pa y for the very basics like food, housing, medical care, and heating? Somewhat hard 06/22/2025 PHQ-2 Answer Date Recorded PHQ-2 Total Score 5 07/26/2025 [facility] [place] of Occupat ional Health - Occupational Stress [...] needed for daily living? No 11/10/[address] [facility] IP Transportation Answer D ate Recorded [...] message: Medication Management/Problem Who is calling: [facility] [place] Return Method of Communication: Phone Call What medication(s) do you have concerns about: ALL Medications Prescribing provider: Tobi What are your concerns/request: manager camp is calling to inform PCP that they [...] [facility] [address] [place] [phone] [facility] south - [phone] Additional Information: Please Advise Provider, thank you * Telephone Encounter - Zuly Gasca MA - 09/18/2025 1:59 PM EST [facility] pharmacy in [place], [place] will no longer fill pt medications stating pt is being rude to staff and keeps interrupting when trying to explain issues. Pt needs to find a new pharmacy documented in this encounter Plan of Treatment Upcoming Encounters Date Type Department Care Team (Late st Contact Info) Description 02/01/2026 11:00 AM EDT Office Visit [facility] [address] [facility] [address] [place] [address] Belinda Marques OD [address] [place] [address] documented as of this encounter [...] to next follow up appointment with career education teacher General Not on track(2024 10:05 [...] documented as of this encounter Care Teams Resource Coordinator Relationship Specialty Start Date End Date Gordo Jordan MD [address] [place] [address] PCP - General Family Medicine 08/07/25 documented as of this encounter
[2025-11-15 14:21] LABS: C-Reactive Protein 267.9 mg/L (0-4)
--- NOTE | 2025-11-15 14:24 | ED_ITS ---
<Statement entered by Rinku Michelle MD - 11/16/25 15:14> Rinku Michelle MD: I was consulted by the MARYJANE, and we discussed the complexity of the problems being addressed. I approve the treatment and management plan for this patient's care in the emergency department, thus performing a substantive portion of the medical decision making. Discharge Plan Disposition Patient Disposition: Xfer Other Prescriptions Prescriptions: No Action amoxicillin-pot clavulanate 875-125 mg tablet 1 tab PO BID Qty: 20 0RF Referrals Follow up/Referrals: Gordo Guerrero MD [Primary Care Provider, Family Practice] - See instructions Clinical Impressions Clinical Impression: Abscess, Decubitus ulcer, Cellulitis and abscess of other specified site, Gangrene Stand Alone Forms Stand Alone Forms: Transfer Record - ED Instructions Patient Instructions: DI for Laceration Repair Print Language Print Language: [place] Islander Discharge ED Provider: Rinku Michelle General Adult HPI <Terese Estrella (ED), TILE APPLICATOR - Last Filed: 11/15/25 15:48> General Chief complaint: Wound/Laceration Stated complaint: Infected Toe Time Seen by Provider: 11/15/25 14:13 Mode of Arrival: EMS Source of Information: Patient and EMS Description of Symptoms (Recalled from ER Triage Doc. by RN): Pt presents with worseining redness in his right big toe. Pt denies any pain due to neuropathy. History of Present Illness HPI narrative: 60-year-old male presents to the ED today for complaint of worsening redness on his right big toe along with an open wound on the bottom of his big toe. He says he did not notice the redness until this morning. He does have neuropathy so he denies pain. He has no fevers or chills. No other symptoms. He lives at [place]. Related Data Previous Rx's ?Medication ?Instructions ?Recorded amoxicillin 875 mg-potassium 1 tab PO BID #20 tabs clavulanate 125 mg tablet Allergies Allergy/AdvReac Type Severity Reaction Status Date / Time lisinopril Allergy Hives Verified 09/20/25 11:24 metformin Allergy Hives Verified 09/20/25 11:24 PFSH <Terese Estrella (ED), TILE APPLICATOR - Last Filed: 11/15/25 15:48> PFS Disclaimer: The information contained in this section may have been updated after the patient was seen, as this information can be updated by other users. Social History (Updated 09/20/25 @ 13:34 by Terese Estrella (ED), TILE APPLICATOR) Smoking Status: Never smoker alcohol intake: former current occupational status: other Travel in the last 8 weeks?: Outside the [facility] Have you lived/traveled outside US in past 30 days?: No Contact w/someone who lives/traveled outside US past 30 days?: No Exposure to someone with infectious disease in past 14 days?: No Do you have a fever (greater than 100.4 F or 38 C)?: No Have you tested positive for COVID-19?: No Exposed to someone with COVID-19 in past 14 days?: No Do you have a sore throat?: No Do you have a cough?: No Do you have any weakness?: No Do you have any diarrhea?: No Are you experiencing any unusual bleeding?: No Do you have any muscle aches/pain?: No Do you have any abdominal pain?: No Are you experiencing loss of taste or smell?: No <Terese Estrella (ED), TILE APPLICATOR - Last Filed: 11/15/25 15:48> ROS Obtained: Yes Systems reviewed as appropriate & no additional complaints except as documented Constitutional Constitutional: Reports as per HPI Physical Exam <Terese Estrella (ED), TILE APPLICATOR - Last Filed: 11/15/25 15:48> General General appearance: alert and in no apparent distress Head Head exam: normocephalic Eye Eye exam: Present PERRL ENT ENT exam: Present mucous membranes moist Neck Neck exam: Present trachea midline Respiratory Respiratory exam: Present normal lung sounds bilaterally Cardiovascular Cardiovascular exam: Present regular rate, normal rhythm, +S1 and +S2 Abdominal Exam Abdominal exam: Present soft and normal bowel sounds Extremities Exam Extremities exam: Present edema and other (Open area on the bottom of his great toe that is red, does have eschar appearing area, draining. The top of his foot also has streaks of erythema and is warm) Neurological Exam Neurological exam: Present alert and oriented X3 Skin Skin exam: Present warm, erythema and other (Wound present on great right toe) Medical Decision Making <Terese Estrella (ED), TILE APPLICATOR - Last Filed: 11/15/25 15:48> Medical Records Screening: Per USPSTF and CDC recommendations, given the prevalence of disease in our region, it is our hospital?s policy to screen for HIV and viral Hepatitis for all patients aged 18 and over and those with ongoing risk factors. Les Inquiry Pt receiving controlled substance: No Les was queried for this patient: No Vital Signs: 11/15/25 13:57 11/15/25 14:00 11/15/25 14:16 Temperature 97.4 F L Temperature Source Temporal Artery Scan Pulse Rate 79 Pulse Rate [Right] 84 Respiratory Rate 18 Blood Pressure 131/73 139/40 L Blood Pressure [Right Arm] 133/85 Blood Pressure Mean 102 Blood Pressure Mean [Right Arm] 101 Blood Pressure Source [Right Arm] Automatic Cuff Blood Pressure Position [Right Arm] Sitting 02 Sat by Pulse Oximetry 94 L 83 L Oxygen Delivery Method Room Air 11/15/25 14:45 11/15/25 14:46 11/15/25 15:00 Temperature Temperature Source Pulse Rate 81 80 76 Pulse Rate [Right] Respiratory Rate Blood Pressure 146/82 H 140/79 Blood Pressure [Right Arm] Blood Pressure Mean Blood Pressure Mean [Right Arm] Blood Pressure Source [Right Arm] Blood Pressure Position [Right Arm] 02 Sat by Pulse Oximetry 93 L 94 L 92 L Oxygen Delivery Method 11/15/25 15:15 11/15/25 15:20 11/15/25 15:36 Temperature Temperature Source Pulse Rate 78 109 H 42 L Pulse Rate [Right] Respiratory Rate Blood Pressure 125/74 104/75 L Blood Pressure [Right Arm] Blood Pressure Mean Blood Pressure Mean [Right Arm] Blood Pressure Source [Right Arm] Blood Pressure Position [Right Arm] 02 Sat by Pulse Oximetry 90 L 90 L 82 L Oxygen Delivery Method 11/15/25 15:46 11/15/25 16:01 Temperature Temperature Source Pulse Rate 49 L 76 Pulse Rate [Right] Respiratory Rate Blood Pressure 171/80 H 166/115 H Blood Pressure [Right Arm] Blood Pressure Mean Blood Pressure Mean [Right Arm] Blood Pressure Source [Right Arm] Blood Pressure Position [Right Arm] 02 Sat by Pulse Oximetry 93 L 93 L Oxygen Delivery Method Lab Data Lab Results 11/15/25 13:56: WBC 24.9 H*, RBC 4.36 L, Hgb 13.0 L, Hct 40.3 L, MCV 92.4, MCH 29.8, MCHC 32.3, RDW 12.2, Plt Count 507 H, MPV 9.8, Neut % (Auto) 80.1 H, Lymph % (Auto) 9.4 L, [place] % (Auto) 9.7 H, Eos % (Auto) 0.2, Baso % (Auto) 0.2, Neut # (Auto) 20.0 H, Lymph # (Auto) 2.3, [place] # (Auto) 2.4 H, Eos # (Auto) 0.0, Baso # (Auto) 0.1, Total Counted 100, Neutrophils % (Manual) 77 H, Band Neutrophils % 6.0, Lymphocytes % (Manual) 7 L, Monocytes % (Manual) 9, Basophils % (Manual) 1.0, Platelet Estimate Normal, RBC Morphology Normal, APTT 32.3 H, Sodium 134 L, Potassium 4.4, Chloride 96 L, Carbon Dioxide 29, Anion Gap 13.4, BUN 41 H, C reatinine 1.60 H, Estimated Creat Clear 91, Estimated GFR 44 L, Est GFR ( Amer) 54 L, Glucose 318 H, Calcium 9.4, Magnesium 2.2, Total Bilirubin 0.9, AST 26, ALT 33, Alkaline Phosphatase 94, Total Creatine Kinase 42 L, C-Reactive Protein 267.9 H, Total Protein 7.6, Albumin 3.8, Globulin 3.8 H, A lbumin/Globulin Ratio 1.0 L 11/15/25 14:30: Lactate 1.9 11/15/25 15:07: Urine Color Yellow, Urine Appearance Clear, Urine pH 5.5, Ur Specific Leopold 1.015, Urine Protein Negative, Urine Glucose (UA) 3+, Urine Ketones Negative, Urine Blood Negative, Urine Nitrate Negative, Urine Bilirubin Negative, Urine Urobilinogen 0.2, Ur Leukocyte Esterase Negative, Urine RBC Occasional, Urine WBC Occasional, Ur Squamous Epith Cells Occasional, Urine Bacteria 2+ 11/15/25 13:56 11/15/25 13:56 Orders (Tests/Meds): ED MEDICATIONS Generic Name Dose Route Start Last Admin Trade Name Freq PRN Reason Stop Dose Admin Piperacillin Sod/Tazobactam 50 mls @ 100 mls/hr 11/15/25 14:30 11/15/25 15:31 Sod 3.375 gm/ Sodium Chloride IV 11/25/25 14:29 Infused Q8H STEPHANIE Infusion Lactated Ringer's 2,400 mls @ 1,200 mls/hr 11/15/25 14:30 11/15/25 15:02 Lactated Ringer's 1000 Ml Bag 30 ml/kg infuse over 2 hr (2400 ml) 11/15/25 16:29 1,200 mls/hr IV Administration .Q2H ONE Vancomycin HCl 2,500 mg/ 500 mls @ 250 mls/hr 11/15/25 15:00 11/15/25 15:14 Sodium Chloride IV 11/15/25 16:59 250 mls/hr ONCE ONE Administration Discontinued Medications Generic Name Dose Route Start Last Admin Trade Name Freq PRN Reason Stop Dose Admin Iopamidol 120 ml 11/15/25 14:35 11/15/25 14:36 Iopamidol-370 (76%);100ml Bottle IV 11/15/25 14:36 120 ml ONCE ONE Administration Miscellaneous 1 each 11/15/25 14:30 11/15/25 15:25 Vancomycin Consult Request NOTAPPLIC 12/15/25 14:29 1 each CONSULT PHARMACY STEHPANIE Administration Sodium Chloride 10 ml 11/15/25 14:35 11/15/25 14:36 Sodium Chloride 0.9% 10ml Syr (Rad Only) IV 11/15/25 14:36 10 ml ONCE ONE Administration Sodium Chloride 100 ml 11/15/25 14:35 11/15/25 14:36 0.9 % Sodium Chloride 50 Ml Vial IV 11/15/25 14:36 100 ml ONCE ONE Administration ORDERS Category Date Time Status CT angio LE RT Stat Cat Scan 11/15/25 14:04 Taken Foot XR right minimum 3 views [XR foot RT min 3V] Stat Exams 11/15/25 14:01 Completed Activated Partial Thrombo Time Stat Lab 11/15/25 13:56 Results C-Reactive Protein Stat Lab 11/15/25 13:56 Completed Complete Blood Count Auto Diff Stat Lab 11/15/25 13:56 Results Comprehensive Metabolic Panel Stat Lab 11/15/25 13:56 Completed Creatine Kinase Stat Lab 11/15/25 13:56 Completed Erythrocyte Sedimentation Rate Stat Lab 11/15/25 13:56 Results Lactic Acid Stat Lab 11/15/25 14:30 Completed Magnesium Stat Lab 11/15/25 13:56 Completed Prothrombin Time INR Stat Lab 11/15/25 13:56 Results Urinalysis and Microscopic Stat Lab 11/15/25 15:07 Completed Blood Culture Stat Micro 11/15/25 14:30 Received Urine Culture Stat Micro 11/15/25 13:58 Received Wound Culture and Gram Stain Stat Micro 11/15/25 14:22 Received Medical Decision Narrative: patient is a 60-year-old male presenting to the emergency department for evaluation of right great toe with erythema, wound on the bottom of right great toe. Patient is hemodynamically stable and nontoxic-appearing upon arrival, afebrile. Differential diagnosis includes ulcer on the bottom of the toe, osteomyelitis, fracture, among others. Workup will be conducted with hematologic labs, specific imaging. Initial inventions include crystalloid bolus, analgesics, antibiotics. Initial workup reviewed by me hematologic labs are remarkable for initial white count of 24.9. I went ahead and discussed antibiotic treatment with Dr. Michelle and we decided on Vanco and Zosyn to start. Patient has no history of heart failure I will also start the sepsis bolus. Imaging informally interpreted by me and remarkable for White count of 24.9, hemoglobin 13 and 40 patient's sodium was 134, potassium 4.4, chloride 96 his BUN was 41 creatinine was 1.6. Estimated GFR was 44. Elevated glucose at 318 today. Lactate was 1.9 normal AST and ALT. CRP was 267 urine was negative. Patient had a foot x-ray and a lower extremity CTA with runoff. Dr. Chan read the CTA with runoff and did not see anything acute. We will still wait for the results of this. To see if we could admit. Start Strattera for with the elevated white count and CRP she believes there might be an abscess that might need an urgent I&D. We PowerShare the images to and are contacting them now. Talk to Dr. Anton at at [facility] who accepts patient to [facility] ER for abscess, cellulitis, gangrenous toe, decubitus ulcer of right toe. Patient stable <Joni Chan MD - Last Filed: 11/15/25 16:16> Vital Signs: 11/15/25 13:57 11/15/25 14:00 11/15/25 14:16 Temperature 97.4 F L Temperature Source Temporal Artery Scan Pulse Rate 79 Pulse Rate [Right] 84 Respiratory Rate 18 Blood Pressure 131/73 139/40 L Blood Pressure [Right Arm] 133/85 Blood Pressure Mean 102 Blood Pressure Mean [Right Arm] 101 Blood Pressure Source [Right Arm] Automatic Cuff Blood Pressure Position [Right Arm] Sitting 02 Sat by Pulse Oximetry 94 L 83 L Oxygen Delivery Method Room Air 11/15/25 14:45 11/15/25 14:46 11/15/25 15:00 Temperature Temperature Source Pulse Rate 81 80 76 Pulse Rate [Right] Respiratory Rate Blood Pressure 146/82 H 140/79 Blood Pressure [Right Arm] Blood Pressure Mean Blood Pressure Mean [Right Arm] Blood Pressure Source [Right Arm] Blood Pressure Position [Right Arm] 02 Sat by Pulse Oximetry 93 L 94 L 92 L Oxygen Delivery Method 11/15/25 15:15 11/15/25 15:20 11/15/25 15:36 Temperature Temperature Source Pulse Rate 78 109 H 42 L Pulse Rate [Right] Respiratory Rate Blood Pressure 125/74 104/75 L Blood Pressure [Right Arm] Blood Pressure Mean Blood Pressure Mean [Right Arm] Blood Pressure Source [Right Arm] Blood Pressure Position [Right Arm] 02 Sat by Pulse Oximetry 90 L 90 L 82 L Oxygen Delivery Method 11/15/25 15:46 11/15/25 16:01 Temperature Temperature Source Pulse Rate 49 L 76 Pulse Rate [Right] Respiratory Rate Blood Pressure 171/80 H 166/115 H Blood Pressure [Right Arm] Blood Pressure Mean Blood Pressure Mean [Right Arm] Blood Pressure Source [Right Arm] Blood Pressure Position [Right Arm] 02 Sat by Pulse Oximetry 93 L 93 L Oxygen Delivery Method Lab Data Lab Results 11/15/25 13:56: WBC 24.9 H*, RBC 4.36 L, Hgb 13.0 L, Hct 40.3 L, MCV 92.4, MCH 29.8, MCHC 32.3, RDW 12.2, Plt Count 507 H, MPV 9.8, Neut % (Auto) 80.1 H, Lymph % (Auto) 9.4 L, [place] % (Auto) 9.7 H, Eos % (Auto) 0.2, Baso % (Auto) 0.2, Neut # (Auto) 20.0 H, Lymph # (Auto) 2.3, [place] # (Auto) 2.4 H, Eos # (Auto) 0.0, Baso # (Auto) 0.1, Total Counted 100, Neutrophils % (Manual) 77 H, Band Neutrophils % 6.0, Lymphocytes % (Manual) 7 L, Monocytes % (Manual) 9, Basophils % (Manual) 1.0, Platelet Estimate Normal, RBC Morphology Normal, APTT 32.3 H, Sodium 134 L, Potassium 4.4, Chloride 96 L, Carbon Dioxide 29, Anion Gap 13.4, BUN 41 H, C reatinine 1.60 H, Estimated Creat Clear 91, Estimated GFR 44 L, Est GFR ( Amer) 54 L, Glucose 318 H, Calcium 9.4, Magnesium 2.2, Total Bilirubin 0.9, AST 26, ALT 33, Alkaline Phosphatase 94, Total Creatine Kinase 42 L, C-Reactive Protein 267.9 H, Total Protein 7.6, Albumin 3.8, Globulin 3.8 H, A lbumin/Globulin Ratio 1.0 L 11/15/25 14:30: Lactate 1.9 11/15/25 15:07: Urine Color Yellow, Urine Appearance Clear, Urine pH 5.5, Ur Specific [place] 1.015, Urine Protein Negative, Urine Glucose (UA) 3+, Urine Ketones Negative, Urine Blood Negative, Urine Nitrate Negative, Urine Bilirubin Negative, Urine Urobilinogen 0.2, Ur Leukocyte Esterase Negative, Urine RBC Occasional, Urine WBC Occasional, Ur Squamous Epith Cells Occasional, Urine Bacteria 2+ Orders (Tests/Meds): ED MEDICATIONS Generic Name Dose Route Start Last Admin Trade Name Freq PRN Reason Stop Dose Admin Piperacillin Sod/Tazobactam 50 mls @ 100 mls/hr 11/15/25 14:30 11/15/25 15:31 Sod 3.375 gm/ Sodium Chloride IV 11/25/25 14:29 Infused Q8H STEPHANIE Infusion Lactated Ringer's 2,400 mls @ 1,200 mls/hr 11/15/25 14:30 11/15/25 15:02 Lactated Ringer's 1000 Ml Bag 30 ml/kg infuse over 2 hr (2400 ml) 11/15/25 16:29 1,200 mls/hr IV Administration .Q2H ONE Vancomycin HCl 2,500 mg/ 500 mls @ 250 mls/hr 11/15/25 15:00 11/15/25 15:14 Sodium Chloride IV 11/15/25 16:59 250 mls/hr ONCE ONE Administration Discontinued Medications Generic Name Dose Route Start Last Admin Trade Name Luis PRN Reason Stop Dose Admin Iopamidol 120 ml 11/15/25 14:35 11/15/25 14:36 Iopamidol-370 (76%);100ml Bottle IV 11/15/25 14:36 120 ml ONCE ONE Administration Miscellaneous 1 each 11/15/25 14:30 11/15/25 15:25 Vancomycin Consult Request NOTAPPLIC 12/15/25 14:29 1 each CONSULT PHARMACY STEPHANIE Administration Sodium Chloride 10 ml 11/15/25 14:35 11/15/25 14:36 Sodium Chloride 0.9% 10ml Syr (Rad Only) IV 11/15/25 14:36 10 ml ONCE ONE Administration Sodium Chloride 100 ml 11/15/25 14:35 11/15/25 14:36 0.9 % Sodium Chloride 50 Ml Vial IV 11/15/25 14:36 100 ml ONCE ONE Administration ORDERS Category Date Time Status CT angio LE RT Stat Cat Scan 11/15/25 14:04 Taken Foot XR right minimum 3 views [XR foot RT min 3V] Stat Exams 11/15/25 14:01 Completed Activated Partial Thrombo Time Stat Lab 11/15/25 13:56 Results C-Reactive Protein Stat Lab 11/15/25 13:56 Completed Complete Blood Count Auto Diff Stat Lab 11/15/25 13:56 Results Comprehensive Metabolic Panel Stat Lab 11/15/25 13:56 Completed Creatine Kinase Stat Lab 11/15/25 13:56 Completed Erythrocyte Sedimentation Rate Stat Lab 11/15/25 13:56 Results Lactic Acid Stat Lab 11/15/25 14:30 Completed Magnesium Stat Lab 11/15/25 13:56 Completed Prothrombin Time INR Stat Lab 11/15/25 13:56 Results Urinalysis and Microscopic Stat Lab 11/15/25 15:07 Completed Blood Culture Stat Micro 11/15/25 14:30 Received Urine Culture Stat Micro 11/15/25 13:58 Received Wound Culture and Gram Stain Stat Micro 11/15/25 14:22 Received Medical Decision Narrative: patient is a 60-year-old male presenting to the emergency department for evaluation of right great toe with erythema, wound on the bottom of right great toe. Patient is hemodynamically stable and nontoxic-appearing upon arrival, afebrile. Differential diagnosis includes ulcer on the bottom of the toe, osteomyelitis, fracture, among others. Workup will be conducted with hematologic labs, specific imaging. Initial inventions include crystalloid bolus, analgesics, antibiotics. Initial workup reviewed by me hematologic labs are remarkable for initial white count of 24.9. I went ahead and discussed antibiotic treatment with Dr. Michelle and we decided on Vanco and Zosyn to start. Patient has no history of heart failure I will also start the sepsis bolus. Imaging informally interpreted by me and remarkable for White count of 24.9, hemoglobin 13 and 40 patient's sodium was 134, potassium 4.4, chloride 96 his BUN was 41 creatinine was 1.6. Estimated GFR was 44. Elevated glucose at 318 today. Lactate was 1.9 normal AST and ALT. CRP was 267 urine was negative. Patient had a foot x-ray and a lower extremity CTA with runoff. Dr. Chan read the CTA with runoff and did not see anything acute. We will still wait for the results of this. To see if we could admit. Start Strattera for with the elevated white count and CRP she believes there might be an abscess that might need an urgent I&D. We PowerShare the images to and are contacting them now. Talk to Dr. Anton at at [facility] who accepts patient to [facility] ER for abscess, cellulitis, gangrenous toe, decubitus ulcer of right toe. Patient stable Joni Chan MD: I was consulted by the MARYJANE, and we discussed the complexity of the problems being addressed. I approved the treatment and management plan for this patient's care in the emergency department, thus performing a substantive portion of the medical decision making. Critical Care <Terese Estrella (ED), TILE APPLICATOR - Last Filed: 11/15/25 15:48> Critical Care Time Critical Care Time: No
[2025-11-15 14:35] LABS: Activated Partial Thrombo Time 32.3 seconds (22.8-30.6)
[2025-11-15] MEDS: 0.9 % SODIUM CHLORIDE 50 ML VIAL 100 ML IV (14:36)
[2025-11-15] MEDS: SODIUM CHLORIDE 0.9% 10ML SYR (RAD ONLY) 10 ML IV (14:36)
[2025-11-15] MEDS: IOPAMIDOL-370 (76%);100ML BOTTLE 120 ML IV (14:36)
[2025-11-15 14:50] LABS: Total Cells Counted 100
[2025-11-15] MEDS: LACTATED RINGERS 1000ML 2,400 ML 1200 ML IV (15:02)
[2025-11-15] MEDS: PIPERACILLIN/TAZO 3.375 GM in 0.9 % SODIUM CHLORIDE 50 ML IV (15:03)
[2025-11-15 15:13] LABS: Microscopic, Urine URINE MICROSCOPIC (MICROSCOPIC)
[2025-11-15 15:14] LABS: RBC Morphology Normal
[2025-11-15 15:14] LABS: Bilirubin,Urine Negative (Negative); Color,Urine YELLOW (Yellow); Glucose,Urine (UA) 3+ (Negative); Ketones,Urine Negative (Negative); Leukocyte Esterase,Urine Negative (Negative); PH,Urine 5.5 (5.0-8.5); Protein,Urine Negative (Negative); Specific Gravity, Urine 1.015 (1.005-1.030); Urobilinogen,Urine 0.2 EU/dl (0.2)
[2025-11-15] MEDS: VANCOMYCIN HCL 2,500 MG in 0.9 % SODIUM CHLORIDE 500 ML 250 MG IV (15:14)
[2025-11-15] MEDS: VANCOMYCIN CONSULT REQUEST 1 EACH NOTAPPLIC (15:25)
--- NOTE | 2025-11-15 15:37 | PC.NURSE ---
lety shared images to [facility]
--- NOTE | 2025-11-15 15:40 | PC.NURSE ---
Called [facility] for possible patient transfer and they are going to call back.
--- NOTE | 2025-11-15 15:41 | PC.NURSE ---
[facility] is on the phone with Lanie now.
--- NOTE | 2025-11-15 16:00 | PC.NURSE ---
called [facility] for transport to [facility]
[2025-11-15 16:04] LABS: Bacteria,Urine 2+ /lpf; RBC,Urine Occasional #/hpf (0-3); Squamous Epithelial Cell,Urine Occasional #/hpf (0-5); WBC,Urine Occasional #/hpf (0-3)
[2025-11-15 17:25] LABS: INR 1.17 (0.9-1.1); Prothrombin Time 12.8 seconds (10.1-12.5)
[2025-11-16 10:46] LABS: Acinetobacter calcoaceticus-ba Not Detected; Bacteroides fragilis Not Detected; Candida auris Not Detected; Candida glabrata Not Detected; Enterobacterales Not Detected; Enterococcus faecalis Not Detected; Enterococcus faecium Not Detected; Klebsiella aerogenes Not Detected; Klebsiella pneumoniae grp Not Detected; Proteus spp. Not Detected; Salmonella spp. Not Detected; Serratia marcescens Not Detected; Staphylococcus epidermidis Not Detected; Staphylococcus lugdunensis Not Detected; Staphylococcus spp. Detected; Stenotrophomonas maltophilia Not Detected; Streptococcus agalactiae(GrpB) Not Detected; Streptococcus pyogenes Group A Not Detected; Streptococcus spp. Not Detected; mecA/C and MREJ (MRSA) Detected
[2025-11-16 10:48] LABS: Acinetobacter calcoaceticus-ba Not Detected; Bacteroides fragilis Not Detected; Candida auris Not Detected; Candida glabrata Not Detected; Enterobacterales Not Detected; Enterococcus faecalis Not Detected; Enterococcus faecium Not Detected; Klebsiella aerogenes Not Detected; Klebsiella pneumoniae grp Not Detected; Proteus spp. Not Detected; Salmonella spp. Not Detected; Serratia marcescens Not Detected; Staphylococcus epidermidis Not Detected; Staphylococcus lugdunensis Not Detected; Staphylococcus spp. Detected; Stenotrophomonas maltophilia Not Detected; Streptococcus agalactiae(GrpB) Not Detected; Streptococcus pyogenes Group A Not Detected; Streptococcus spp. Not Detected; mecA/C and MREJ (MRSA) Detected
--- NOTE | 2025-11-16 10:49 | PC.NURSE ---
Blood culture results faxed to [facility]
--- NOTE | 2025-11-17 10:57 | PC.NURSE ---
Final culture results faxed to [facility]
--- NOTE | 2025-11-18 09:38 | PC.NURSE ---
final report for blood culture called to this nurse.
== END 2025-11-15 18:27 | disposition other institution (70) ==
PROVIDERS: Nurse Practitioner; Emergency Provider Student in an Organized Health Care Education/Training Program; PCP Student in an Organized Health Care Education/Training Program
DX: A41.02 Sepsis due to Methicillin resistant Staphylococcus aureus (principal); I96 Gangrene, not elsewhere classified; L02.611 Cutaneous abscess of right foot; L03.031 Cellulitis of right toe; B95.62 Methicillin resistant Staphylococcus aureus infection as the cause of diseases classified elsewhere
CPT/HCPCS: 73630; 73706; 80053; 81001; 82550; 83605; 83735; 85007; 85025; 85027; 85610; 85651; 85730; 86140; 87040; 87070; 87077; 87086; 87154; 87186; 87205; 96365; 96366; 99285; J2543; J3373; J7040; J7120; Q9967